=== PATIENT | female | born 1945 | race Caucasian/White ===

== ENCOUNTER 2018-05-17 10:15 | Emergency (ER) | payer MEDICARE, OTHER, SELFPAY ==
[2018-05-17 10:40] VITALS: BP 158/71; PULSE 81; RESP 16; TEMP 36.9; O2SAT 100
--- NOTE | 2018-05-17 11:04 | W.ED.GENAD ---
Discharge Plan Disposition Patient Disposition: HOME Condition: Fair Discharge Details Chief Complaint: GenMedical Clinical Impression: UTI (urinary tract infection) Primary Care Provider: Radha Flannery ED Provider: Belen Murillo Home Meds and New Rx's Prescriptions: New phenazopyridine [Pyridium] 100 mg tablet 100 mg PO TID PRN (Reason: pain) 0 Days Qty: 6 RF: 0 cephalexin [Keflex] 500 mg capsule 500 mg PO BID Qty: 10 RF: 0 Continued atorvastatin 20 mg tablet 20 mg PO DAILY RF: 0 ibuprofen 200 mg tablet 200 mg PO Q6H PRNRF: 0 lisinopril 5 mg tablet 5 mg PO DAILY RF: 0 sennosides 25 mg tablet 25 mg PO ONCE PRNRF: 0 aspirin 81 mg tablet,delayed release (DR/EC) 81 mg PO DAILY RF: 0 donepezil [Aricept] 5 mg tablet 5 mg PO DAILY RF: 0 levothyroxine 75 MCG tablet 75 mcg PO DAILY Qty: 90 RF: 4 Discharge Instructions Instructions: Urinary Tract Infection in Women (ED) Additional Instructions: Encourage hydration. Please take antibiotics as prescribed. Even if symptoms improve, please take the entire course. If you develop flank pain, fever/chills, nausea vomiting, change in bowel habits or other new/worsening symptoms please seek care urgently once again. You have a follow-up appointment to discuss your chronic intermittent blurred vision with Dr. Butterfield on May 31 at 3:45 PM. Please keep this appointment, if you are unable to please call the office Referrals: Radha Flannery MD, [place] [Primary Care Provider] - Discharge Data Discharge Date/Time-TO BE ENTERED AT DEPARTURE: 05/17/18 14:12 Medical Decision Making Patient is a 72 year old female, accompanied by , with c/c of UTI. Reprots that starting this morning she has had dysurea, increased frequency and urgency. Denies flank pain. No fevers/chills. No vaginal discharge. No change in bowel habits. Patient is also endorsing intermittent blurred vision with stress since her cataract surgery one month ago, preformed by Dr. Jiang. Denies symptoms currently. Reports that when she gets this it lasts a few minutes and subsides. Denies CLINE. Denies weakness. contacted Dr. Jiang office, she has complained of blurred vision to them for years per their report. She had surgery this past summer, surgery was not one month ago. Discussed further with the patient. She does report now that there is intermittent blurred vision associated with stress has been going on for the past several years. Is able to make an appointment for follow-up with professor of genetics in 1 week. We discussed new/worsening symptoms when to seek care urgently once again for her blurred vision. As this sounds chronic in nature, has been evaluated by professor of genetics on multiple occasions, I do not feel that emergent evaluation is warranted at this time particularly as the patient is not currently symptomatic and feels that this is unchanged from her baseline Urinalysis consistent with urinary tract infection. Encourage hydration. Patient be treated with antibiotics. We discussed new/worsening symptoms when to seek care urgently once again. Advise follow-up with primary care at the end of the week if this is not completely improved. Patient is also requesting a prescription for Pyridium to help with symptomatic management. All the questions and concerns were addressed and they are in agreement this plan. HPI General Mode of arrival: ambulatory. Date/Time Provider Initiated Documentation: 05/17/18 11:03. Limitations to Documentation: no limitations. Information obtained by: patient and family. History of Present Illness 72 year old F presents to the emergency department with the chief complaint of dysurea, frequency, urgency of urination, described as mild, Quality is described as burning (with urination), Patient reports no radiation. Patient started experiencing this day(s) (1) and it has been constant. No relieving factors improve symptom(s), No exacerbating factors reported . Patient notes denies chest pain, cough, fever/chills, headaches, loss of appetite, nausea/vomiting, rash and shortness of breath. Patient did receive the following treatments prior to arrival, none Related Data Home Medications Medication Instructions Recorded Confirmed levothyroxine 75 mcg PO DAILY #90 tab-cap 09/09/17 aspirin 81 mg tablet,delayed 81 mg PO DAILY 05/12/18 05/12/18 release atorvastatin 20 mg tablet 20 mg PO DAILY 05/12/18 05/12/18 donepezil 5 mg tablet 5 mg PO DAILY 05/12/18 05/12/18 ibuprofen 200 mg tablet 200 mg PO Q6H PRN tab 05/12/18 05/12/18 lisinopril 5 mg tablet 5 mg PO DAILY 05/12/18 05/12/18 sennosides 25 mg tablet 25 mg PO ONCE PRN 05/12/18 05/12/18 cephalexin [Keflex] 500 mg PO BID #10 cap 05/17/18 phenazopyridine [Pyridium] 100 mg PO TID PRN 0 Days #6 tab 05/17/18 Previous Rx's Medication Instructions Recorded cephalexin [Keflex] 500 mg PO BID #10 cap 05/17/18 phenazopyridine [Pyridium] 100 mg PO TID PRN 0 Days #6 tab 05/17/18 Allergies Allergy/AdvReac Type Severity Reaction Status Date / Time No Known Allergies Allergy Unverified 05/17/18 10:46 General Stated Complaint: GenMedical ERICA: 3 Review of Systems Constitutional Reports as per HPI, Denies chills, Denies fever(s) and Denies poor appetite Eyes Reports blurry vision (intermittent with stress, currently asymptomatic. Since surgery.) Cardiovascular Denies chest pain Respiratory Denies cough Gastrointestinal Denies abdominal pain, Denies change in bowel habits, Denies nausea and Denies vomiting Genitourinary Reports as per HPI Musculoskeletal Reports as per HPI and Denies back pain Integumentary/Breasts Reports as per HPI and Denies rash PFSH Medical History Depression Hypertension Hypothyroidism Tobacco use Surgical History Cataract extraction status, left eye (Acute ~01/2018) Cataract extraction status, right eye (Acute ~01/2018) Vaginal hysterectomy Family History Mother Breast cancer Father Emphysema lung Smoker Sister No problems noted. Brother No problems noted. Son No problems noted. Son No problems noted. Daughter No problems noted. Daughter No problems noted. Social History household members: spouse pets and animals: No Smoking/Tobacco Use Status: Current every day alcohol intake: current alcohol intake frequency: a few times a week substance use type: does not use Exam Const General: cooperative, healthy appearing, comfortable, no acute distress, well developed and well groomed Nutritional Appearance: average body habitus and well nourished Orientation: alert and awake Eyes General: appearance normal, both eyes and all related structures Visual Palmer: normal visual palmer by confrontation Alignment and Position: alignment normal Periorbital: periorbital findings normal Eyelids: eyelids normal Conjunctivae: conjunctivae normal Pupils: PERRL EOM: EOM intact bilaterally Resp Effort & Inspection: normal respiratory effort and no respiratory distress Auscultation: clear to auscultation bilaterally, no rales, no rhonchi and no wheezes Cardio Rate: regular rate Rhythm: regular rhythm Heart Sounds: S1 normal and S2 normal GI Inspection: normal to inspection Palpation: soft, no hepatosplenomegaly, not firm, no guarding, not rigid and nontender Back/Spine/Pelvis Back: no CVA tenderness Skin General skin exam: no rashes or lesions noted Trauma: no lacerations or abrasions Neuro General: alert and awake Cognition: normal cognition Speech: speech normal Gait: normal gait Psych Appearance: grossly normal and well kempt Mental Status: mental status grossly normal Speech and Movement: speech and movement normal Course Vital Signs Temperature 36.9 C 05/17/18 10:40 Pulse 81 05/17/18 10:40 Respiratory Rate 16 05/17/18 10:40 Blood Pressure 158/71 H 05/17/18 10:40 Pulse Oximetry 100 05/17/18 10:40 Temperature 36.9 C 05/17/18 10:40 Temperature Source Skin 05/17/18 10:40 Pulse 81 05/17/18 10:40 Respiratory Rate 16 05/17/18 10:40 Respiratory Effort 05/17/18 10:40 Blood Pressure 158/71 H 05/17/18 10:40 Pulse Oximetry 100 05/17/18 10:40 Oxygen Delivery Method Room Air 05/17/18 10:40 Oxygen Flow Rate 0 05/17/18 10:40 Pain Level 0 05/17/18 10:40
[2018-05-17 11:14] LABS: Bilirubin Negative (Negative); Blood Negative (Negative); Clarity Clear; Glucose Negative (Negative); Ketones Negative (Negative); Leukocyte Esterase Trace (Negative); Nitrite Negative (Negative); Specific Gravity 1.015 (1.005-1.025); Urobilinogen 0.2 EU/dL (Up TO 0.2); pH 7.5 (5-8)
--- NOTE | 2018-05-17 11:27 | ED.GENADUL_ITS ---
Discharge Plan Disposition Patient Disposition: HOME Condition: Fair Discharge Details Chief Complaint: GenMedical Clinical Impression: UTI (urinary tract infection) Primary Care Provider: Radha Flannery ED Provider: Belen Murillo Home Meds and New Rx's Prescriptions: New phenazopyridine [Pyridium] 100 mg tablet 100 mg PO TID PRN (Reason: pain) 0 Days Qty: 6 RF: 0 cephalexin [Keflex] 500 mg capsule 500 mg PO BID Qty: 10 RF: 0 Continued atorvastatin 20 mg tablet 20 mg PO DAILY RF: 0 ibuprofen 200 mg tablet 200 mg PO Q6H PRNRF: 0 lisinopril 5 mg tablet 5 mg PO DAILY RF: 0 sennosides 25 mg tablet 25 mg PO ONCE PRNRF: 0 aspirin 81 mg tablet,delayed release (DR/EC) 81 mg PO DAILY RF: 0 donepezil [Aricept] 5 mg tablet 5 mg PO DAILY RF: 0 levothyroxine 75 MCG tablet 75 mcg PO DAILY Qty: 90 RF: 4 Discharge Instructions Instructions: Urinary Tract Infection in Women (ED) Additional Instructions: Encourage hydration. Please take antibiotics as prescribed. Even if symptoms improve, please take the entire course. If you develop flank pain, fever/chills, nausea vomiting, change in bowel habits or other new/worsening symptoms please seek care urgently once again. You have a follow-up appointment to discuss your chronic intermittent blurred vision with Dr. Butterfield on May 31 at 3:45 PM. Please keep this appointment, if you are unable to please call the office Referrals: Radha Flannery MD, [place] [Primary Care Provider] - Discharge Data Discharge Date/Time-TO BE ENTERED AT DEPARTURE: 05/17/18 14:12 Medical Decision Making Patient is a 72 year old female, accompanied by , with c/c of UTI. Reprots that starting this morning she has had dysurea, increased frequency and urgency. Denies flank pain. No fevers/chills. No vaginal discharge. No change in bowel habits. Patient is also endorsing intermittent blurred vision with stress since her cataract surgery one month ago, preformed by Dr. Jiang. Denies symptoms currently. Reports that when she gets this it lasts a few minutes and subsides. Denies CLINE. Denies weakness. contacted Dr. Jiang office, she has complained of blurred vision to them for years per their report. She had surgery this past summer, surgery was not one month ago. Discussed further with the patient. She does report now that there is intermittent blurred vision associated with stress has been going on for the past several years. Is able to make an appointment for follow-up with assurance manager in 1 week. We discussed new/worsening symptoms when to seek care urgently once again for her blurred vision. As this sounds chronic in nature, has been evaluated by assurance manager on multiple occasions, I do not feel that emergent evaluation is warranted at this time particularly as the patient is not currently symptomatic and feels that this is unchanged from her baseline Urinalysis consistent with urinary tract infection. Encourage hydration. Patient be treated with antibiotics. We discussed new/worsening symptoms when to seek care urgently once again. Advise follow-up with primary care at the end of the week if this is not completely improved. Patient is also requesting a prescription for Pyridium to help with symptomatic management. All the questions and concerns were addressed and they are in agreement this plan. HPI General Mode of arrival: ambulatory . Date/Time Provider Initiated Documentation: 05/17/18 11:03 . Limitations to Documentation: no limitations . Information obtained by: patient and family . History of Present Illness 72 year old F presents to the emergency department with the chief complaint of dysurea, frequency, urgency of urination, described as mild, Quality is described as burning (with urination), Patient reports no radiation. Patient started experiencing this day(s) (1) and it has been constant. No relieving factors improve symptom(s), No exacerbating factors reported . Patient notes denies chest pain, cough, fever/chills, headaches, loss of appetite, nausea/vomiting, rash and shortness of breath. Patient did receive the following treatments prior to arrival, none Related Data Home Medications Medication Instructions Recorded Confirmed levothyroxine 75 mcg PO DAILY #90 tab-cap 09/09/17 aspirin 81 mg tablet,delayed 81 mg PO DAILY 05/12/18 05/12/18 release atorvastatin 20 mg tablet 20 mg PO DAILY 05/12/18 05/12/18 donepezil 5 mg tablet 5 mg PO DAILY 05/12/18 05/12/18 ibuprofen 200 mg tablet 200 mg PO Q6H PRN tab 05/12/18 05/12/18 lisinopril 5 mg tablet 5 mg PO DAILY 05/12/18 05/12/18 sennosides 25 mg tablet 25 mg PO ONCE PRN 05/12/18 05/12/18 cephalexin [Keflex] 500 mg PO BID #10 cap 05/17/18 phenazopyridine [Pyridium] 100 mg PO TID PRN 0 Days #6 tab 05/17/18 Previous Rx's Medication Instructions Recorded cephalexin [Keflex] 500 mg PO BID #10 cap 05/17/18 phenazopyridine [Pyridium] 100 mg PO TID PRN 0 Days #6 tab 05/17/18 Allergies Allergy/AdvReac Type Severity Reaction Status Date / Time No Known Allergies Allergy Unverified 05/17/18 10:46 General Stated Complaint: GenMedical ERICA: 3 Review of Systems Constitutional Reports as per HPI, Denies chills, Denies fever(s) and Denies poor appetite Eyes Reports blurry vision (intermittent with stress, currently asymptomatic. Since surgery.) Cardiovascular Denies chest pain Respiratory Denies cough Gastrointestinal Denies abdominal pain, Denies change in bowel habits, Denies nausea and Denies vomiting Genitourinary Reports as per HPI Musculoskeletal Reports as per HPI and Denies back pain Integumentary/Breasts Reports as per HPI and Denies rash PFSH Medical History Depression Hypertension Hypothyroidism Tobacco use Surgical History Cataract extraction status, left eye (Acute ~01/2018) Cataract extraction status, right eye (Acute ~01/2018) Vaginal hysterectomy Family History Mother Breast cancer Father Emphysema lung Smoker Sister No problems noted. Brother No problems noted. Son No problems noted. Son No problems noted. Daughter No problems noted. Daughter No problems noted. Social History household members: spouse pets and animals: No Smoking/Tobacco Use Status: Current every day alcohol intake: current alcohol intake frequency: a few times a week substance use type: does not use Exam Const General: cooperative, healthy appearing, comfortable, no acute distress, well developed and well groomed Nutritional Appearance: average body habitus and well nourished Orientation: alert and awake Eyes General: appearance normal, both eyes and all related structures Visual Palmer: normal visual palmer by confrontation Alignment and Position: alignment normal Periorbital: periorbital findings normal Eyelids: eyelids normal Conjunctivae: conjunctivae normal Pupils: PERRL EOM: EOM intact bilaterally Resp Effort & Inspection: normal respiratory effort and no respiratory distress Auscultation: clear to auscultation bilaterally, no rales, no rhonchi and no wheezes Cardio Rate: regular rate Rhythm: regular rhythm Heart Sounds: S1 normal and S2 normal GI Inspection: normal to inspection Palpation: soft, no hepatosplenomegaly, not firm, no guarding, not rigid and nontender Back/Spine/Pelvis Back: no CVA tenderness Skin General skin exam: no rashes or lesions noted Trauma: no lacerations or abrasions Neuro General: alert and awake Cognition: normal cognition Speech: speech normal Gait: normal gait Psych Appearance: grossly normal and well kempt Mental Status: mental status grossly normal Speech and Movement: speech and movement normal Course Vital Signs Temperature 36.9 C 05/17/18 10:40 Pulse 81 05/17/18 10:40 Respiratory Rate 16 05/17/18 10:40 Blood Pressure 158/71 H 05/17/18 10:40 Pulse Oximetry 100 05/17/18 10:40 Temperature 36.9 C 05/17/18 10:40 Temperature Source Skin 05/17/18 10:40 Pulse 81 05/17/18 10:40 Respiratory Rate 16 05/17/18 10:40 Respiratory Effort 05/17/18 10:40 Blood Pressure 158/71 H 05/17/18 10:40 Pulse Oximetry 100 05/17/18 10:40 Oxygen Delivery Method Room Air 05/17/18 10:40 Oxygen Flow Rate 0 05/17/18 10:40 Pain Level 0 05/17/18 10:40
[2018-05-17 11:30] LABS: Bacteria Many HPF (Negative); Epithelial Cells Few HPF (Negative); RBC Negative (0-2)
[2018-05-17 11:31] LABS: C & S Indicated? Yes; Crystals Negative HPF (Negative); Mucus Negative (Negative)
--- NOTE | 2018-05-17 11:32 | NUR.NOTE ---
20/40 right eye 20/40 left eye 20/40 bilateral eye Nursing Note:
== END 2018-05-17 14:12 | disposition home or self-care (01) ==
PROVIDERS: Emergency Provider Physician Assistant; PCP Family Medicine
DX: N39.0 Urinary tract infection, site not specified (principal); B96.1 Klebsiella pneumoniae [K. pneumoniae] as the cause of diseases classified elsewhere; H53.8 Other visual disturbances; Z87.440 Personal history of urinary (tract) infections
CPT/HCPCS: 36415; 87077; 99283; 81003; 81015; 87086; 87186

== ENCOUNTER 2018-06-02 08:17 | Outpatient (REF) | payer MEDICARE, OTHER, SELFPAY ==
[2018-06-02 09:09] LABS: Bilirubin Negative (Negative); Blood Negative (Negative); Glucose Negative (Negative); Ketones Negative (Negative); Leukocyte Esterase Negative (Negative); Nitrite Negative (Negative); Specific Gravity 1.025 (1.005-1.025); Urobilinogen 0.2 EU/dL (Up TO 0.2)
[2018-06-02 09:10] LABS: Clarity Sl Cloudy
== END 2018-06-02 08:37 ==
LOC: LBN 08:17
PROVIDERS: PCP Family Medicine; Visit Provider Family Medicine
DX: N39.0 Urinary tract infection, site not specified (principal)
CPT/HCPCS: 81003

== ENCOUNTER 2018-06-08 10:38 | Outpatient (CLI) | payer MEDICARE, OTHER, SELFPAY ==
[2018-06-08 11:22] LABS: Mean Corp. HGB Concentration 32.4 g/dL (32.0-36.0); Mean Corpuscular Hemoglobin 32.2 pg (27.0-33.0); Mean Corpuscular Volume 99.2 fL (80-95); Mean Platelet Volume 9.7 fL (8.0-11.0); Platelet Count 266 x1000/uL (130-400); RBC 3.73 m/cumm (4.00-5.20); RBC Distribution Width 13.4 % (11.7-14.6); White Blood Cell Count 5.53 k/cumm (4.4-10.8)
[2018-06-08 11:51] LABS: Hemoglobin A1C 5.8 % (4.5-6.2)
[2018-06-08 12:53] LABS: Iron 106 ug/dL (50-175)
[2018-06-08 13:30] LABS: ALT 22 U/L (12-78); AST 18 U/L (15-37); Albumin 3.4 g/dL (3.4-5.0); Alkaline Phosphatase 104 U/L (46-116); Anion Gap 8.1 mmol/L (3-11); BUN 19 mg/dL (7-18); Bilirubin, Total 0.4 mg/dL (0.2-1.0); CO2 27.9 mmol/L (21.0-32.0); CREATININE 0.85 mg/dL (0.55-1.02); Calcium 9.3 mg/dL (8.5-10.1); Chloride 107 mmol/L (98-107); Cholesterol 173 mg/dL (50-200); Glucose 83 mg/dL (70-100); HDL Cholesterol 68 mg/dL (40-60); LDL CHOLESTEROL 84 mg/dL (<100); Potassium 4.2 mmol/L (3.5-5.1); Sodium 143 mmol/L (136-145); Total Protein 6.7 g/dL (6.4-8.2); Triglyceride 70 mg/dL (30-150); Vitamin B12 1251 pg/mL (193-986)
== END 2018-06-08 10:58 ==
PROVIDERS: PCP Family Medicine; Visit Provider Family Medicine
DX: E11.9 Type 2 diabetes mellitus without complications (principal); E03.9 Hypothyroidism, unspecified; I10 Essential (primary) hypertension; F32.9 Major depressive disorder, single episode, unspecified; G31.9 Degenerative disease of nervous system, unspecified
CPT/HCPCS: 36415; 80053; 80061; 83721; 85027; 82607; 83036; 83540

== ENCOUNTER 2018-06-17 07:00 | Outpatient (CLI) | payer MEDICARE, OTHER, SELFPAY | END 2018-06-17 07:20 | PROVIDERS: PCP Family Medicine; Visit Provider Family Medicine | DX: E03.9 Hypothyroidism, unspecified (principal); R31.29 Other microscopic hematuria | CPT/HCPCS: 36415; 87077; 81003; 84439; 84443; 87086; 87186 ==

== ENCOUNTER 2018-08-15 11:02 | Outpatient (REF) | payer MEDICARE, OTHER, SELFPAY ==
[2018-08-15 12:02] LABS: Bilirubin Negative (Negative); Blood Negative (Negative); Clarity Clear; Glucose Negative (Negative); Ketones Negative (Negative); Leukocyte Esterase Trace (Negative); Nitrite Positive (Negative); Urobilinogen 0.2 EU/dL (Up TO 0.2); pH 6.5 (5-8)
[2018-08-15 12:20] LABS: Epithelial Cells Rare HPF (Negative); RBC 0-2 (0-2)
[2018-08-15 12:21] LABS: Bacteria Many HPF (Negative); C & S Indicated? Yes; Casts Negative LPF (Negative); Crystals Negative HPF (Negative); Mucus Negative (Negative); Other Cells Negative (Negative)
== END 2018-08-15 11:22 ==
LOC: LBN 11:02
PROVIDERS: PCP Family Medicine; Visit Provider Family Medicine
DX: R41.82 Altered mental status, unspecified (principal); R82.998 Other abnormal findings in urine
CPT/HCPCS: 87077; 81003; 81015; 87086; 87186

== ENCOUNTER 2018-08-28 08:50 | Emergency (ER) | payer MEDICARE, OTHER, SELFPAY ==
[2018-08-28] VITALS (11 sets, daily range): BP systolic 157–190; BP diastolic 75–84; PULSE 60–82; RESP 12–23; TEMP 36.5; O2SAT 97–98
--- NOTE | 2018-08-28 09:17 | DI.CT_ITS ---
SYMPTOM/DIAGNOSIS: HIGH BLOOD PRESSURE, DIZZY NONCONTRAST HEAD CT: No priors. The ventricles and sulci are consistent with the patient's age. No acute intracranial infarct, hemorrhage, midline shift or mass effect is identified. The ventricles are intact. The basilar cisterns are patent. The visualized paranasal sinuses are clear. The mastoid air cells appear pneumatized. The calvarium is intact. IMPRESSION: No acute intracranial process.
--- NOTE | 2018-08-28 09:20 | ED.GENADUL_ITS ---
Discharge Plan Disposition Patient Disposition: HOME Condition: Improving Discharge Details Chief Complaint: GenMedical Clinical Impression: Essential hypertension Primary Care Provider: Radha Flannery ED Provider: Kike Montenegro Home Meds and New Rx's Prescriptions: Continued ibuprofen 200 mg tablet 200 mg PO Q6H PRNRF: 0 sennosides 25 mg tablet 25 mg PO ONCE PRNRF: 0 lisinopril 5 mg tablet 5 mg PO DAILY RF: 0 escitalopram oxalate 20 mg tablet 20 mg PO DAILY Qty: 90 RF: 4 levothyroxine 75 MCG tablet 75 mcg PO DAILY Qty: 90 RF: 4 memantine [Namenda] 10 mg tablet 10 mg PO BID Qty: 60 RF: 5 cephalexin 500 mg capsule 500 mg PO TID Qty: 42 RF: 0 Discharge Instructions Instructions: Hypertension (ED) Additional Instructions: Home to rest today. Observe a low-salt diet. We will make an appointment for you to follow-up in clinic on Thursday or Thursday. Please take once daily blood pressures and record them. Return if you develop a headache, vomiting, chest pain, or any other acute concerns. Continue your regular medications and finish the prescription of Keflex. Follow-up with Dr. Melo as planned. Medical Decision Making 73-year-old female presents from home with family with 3 days of note of blood pressure is approximate 180/90 at home with associated feeling of pressure in her head and slight dizziness. No vestibular dysfunction, no falls. Her exam is reassuring. She is hypertensive 190/84, otherwise normal vital signs. Patient had screening EKG, labs, UA, and CT head performed. Repeat BP in the ED: 157/77 & 165/75. Urinalysis without evidence of UTI. CBC and chemistries with troponin are unremarkable as well. CT scan of the head without acute intracranial findings. Discussed my impression that this may be mild hypertensive related symptoms versus anxiety. Given the blood pressure is 150s-160s I do not feel I should initiate increased antihypertensive control at this time, but rather will arrange for an appointment with Dr. Flannery in clinic on Thursday or Thursday. Patient and family will continue to check once daily blood pressures. They will return for any acute concerns Lab Data Lab results reviewed: Yes I reviewed the patient's lab results. Laboratory Results - last 24 hr 08/28/18 08/28/18 08/28/18 09:30 09:30 10:05 WBC 5.60 RBC 3.96 L Hgb 12.5 Hct 38.6 MCV 97.5 H MCH 31.6 MCHC 32.4 RDW 13.5 Plt Count 344 MPV 9.4 Immature Gran % 0.4 Neutrophils % 71.0 Lymphocytes % 18.6 Monocytes % 6.8 Eosinophils % 2.7 Basophils % 0.5 Absolute Neutrophils 3.98 Absolute Lymphocytes 1.04 L Absolute Monocytes 0.38 Absolute Eosinophils 0.15 Absolute Basophils 0.03 Sodium 143 Potassium 3.7 Chloride 106 Carbon Dioxide 26.8 Anion Gap 10.2 BUN 13 Creatinine 0.74 Estimated GFR/1.73 m2 >= 60.00 Glucose 101 H Calcium 9.1 Magnesium 2.2 Total Bilirubin 0.4 AST 14 L ALT 15 Alkaline Phosphatase 103 Troponin I < 0.02 Total Protein 7.1 Albumin 3.4 Urine Color Yellow Urine Clarity Clear Urine pH 7.0 Ur Specific [place] 1.020 Urine Protein Negative Urine Ketones Negative Urine Blood Negative Urine Nitrite Negative Urine Bilirubin Negative Urine Urobilinogen 0.2 Ur Leukocyte Esterase Negative Urine Glucose Negative ECG Data Attestation: I personally reviewed and interpreted this ECG (s) as follows: Interpretation: Normal sinus rhythm with a rate of 68, the QRS is narrow, there are nonspecific ST segment flattening throughout without ST segment L of HPI General Mode of arrival: ambulatory . Date/Time Provider Initiated Documentation: 08/28/18 09:00 . Limitations to Documentation: no limitations . Information obtained by: patient and family . History of Present Illness 73 year old F presents to the emergency department with the chief complaint of Feeling pressure in head and slightly dizzy with elevated blood pressure, described as mild, Quality is described as dull, and is localized to the head. Patient reports no radiation. Patient started experiencing this day(s) and it has been intermittent. No relieving factors improve symptom(s), No exacerbating factors reported . Patient notes no other symptoms.; denies chest pain, nausea/vomiting, syncope and weakness. Patient did receive the following treatments prior to arrival, none and other (On Keflex for recurrent UTI and has been referred to Dr. Melo) Related Data Home Medications Medication Instructions Recorded Confirmed levothyroxine 75 mcg PO DAILY #90 tab-cap 09/09/17 08/28/18 ibuprofen 200 mg tablet 200 mg PO Q6H PRN tab 05/12/18 08/28/18 sennosides 25 mg tablet 25 mg PO ONCE PRN 05/12/18 08/28/18 escitalopram 20 mg tablet 20 mg PO DAILY #90 tab 07/15/18 08/28/18 lisinopril 5 mg tablet 5 mg PO DAILY 07/15/18 08/28/18 memantine 10 mg tablet 10 mg PO BID #60 tab 07/28/18 08/28/18 cephalexin 500 mg capsule 500 mg PO TID #42 cap 08/19/18 08/28/18 Previous Rx's Medication Instructions Recorded escitalopram 20 mg tablet 20 mg PO DAILY #90 tab 07/15/18 memantine 10 mg tablet 10 mg PO BID #60 tab 07/28/18 cephalexin 500 mg capsule 500 mg PO TID #42 cap 08/19/18 Allergies Allergy/AdvReac Type Severity Reaction Status Date / Time bupropion [From Wellbutrin] AdvReac Intermediate Palpitation Verified 08/28/18 08:59 s General Stated Complaint: GenMedical ERICA: 3 Review of Systems Review of Systems No chest pain, fall, focal motor weakness. 8 systems reviewed and otherwise negative. She has referral to urology for recurrent UTIs and currently is on Keflex [facility] Medical History Brain atrophy (Chronic) Migraine (Chronic) Ischemic vascular disease (Chronic) Age-related cataract of both eyes (Resolved) Chronic fatigue (Chronic) Depression (Chronic 08/23/15) Essential hypertension (Chronic) Hypothyroidism (Chronic 08/23/15) Seasonal affective disorder (Chronic) Tobacco use disorder (Chronic 08/23/15) Vitamin D deficiency (Chronic) Depression Hypertension Hypothyroidism Tobacco use Surgical History Cataract extraction status, left eye (Acute ~01/2018) Cataract extraction status, right eye (Acute ~01/2018) Vaginal hysterectomy Family History Mother Breast cancer Father Emphysema lung Smoker Sister No problems noted. Brother No problems noted. Son No problems noted. Son No problems noted. Daughter No problems noted. Daughter No problems noted. Social History (Reviewed 05/17/18 @ 22:16 by SHIVA Carias Smoking/Tobacco Use Status: Current every day Tobacco Type: cigarettes Alcohol Intake: never Drug use: Never Substance use type: does not use Household members: spouse Pets and animals: No Do you feel safe in your relationship?: Yes Exam Narrative Exam Narrative: GEN: awake, alert, oriented 3. Pleasant, well groomed, interactive. HEAD: Normocephalic, atraumatic ENT: Mucous membranes moist, oropharynx unremarkable, External ear exam unremarkable EYES: PERRL, EOMI NECK: Full ROM, no KAIA, no menigismus CHEST/RESP: Nontender, clear to auscultation bilateral, no wheeze/rhonchi/rales CARDIOVASCULAR: RRR, no murmur, rub janna. 2+ Rad pulse bilateral ABDOMEN: Soft, nontender, no mass. +Bowel sounds EXT: Full ROM, no edema, no rash Neuro: Grossly normal neurologic exam, conversant, interactive. Finger to nose intact. Visual webster intact to confrontation. Romberg negative. Gait narrow based with good heel strike Psych: Speech fluent, thoughts congruent, affect normal Course Vital Signs Temperature 36.5 C 08/28/18 08:56 Pulse 82 08/28/18 08:56 Respiratory Rate 16 08/28/18 08:56 Blood Pressure 190/84 H 08/28/18 08:56 Pulse Oximetry 97 08/28/18 08:56 Temperature 36.5 C 08/28/18 08:56 Temperature Source Skin 08/28/18 08:56 Pulse 82 08/28/18 08:56 Respiratory Rate 16 08/28/18 09:05 Respiratory Effort Non-Labored 08/28/18 09:05 Respiratory Depth Normal 08/28/18 09:05 Respiratory Pattern Normal 08/28/18 09:05 Blood Pressure 190/84 H 08/28/18 08:56 Blood Pressure Position Sitting 08/28/18 08:56 Pulse Oximetry 97 08/28/18 08:56 Oxygen Delivery Method Room Air 08/28/18 08:56 Oxygen Flow Rate 0 08/28/18 08:56 Pain Level 0 08/28/18 08:56
[2018-08-28 09:35] LABS: Abs Immature Grans 0.02 k/cumm (0.0-0.09); Absolute Basophil Count 0.03 k/cumm (0.0-0.2); Absolute Eosinophil Count 0.15 k/cumm (0.0-0.7); Absolute Lymphocyte Count 1.04 k/cumm (1.2-3.4); Absolute Monocyte Count 0.38 k/cumm (0.11-0.7); Absolute Neutrophil Count 3.98 k/cumm (1.2-6.7); Basophils % 0.5; Eosinophils % 2.7; HCT 38.6 % (36.0-46.0); HGB 12.5 g/dL (12.0-15.5); Immature Grans % 0.4; Lymphocytes % 18.6; Mean Corp. HGB Concentration 32.4 g/dL (32.0-36.0); Mean Corpuscular Hemoglobin 31.6 pg (27.0-33.0); Mean Corpuscular Volume 97.5 fL (80-95); Mean Platelet Volume 9.4 fL (8.0-11.0); Monocytes % 6.8; Platelet Count 344 x1000/uL (130-400); RBC 3.96 m/cumm (4.00-5.20); RBC Distribution Width 13.5 % (11.7-14.6)
[2018-08-28 09:50] LABS: ALT 15 U/L (12-78); AST 14 U/L (15-37); Albumin 3.4 g/dL (3.4-5.0); Alkaline Phosphatase 103 U/L (46-116); Anion Gap 10.2 mmol/L (3-11); BUN 13 mg/dL (7-18); Bilirubin, Total 0.4 mg/dL (0.2-1.0); CO2 26.8 mmol/L (21.0-32.0); CREATININE 0.74 mg/dL (0.55-1.02); Calcium 9.1 mg/dL (8.5-10.1); Chloride 106 mmol/L (98-107); Glucose 101 mg/dL (70-100); Magnesium 2.2 mg/dL (1.8-2.4); Potassium 3.7 mmol/L (3.5-5.1); Sodium 143 mmol/L (136-145); Total Protein 7.1 g/dL (6.4-8.2)
[2018-08-28 09:55] LABS: Troponin I < 0.02 ng/mL (0.00-0.06)
[2018-08-28 10:10] LABS: Bilirubin Negative (Negative); Blood Negative (Negative); Clarity Clear; Glucose Negative (Negative); Ketones Negative (Negative); Leukocyte Esterase Negative (Negative); Nitrite Negative (Negative); Urobilinogen 0.2 EU/dL (Up TO 0.2)
--- NOTE | 2018-08-28 10:12 | DI.VRAD_ITS ---
EXAM: CT Head Without Contrast EXAM DATE/TIME: 08/28/2018 9:18 AM CLINICAL HISTORY: 73 years old, female; Signs and symptoms; Other: High blood pressure, feeling dizzy TECHNIQUE: Imaging protocol: Axial computed tomography images of the head/brain without contrast. Coronal and sagittal reformatted images were created and reviewed. Radiation optimization: All CT scans at this facility use at least one of these dose optimization techniques: automated exposure control; mA and/or kV adjustment per patient size (includes targeted exams where dose is matched to clinical indication); or iterative reconstruction. COMPARISON: No relevant prior studies available. FINDINGS: Brain: There is no evidence of acute intracranial hemorrhage demonstrated on the examination. No hyperdense foci to suggest intraparenchymal blood. No evidence of acute cerebral ischemia. No mass effect or midline shift. Normal irby-white matter differentiation. The cortical sulci and subarachnoid cisterns are unremarkable. Ventricles: Normal. No ventriculomegaly. Bones/joints: There is no evidence of acute calvarial fracture. Hyperostosis frontalis interna. Sinuses: Visualized sinuses are unremarkable. No acute sinusitis. Mastoid air cells: Visualized mastoid air cells are unremarkable. No mastoid effusion. Orbits: Bilateral intraocular lens implants. Soft tissues: Unremarkable. IMPRESSION: No evidence of acute intracranial hemorrhage. Dictated and Authenticated by: Chadwick Pyle MD. Ordering:EDWAR Stokes MD
--- NOTE | 2018-08-30 09:08 | PDOC.ERCMPRO ---
Care Management Progress Note 08/30-Dr. Montenegro requested assistance with a PCP (Alma Delia) f/u Thursday or Wednesday 08/30-08/31, for high blood pressure. Referral faxed to [facility] this am.
== END 2018-08-28 10:32 | disposition home or self-care (01) ==
LOC: ER 10:39
PROVIDERS: Emergency Provider Emergency Medicine; PCP Family Medicine
DX: I10 Essential (primary) hypertension (principal)
CPT/HCPCS: 36415; 80053; 99285; 70450; 81003; 83735; 84484; 85025

== ENCOUNTER 2018-09-07 15:36 | Outpatient (REF) | payer MEDICARE, OTHER, SELFPAY ==
[2018-09-07 16:07] LABS: Bilirubin Negative (Negative); Blood Negative (Negative); Clarity Clear; Glucose Negative (Negative); Ketones Negative (Negative); Leukocyte Esterase Negative (Negative); Nitrite Negative (Negative); Specific Gravity 1.015 (1.005-1.025); Urobilinogen 0.2 EU/dL (Up TO 0.2)
== END 2018-09-07 15:56 ==
LOC: LBN 15:36
PROVIDERS: PCP Family Medicine; Visit Provider Family Medicine
DX: N39.0 Urinary tract infection, site not specified (principal)
CPT/HCPCS: 81003; 87086

== ENCOUNTER 2018-09-23 13:13 | Outpatient (REF) | payer MEDICARE, OTHER, SELFPAY | END 2018-09-23 13:33 | LOC: LBN 13:13 | PROVIDERS: PCP Family Medicine; Visit Provider Family Medicine | DX: N39.0 Urinary tract infection, site not specified (principal) | CPT/HCPCS: 87077; 87086; 87186 ==

== ENCOUNTER 2018-09-29 16:14 | Emergency (ER) | payer MEDICARE, OTHER, SELFPAY ==
[2018-09-29 16:28] VITALS: BP 157/74; PULSE 86; RESP 20; TEMP 36.7; O2SAT 98
[2018-09-29 16:33] VITALS: RESP 20
--- NOTE | 2018-09-29 16:36 | W.ED.GENAD ---
Discharge Plan Disposition Patient Disposition: HOME Discharge Details Chief Complaint: GenMedical Clinical Impression: Feeling unwell Primary Care Provider: Radha Flannery ED Provider: Belen Murillo Home Meds and New Rx's Prescriptions: Continued lisinopril 20 mg tablet 20 mg PO DAILY Qty: 90 RF: 4 Estring 2 mg (7.5 mcg /24 hour) ring 1 vag ring [id number] Qty: 1 RF: 4 escitalopram oxalate 20 mg tablet 20 mg PO DAILY Qty: 90 RF: 4 levothyroxine 75 MCG tablet 75 mcg PO DAILY Qty: 90 RF: 4 hydrochlorothiazide 25 mg tablet 25 mg PO DAILY Qty: 90 RF: 4 metoprolol succinate 25 mg tablet extended release 24 hr 25 mg PO DAILY Qty: 90 RF: 4 cephalexin 500 mg capsule 500 mg PO TID Qty: 15 RF: 0 Discharge Instructions Additional Instructions: Encourage hydration. Continue with typical medications. Please keep appointment with primary care tomorrow. Your labs are reassuring at this time. If you develop new/worsening symptoms please seek care urgently once again. Referrals: Radha Flannery MD, [place] [Primary Care Provider] - Medical Decision Making Patient is 73-year-old female, brought in by her daughter, with odd sensations for the past several months and generalized fatigue. Patient does have diagnosis of chronic fatigue. She has discussed this with her primary care. I did review the recent primary care note and Dr. Chavarria was concerned the patient may have advancing dementia. The daughter reports that she is aware of the dementia but that the patient is in denial about this diagnosis. Patient is appropriate but does have difficulty with word finding which the daughter reports is typical and unchanged from her baseline. She does not have a good grasp on her symptoms or complaints. They are concerned that her UTI is not completely cleared although her symptoms have subsided. She does have a follow-up appointment tomorrow with her primary care doctor but they feel that blood work needs to be completed today. Unclear as to what diagnosis they are concerned for. Exam is benign. Patient denies any headache, visual change, neck pain, rash, abdominal pain, chest pain, shortness of breath. No change in urinary or bowel habits. Patient does report chronic constipation. Endorses chronic nausea but no vomiting. Obtain CBC, CMP, troponin, TSH. No acute abnormalities were noted on labs. Discussed this with the patient and her daughter. Patient does have history of anxiety and clearly appears anxious at today's visit. She is searching something out to try and wrap all of her symptoms together. Agree with primary thought that this is likely advancing dementia with an anxiety component. I did try to discuss this with the patient and her daughter but patient again is unaware of her diagnosis of dementia. Advised to discuss this further with the primary. They did request an anxiolytic but given the patient's age mental status, I am concerned with prescribing these medications without first consulting with her primary care. I will discuss this further tomorrow at her appointment. We discussed new/worsening symptoms when to seek care urgently once again. All the questions and concerns were addressed and they are in agreement with this plan. HPI General Mode of arrival: ambulatory. Date/Time Provider Initiated Documentation: 09/29/18 16:35. Limitations to Documentation: altered mental status (hx of dementia). Information obtained by: patient, family and RN notes reviewed. HPI Narrative: Patient is 73-year-old female with history of dysuria, dimension, ischemic vascular disease, cataracts, chronic fatigue, depression, hypertension, hypothyroidism and vitamin D deficiency presenting today with chief complaint of fatigue. Her symptoms are very vague. Patient reports feeling unwell. States that this is particularly worse at night. Is waking up having odd sensations of swishing in her head. She denies any audible swishing but states is more of a sensation in her brain. She denies any recent illness. She reports that she has had this fatigue for at least the past 3 months and is progressively been getting worse. Daughter reports that she is also been intermittently complaining of nausea. Patient is currently on Keflex for urinary tract infection. They are questioning if this is unsuccessful at treating her infection and that she may need a new antibiotic. She does report that her dysuria, increased frequency and urgency have completely subsided since being on the antibiotics. Related Data Home Medications Medication Instructions Recorded Confirmed levothyroxine 75 mcg PO DAILY #90 tab-cap 09/09/17 09/29/18 escitalopram 20 mg tablet 20 mg PO DAILY #90 tab 07/15/18 09/29/18 lisinopril 20 mg tablet 20 mg PO DAILY #90 tab 08/30/18 09/29/18 hydrochlorothiazide 25 mg tablet 25 mg PO DAILY #90 tab 09/01/18 09/29/18 metoprolol succinate ER 25 mg 25 mg PO DAILY #90 tab 09/04/18 09/29/18 tablet,extended release 24 hr estradiol 2 mg (7.5 mcg/24 hour) 1 vag ring [id number] #1 each 09/23/18 09/23/18 vaginal ring cephalexin 500 mg capsule 500 mg PO TID #15 cap 09/24/18 09/29/18 Previous Rx's Medication Instructions Recorded escitalopram 20 mg tablet 20 mg PO DAILY #90 tab 07/15/18 lisinopril 20 mg tablet 20 mg PO DAILY #90 tab 08/30/18 hydrochlorothiazide 25 mg tablet 25 mg PO DAILY #90 tab 09/01/18 metoprolol succinate ER 25 mg 25 mg PO DAILY #90 tab 09/04/18 tablet,extended release 24 hr estradiol 2 mg (7.5 mcg/24 hour) 1 vag ring [id number] #1 each 09/23/18 vaginal ring cephalexin 500 mg capsule 500 mg PO TID #15 cap 09/24/18 Allergies Allergy/AdvReac Type Severity Reaction Status Date / Time bupropion [From Wellbutrin] AdvReac Intermediate Palpitation Verified 09/29/18 16:32 s memantine [From Namenda] AdvReac Nausea Verified 09/29/18 16:32 General Stated Complaint: GenMedical ERICA: 3 Review of Systems Constitutional Reports as per HPI, Denies chills, Denies fever(s), Denies headache(s), Denies lethargy and Denies poor appetite Eyes Denies change in vision ENT Denies dizziness and Denies headache(s) Cardiovascular Reports as per HPI, Denies dyspnea and Denies dyspnea on exertion Respiratory Reports as per HPI, Denies chest congestion, Denies cough, Denies pain on inspiration, Denies pain with cough, Denies dyspnea, Denies dyspnea on exertion and Denies wheezing Gastrointestinal Reports as per HPI, Denies abdominal pain, Denies diarrhea, Reports nausea and Denies vomiting Musculoskeletal Reports as per HPI and Denies back pain Integumentary/Breasts Reports as per HPI and Denies rash Neurologic Reports as per HPI, Denies dizziness and Denies headache(s) Psychiatric Reports anxiety Allergic/Immunologic Denies wheezing [facility] Medical History Brain atrophy (Chronic) Migraine (Chronic) Ischemic vascular disease (Chronic) Age-related cataract of both eyes (Resolved) Chronic fatigue (Chronic) Depression (Chronic 08/23/15) Essential hypertension (Chronic) Hypothyroidism (Chronic 08/23/15) Seasonal affective disorder (Chronic) Tobacco use disorder (Chronic 08/23/15) Vitamin D deficiency (Chronic) Depression Hypertension Hypothyroidism Tobacco use Surgical History Cataract extraction status, left eye (Acute ~01/2018) Cataract extraction status, right eye (Acute ~01/2018) Vaginal hysterectomy Social History Smoking/Tobacco Use Status: Current every day Tobacco Type: cigarettes Alcohol Intake: never Drug use: Never Substance use type: does not use Household members: spouse Pets and animals: No Do you feel safe at home: Yes Do you feel safe in your relationship?: Yes Exam Const General: cooperative, healthy appearing, comfortable, no acute distress and well developed Nutritional Appearance: average body habitus and well nourished Orientation: alert, awake and oriented x3 HENMT Head: normal to inspection Ears: hearing grossly normal bilaterally Mouth: moist mucous membranes Chest Chest: normal inspection of the chest, normal palpation of entire chest wall and no crepitus Resp Effort & Inspection: normal respiratory effort, able to speak in complete sentences and no respiratory distress Auscultation: clear to auscultation bilaterally, no rales, no rhonchi and no wheezes Cardio Rate: regular rate Rhythm: regular rhythm Heart Sounds: S1 normal and S2 normal GI Inspection: normal to inspection, no edema and non-distended Palpation: soft, no hepatosplenomegaly, not firm, no guarding, not rigid and nontender Auscultation: normal bowel sounds Back/Spine/Pelvis Back: no CVA tenderness Thoracic/Lumbar Spine: thoracic and lumbar spine normal to inspection Skin General skin exam: no rashes or lesions noted Trauma: no lacerations or abrasions Neuro General: alert, awake and oriented x3 Cognition: normal cognition Speech: speech normal Gait: normal gait Extrem General: normal to inspection, normal capillary refill, no pedal edema, no calf tenderness and normal gait Psych Appearance: grossly normal and well kempt Mental Status: mental status grossly normal Speech and Movement: speech and movement normal Course Vital Signs Temperature 36.7 C 09/29/18 16:28 Pulse 86 09/29/18 16:28 Respiratory Rate 20 09/29/18 16:28 Blood Pressure 157/74 H 09/29/18 16:28 Pulse Oximetry 98 09/29/18 16:28 Temperature 36.7 C 09/29/18 16:28 Temperature Source Temporal Artery Scan 09/29/18 16:28 Pulse 86 09/29/18 16:28 Respiratory Rate 20 09/29/18 16:33 Respiratory Effort Non-Labored 09/29/18 16:33 Respiratory Depth Normal 09/29/18 16:33 Respiratory Pattern Normal 09/29/18 16:33 Blood Pressure 157/74 H 09/29/18 16:28 Blood Pressure Position Sitting 09/29/18 16:28 Pulse Oximetry 98 09/29/18 16:28 Oxygen Delivery Method Room Air 09/29/18 16:28 Oxygen Flow Rate 0 09/29/18 16:28
[2018-09-29 17:30] LABS: Bilirubin Negative (Negative); Blood Negative (Negative); Clarity Clear; Glucose Negative (Negative); Ketones Negative (Negative); Leukocyte Esterase Negative (Negative); Nitrite Negative (Negative); Specific Gravity 1.015 (1.005-1.025); Urobilinogen 0.2 EU/dL (Up TO 0.2); pH 7.5 (5-8)
[2018-09-29 17:40] LABS: Abs Immature Grans 0.01 k/cumm (0.0-0.09); Absolute Basophil Count 0.02 k/cumm (0.0-0.2); Absolute Eosinophil Count 0.12 k/cumm (0.0-0.7); Absolute Lymphocyte Count 1.19 k/cumm (1.2-3.4); Absolute Monocyte Count 0.46 k/cumm (0.11-0.7); Absolute Neutrophil Count 3.85 k/cumm (1.2-6.7); Basophils % 0.4; Eosinophils % 2.1; HCT 39.9 % (36.0-46.0); HGB 13.1 g/dL (12.0-15.5); Immature Grans % 0.2; Lymphocytes % 21.1; Mean Corp. HGB Concentration 32.8 g/dL (32.0-36.0); Mean Corpuscular Volume 97.6 fL (80-95); Mean Platelet Volume 9.8 fL (8.0-11.0); Monocytes % 8.1; Neutrophils % 68.1; Platelet Count 243 x1000/uL (130-400); RBC 4.09 m/cumm (4.00-5.20); RBC Distribution Width 13.6 % (11.7-14.6); White Blood Cell Count 5.65 k/cumm (4.4-10.8)
[2018-09-29 17:57] LABS: ALT 17 U/L (12-78); AST 14 U/L (15-37); Albumin 3.7 g/dL (3.4-5.0); Alkaline Phosphatase 101 U/L (46-116); BUN 19 mg/dL (7-18); Bilirubin, Total 0.3 mg/dL (0.2-1.0); CREATININE 0.86 mg/dL (0.55-1.02); Calcium 9.3 mg/dL (8.5-10.1); Chloride 102 mmol/L (98-107); Glucose 106 mg/dL (70-100); Magnesium 2.3 mg/dL (1.8-2.4); Potassium 3.7 mmol/L (3.5-5.1); Sodium 138 mmol/L (136-145); TSH (W/Ref FT4) 3.61 uIU/mL (0.358-3.74); Total Protein 7.5 g/dL (6.4-8.2)
[2018-09-29 17:58] LABS: Troponin I < 0.02 ng/mL (0.00-0.06)
--- NOTE | 2018-09-29 18:20 | ED.GENADUL_ITS ---
Discharge Plan Disposition Patient Disposition: HOME Discharge Details Chief Complaint: GenMedical Clinical Impression: Feeling unwell Primary Care Provider: Radha Flannery ED Provider: Belen Murillo Home Meds and New Rx's Prescriptions: Continued lisinopril 20 mg tablet 20 mg PO DAILY Qty: 90 RF: 4 Estring 2 mg (7.5 mcg /24 hour) ring 1 vag ring [id number] Qty: 1 RF: 4 escitalopram oxalate 20 mg tablet 20 mg PO DAILY Qty: 90 RF: 4 levothyroxine 75 MCG tablet 75 mcg PO DAILY Qty: 90 RF: 4 hydrochlorothiazide 25 mg tablet 25 mg PO DAILY Qty: 90 RF: 4 metoprolol succinate 25 mg tablet extended release 24 hr 25 mg PO DAILY Qty: 90 RF: 4 cephalexin 500 mg capsule 500 mg PO TID Qty: 15 RF: 0 Discharge Instructions Additional Instructions: Encourage hydration. Continue with typical medications. Please keep appointment with primary care tomorrow. Your labs are reassuring at this time. If you develop new/worsening symptoms please seek care urgently once again. Referrals: Radha Flannery MD, [place] [Primary Care Provider] - Medical Decision Making Patient is 73-year-old female, brought in by her daughter, with odd sensations for the past several months and generalized fatigue. Patient does have diagnosis of chronic fatigue. She has discussed this with her primary care. I did review the recent primary care note and Dr. Chavarria was concerned the patient may have advancing dementia. The daughter reports that she is aware of the dementia but that the patient is in denial about this diagnosis. Patient is appropriate but does have difficulty with word finding which the daughter reports is typical and unchanged from her baseline. She does not have a good grasp on her symptoms or complaints. They are concerned that her UTI is not completely cleared although her symptoms have subsided. She does have a follow- up appointment tomorrow with her primary care doctor but they feel that blood work needs to be completed today. Unclear as to what diagnosis they are concerned for. Exam is benign. Patient denies any headache, visual change, neck pain, rash, abdominal pain, chest pain, shortness of breath. No change in urinary or bowel habits. Patient does report chronic constipation. Endorses chronic nausea but no vomiting. Obtain CBC, CMP, troponin, TSH. No acute abnormalities were noted on labs. Discussed this with the patient and her daughter. Patient does have history of anxiety and clearly appears anxious at today's visit. She is searching something out to try and wrap all of her symptoms together. Agree with primary thought that this is likely advancing dementia with an anxiety component. I did try to discuss this with the patient and her daughter but patient again is unaware of her diagnosis of dementia. Advised to discuss this further with the primary. They did request an anxiolytic but given the patient's age mental status, I am concerned with prescribing these medications without first consulting with her primary care. I will discuss this further tomorrow at her appointment. We discussed new/worsening symptoms when to seek care urgently once again. All the questions and concerns were addressed and they are in agreement with this plan. HPI General Mode of arrival: ambulatory . Date/Time Provider Initiated Documentation: 09/29/18 16:35 . Limitations to Documentation: altered mental status (hx of dementia) . Information obtained by: patient, family and RN notes reviewed . HPI Narrative: Patient is 73-year-old female with history of dysuria, dimension, ischemic vascular disease, cataracts, chronic fatigue, depression, hypertension, hypothyroidism and vitamin D deficiency presenting today with chief complaint of fatigue. Her symptoms are very vague. Patient reports feeling unwell. States that this is particularly worse at night. Is waking up having odd sensations of swishing in her head. She denies any audible swishing but states is more of a sensation in her brain. She denies any recent illness. She reports that she has had this fatigue for at least the past 3 months and is progressively been getting worse. Daughter reports that she is also been intermittently complaining of nausea. Patient is currently on Keflex for urinary tract infection. They are questioning if this is unsuccessful at treating her infection and that she may need a new antibiotic. She does report that her dysuria, increased frequency and urgency have completely subsided since being on the antibiotics. Related Data Home Medications Medication Instructions Recorded Confirmed levothyroxine 75 mcg PO DAILY #90 tab-cap 09/09/17 09/29/18 escitalopram 20 mg tablet 20 mg PO DAILY #90 tab 07/15/18 09/29/18 lisinopril 20 mg tablet 20 mg PO DAILY #90 tab 08/30/18 09/29/18 hydrochlorothiazide 25 mg tablet 25 mg PO DAILY #90 tab 09/01/18 09/29/18 metoprolol succinate ER 25 mg 25 mg PO DAILY #90 tab 09/04/18 09/29/18 tablet,extended release 24 hr estradiol 2 mg (7.5 mcg/24 hour) 1 vag ring [id number] [id number] #1 each 09/23/18 09/23/18 vaginal ring cephalexin 500 mg capsule 500 mg PO TID #15 cap 09/24/18 09/29/18 Previous Rx's Medication Instructions Recorded escitalopram 20 mg tablet 20 mg PO DAILY #90 tab 07/15/18 lisinopril 20 mg tablet 20 mg PO DAILY #90 tab 08/30/18 hydrochlorothiazide 25 mg tablet 25 mg PO DAILY #90 tab 09/01/18 metoprolol succinate ER 25 mg 25 mg PO DAILY #90 tab 09/04/18 tablet,extended release 24 hr estradiol 2 mg (7.5 mcg/24 hour) 1 vag ring VG [id number] #1 each 09/23/18 vaginal ring cephalexin 500 mg capsule 500 mg PO TID #15 cap 09/24/18 Allergies Allergy/AdvReac Type Severity Reaction Status Date / Time bupropion [From Wellbutrin] AdvReac Intermediate Palpitation Verified 09/29/18 16:32 s memantine [From Namenda] AdvReac Nausea Verified 09/29/18 16:32 General Stated Complaint: GenMedical ERICA: 3 Review of Systems Constitutional Reports as per HPI, Denies chills, Denies fever(s), Denies headache(s), Denies lethargy and Denies poor appetite Eyes Denies change in vision ENT Denies dizziness and Denies headache(s) Cardiovascular Reports as per HPI, Denies dyspnea and Denies dyspnea on exertion Respiratory Reports as per HPI, Denies chest congestion, Denies cough, Denies pain on inspiration, Denies pain with cough, Denies dyspnea, Denies dyspnea on exertion and Denies wheezing Gastrointestinal Reports as per HPI, Denies abdominal pain, Denies diarrhea, Reports nausea and Denies vomiting Musculoskeletal Reports as per HPI and Denies back pain Integumentary/Breasts Reports as per HPI and Denies rash Neurologic Reports as per HPI, Denies dizziness and Denies headache(s) Psychiatric Reports anxiety Allergic/Immunologic Denies wheezing [facility] Medical History Brain atrophy (Chronic) Migraine (Chronic) Ischemic vascular disease (Chronic) Age-related cataract of both eyes (Resolved) Chronic fatigue (Chronic) Depression (Chronic 08/23/15) Essential hypertension (Chronic) Hypothyroidism (Chronic 08/23/15) Seasonal affective disorder (Chronic) Tobacco use disorder (Chronic 08/23/15) Vitamin D deficiency (Chronic) Depression Hypertension Hypothyroidism Tobacco use Surgical History Cataract extraction status, left eye (Acute ~01/2018) Cataract extraction status, right eye (Acute ~01/2018) Vaginal hysterectomy Social History Smoking/Tobacco Use Status: Current every day Tobacco Type: cigarettes Alcohol Intake: never Drug use: Never Substance use type: does not use Household members: spouse Pets and animals: No Do you feel safe at home: Yes Do you feel safe in your relationship?: Yes Exam Const General: cooperative, healthy appearing, comfortable, no acute distress and well developed Nutritional Appearance: average body habitus and well nourished Orientation: alert, awake and oriented x3 HENMT Head: normal to inspection Ears: hearing grossly normal bilaterally Mouth: moist mucous membranes Chest Chest: normal inspection of the chest, normal palpation of entire chest wall and no crepitus Resp Effort & Inspection: normal respiratory effort, able to speak in complete sentences and no respiratory distress Auscultation: clear to auscultation bilaterally, no rales, no rhonchi and no wheezes Cardio Rate: regular rate Rhythm: regular rhythm Heart Sounds: S1 normal and S2 normal GI Inspection: normal to inspection, no edema and non-distended Palpation: soft, no hepatosplenomegaly, not firm, no guarding, not rigid and nontender Auscultation: normal bowel sounds Back/Spine/Pelvis Back: no CVA tenderness Thoracic/Lumbar Spine: thoracic and lumbar spine normal to inspection Skin General skin exam: no rashes or lesions noted Trauma: no lacerations or abrasions Neuro General: alert, awake and oriented x3 Cognition: normal cognition Speech: speech normal Gait: normal gait Extrem General: normal to inspection, normal capillary refill, no pedal edema, no calf tenderness and normal gait Psych Appearance: grossly normal and well kempt Mental Status: mental status grossly normal Speech and Movement: speech and movement normal Course Vital Signs Temperature 36.7 C 09/29/18 16:28 Pulse 86 09/29/18 16:28 Respiratory Rate 20 09/29/18 16:28 Blood Pressure 157/74 H 09/29/18 16:28 Pulse Oximetry 98 09/29/18 16:28 Temperature 36.7 C 09/29/18 16:28 Temperature Source Temporal Artery Scan 09/29/18 16:28 Pulse 86 09/29/18 16:28 Respiratory Rate 20 09/29/18 16:33 Respiratory Effort Non-Labored 09/29/18 16:33 Respiratory Depth Normal 09/29/18 16:33 Respiratory Pattern Normal 09/29/18 16:33 Blood Pressure 157/74 H 09/29/18 16:28 Blood Pressure Position Sitting 09/29/18 16:28 Pulse Oximetry 98 09/29/18 16:28 Oxygen Delivery Method Room Air 09/29/18 16:28 Oxygen Flow Rate 0 09/29/18 16:28
[2018-09-29 18:29] VITALS: BP 157/74; PULSE 86; RESP 20; TEMP 36.7; O2SAT 98
== END 2018-09-29 18:16 | disposition home or self-care (01) ==
PROVIDERS: Emergency Provider Physician Assistant; PCP Family Medicine
DX: R53.82 Chronic fatigue, unspecified (principal); F03.90 Unspecified dementia, unspecified severity, without behavioral disturbance, psychotic disturbance, mood disturbance, and anxiety
CPT/HCPCS: 36415; 80053; 99283; 81003; 83735; 84443; 84484; 85025

== ENCOUNTER 2018-10-05 16:59 | Emergency (ER) | payer MEDICARE, OTHER, SELFPAY ==
[2018-10-05 17:05] VITALS: BP 134/56; PULSE 84; RESP 15; TEMP 37.3; O2SAT 99
[2018-10-05 18:56] LABS: Clarity Sl Cloudy
[2018-10-05 18:57] LABS: Specific Gravity 1.017 (1.005-1.025)
[2018-10-05 18:58] LABS: Bacteria Many HPF (Negative); C & S Indicated? Yes; Casts Negative LPF (Negative); Crystals Negative HPF (Negative); Epithelial Cells Negative HPF (Negative); Mucus Negative (Negative); RBC >50 (0-2); WBC >50 HPF (0-5)
--- NOTE | 2018-10-05 19:23 | W.ED.GENAD ---
Discharge Plan Disposition Patient Disposition: HOME Condition: Good Discharge Details Chief Complaint: Urinary Clinical Impression: Acute UTI, Chronic fatigue Primary Care Provider: Radha Flannery ED Provider: Teofilo Osman Home Meds and New Rx's Prescriptions: New cephalexin [Keflex] 500 mg capsule 500 mg PO QID 14 Days Qty: 56 RF: 0 No Action lisinopril 20 mg tablet 20 mg PO DAILY Qty: 90 RF: 4 Estring 2 mg (7.5 mcg /24 hour) ring 1 vag ring [id number] [id number] Qty: 1 RF: 4 escitalopram oxalate 20 mg tablet 20 mg PO DAILY Qty: 90 RF: 4 clonazepam 0.5 mg tablet 0.5 mg PO BID MDD 2 PRN (Reason: anxiety) Qty: 45 RF: 1 levothyroxine 75 MCG tablet 75 mcg PO DAILY Qty: 90 RF: 4 hydrochlorothiazide 25 mg tablet 25 mg PO DAILY Qty: 90 RF: 4 metoprolol succinate 25 mg tablet extended release 24 hr 25 mg PO DAILY Qty: 90 RF: 4 Discharge Instructions Instructions: Urinary Tract Infection in Women (ED), Fatigue (ED) Additional Instructions: Your urinary tract infection has seemed to return. Please follow-up closely with Dr. Flannery. He may require additional follow-up with urology if your symptoms do not improve. Please take the antibiotic as directed. If you notice any worsening of your symptoms, or any new symptoms such as vomiting, diarrhea, fever, chills, shortness of breath, chest pain, numbness, weakness, or fainting , please return immediately to the emergency department for reevaluation. Please follow up with your primary care provider as soon as possible for reassessment and reevaluation. As always, it was a pleasure participating in your medical care today. Referrals: Radha Flannery MD, [place] [Primary Care Provider] - Medical Decision Making This is a pleasant 73-year-old female who presents for evaluation of mild dysuria, she has a history of chronic urinary tract infections and recently stopped her Keflex 3 days ago. Her symptoms gradually returned over the last 3 days. She denies fever, chills abdominal pain nausea vomiting or diarrhea. Vital signs are normal, notably reassuring. No abdominal pain, flank pain or tenderness. No clinical indication for pyelonephritis. Initially with family we discussed laboratory work-up versus just getting urinalysis, and after the urinalysis being positive for UTI family does not want any additional work-up at this time, and would like treatment and subsequent outpatient follow-up with her PCP. We will give the first dose of Keflex here, send the urine for culture, and recommend close outpatient follow-up peer with no clinical signs of pyelonephritis, sepsis, or acute mental status change, and do not feel that any further work-up is necessary at this time. I did discuss the plan with the family, as well as the daughter who is on the phone. I have extensively reviewed the treatment plan and discharge instructions with the patient and their family. I have addressed all patient concerns at this time. The patient and family was made aware of what symptoms to monitor for that would warrant a return to the emergency department. Discussed the plan with the patient and family, they demonstrate verbal understanding and agreement with our assessment and plan at this time. HPI General Date/Time Provider Initiated Documentation: 10/05/18 17:00. HPI Narrative: This is a 73-year-old female with a past medical history of chronic fatigue, early dementia, hypertension, thyroid disease, who presents today with complaint of mild burning with urination. She has a history of chronic urinary tract infections, which she is regularly on antibiotics, Keflex in particular. She is grown positive for Klebsiella, sensitive to cephalosporins. She was recently stopped from her normal antibiotics 3 days ago, and her symptoms gradually returned. Of note she had a very thorough work-up within the past few days for evaluation of her chronic fatigue. Her work-up at that time was relatively benign. She had no significant urinary tract infection and then. Patient has no additional complaints at this time. She is here with her and daughter. She denies any vomiting, diarrhea, choking, cough, fever, chills, chest pain, abdominal pain, shortness of breath, numbness, tingling, or weakness. She denies any recent surgeries or pertinent family history. Related Data Home Medications Medication Instructions Recorded Confirmed levothyroxine 75 mcg PO DAILY #90 tab-cap 09/09/17 10/05/18 escitalopram 20 mg tablet 20 mg PO DAILY #90 tab 07/15/18 10/05/18 lisinopril 20 mg tablet 20 mg PO DAILY #90 tab 08/30/18 10/05/18 hydrochlorothiazide 25 mg tablet 25 mg PO DAILY #90 tab 09/01/18 10/05/18 metoprolol succinate ER 25 mg 25 mg PO DAILY #90 tab 09/04/18 10/05/18 tablet,extended release 24 hr estradiol 2 mg (7.5 mcg/24 hour) 1 vag ring [id number] [id number] #1 each 09/23/18 10/05/18 vaginal ring clonazepam 0.5 mg tablet 0.5 mg PO BID PRN #45 tab MDD 2 09/30/18 10/05/18 cephalexin [Keflex] 500 mg PO QID 14 Days #56 cap 10/05/18 Previous Rx's Medication Instructions Recorded escitalopram 20 mg tablet 20 mg PO DAILY #90 tab 07/15/18 lisinopril 20 mg tablet 20 mg PO DAILY #90 tab 08/30/18 hydrochlorothiazide 25 mg tablet 25 mg PO DAILY #90 tab 09/01/18 metoprolol succinate ER 25 mg 25 mg PO DAILY #90 tab 09/04/18 tablet,extended release 24 hr estradiol 2 mg (7.5 mcg/24 hour) 1 vag ring [id number] [id number] #1 each 09/23/18 vaginal ring clonazepam 0.5 mg tablet 0.5 mg PO BID PRN #45 tab MDD 2 09/30/18 cephalexin [Keflex] 500 mg PO QID 14 Days #56 cap 10/05/18 Allergies Allergy/AdvReac Type Severity Reaction Status Date / Time bupropion [From Wellbutrin] AdvReac Intermediate Palpitation Verified 10/05/18 17:14 s memantine [From Namenda] AdvReac Nausea Verified 10/05/18 17:14 General Stated Complaint: Urinary ERICA: 3 Review of Systems Review of Systems All systems reviewed & are unremarkable except as noted in HPI and below PFSH Social History Smoking/Tobacco Use Status: Current every day Tobacco Type: cigarettes Alcohol Intake: never Drug use: Never Substance use type: does not use Household members: spouse Pets and animals: No Do you feel safe at home: Yes Do you feel safe in your relationship?: Yes Exam Narrative Exam Narrative: 1.Const: Well-nourished, Well-developed, appearing stated age 2.Eyes: PERRL, no conjunctival injection, and symmetrical lids. 3.ENT: Atraumatic external nose and ears. Moist MM. Neck: Symmetric, trachea midline, No thyromegaly. 4.CVS: +S1/S2, No murmurs or gallops. Peripheral pulses 2+ and equal in all extremities. Brisk capillary refill in all extremities. 5.RESP: Unlabored respiratory effort. Clear to auscultation bilaterally. No wheezes rales or rhonchi 6.GI: Soft, Nontender/Nondistended, No hepatosplenomegaly. No guarding or rebound. No flank or CVA tenderness. 7.MSK: Normocephalic/Atraumatic, Extremities w/o deformity or ttp No cyanosis or clubbing, Normal movement of all extremities 8.Skin: Warm, Dry. No rashes or lesions. 9.Neuro: blueprint engineer II-XII grossly intact. Sensation grossly intact, no focal neurologic deficits. 10.Psych: (AAO) x3. Appropriate mood and affect Course Vital Signs Temperature 37.3 C 10/05/18 17:05 Pulse 84 10/05/18 17:05 Respiratory Rate 15 10/05/18 17:05 Blood Pressure 134/56 L 10/05/18 17:05 Pulse Oximetry 99 10/05/18 17:05 Temperature 37.3 C 10/05/18 17:05 Temperature Source Temporal Artery Scan 10/05/18 17:05 Pulse 84 10/05/18 17:05 Respiratory Rate 15 10/05/18 17:05 Respiratory Effort Non-Labored 10/05/18 17:12 Blood Pressure 134/56 L 10/05/18 17:05 Blood Pressure Position Sitting 10/05/18 17:05 Pulse Oximetry 99 10/05/18 17:05 Oxygen Delivery Method Room Air 10/05/18 17:05 Oxygen Flow Rate 0 10/05/18 17:05 Pain Level 0 10/05/18 17:49 Lab/Test Results Lab/Test Results: 10/05/18 18:10 Urine - Reflex from Ua Urine Culture - Pending Laboratory Tests Range/Units 10/05/18 10/05/18 17:29 18:10 Urine Color Cancelled [place] Urine Clarity Cancelled Sl cloudy Urine pH Cancelled Not Applicable Ur Specific [place] Cancelled 1.017 Urine Protein Cancelled Not Applicable Urine Ketones Cancelled Not Applicable Urine Blood Cancelled Not Applicable Urine Nitrite Cancelled Not Applicable Urine Bilirubin Cancelled Not Applicable Urine Urobilinogen Cancelled Not Applicable Ur Leukocyte Esterase Cancelled Not Applicable Urine RBC (0-2) >50 H Urine WBC (0-5) HPF >50 Ur Epithelial Cells (Negative) HPF Negative Urine Crystals (Negative) HPF Negative Urine Bacteria (Negative) HPF Many Urine Casts (Negative) LPF Negative Urine Mucus (Negative) Negative Urine Other (Negative) Many renal Ur Culture Indicated? Yes Urine Glucose Cancelled Not Applicable
[2018-10-05 19:34] VITALS: BP 114/64; PULSE 70; RESP 16; TEMP 36.4; O2SAT 97
[2018-10-05] MEDS: Cephalexin 500 MG CAP PO (19:35)
== END 2018-10-05 19:40 | disposition home or self-care (01) ==
PROVIDERS: Emergency Provider Student in an Organized Health Care Education/Training Program; PCP Family Medicine
DX: N39.0 Urinary tract infection, site not specified (principal); B96.20 Unspecified Escherichia coli [E. coli] as the cause of diseases classified elsewhere; R53.82 Chronic fatigue, unspecified; I10 Essential (primary) hypertension
CPT/HCPCS: 51701; 87077; 99283; 81003; 81015; 87086; 87186

== ENCOUNTER 2018-10-26 16:52 | Outpatient (REF) | payer MEDICARE, OTHER, SELFPAY ==
[2018-10-26 19:31] LABS: Clarity Clear
[2018-10-26 19:47] LABS: Bacteria Many HPF (Negative); C & S Indicated? Yes; Casts Negative LPF (Negative); Crystals Negative HPF (Negative); Epithelial Cells Negative HPF (Negative); Mucus Negative (Negative); Other Cells Few Renal (Negative); RBC >50 (0-2); WBC >50 HPF (0-5)
== END 2018-10-26 17:12 ==
LOC: LBN 16:52
PROVIDERS: PCP Family Medicine; Visit Provider Family Medicine
DX: N39.0 Urinary tract infection, site not specified (principal)
CPT/HCPCS: 87077; 81003; 81015; 87086; 87186

== ENCOUNTER 2019-01-25 15:28 | Outpatient (REF) | payer MEDICARE, OTHER, SELFPAY ==
[2019-01-25 16:16] LABS: Bilirubin Negative (Negative); Blood Trace-intact (Negative); Clarity Cloudy (Clear); Glucose Negative (Negative); Ketones Negative (Negative); Leukocyte Esterase Large (Negative); Nitrite Negative (Negative); Urobilinogen 0.2 EU/dL (Up TO 0.2); pH 5.5 (5-8)
[2019-01-25 18:13] LABS: Epithelial Cells Many HPF (Negative); RBC Negative (0-2)
[2019-01-25 18:17] LABS: Bacteria Moderate HPF (Negative); Other Cells Moderate Yeast (Negative)
[2019-01-25 18:18] LABS: C & S Indicated? No/Sq. Contamination; Casts Negative LPF (Negative); Crystals Few Calcium Oxalate HPF (Negative); Mucus Negative (Negative)
== END 2019-01-25 15:48 ==
LOC: LBN 15:28
PROVIDERS: PCP Family Medicine; Visit Provider Family Medicine
DX: R35.0 Frequency of micturition (principal)
CPT/HCPCS: 81003; 81015

== ENCOUNTER 2019-01-28 18:08 | Outpatient (REF) | payer MEDICARE, OTHER, SELFPAY ==
[2019-01-28 15:54] LABS: Bilirubin Negative (Negative); Blood Negative (Negative); Clarity Clear (Clear); Glucose Negative (Negative); Ketones Negative (Negative); Leukocyte Esterase Small (Negative); Nitrite Negative (Negative); Urobilinogen 0.2 EU/dL (Up TO 0.2)
[2019-01-28 16:07] LABS: Bacteria Few HPF (Negative); C & S Indicated? No; Casts Negative LPF (Negative); Crystals Negative HPF (Negative); Epithelial Cells Few HPF (Negative); Mucus Negative (Negative); Other Cells Negative (Negative); RBC Negative (0-2); WBC 0-2 HPF (0-5)
== END 2019-01-28 18:28 ==
LOC: LBN 18:08
PROVIDERS: PCP Family Medicine; Visit Provider Family Medicine
DX: R35.0 Frequency of micturition (principal)
CPT/HCPCS: 81003; 81015

== ENCOUNTER 2019-03-24 20:19 | Outpatient (REF) | payer MEDICARE, OTHER, MEDICAID, SELFPAY | END 2019-03-24 20:39 | LOC: NCHCN 20:19 | PROVIDERS: PCP Family Medicine; Visit Provider Family Medicine | DX: R30.0 Dysuria (principal) | CPT/HCPCS: 87077; 87086; 87186 ==

== ENCOUNTER 2019-05-04 20:27 | Outpatient (REF) | payer MEDICARE, OTHER, MEDICAID, SELFPAY ==
[2019-05-05 13:16] LABS: TSH (W/Ref FT4) 4.28 uIU/mL (0.36-3.74)
[2019-05-05 13:49] LABS: FREE T4 0.93 ng/dL (0.76-1.46)
== END 2019-05-04 20:47 ==
LOC: LBN 20:27
PROVIDERS: PCP Family Medicine; Visit Provider Internal Medicine
DX: N39.0 Urinary tract infection, site not specified (principal); E03.9 Hypothyroidism, unspecified
CPT/HCPCS: 87077; 87086; 87186

== ENCOUNTER 2019-05-05 11:30 | Outpatient (CLI) | payer MEDICARE, OTHER, MEDICAID, SELFPAY | END 2019-05-05 11:50 | PROVIDERS: PCP Family Medicine; Visit Provider Internal Medicine | DX: E03.9 Hypothyroidism, unspecified (principal) | CPT/HCPCS: 36415; 84439; 84443 ==

== ENCOUNTER 2021-07-22 16:37 | Outpatient (REF) | payer MEDICARE, OTHER, SELFPAY ==
[2021-07-22 19:58] LABS: Bilirubin Negative (Negative); Blood Negative (Negative); Clarity Sl Cloudy (Clear); Glucose Negative (Negative); Ketones Negative (Negative); Leukocyte Esterase Moderate (Negative); Nitrite Positive (Negative); Specific Gravity >= 1.030 (1.005-1.025); Urobilinogen 0.2 EU/dL (Up TO 0.2)
[2021-07-22 20:05] LABS: Bacteria Moderate HPF (Negative); C & S Indicated? C&S Done As Ordered; Casts Negative LPF (Negative); Crystals Mod Calcium Oxalate HPF (Negative); Epithelial Cells Moderate HPF (Negative); Mucus Moderate (Negative)
== END 2021-07-22 16:38 | disposition home or self-care (01) ==
LOC: LBN 16:37
PROVIDERS: PCP Family Medicine; Visit Provider Family Medicine
DX: R30.0 Dysuria (principal)
CPT/HCPCS: 87077; 81003; 81015; 87086; 87186

== ENCOUNTER 2021-08-21 18:31 | Outpatient (REF) | payer MEDICARE, SELFPAY ==
[2021-08-21 19:12] LABS: Bilirubin Negative (Negative); Blood Negative (Negative); Clarity Cloudy (Clear); Glucose Negative (Negative); Ketones Negative (Negative); Leukocyte Esterase Trace (Negative); Nitrite Negative (Negative); Specific Gravity 1.025 (1.005-1.025); Urobilinogen 0.2 EU/dL (Up TO 0.2)
[2021-08-21 19:29] LABS: Bacteria Packed HPF (Negative); C & S Indicated? C&S Done As Ordered; Crystals Few Amorphous HPF (Negative); Epithelial Cells Many HPF (Negative); Mucus Negative (Negative); RBC Negative HPF (0-2)
== END 2021-08-21 18:32 | disposition home or self-care (01) ==
LOC: LBN 18:31
PROVIDERS: PCP Family Medicine; Visit Provider Urology
DX: N39.0 Urinary tract infection, site not specified (principal)
CPT/HCPCS: 87077; 81003; 81015; 87086; 87186

== ENCOUNTER 2022-03-08 23:59 | Inpatient (IN) | payer MEDICARE, OTHER, SELFPAY ==
[2022-03-08 23:52] VITALS: BP 128/105; PULSE 112; RESP 20; TEMP 36.8; O2SAT 98
[2022-03-09] VITALS (50 sets, daily range): BP systolic 76–155; BP diastolic 42–106; PULSE 60–85; RESP 9–22; TEMP 35.7–37; O2SAT 93–100; BMI 23.5
--- NOTE | 2022-03-09 | DI.RAD_ITS ---
Exam(s) XR PELVIS AP XR FEMUR LT XR FEMUR RT EXAM: XR FEMUR RT and XR pelvis AP and XR femur LT CLINICAL HISTORY: fall, left hip pain, r/o fx. TECHNIQUE: 2D digital imaging was performed of the right femur. Nine images were obtained. AP and l ateral views were obtained. COMPARISON: None. FINDINGS: BONES: There is an acute fracture of the left femoral neck with superior displacement of the distal f racture. The left femoral head is seated within the acetabulum. No other fracture or dislocation is seen. No bony destructive lesion is seen. Visualized portion of knee and hip joints are unremarkabl e. SOFT TISSUE: Normal. IMPRESSION: Acute displaced left femoral neck fracture. DATA REPOSITORY: RADIATION DOSE DELIVERED:
--- NOTE | 2022-03-09 | DI.CT_ITS ---
Exam(s) CT HEAD WO EXAM: CT HEAD WO CLINICAL HISTORY: fall, hit head, dementia. TECHNIQUE: Imaging Protocol: Axial computed tomography images with coronal and sagittal reformatted images were created and reviewed COMPARISON: CT CT HEAD WO from 08/28/2018 FINDINGS: Ventricles and Extra axial spaces: Normal in size and morphology for the patient's age. Hemorrhage: None. Cerebral parenchyma: No acute territorial infarct. Midline shift: None. Brainstem/Cerebellum: Normal. Calvarium: Normal. Visualized Paranasal sinuses/Mastoids: Clear. Soft Tissues: Unremarkable. IMPRESSION: No acute intracranial process. RADIATION DOSE DELIVERED: 743.38mGy.cm Total DLP DATA REPOSITORY: All CT scans at this facility are submitted to the National Radiology Data Registry (NRDR) Dose Index Registry (DIR) with the [employer] ([employer]). RADIATION OPTIMIZATION: All CT scans at this facility use at least one of these dose optimization te chniques: automated exposure control; mA and/or kV adjustment per patient size (includes targeted exa ms where dose is matched to clinical indication); or iterative reconstruction.
[2022-03-09 00:27] LABS: Abs Immature Grans 0.08 10^3/uL (0.0-0.06); Absolute Eosinophil Count 0.01 10^3/uL (0.0-0.7); Absolute Monocyte Count 0.86 10^3/uL (0.1-0.8); Basophils % 0.1; Eosinophils % 0.1; HCT 36.4 % (36.0-46.0); HGB 11.9 g/dL (11.2-15.7); Immature Grans % 0.6; Lymphocytes % 5.3; MCH 32.4 pg (27.0-33.0); MCHC 32.7 % (32.0-36.0); MCV 99 fL (80-95); MPV 9.3 fL (8.0-11.0); Monocytes % 6.3; Neutrophils % 87.6; Platelet Count 285 10^3/uL (130-400); RBC 3.67 10^6/uL (3.93-5.22); RDW 12.6 % (11.7-14.6); RDW-SD 46.2 fL
[2022-03-09 00:28] LABS: Absolute Basophil Count 0.01 10^3/uL (0.0-0.2); Absolute Lymphocyte Count 0.73 10^3/uL (1.2-3.4)
[2022-03-09] MEDS: Normal Saline 1,000 ML 1000 ML IV (00:31)
--- NOTE | 2022-03-09 00:44 | ED.GENADUL_ITS ---
Discharge Plan Disposition Patient Disposition: [facility] INPATIENT Condition: Good Discharge Details Clinical Impression: Closed fracture of left hip, Acute UTI Primary Care Provider: Kike Rich ED Provider: Teofilo Osman Home Meds and New Rx's Prescriptions: No Action lisinopril 20 mg tablet 20 mg PO DAILY Qty: 90 4RF Estring 2 mg (7.5 mcg /24 hour) ring 1 vag ring VG [id number] Qty: 1 4RF escitalopram oxalate 20 mg tablet 20 mg PO DAILY Qty: 90 4RF levothyroxine 50 mcg capsule 50 mcg PO DAILY Qty: 90 0RF Rx Instructions: dose decreased from 88 mcg nicotine 14 mg/24 hr patch 24 hour 1 patch transdermal DAILY Qty: 28 2RF magnesium citrate Solution 150 ml PO DAILY Qty: 296 3RF cholecalciferol (vitamin D3) 50 mcg (2,000 unit) capsule 2,000 unit PO DAILY Label Comments: 05/04/19-not taking consistently/pps Medical Decision Making This is a 76-year-old female with a past medical history of dementia, ischemic vascular disease, who is cared for by her daughter, who presents today for evaluation of a fall. Daughter states that she has been acting confused today, drinking less, and been very imbalanced. She had 2 falls today, the first when she gently hit her head on the refrigerator. Check when she fell and hit her left hip. She was not able to get up after that lift assist was called by EMS. Patient is quite confused at baseline, but daughter states that this is worse than normal. No fever. No cough. Patient is unable to offer any other historical components. Patient is not on any blood thinner Exam demonstrates a tender left fevers/hip. Shortened and externally rotated left leg. No other signs of significant trauma. Concern is for hip fracture, but also infection or dehydration causing her confusion and falls. We will get a CT scan of the head to evaluate for bleed, x-ray of the hip, gently rehydrate, monitor closely and reassess Of note the daughter is at bedside who is the patient's medical power of corporate attorney. She states that the patient is full code, and that she would want surgery and would like to pursue surgery if indicated 2:18 AM X-ray results show evidence of a left femoral neck fracture. No other acute process on CT scan of the head or pelvis. I discussed the case with Dr. Nicholson, he accepts admission for the patient, but does request that I discussed the case with orthopedics to determine if they would do surgery on Thursday or wait till Thursday. We will reach out to Dr. Lundberg. Of note we are still waiting on urinalysis results. Patient does have a mild white count of 13, and I have a high suspicion for potential UTI. She remains comfortable in bed and does not appear to be in any acute distress whatsoever at this time. 2:[address] Lundberg is reviewed the case. He states that they will attempt to do the surgery Thursday late morning or early afternoon. He request that the patient be kept n.p.o. and off of any blood thinners for potential surgery this late morning. I will place bridging orders on Dr. La's behalf at his request. I have extensively reviewed the treatment plan and discharge instructions with the patient. I have addressed all patient concerns at this time. The patient was made aware of what symptoms to monitor for that would warrant a return to the emergency department. Discussed the plan with the patient, they demonstrate verbal understanding and agreement with our assessment and plan at this time. The documentation in this chart was dictated using [employer] dictation software. Please excuse any dictation errors. We will start 2 g of ceftriaxone empirically for suspected urinary infection while we wait for urinalysis 3:10 AM Urinalysis is positive for any evidence of urinary tract infection which tracks well with her suspected symptoms. Ceftriaxone has already been ordered. Patient will be admitted to the ICU as [facility] overflow. FINDINGS: Brain: No intracranial hemorrhage or extra-axial fluid collection. No evidence of mass effect or midline shift. Mojica-white matter differentiation is intact. Cerebral ventricles: No ventriculomegaly. Paranasal sinuses: Unremarkable. No fluid levels. Mastoid air cells: Unremarkable. Bones/joints: Hyperostosis of the calvarium. No acute fracture. Soft tissues: Unremarkable. IMPRESSION: No acute intracranial pathology. Thank you for allowing us to participate in the care of your patient. Dictated and Authenticated by: Meng Bueno MD 03/09/2022 1:54 AM Eastern Time ([place] & [place]) FINDINGS: Bones/joints: Acute displaced left femoral neck fracture. Soft tissues: Unremarkable. IMPRESSION: Acute displaced left femoral neck fracture. Thank you for allowing us to participate in the care of your patient. Dictated and Authenticated by: Meng Bueno MD 03/09/2022 1:55 AM Eastern Time ([place] & [place]) FINDINGS: Bones/joints: No acute fracture or dislocation. Joint spaces are unremarkable. Soft tissues: Unremarkable. IMPRESSION: No acute findings. Thank you for allowing us to participate in the care of your patient. Dictated and Authenticated by: Meng Bueno MD 03/09/2022 1:55 AM Eastern Time ([place] & [place]) HPI General Date/Time Provider Initiated Documentation: 03/09/22 00:44 . HPI Narrative: This is a 76-year-old female with a past medical history of dementia, ischemic vascular disease, who is cared for by her daughter, who presents today for evaluation of a fall. Daughter states that she has been acting confused today, drinking less, and been very imbalanced. She had 2 falls today, the first when she gently hit her head on the refrigerator. Check when she fell and hit her left hip. She was not able to get up after that lift assist was called by EMS. Patient is quite confused at baseline, but daughter states that this is worse than normal. No fever. No cough. Patient is unable to offer any other historical components. Patient is not on any blood thinner Related Data Home Medications Medication Instructions Recorded Confirmed escitalopram oxalate 20 mg tablet 20 mg PO DAILY #90 tabs 07/15/18 08/22/21 lisinopril 20 mg tablet 20 mg PO DAILY #90 tabs 08/30/18 08/22/21 estradiol 2 mg (7.5 mcg/24 hour) 1 vag ring vaginal [id number] #1 ea 09/23/18 08/22/21 vaginal ring (Estring) cholecalciferol (vitamin D3) 50 2,000 unit PO DAILY 05/04/19 08/22/21 mcg (2,000 unit) capsule levothyroxine 50 mcg capsule 50 mcg PO DAILY #90 caps 12/20/20 08/22/21 magnesium citrate 150 ml PO DAILY #296 mL 12/20/20 08/22/21 nicotine 14 mg/24 hr daily 1 patch transdermal DAILY #28 ea 12/20/20 08/22/21 transdermal patch Previous Rx's Medication Instructions Recorded escitalopram oxalate 20 mg tablet 20 mg PO DAILY #90 tabs 07/15/18 lisinopril 20 mg tablet 20 mg PO DAILY #90 tabs 08/30/18 estradiol 2 mg (7.5 mcg/24 hour) 1 vag ring vaginal [id number] #1 ea 09/23/18 vaginal ring (Estring) levothyroxine 50 mcg capsule 50 mcg PO DAILY #90 caps 12/20/20 magnesium citrate 150 ml PO DAILY #296 mL 12/20/20 nicotine 14 mg/24 hr daily 1 patch transdermal DAILY #28 ea 12/20/20 transdermal patch Allergies Allergy/AdvReac Type Severity Reaction Status Date / Time bupropion [From Wellbutrin] AdvReac Intermediate Palpitation Verified 05/04/19 13:58 s memantine [From Namenda] AdvReac Nausea Verified 05/04/19 13:58 General Stated Complaint: Trauma ERICA: 3 Review of Systems All systems reviewed & are unremarkable except as noted in HPI and below PFSH All Active Problems (Updated 03/09/22 @ 03:11 by Teofilo Osman DO) Closed fracture of left hip (Acute) Acute UTI (Acute) Closed displaced fracture of left femoral neck (Acute 03/09/22) Caregiver stress (Chronic) daughter Zhanna tearful, exhausted at 08/13 visit 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 History of recurrent UTIs (Chronic) urologist Dr Cotter in [facility] Kyphosis (Chronic) more pronounced since 2020 Health care proxy on file (Acute) Stress due to family tension (Chronic) complicated blended family Goals of care, counseling/discussion (Chronic) 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) Requires continuous supervision for activities of daily living (ADL) (Chronic) needs to have someone with her does better with 15/12 company Urinary and bowel incontinence (Chronic) bowel is rare but urine is daily explained this is normal for dementia and will get worse over time Wandering (Chronic) Palliative care patient (Chronic) Vascular dementia with paranoia (Chronic) paranoia improving 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) Anxiety (Chronic) Constipation by delayed colonic transit (Acute) Fatigue associated with anemia (Acute) Dementia (Chronic) Blurring of visual image (Acute) Vaginal atrophy (Acute) Dysuria (Acute) Dementia (Chronic) Brain atrophy (Chronic) will not have any further brain imaging Migraine (Chronic) Ischemic vascular disease (Chronic) Chronic fatigue (Chronic) Depression (Chronic 08/23/15) Essential hypertension (Chronic) Hypothyroidism (Chronic 08/23/15) Seasonal affective disorder (Chronic) Tobacco use disorder (Chronic 08/23/15) has cut back to about 10 per day Vitamin D deficiency (Chronic) Medical History Cervical cancer Depression Hypertension Hypothyroidism Osteopenia Tobacco use restarted tobacco 2015. Surgical History Cataract extraction status, left eye (~01/2018) [facility] Cataract extraction status, right eye (~01/2018) [facility] Vaginal hysterectomy Family History Mother , age 66 from pneumonia, s/p mastectomy for breast cancer Breast cancer Pneumonia Father , age 62 from emphysema, heavy smoker Emphysema lung Smoker Sister , age 68 from leukemia Leukemia Brother No problems noted. Son No problems noted. Son No problems noted. Daughter Twin Daughter Twin Depression Anxiety [place] [employer] Social History Smoking/Tobacco Use Status: Current every day Tobacco Type: cigarettes Tobacco: How many years used: 60 Quit status: considering quitting Second Hand Exposure: Yes Counseling given: counseling >3 minutes Smoking risk assessment performed?: Yes Alcohol Intake: former Drug use: Never Substance use type: does not use Caregiver/Support person: Yes (moved in with daughter Zhanna November 2020) Household members: children Housing: apartment Number of Children: 4 number of grandchildren: 6 Communication Needs: Hard of Hearing and Corrective Lenses Education Level: high school Do you need help understanding health information?: Always current occupation: retired caregiver for elderly and disabled people Pets and animals: No Do you think of yourself as: straight/heterosexual Current gender identity: female What is your relationship status?: How often do you talk on the phone with friends or family?: never How often do you get together with friends or relatives?: three or more times per week Panel score (0-1 are the most socially isolated patients): 1 What type of physical activity do you participate in: walking and irregular exercise Duration: 30-45 minutes/day Frequency: other Details: paces as part of her dementia, does not go outside, afraid Special neema needs: No Agree to transfusion: No Seatbelt use: always Working smoke detector in home: Yes Fire extinguisher in home: Yes Firearms in home: No Do you feel safe at home: Yes Do you feel safe in your relationship?: Yes Additional Social history: to second , Wily, since 1978. Not living with him since November 2020. Moved in with daughter in November 2020. Her memory has been more rapidly declining since 2019. She is still able to walk. She can speak, but doesn't make sense. Memory is poor. She does have persistent urinary and rare fecal incontinence. She is normal weight. Daughters Sophie and Zhanna very involved in Yovana's care. Historically, Yovana had been very paranoid and suspicious of any medical intervention. She is no longer. More easy-going as of 2020. She seems to know that her memory is worse. Since 2020 visits, she let me discuss her dementia openly without getting upset. Walks most days, with supervision. Still smokes. Family house sold in November 2020; after sale, Yovana was initially in [facility] and then moved in with Zhanna after about one week. Zhanna pursuing medical guardianship; daughter Sophie pursuing financial guardianship. A lot of distrust and stress between daughters and Wily. Unlikely that Yovana will move back in with her in the future. Zhanna very tearful, appears exhausted, will not consider a respite to help her recover, rest. Suggested she seek out counseling for herself. She is very angry and upset with Wily and what she perceives as subpar care that he delivered. Exam Narrative Exam Narrative: 1.Const: Well-nourished, Well-developed, appearing stated age 2.Eyes: PERRL, no conjunctival injection, and symmetrical lids. 3.ENT: Atraumatic external nose and ears. Moist MM. Neck: Symmetric, trachea midline, No thyromegaly. There is no evidence of raccoon eyes, ontiveros sign, CSF rhinorrhea, mastoid tenderness, cranial crepitus, hemotympanum, exophthalmos, or hyphema. Patient demonstrates intact dentition with no signs of tooth avulsion or fracture, no signs of jaw deformity, no evidence of a LeFort's fracture, with an intact palate, nose and orbital region. There is no evidence of a nasal septal hematoma. No proptosis. Jaw closes symmetrically. Airway is clear. 4.CVS: +S1/S2, No murmurs or gallops. Peripheral pulses 2+ and equal in all extremities. Brisk capillary refill in all extremities. 5.RESP: Unlabored respiratory effort. Clear to auscultation bilaterally. No wheezes rales or rhonchi 6.GI: Soft, Nontender/Nondistended, No hepatosplenomegaly. No guarding or rebound. 7.MSK: No evidence of trauma for the upper extremities. Lower extremity demonstrates seeming tenderness proximal to the left knee, and originating from the hip. The leg appears externally rotated and shortened. Unable to assess focal tenderness though secondary to the patient's No midline cervical thoracic or lumbar spine tenderness. 8.Skin: Warm, Dry. No rashes or lesions. 9.Neuro: survey worker II-XII grossly intact. Sensation grossly intact, no focal neurologic deficits. 10.Psych: (AAO) x0. Patient is slightly more confused per daughter Course Vital Signs Vital signs: Vital Signs Temperature 36.8 C 03/08/22 23:52 Pulse 112 H 03/08/22 23:52 Respiratory Rate 20 03/08/22 23:52 Blood Pressure 128/105 H 03/08/22 23:52 Pulse Oximetry 98 03/08/22 23:52 Temperature 36.8 C 03/08/22 23:52 Temperature Source Tympanic 03/08/22 23:52 Pulse 112 H 03/08/22 23:52 Respiratory Rate 20 03/08/22 23:52 Blood Pressure 128/105 H 03/08/22 23:52 Blood Pressure Position Sitting 03/08/22 23:52 Pulse Oximetry 98 03/08/22 23:52 Oxygen Delivery Method Room Air 03/08/22 23:52 Oxygen Flow Rate 0 03/08/22 23:52 Lab/Test Results Lab/Test Results: Laboratory Tests Range/Units 03/09/22 00:20 WBC (4.4-10.8) 10^3/uL 13.70 H RBC (3.93-5.22) 10^6/uL 3.67 L Hgb (11.2-15.7) g/dL 11.9 Hct (36.0-46.0) % 36.4 MCV (80-95) fL 99 H MCH (27.0-33.0) pg 32.4 MCHC (32.0-36.0) % 32.7 RDW (11.7-14.6) % 12.6 Plt Count (130-400) 10^3/uL 285 MPV (8.0-11.0) fL 9.3 Immature Gran % 0.6 Neutrophils % 87.6 Lymphocytes % 5.3 Monocytes % 6.3 Eosinophils % 0.1 Basophils % 0.1 Nucleated RBC % (0.0-0.3) % 0.0 Absolute Neutrophils (1.2-6.7) 10^3/uL 12.00 H Absolute Lymphocytes (1.2-3.4) 10^3/uL 0.73 L Absolute Monocytes (0.1-0.8) 10^3/uL 0.86 H Absolute Eosinophils (0.0-0.7) 10^3/uL 0.01 Absolute Basophils (0.0-0.2) 10^3/uL 0.01
[2022-03-09 00:49] LABS: ALT 27 U/L (14-59); AST 33 U/L (15-37); Albumin 3.6 g/dL (3.4-5.0); Alkaline Phosphatase 98 U/L (46-116); Anion Gap 10.1 mmol/L (3-11); BUN 29 mg/dL (7-18); Bilirubin, Total 0.6 mg/dL (0.2-1.0); CO2 28.9 mmol/L (21.0-32.0); CREATININE 1.3 mg/dL (0.55-1.02); Calcium 9.8 mg/dL (8.5-10.1); Chloride 104 mmol/L (98-107); Estimated GFR 42.88 (mL/min/1.73m2); Glucose 200 mg/dL (74-106); Potassium 4.8 mmol/L (3.5-5.1); Sodium 143 mmol/L (136-145); TSH (W/Ref FT4) 6.02 uIU/mL (0.36-3.74); Total Protein 7.7 g/dL (6.4-8.2)
[2022-03-09 01:12] LABS: FREE T4 0.87 ng/dL (0.76-1.46)
--- NOTE | 2022-03-09 01:54 | DI.VRAD_ITS ---
PROCEDURE INFORMATION: Exam: CT Head Without Contrast Exam date and time: 03/09/2022 12:35 AM Age: 76 years old Clinical indication: Injury or trauma; Abrasion; Scalp; Patient HX: S/P fall hit head, dementia TECHNIQUE: Imaging protocol: Computed tomography of the head without contrast. COMPARISON: CT HEAD WO 08/28/2018 9:28 AM FINDINGS: Brain: No intracranial hemorrhage or extra-axial fluid collection. No evidence of mass effect or midline shift. Mojica-white matter differentiation is intact. Cerebral ventricles: No ventriculomegaly. Paranasal sinuses: Unremarkable. No fluid levels. Mastoid air cells: Unremarkable. Bones/joints: Hyperostosis of the calvarium. No acute fracture. Soft tissues: Unremarkable. IMPRESSION: No acute intracranial pathology. Dictated and Authenticated by: Meng Bueno MD. Ordering:LISSA Red MD
--- NOTE | 2022-03-09 01:55 | DI.VRAD_ITS ---
PROCEDURE INFORMATION: Exam: XR Right Femur Exam date and time: 03/09/2022 1:11 AM Age: 76 years old Clinical indication: Injury or trauma; Sprain or strain; Thigh or upper leg; Right; Patient HX: S/P fall, dementia TECHNIQUE: Imaging protocol: Radiologic exam of the Right femur. Views: 2 views. COMPARISON: No relevant prior studies available. FINDINGS: Bones/joints: No acute fracture or dislocation. Joint spaces are unremarkable. Soft tissues: Unremarkable. IMPRESSION: No acute findings. Dictated and Authenticated by: Meng Bueno MD. Ordering:LISSA Red MD
--- NOTE | 2022-03-09 01:56 | DI.VRAD_ITS ---
PROCEDURE INFORMATION: Exam: XR Pelvis Exam date and time: 03/09/2022 1:14 AM Age: 76 years old Clinical indication: Injury or trauma; Sprain or strain; Does not apply; Pelvic region; Patient HX: S/P fall, dementia TECHNIQUE: Imaging protocol: Radiologic exam of the pelvis. Views: 1 or 2 view. COMPARISON: CR XR FEMUR RT 03/09/2022 1:11 AM FINDINGS: Bones/joints: Acute displaced left femoral neck fracture. Soft tissues: Unremarkable. IMPRESSION: Acute displaced left femoral neck fracture. Dictated and Authenticated by: Meng Bueno MD. Ordering:LISSA Red MD
--- NOTE | 2022-03-09 01:56 | DI.VRAD_ITS ---
PROCEDURE INFORMATION: Exam: XR Left Femur Exam date and time: 03/09/2022 1:16 AM Age: 76 years old Clinical indication: Injury or trauma; Sprain or strain; Thigh or upper leg; Left; Patient HX: S/P fall, dementia TECHNIQUE: Imaging protocol: Radiologic exam of the Left femur. Views: 2 views. COMPARISON: CR XR PELVIS AP 03/09/2022 1:14 AM FINDINGS: Bones/joints: Acute displaced and angulated left femoral neck fracture. Soft tissues: Unremarkable. IMPRESSION: Acute displaced and angulated left femoral neck fracture. Dictated and Authenticated by: Meng Bueno MD. Ordering:LISSA Red MD
[2022-03-09 02:59] LABS: Bilirubin Negative (Negative); Blood Trace-intact (Negative); Clarity Cloudy (Clear); Glucose Negative (Negative); Ketones Negative (Negative); Leukocyte Esterase Large (Negative); Nitrite Negative (Negative); Specific Gravity >= 1.030 (1.005-1.025); Urobilinogen 0.2 EU/dL (Up TO 0.2)
[2022-03-09 03:04] LABS: Bacteria Many HPF (Negative); C & S Indicated? Yes; Casts Negative LPF (Negative); Crystals Negative HPF (Negative); Epithelial Cells Few HPF (Negative); Mucus Negative (Negative); WBC >50 HPF (0-5)
[2022-03-09] MEDS: diazePAM 10 MG/2 ML SYR IVP (03:10)
[2022-03-09] MEDS: diazePAM 10 MG/2 ML SYR 5 MG IVP (03:13)
[2022-03-09] MEDS: cefTRIAXone 2 GM/50 ML BAG IVPB (03:17)
--- NOTE | 2022-03-09 06:16 | HPE_ITS ---
Date of service: 03/09/22 Time of Service: 06:16 Assessment and Plan Assessment and plan (1) Closed displaced fracture of left femoral neck: Start date: 03/08/22 Status: Acute Assessment and plan: This is a 76-year-old lady with advanced dementia who had 2 falls prior to admission with a second fall resulting in left femoral neck fracture which is displaced. Because of the mechanical fall was increasing weakness with probable mild dehydration with decreased intake and UTI. She will be treated for the UTI and gently hydrated with fluids while being n.p.o. pending surgery in the morning. She is a full code. (2) Acute UTI: Start date: 03/08/22 Status: Acute Assessment and plan: Rocephin 2 g IV was given in the ED and will be continued at 1 g IV every 24 hours with follow-up culture and adjustment to oral therapy once pathogen identified with sensitivities. She does have a history of recurrent UTIs. She has mildly dehydrated which may be worsening symptoms and gentle IV hydration will be initiated. (3) Dementia: Status: Chronic Assessment and plan: Advanced with behavioral abnormalities and there is caregiver fatigue. Long- term patient should have CODE STATUS reviewed and possibly increased services at home versus placement. Qualifiers: Dementia behavioral or psychological symptom: with psychotic disturbance Dementia severity: severe Dementia type: vascular dementia Qualified Code(s): F01.C2 - Vascular dementia, severe, with psychotic disturbance (4) Hypertension: Assessment and plan: Slightly exacerbated off medical therapy with patient to have meds reinitiated and pain control may help with elevated blood pressure. She is medically c leared for surgery. (5) Hypothyroidism: Assessment and plan: TSH is elevated but free T4 is normal possibly indicating compliance issues or medication being given inappropriately at times. Continue outpatient medical therapy and PCP can adjust as needed. This problem is most likely not contributing to her acute symptoms or worsening dementia but should be maximized on therapy to the TSH below 2 but above 1. (6) Tobacco use: Assessment and plan: Continue nicotine patch with patient apparently still smoking by review of record but this needs to be confirmed by discussion with daughter when available. History of Present Illness History of Present Illness Chief Complaint: Left hip pain with mechanical fall Narrative: This is a 76-year-old female patient who is cared for by her daughter and has advanced dementia with behavioral abnormalities. There is some caregiver fatigue. The patient fell twice the day of presentation to the ED first hitting her head gently on a refrigerator with a negative CT of the head for acute pr ocesses in the ED. She also fell a second time and was not able to get up with her left leg externally rotated and painful and was found to have a left femoral neck fracture on imaging. The patient at baseline has confusion but was more confused recently with less intake and appears slightly dehydrated and also has a UTI which is acute but has a history of recurrent UTIs. As stated there is caregiver fatigue and patient is a full code though palliative care order has been placed in the past. When I saw the patient she was sedated from benzodiazepine (Valium) for muscle spasm and when moved would have extreme pain with morphine ordered for pain control. She did receive Rocephin 2 g in the ED with a presumed acute UTI and I did initiate fluids for gentle hydration with patient being n.p.o. for surgery. Dr. Lundberg has been consulted and plans surgery this morning. Patient is medically cleared but will need continued IV hydration postoperatively and IV antibiotic therapy for her UTI with urine culture pending. Patient offers no further history. Review of Systems Narrative: 13 point review of systems otherwise unrevealing or unobtainable with patient having dementia. She appears to still smoke cigarettes. The blood pressure is elevated not on her usual meds and having some discomfort but patient has no complaints verbally with sedation and dementia. She had no fever or urinary symptoms prior to admission but did have decreased intake as mentioned. 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) Requires continuous supervision for activities of daily living (ADL) (Chronic) needs to have someone with her does better with 24/7 company Urinary and bowel incontinence (Chronic) bowel is rare but urine is daily explained this is normal for dementia and will get worse over time Wandering (Chronic) Palliative care patient (Chronic) Vascular dementia with paranoia (Chronic) paranoia improving 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) Anxiety (Chronic) Constipation by delayed colonic transit (Acute) Fatigue associated with anemia (Acute) Dementia (Chronic) Blurring of visual image (Acute) Vaginal atrophy (Acute) Dysuria (Acute) Dementia (Chronic) Brain atrophy (Chronic) will not have any further brain imaging Migraine (Chronic) Ischemic vascular disease (Chronic) Chronic fatigue (Chronic) Depression (Chronic 08/23/15) Essential hypertension (Chronic) Hypothyroidism (Chronic 08/23/15) Seasonal affective disorder (Chronic) Tobacco use disorder (Chronic 08/23/15) has cut back to about 10 per day Vitamin D deficiency (Chronic) Medical History Cervical cancer Depression Hypertension Hypothyroidism Osteopenia Tobacco use restarted tobacco 2015. Surgical History Cataract extraction status, left eye (~01/2018) [facility] Cataract extraction status, right eye (~01/2018) [facility] Vaginal hysterectomy Family History Mother , age 66 from pneumonia, s/p mastectomy for breast cancer Breast cancer Pneumonia Father , age 62 from emphysema, heavy smoker Emphysema lung Smoker Sister , age 68 from leukemia Leukemia Brother No problems noted. Son No problems noted. Son No problems noted. Daughter Twin Daughter Twin Depression Anxiety [employer] Social History Smoking/Tobacco Use Status: Former Tobacco Use Tobacco: How many years used: 60 Quit status: considering quitting Second Hand Exposure: Yes Counseling given: counseling >3 minutes Smoking risk assessment performed?: Yes Alcohol Intake: former Drug use: Never Substance use type: does not use Caregiver/Support person: Yes (moved in with daughter Zhanna November 2020) Household members: children Housing: apartment Number of Children: 4 number of grandchildren: 6 Communication Needs: Hard of Hearing and Corrective Lenses Education Level: high school Do you need help understanding health information?: Always current occupation: retired caregiver for elderly and disabled people Pets and animals: No Do you think of yourself as: straight/heterosexual Current gender identity: female What is your relationship status?: How often do you talk on the phone with friends or family?: never How often do you get together with friends or relatives?: three or more times per week Panel score (0-1 are the most socially isolated patients): 1 What type of physical activity do you participate in: walking and irregular exercise Duration: 30-45 minutes/day Frequency: other Details: paces as part of her dementia, does not go outside, afraid Special neema needs: No Agree to transfusion: No Seatbelt use: always Working smoke detector in home: Yes Fire extinguisher in home: Yes Firearms in home: No Do you feel safe at home: Yes Do you feel safe in your relationship?: Yes Additional Social history: to second , Wily, since 1978. Not living with him since November 2020. Moved in with daughter in November 2020. Her memory has been more rapidly declining since 2019. She is still able to walk. She can speak, but doesn't make sense. Memory is poor. She does have persistent urinary and rare fecal incontinence. She is normal weight. Daughters Sophie and Zhanna very involved in Yovana's care. Historically, Yovana had been very paranoid and suspicious of any medical intervention. She is no longer. More easy-going as of 2020. She seems to know that her memory is worse. Since 2020 visits, she let me discuss her dementia openly without getting upset. Walks most days, with supervision. Still smokes. Family house sold in November 2020; after sale, Yovana was initially in community long-term and then moved in with Zhanna after about one week. Zhanna pursuing medical guardianship; daughter Sophie pursuing financial guardianship. A lot of distrust and stress between daughters and Wily. Unlikely that Yovana will move back in with her in the future. Zhanna very tearful, appears exhausted, will not consider a respite to help her r ecover, rest. Suggested she seek out counseling for herself. She is very angry and upset with Wily and what she perceives as subpar care that he delivered. Meds Allergies and Home Medications Allergies Allergy/AdvReac Type Severity Reaction Status Date / Time bupropion [From Wellbutrin] AdvReac Intermediate Palpitation Verified 05/04/19 13:58 s memantine [From Namenda] AdvReac Nausea Verified 05/04/19 13:58 Home Medications Medication Instructions Recorded Confirmed Type escitalopram oxalate 20 mg tablet 20 mg PO DAILY #90 tabs 07/15/18 08/22/21 Rx lisinopril 20 mg tablet 20 mg PO DAILY #90 tabs 08/30/18 08/22/21 Rx estradiol 2 mg (7.5 mcg/24 hour) 1 vag ring vaginal [id number] #1 ea 09/23/18 08/22/21 Rx vaginal ring (Estring) cholecalciferol (vitamin D3) 50 2,000 unit PO DAILY 05/04/19 08/22/21 History mcg (2,000 unit) capsule levothyroxine 50 mcg capsule 50 mcg PO DAILY #90 caps 12/20/20 08/22/21 Rx magnesium citrate 150 ml PO DAILY #296 mL 12/20/20 08/22/21 Rx nicotine 14 mg/24 hr daily 1 patch transdermal DAILY #28 ea 12/20/20 08/22/21 Rx transdermal patch Exam Narrative Exam Narrative: General: Patient appears older than stated age, in bed opening eyes but not responding to verbal stimuli appropriately, in no acute distress when not moved but with movement and extreme pain and grimacing. She is not oriented to person, place or time. HEENT: Normocephalic, eyes with pupils equal and react to light symmetrically, extraocular movement intact and sclera anicteric. Oropharynx with dry mucosa. Neck: Supple without JVD. Lungs: Auscultated anteriorly essentially clear with bronchovesicular breath sounds diffusely and fair aeration. No rales or rhonchi and no expiratory wheeze. Normal expiratory phase. Breast: Exam deferred. Heart: Regular rate and rhythm with systolic murmur left sternal border, no gallop or rubs. Abdomen: Scaphoid and nontender to palpation with no palpable hepatosplenomegaly. Bowel sound decreased but present all quadrants. Genitalia/rectal: Montoya in place, otherwise exam deferred. Extremities: Nonpitting edema lower extremities with arthritic changes of larger joints without swelling. No clubbing or cyanosis. No pitting edema. Left foot turned outward and left leg shortened. Left lower extremity was not moved because of discomfort. Good capillary refill over left lower extremity. Left lower extremity warm. Neuro: Cranial nerves II through XII gross intact, no focalizing motor deficits. No tremor. Skin: Pale, warm and dry. Psych: Flattened affect with mood appearing depressed but patient nonverbal. No abnormal thought processes manifested with history of visual hallucinations. Remote and recent memory not testable with patient nonverbal appears to have fairly advanced dementia. Results Imaging Imaging Studies: Exam: XR Pelvis Exam date and time: 03/09/2022 1:14 AM Age: 76 years old Clinical indication: Injury or trauma; Sprain or strain; Does not apply; Pelvic region; Patient HX: S/P fall, dementia TECHNIQUE: Imaging protocol: Radiologic exam of the pelvis. Views: 1 or 2 view. COMPARISON: CR XR FEMUR RT 03/09/2022 1:11 AM FINDINGS: Bones/joints: Acute displaced left femoral neck fracture. Soft tissues: Unremarkable. IMPRESSION: Acute displaced left femoral neck fracture. Exam: CT Head Without Contrast Exam date and time: 03/09/2022 12:35 AM Age: 76 years old Clinical indication: Injury or trauma; Abrasion; Scalp; Patient HX: S/P fall hit head, dementia TECHNIQUE: Imaging protocol: Computed tomography of the head without contrast. COMPARISON: CT HEAD WO 08/28/2018 9:28 AM FINDINGS: Brain: No intracranial hemorrhage or extra-axial fluid collection. No evidence of mass effect or midline shift. Mojica-white matter differentiation is intact. Cerebral ventricles: No ventriculomegaly. Paranasal sinuses: Unremarkable. No fluid levels. Mastoid air cells: Unremarkable. Bones/joints: Hyperostosis of the calvarium. No acute fracture. Soft tissues: Unremarkable. IMPRESSION: No acute intracranial pathology. Labs Result diagrams: 03/09/22 00:20 03/09/22 00:20 Labs: Laboratory Results - last 24 hr 03/09/22 03/09/22 03/09/22 00:20 00:20 02:14 WBC 13.70 H RBC 3.67 L Hgb 11.9 Hct 36.4 MCV 99 H MCH 32.4 MCHC 32.7 RDW 12.6 Plt Count 285 MPV 9.3 Immature Gran % 0.6 Neutrophils % 87.6 Lymphocytes % 5.3 Monocytes % 6.3 Eosinophils % 0.1 Basophils % 0.1 Nucleated RBC % 0.0 Absolute Neutrophils 12.00 H Absolute Lymphocytes 0.73 L Absolute Monocytes 0.86 H Absolute Eosinophils 0.01 Absolute Basophils 0.01 Sodium 143 Potassium 4.8 Chloride 104 Carbon Dioxide 28.9 Anion Gap 10.1 BUN 29 H Creatinine 1.3 H Est GFR (CKD-EPI 2020) 42.88 Glucose 200 H Calcium 9.8 Total Bilirubin 0.6 AST 33 ALT 27 Alkaline Phosphatase 98 Total Protein 7.7 Albumin 3.6 TSH 6.02 H Free T4 0.87 Urine Color Yellow Urine Clarity Cloudy Urine pH 7.0 Ur Specific Petty >= 1.030 H Urine Protein 30 H Urine Ketones Negative Urine Blood Trace-intact H Urine Nitrite Negative Urine Bilirubin Negative Urine Urobilinogen 0.2 Ur Leukocyte Esterase Large H Urine RBC 5-10 H Urine WBC >50 H Ur Epithelial Cells Few Urine Crystals Negative Urine Bacteria Many Urine Casts Negative Urine Mucus Negative Ur Culture Indicated? Yes Urine Glucose Negative Last Vital Signs Temp 36.5 C 03/09/22 04:00 Pulse 73 03/09/22 05:01 Resp 15 03/09/22 05:01 BP 102/65 03/09/22 05:01 Pulse Ox 98 03/09/22 05:01
[2022-03-09] MEDS: Normal Saline Flush 10 ML SYR IVP ×2 (06:59→23:52)
[2022-03-09] MEDS: MORPHine 2 MG/ML SYR IVP (07:20)
--- NOTE | 2022-03-09 07:52 | W.ANESPRE ---
General Info Date of Service Date Performed: 03/09/22 Height: 5 ft 4 in Weight: 62.1 kg Body Mass Index (BMI): 23.5 Meds Allergies and Home Medications Allergies Allergy/AdvReac Type Severity Reaction Status Date / Time bupropion [From Wellbutrin] AdvReac Intermediate Palpitation Verified 05/04/19 13:58 s memantine [From Namenda] AdvReac Nausea Verified 05/04/19 13:58 Home Medication Medication Instructions Recorded escitalopram oxalate 20 mg tablet 20 mg PO DAILY #90 tabs 07/15/18 lisinopril 20 mg tablet 20 mg PO DAILY #90 tabs 08/30/18 estradiol 2 mg (7.5 mcg/24 hour) 1 vag ring vaginal [id number] #1 ea 09/23/18 vaginal ring (Estring) cholecalciferol (vitamin D3) 50 2,000 unit PO DAILY 05/04/19 mcg (2,000 unit) capsule levothyroxine 50 mcg capsule 50 mcg PO DAILY #90 caps 12/20/20 magnesium citrate 150 ml PO DAILY #296 mL 12/20/20 nicotine 14 mg/24 hr daily 1 patch transdermal DAILY #28 ea 12/20/20 transdermal patch Current Visit Medications: Current Medications Generic Name Dose Route Start Last Admin Trade Name Freq PRN Reason Stop Dose Admin Acetaminophen 0 mg 03/09/22 06:00 Acetaminophen 325 Mg Tab PO Q4H PRN PRN Al Hydrox/Mg Hydrox/Simethicone 30 ml 03/09/22 06:00 Mylanta Suspension 30 Ml Cup PO Q2H PRN PRN Albuterol Sulfate 2.5 mg 03/09/22 06:00 Albuterol 2.5 Mg/3 Ml Inh Soln Vial UPD Q2H PRN PRN Albuterol/Ipratropium 3 ml 03/09/22 06:00 Albuterol/Ipratropium 3 Ml Upd Vial UPD Q6H PRN PRN Dimethicone/Zinc Oxide 0 gm 03/09/22 06:00 Carla Protect Cream 142 Gm Tube TP PRN PRN Docusate Sodium 100 mg 03/09/22 06:00 Docusate Sodium 100 Mg Cap PO TID PRN PRN Escitalopram Oxalate 20 mg 03/09/22 08:30 Escitalopram 20 Mg Tab PO DAILY SILVESTRE Sodium Chloride 500 mls @ 0 mls/hr 03/09/22 02:21 Saline 500ml Bag IV PRN PRN As Directed Sodium Chloride 1,000 mls @ 100 mls/hr 03/09/22 06:00 Saline 1000ml Bag IV INFUSION [facility] Ceftriaxone Sodium/Dextrose 1 gm in 50 mls @ 100 mls/hr 03/10/22 04:00 Rocephin IVPB Q24H [facility] IV Miscellaneous Supplies 1 each 03/09/22 02:30 Iv Access IV DIRECTED [facility] Levothyroxine Sodium 50 mcg 03/10/22 06:00 Levothyroxine 25 Mcg Tab PO 0600 SILVESTRE Lisinopril 20 mg 03/09/22 08:30 Lisinopril 20 Mg Tab PO DAILY SILVESTRE Magnesium Hydroxide 30 ml 03/09/22 06:00 Milk Of Magnesia 30 Ml Cup PO DAILY PRN PRN Morphine Sulfate 2 mg 03/09/22 06:52 03/09/22 07:20 Morphine 2 Mg/Ml Syr IVP 2 mg Q2H PRN PRN Administration Morphine Sulfate 2 mg 03/09/22 06:55 Morphine 2 Mg/Ml Syr IVP Q1H PRN PRN Nicotine 14 mg 03/09/22 08:30 Nicotine 14 Mg/24 Hr Patch TD DAILY SILVESTRE Polyethylene Glycol 17 gm 03/09/22 06:00 Polyethylene Glycol 3350 17 Gm Packet PO DAILY PRN PRN Constipation Sodium Chloride 0 ml 03/09/22 02:21 03/09/22 06:59 Normal Saline Flush 10 Ml Syr IVP 30 ml PRN PRN Administration PFSH Active Problems Active Problems: Problem Status Onset Code Closed fracture of left hip S72.002A Acute UTI N39.0 Closed displaced fracture of left femoral neck 03/09/22 S72.002A Caregiver stress Z63.6 Agoraphobia F40.00 History of recurrent UTIs Z87.440 Kyphosis M40.209 Health care proxy on file Stress due to family tension Z63.8 Goals of care, counseling/discussion Z71.89 Hallucinations due to late onset dementia F03.90, R44.3 Requires continuous supervision for activities of daily living (ADL) Z74.3 Urinary and bowel incontinence R32, R15.9 Wandering R46.89 Palliative care patient Z51.5 Vascular dementia with paranoia F01.50 Mixed Alzheimer's and vascular dementia G30.9, F01.50, F02.80 Denial as mental defense mechanism R45.89 Anxiety F41.9 Constipation by delayed colonic transit K59.01 Fatigue associated with anemia D64.9 Dementia F03.90 Blurring of visual image H53.8 Vaginal atrophy N95.2 Dysuria R30.0 Dementia Brain atrophy G31.9 Migraine G43.909 Ischemic vascular disease I99.8 Age-related cataract of both eyes H25.9 Chronic fatigue R53.82 Depression 08/23/15 F32.9 Essential hypertension I10 Hypothyroidism 08/23/15 E03.9 Seasonal affective disorder Tobacco use disorder 08/23/15 F17.200 Vitamin D deficiency E55.9 Medical History Medical History Cervical cancer Depression Hypertension Hypothyroidism Osteopenia Tobacco use restarted tobacco 2015. Surgical History Surgical History Cataract extraction status, left eye (~01/2018) [facility] Cataract extraction status, right eye (~01/2018) [facility] Vaginal hysterectomy Tobacco Smoking/Tobacco Use Status: Former Tobacco Use Second hand exposure: Yes Counseling given: counseling >3 minutes Alcohol Alcohol Intake: former Substance Use Substance use: Never Substance use type: does not use Vital Signs and Lab Results Vital Signs Most Recent Vital Signs in EMR: Most Recent Vital Signs Temp Pulse Resp BP Pulse Ox 36.5 C 72 13 111/49 L 97 03/09/22 04:00 03/09/22 07:01 03/09/22 07:01 03/09/22 07:01 03/09/22 06:01 Lab Results Result Diagrams: 03/09/22 00:20 03/09/22 00:20 Blood Type / Crossmatch: No Data to Display Complete Blood Count: White Blood Count 13.70 10^3/uL (4.4-10.8) H 03/09/22 00:20 Red Blood Count 3.67 10^6/uL (3.93-5.22) L 03/09/22 00:20 Hemoglobin 11.9 g/dL (11.2-15.7) 03/09/22 00:20 Hematocrit 36.4 % (36.0-46.0) 03/09/22 00:20 Platelet Count 285 10^3/uL (130-400) 03/09/22 00:20 Complete Metabolic Panel: Sodium 143 mmol/L (136-145) 03/09/22 00:20 Potassium 4.8 mmol/L (3.5-5.1) 03/09/22 00:20 Chloride 104 mmol/L (98-107) 03/09/22 00:20 Carbon Dioxide 28.9 mmol/L (21.0-32.0) 03/09/22 00:20 BUN 29 mg/dL (7-18) H 03/09/22 00:20 Creatinine 1.3 mg/dL (0.55-1.02) H 03/09/22 00:20 Est GFR (CKD-EPI 2020) 42.88 (mL/min/1.73m2) 03/09/22 00:20 Calcium 9.8 mg/dL (8.5-10.1) 03/09/22 00:20 Albumin 3.6 g/dL (3.4-5.0) 03/09/22 00:20 Glucose 200 mg/dL (74-106) H 03/09/22 00:20 Liver Function Panel: Alanine Aminotransferase (ALT/SGPT) 27 U/L (14-59) 03/09/22 00:20 Aspartate Amino Transf (AST/SGOT) 33 U/L (15-37) 03/09/22 00:20 Coagulation Panel: No Data to Display Cardiac Panel: No Data to Display Arterial Blood Gas: No Data to Display Venous Blood Gas: No Data to Display Pancreas Panel: No Data to Display Thyroid Panel: Thyroid Stimulating Hormone (TSH) 6.02 uIU/mL (0.36-3.74) H 03/09/22 00:20 Infectious Disease: No Data to Display Blood Cultures: No Data to Display Toxicology Panel: No Data to Display Anesthesia Assessment and Plan Anesthesia History Personal History: No History of Anesthesia Complications Family History: No Family History of Anesthesia Complications Exercise Tolerance Exercise Tolerance: Unknown Cardiac & Pulmonary Exam Cardiac Exam: Normal S1/S2 Heart Sounds Pulmonary Exam: Clear Bilateral Breath Sounds Implantable Cardiac Device Does patient have a Pacemaker or an ICD?: No Airway Exam Known Difficult Airway: No Mallampati Class: Unable to Assess Mouth Opening: Unable to Assess Thyromental Distance: Greater than 3 cm Neck Range of Motion: Unable to Assess Neck Circumference: Normal Teeth Condition: Unable to Assess ASA Classification ASA Score: ASA 3 Emergency Case?: Yes NPO Status NPO Status: Unable to Assess Anesthesia Plan Resuscitation Status: Full Code Anesthesia Technique: General Anesthesia Airway Planned: Endotracheal Tube Monitors Used: Standard Monitors and Arterial Line (+/-) Preoperative Comments:: 76 yo female with hip fracture for anna. currently Inpt. full code ordered, but 08/22/21 palliative note states DNR/DNI. getting morphine/diazepam for pain, and had a dose of cefriazone at ~ 0300. Sig PMHx: agoraphobia, kyphosis, dementia/alzheimers, anxiety,hallucinations, hypothyroid, HTN, former smoker/etoh. On chatting with Gisela she was found to not reply to questions, took some time to look at me, and was unable to follow instructions. Calls place to Zhanna, Clemente, and Sophie, was unable to get in touch will Zhanna, but was able to chat with Clemente and Sophie together, plan was discussed and they agree to proceed as a GA/full code. They are also working on getting ahold of Zhanna.
--- NOTE | 2022-03-09 08:36 | NUR.NOTE ---
Nursing Note: Derrick SYED saw patient and is currently talking to Tomasz Wallace on the Telephone at this time.
--- NOTE | 2022-03-09 09:34 | W.ORTHOCONSU ---
Assessment and Plan Assessment and plan (1) Closed displaced fracture of left femoral neck: Status: Acute Assessment and plan: 76 year old female with displaced Left femoral neck fracture History challenging given significant dementia, unable to obtain answers or really any helpful responses from the patient. Apparent mechanical fall onto left side. Left hip discomfort. History and goals of care obtained from Zhanna Burr, the patient's daughter. Exam significantly limited. No apparent other upper or right lower extremity musculoskeletal injuries. Unable to elicit responses other than pushing away from the patient about the left hip. X-rays show completely displaced left femoral neck fracture. Medical admission and optimization for surgery: Left hip hemiarthroplasty The risks, benefits, and alternatives were thoroughly discussed with the patient's daughter, Zhanna. She was counseled regarding pain management, expected postoperative course, and recovery timeline. All questions were answered. Informed consent was obtained over the phone. She agrees and understands treatment plan. 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 History of recurrent UTIs (Chronic) urologist Dr Cotter in [facility] Kyphosis (Chronic) more pronounced since 2020 Health care proxy on file (Acute) Stress due to family tension (Chronic) complicated blended family Goals of care, counseling/discussion (Chronic) 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) Requires continuous supervision for activities of daily living (ADL) (Chronic) needs to have someone with her does better with 24/7 company Urinary and bowel incontinence (Chronic) bowel is rare but urine is daily explained this is normal for dementia and will get worse over time Wandering (Chronic) Palliative care patient (Chronic) Vascular dementia with paranoia (Chronic) paranoia improving 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) Anxiety (Chronic) Constipation by delayed colonic transit (Acute) Fatigue associated with anemia (Acute) Dementia (Chronic) Blurring of visual image (Acute) Vaginal atrophy (Acute) Dysuria (Acute) Dementia (Chronic) Brain atrophy (Chronic) will not have any further brain imaging Migraine (Chronic) Ischemic vascular disease (Chronic) Chronic fatigue (Chronic) Depression (Chronic 08/23/15) Essential hypertension (Chronic) Hypothyroidism (Chronic 08/23/15) Seasonal affective disorder (Chronic) Tobacco use disorder (Chronic 08/23/15) has cut back to about 10 per day Vitamin D deficiency (Chronic) Medical History Cervical cancer Depression Hypertension Hypothyroidism Osteopenia Tobacco use restarted tobacco 2015. Surgical History Cataract extraction status, left eye (~01/2018) [facility] Cataract extraction status, right eye (~01/2018) [facility] Vaginal hysterectomy Family History Mother , age 66 from pneumonia, s/p mastectomy for breast cancer Breast cancer Pneumonia Father , age 62 from emphysema, heavy smoker Emphysema lung Smoker Sister , age 68 from leukemia Leukemia Brother No problems noted. Son No problems noted. Son No problems noted. Daughter Twin Daughter Twin Depression Anxiety [employer] Social History Smoking/Tobacco Use Status: Former Tobacco Use Tobacco: How many years used: 60 Quit status: considering quitting Second Hand Exposure: Yes Counseling given: counseling >3 minutes Smoking risk assessment performed?: Yes Alcohol Intake: former Drug use: Never Substance use type: does not use Caregiver/Support person: Yes (moved in with daughter Zhanna November 2020) Household members: children Housing: apartment Number of Children: 4 number of grandchildren: 6 Communication Needs: Hard of Hearing and Corrective Lenses Education Level: high school Do you need help understanding health information?: Always current occupation: retired caregiver for elderly and disabled people Pets and animals: No Do you think of yourself as: straight/heterosexual Current gender identity: female What is your relationship status?: How often do you talk on the phone with friends or family?: never How often do you get together with friends or relatives?: three or more times per week Panel score (0-1 are the most socially isolated patients): 1 What type of physical activity do you participate in: walking and irregular exercise Duration: 30-45 minutes/day Frequency: other Details: paces as part of her dementia, does not go outside, afraid Special neema needs: No Agree to transfusion: No Seatbelt use: always Working smoke detector in home: Yes Fire extinguisher in home: Yes Firearms in home: No Do you feel safe at home: Yes Do you feel safe in your relationship?: Yes Additional Social history: to second , Wily, since 1978. Not living with him since November 2020. Moved in with daughter in November 2020. Her memory has been more rapidly declining since 2019. She is still able to walk. She can speak, but doesn't make sense. Memory is poor. She does have persistent urinary and rare fecal incontinence. She is normal weight. Daughters Sophie and Zhanna very involved in Yovana's care. Historically, Yovana had been very paranoid and suspicious of any medical intervention. She is no longer. More easy-going as of 2020. She seems to know that her memory is worse. Since 2020 visits, she let me discuss her dementia openly without getting upset. Walks most days, with supervision. Still smokes. Family house sold in November 2020; after sale, Yovana was initially in community [facility] and then moved in with Zhanna after about one week. Zhanna pursuing medical guardianship; daughter Sophie pursuing financial guardianship. A lot of distrust and stress between daughters and Wily. Unlikely that Yovana will move back in with her in the future. Zhanna very tearful, appears exhausted, will not consider a respite to help her recover, rest. Suggested she seek out counseling for herself. She is very angry and upset with Wily and what she perceives as subpar care that he delivered. Results Last Vital Signs Temp 98.2 F 03/08/22 23:52 Pulse 112 H 03/08/22 23:52 Resp 20 03/08/22 23:52 BP 128/105 H 03/08/22 23:52 Pulse Ox 98 03/08/22 23:52 Labs Result diagrams: 03/09/22 00:20 03/09/22 00:20 Labs: Laboratory Results - last 24 hr 03/09/22 03/09/22 00:20 00:20 WBC 13.70 H RBC 3.67 L Hgb 11.9 Hct 36.4 MCV 99 H MCH 32.4 MCHC 32.7 RDW 12.6 Plt Count 285 MPV 9.3 Immature Gran % 0.6 Neutrophils % 87.6 Lymphocytes % 5.3 Monocytes % 6.3 Eosinophils % 0.1 Basophils % 0.1 Nucleated RBC % 0.0 Absolute Neutrophils 12.00 H Absolute Lymphocytes 0.73 L Absolute Monocytes 0.86 H Absolute Eosinophils 0.01 Absolute Basophils 0.01 Sodium 143 Potassium 4.8 Chloride 104 Carbon Dioxide 28.9 Anion Gap 10.1 BUN 29 H Creatinine 1.3 H Est GFR (CKD-EPI 2020) 42.88 Glucose 200 H Calcium 9.8 Total Bilirubin 0.6 AST 33 ALT 27 Alkaline Phosphatase 98 Total Protein 7.7 Albumin 3.6 TSH 6.02 H Free T4 0.87
--- NOTE | 2022-03-09 09:35 | ROE_ITS ---
Operative Note Operative Note DATE OF PROCEDURE: 03/09/22 PRE-OP DIAGNOSIS: 1. Left displaced femoral neck fracture POST-OP DIAGNOSIS: same PROCEDURE: 1. Left posterior hip hemiarthroplasty SURGEON: Steven Lundberg IMPERSONATOR CHARACTER: Cyn Deng ANESTHESIA TYPE: Local By Surgeon and General LMA/ETT Refer to Anesthesia Record ESTIMATED BLOOD LOSS: 75 COMPLICATIONS: None Patient was transported to: PACU Patient's condition: stable Implants: DePuy Corail press fit femoral stem size 11 standard 135 with 46 mm unipolar head +0 mm length Indications: Please see complete medical record for details. Procedure Description: In the operating room, general anesthesia was induced. The patient was tra nsferred and positioned laterally on the operating room table. All bony prominences were well-padded. Preoperative antibiotics were administered as well as 1 g of TXA. The left hip was prepped and draped in the usual sterile fashion. The correct patient, procedure, and side of the procedure were all verified prior to incision. The posterior lateral approach to left hip was utilized. 30 cc of 0.25% bupivacaine containing epinephrine was infiltrated about the incision. Deeply, care was taken to protect the sciatic nerve. The short external rotators and capsule were reflected off the femoral neck and tagged for retraction and later repair. The femoral neck fracture was cut to an appropriate length and to match the desired implant. The femoral head was removed from the acetabulum and measured on the back table. All bony debris was removed from the wound. The capsule was reflected and the head size checker loader used to confirm appropriate fit and suction seal. The proximal femoral canal was sequentially opened and broached with the appropriate lateralization and anteversion until there was a relatively solid fit. Trial reduction with a standard neck +0 mm length head demonstrated excellent suction seal and stability throughout physiologic range of motion. The calcar reamer was used and then trial implants were removed. The femoral stem was then inserted to the appropriate depth. he last used femoral head was trialed and found to have appropriate stability throughout supra-physiologic range of motion including vulnerable positions. The hip was dislocated and the trial head was removed. The trunnion was dried, and the final femoral head was impacted, reduced into the acetabulum, and confirmed to have excellent stability. The wound was irrigated with Betadine lavage and then normal saline. 1 g of vancomycin powder was distributed mostly deep to the capsule with some superficial to the capsule about the wound. The superior capsule was closed using suture tape. The short external rotators and piriformis were repaired using SutureTape through bone tunnels in the greater trochanter. Distally, the IT band fascia was closed using #1 Vicryl in an interrupted fashion. Proximally, the gluteus cinthia muscle fascia was closed using 0 Vicryl in a running fashion. The superficial wound was irrigated with normal saline. Subcutaneous tissue was closed using 2-0 Monocryl in a buried interrupted fashion. Skin was closed using 3-0 Monocryl in a buried subcuticular buried fashion. Skin was sealed with skin glue. A silver impregnated bandage was applied over the wound. The patient awoke from anesthesia without complication and was transferred to the recovery room in a stable condition.
--- NOTE | 2022-03-09 09:47 | INITIAL_ITS ---
- If Service Date Differs Date of service: 03/09/22 Time of Service: 09:47 Care Management Initial Assess REASON FOR HOSPITALIZATION:: Closed displaced fracture of left femoral neck PAST MEDICAL HISTORY/PAST SURGICAL HISTORY:: All Active Problems (Reviewed 1 @ 07:47 by Nuno La). Closed fracture of left hip (Acute). Acute UTI (Acute). Closed displaced fracture of left femoral neck (Acute 03/09/22). Caregiver stress (Chronic). daughter Zhanna tearful, exhausted at 08/13 visit. 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 History of recurrent UTIs (Chronic). urologist Dr Cotter in [facility]. Kyphosis (Chronic). more pronounced since 2020. Health care proxy on file (Acute). Stress due to family tension (Chronic). complicated blended family. Goals of care, counseling/discussion (Chronic). 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 Requires continuous supervision for activities of daily living (ADL) (Chronic). needs to have someone with her. does better with [email or web address]. Urinary and bowel incontinence (Chronic). bowel is rare but urine is daily. explained this is normal for dementia and will get worse over time. Wandering (Chronic). Palliative care patient (Chronic). Vascular dementia with paranoia (Chronic). paranoia improving. 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 Anxiety (Chronic). Constipation by delayed colonic transit (Acute). Fatigue associated with anemia (Acute). Dementia (Chronic). Blurring of visual image (Acute). Vaginal atrophy (Acute). Dysuria (Acute). Dementia (Chronic). Brain atrophy (Chronic). will not have any further brain imaging. Migraine (Chronic). Ischemic vascular disease (Chronic). Chronic fatigue (Chronic). Depression (Chronic 08/23/15). Essential hypertension (Chronic). Hypothyroidism (Chronic 08/23/15). Seasonal affective disorder (Chronic). Tobacco use disorder (Chronic 08/23/15). has cut back to about 10 per day. Vitamin D deficiency (Chronic). Medical History . Cervical cancer. Depression. Hypertension. Hypothyroidism. Osteopenia. Tobacco use. restarted tobacco 2015. Surgical History . Cataract extraction status, left eye (~01/2018). [facility]. Cataract extraction status, right eye (~01/2018). [facility]. Vaginal hysterectomy PREVIOUS FUNCTIONAL STATUS/SOCIAL/FAMILY SUPPORTS:: Gisela is retired and lives in [facility]. ADVANCE DIRECTIVES:: None on file at [facility]. Has patient been provided with info about the portal/API?: Yes Did the patient sign up for the portal?: Yes (Prior to admission) CODE STATUS:: Full Code INSURANCE COVERAGE / FINANCIAL ISSUES:: . Medicaid of [place]. Medicare CURRENT HOME/COMMUNITY SERVICES/EQUIPMENT:: [facility] (help with paying for caregiver Becky who is there 5 days per week) PRIMARY CARE PHYSICIAN:: Kike Rich PATIENT/FAMILY EDUCATION NEEDS:: Review discharge instructions, limitations, medications and plan to follow up with community providers. Discuss ask me three. TRANSPORTATION:: Via private vehicle with family. PLAN:: Anticipate Gisela will discharge home via private vehicle with family when medically ready. New [facility] services will be ordered, if indicated.
[2022-03-09] MEDS: Lactated Ringers 1,000 ML 30 ML IV (09:49)
[2022-03-09] MEDS: Tranexamic Acid 1,000 MG/10 ML VIAL 1000 MG (10:19)
[2022-03-09] MEDS: Bupivacaine 0.25% Pres-Free W/EPI 30 ML VIAL (10:42)
--- NOTE | 2022-03-09 12:15 | DI.RAD_ITS ---
Exam(s) XR HIP LT COMPLETE AP PELVIS EXAM: XR HIP LT COMPLETE AP PELVIS CLINICAL HISTORY: Postop. TECHNIQUE: 2D digital imaging was performed of the left hip. Two views were obtained. AP pelvis an d lateral left hip views were obtained. COMPARISON: CR,XR XR PELVIS AP from 03/09/2022 FINDINGS: BONES: The patient is now status post left hip replacement. Orthopedic hardware appears in good posi tion. No bony destructive lesion is seen. JOINTS: No dislocation present. SOFT TISSUE: Postsurgical changes are seen in the soft tissues. IMPRESSION: Status post left hip replacement. DATA REPOSITORY: RADIATION DOSE DELIVERED:
--- NOTE | 2022-03-09 13:22 | W.PM.PROGNOT ---
Date of Service Date of service: 03/09/22 Time of Service: 13:00 Assessment and Plan Assessment and plan (1) Closed displaced fracture of left femoral neck: Status: Acute Assessment and plan: 76-year-old female postop day #0 status post Left hip hemiathroplasty Patient resting comfortably in PACU. Unable to obtain much exam at this time. Dressing clean dry intact. Thigh compartments soft. Dorsalis pedis pulse readily palpable. Discussed with patient's daughter, Zhanna. Complete 24 hours postoperative antibiotics Discontinue Montoya catheter per medical team Pain control-Multimodal Physical therapy ordered: Weightbearing as tolerated with assist device. Avoid provocative positions as best possible like deep hip flexion with adduction and internal rotation. May start chemical DVT prophylaxis tomorrow morning assuming hemodynamically stable Continue mechanical DVT prophylaxis with SCDs and/or NAEL hose Discharge when medically appropriate Appreciate medical management Follow-up with Dr. Lundberg outpatient [facility] in 2 to 3 weeks Objective Last Vital Signs Temp 97.7 F 03/09/22 04:00 Pulse 72 03/09/22 08:01 Resp 13 03/09/22 08:01 BP 103/47 L 03/09/22 08:01 Pulse Ox 97 03/09/22 08:01 Laboratory Results - last 24 hr 03/09/22 03/09/22 03/09/22 00:20 00:20 02:14 WBC 13.70 H RBC 3.67 L Hgb 11.9 Hct 36.4 MCV 99 H MCH 32.4 MCHC 32.7 RDW 12.6 Plt Count 285 MPV 9.3 Immature Gran % 0.6 Neutrophils % 87.6 Lymphocytes % 5.3 Monocytes % 6.3 Eosinophils % 0.1 Basophils % 0.1 Nucleated RBC % 0.0 Absolute Neutrophils 12.00 H Absolute Lymphocytes 0.73 L Absolute Monocytes 0.86 H Absolute Eosinophils 0.01 Absolute Basophils 0.01 Sodium 143 Potassium 4.8 Chloride 104 Carbon Dioxide 28.9 Anion Gap 10.1 BUN 29 H Creatinine 1.3 H Est GFR (CKD-EPI 2020) 42.88 Glucose 200 H Calcium 9.8 Total Bilirubin 0.6 AST 33 ALT 27 Alkaline Phosphatase 98 Total Protein 7.7 Albumin 3.6 TSH 6.02 H Free T4 0.87 Urine Color Yellow Urine Clarity Cloudy Urine pH 7.0 Ur Specific [place] >= 1.030 H Urine Protein 30 H Urine Ketones Negative Urine Blood Trace-intact H Urine Nitrite Negative Urine Bilirubin Negative Urine Urobilinogen 0.2 Ur Leukocyte Esterase Large H Urine RBC 5-10 H Urine WBC >50 H Ur Epithelial Cells Few Urine Crystals Negative Urine Bacteria Many Urine Casts Negative Urine Mucus Negative Ur Culture Indicated? Yes Urine Glucose Negative
--- NOTE | 2022-03-09 13:52 | W.ANESPOSTOP ---
Postoperative Evaluation Date, Time and Location Date Performed: 03/09/22 Time Performed: 13:52 Patient Location: Intensive Care Unit Vital Signs Most Recent Imported Vital Signs: Most Recent Vital Signs Temp Pulse Resp BP Pulse Ox 36.6 C 60 12 119/49 L 99 03/09/22 13:30 03/09/22 13:30 03/09/22 13:30 03/09/22 13:30 03/09/22 13:30 Assessment Mental Status: Other (confused at baseline, was minimially interactive this AM, still minimally interactive. ) Airway and Respiratory Function: Patent airway with normal (patient baseline) respiratory exam Cardiovascular Function: Hemodynamically Stable Hydration Status: Adequately Hydrated Nausea & Vomiting: No Nausea or Vomiting Pain: Other Peripheral Nerve Block: Patient did not receive a nerve block
[2022-03-09] MEDS: Normal Saline 1,000 ML 100 ML IV (15:39)
--- NOTE | 2022-03-09 16:09 | PDOC.CMPRO ---
- If Service Date Differs Date of service: 03/09/22 Time of Service: 16:09 Care Management Progress Note Initial Care Management Assessment is not completed by CM today. Gisela went to the OR this morning. She is back in the ICU. Per RN, Linda's daughter's just stepped out for dinner and Gisela has dementia at baseline and is drowsy and unable to communicate. Anticipate, initial assessment will be done tomorrow, 03/10/22.
[2022-03-09] MEDS: ceFAZolin 1 GM/50 ML BAG IVPB (17:20)
[2022-03-09] MEDS: ACETAMINOPHEN 1,000 MG/100 ML BTL 400 MG IVPB (18:06)
[2022-03-10] VITALS (16 sets, daily range): BP systolic 102–137; BP diastolic 43–66; PULSE 58–92; RESP 13–20; TEMP 36.4–37.6; O2SAT 95–98
[2022-03-10] MEDS: ACETAMINOPHEN 1,000 MG/100 ML BTL 400 MG IVPB ×3 (01:42→19:55)
[2022-03-10] MEDS: Normal Saline 1,000 ML 100 ML IV ×3 (01:55→22:13)
[2022-03-10] MEDS: cefTRIAXone 1 GM/50 ML BAG IVPB (03:49)
[2022-03-10] MEDS: Ketorolac 15 MG/ML VIAL IVP ×3 (08:37→22:13)
--- NOTE | 2022-03-10 09:07 | INITIAL_ITS ---
- If Service Date Differs Date of service: 03/10/22 Time of Service: 09:07 Care Management Initial Assess REASON FOR HOSPITALIZATION:: Fracture of left femoral neck PAST MEDICAL HISTORY/PAST SURGICAL HISTORY:: All Active Problems . Closed fracture of left hip (Acute). Acute UTI (Acute). Closed displaced fracture of left femoral neck (Acute 03/09/22). Caregiver stress (Chronic). daughter Zhanna tearful, exhausted at 08/13 visit. 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 History of recurrent UTIs (Chronic). urologist Dr Cotter in [facility]. Kyphosis (Chronic). more pronounced since 2020. Health care proxy on file (Acute). Stress due to family tension (Chronic). complicated blended family. Goals of care, counseling/discussion (Chronic). Hallucinations due to late onset bhavesh ia (Chronic). Requires continuous supervision for activities of daily living (ADL) (Chronic). needs to have someone with her. does better with [employer] Urinary and bowel incontinence (Chronic). bowel is rare but urine is daily. explained this is normal for dementia and will get worse over time. Wandering (Chronic). Palliative care patient (Chronic). Vascular dementia with paranoia (Chronic). paranoia improving. 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 Anxiety (Chronic). Constipation by delayed colonic transit (Acute). Fatigue associated with anemia (Acute). Dementia (Chronic). Blurring of visual image (Acute). Vaginal atrophy (Acute). Dysuria (Acute). Dementia (Chronic). Brain atrophy (Chronic). will not have any further brain imaging. Migraine (Chronic). Ischemic vascular disease (Chronic). Chronic fatigue (Chronic). Depression (Chronic 08/23/15). Essential hypertension (Chronic). Hypothyroidism (Chronic 08/23/15). Seasonal affective disorder (Chronic). Tobacco use disorder (Chronic 08/23/15). has cut back to about 10 per day. Vitamin D deficiency (Chronic). Medical History . Cervical cancer. Depression. Hypertension. Hypothyroidism. Osteopenia. Tobacco use. restarted tobacco 2016. Surgical History . Cataract extraction status, left eye (~01/2018). [facility]. Cataract extraction status, right eye (~01/2018). [facility]. Vaginal hysterectomy PREVIOUS FUNCTIONAL STATUS/SOCIAL/FAMILY SUPPORTS:: Linda lives in an apartment in [facility] with her daughter Zhanna and her grandson. She has another daughter Sophie and 2 sons. Sophie and Zhanna share DPOA responsibilities. Linda has dementia at baseline and Zhanna cares for her. Linda does not currently receive any community services. CURRENT FUNCTIONAL STATUS:: Linda was occupied with nursing staff when CM met with her daughters Zhanna and Sophie. Both daughters have shared DPOA responsibilities and expressed a desire for Linda to transfer to a SNF for short term rehab prior to returning home. They identified 3 facilities that they will consider: [facility] in [place], [place], [facility] in [place] and [place]. Referrals were sent by CM as requested. ADVANCE DIRECTIVES:: none on file Has patient been provided with info about the portal/API?: Yes Did the patient sign up for the portal?: Yes (previously) CODE STATUS:: Full Code INSURANCE COVERAGE / FINANCIAL ISSUES:: Medicare CURRENT HOME/COMMUNITY SERVICES/EQUIPMENT:: none currently PRIMARY CARE PHYSICIAN:: Kike Rich POTENTIAL DISCHARGE NEEDS:: Follow up with PCP and plan of care. May need placement or short term rehab PATIENT/FAMILY EDUCATION NEEDS:: Review of discharge instructions, limitations, activity, follow up plan, Ask Me Three TRANSPORTATION:: to be determined by disposition PLAN:: Linda will likely transfer to a fdc facility for rehab prior to returning to her daughter's home. She will follow up with facility providers and plan of care . Transportation will be determined by disposition. CM will continue to supportLinda and assess for discharge needs.
[2022-03-10] MEDS: MORPHine 2 MG/ML SYR IVP ×3 (10:11→23:07)
[2022-03-10] MEDS: Escitalopram 20 MG TAB PO (12:02)
--- NOTE | 2022-03-10 12:19 | PT.INIE ---
PT Notes Visit Reasons: Left Femur Fracture, UTI Inpatient Physical Therapy Evaluation Date: 03/10/2022 Referring Doctor: Steven Lundberg MD PT Orders: PT CONSULT: Status post femoral neck fracture left hip Precautions: Falls Patient Profile/Admitting Diagnosis: 76-year-old female with dementia who fell and suffered a femoral neck fracture of her left hip and underwent an arthroplasty postop day #1 PMHX: All Active Problems? 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) Requires continuous supervision for activities of daily living (ADL) (Chronic) needs to have someone with her does better with [employer] Urinary and bowel incontinence (Chronic) bowel is rare but urine is daily explained this is normal for dementia and will get worse over timeWandering (Chronic) Palliative care patient (Chronic) Vascular dementia with paranoia (Chronic) paranoia improving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) Anxiety (Chronic) Constipation by delayed colonic transit (Acute) Fatigue associated with anemia (Acute) Dementia (Chronic) Blurring of visual image (Acute) Vaginal atrophy (Acute) Dysuria (Acute) Dementia (Chronic) Brain atrophy (Chronic) will not have any further brain imagingMigraine (Chronic) Ischemic vascular disease (Chronic) Chronic fatigue (Chronic) Depression (Chronic 08/23/15) Essential hypertension (Chronic) Hypothyroidism (Chronic 08/23/15) Seasonal affective disorder (Chronic) Tobacco use disorder (Chronic 08/23/15) has cut back to about 10 per dayVitamin D deficiency (Chronic) Medical History? Cervical cancer Depression Hypertension Hypothyroidism Osteopenia Tobacco use restarted tobacco 2015. Surgical History? Cataract extraction status, left eye (~01/2018) LRHCataract extraction status, right eye (~01/2018) LRHVaginal hysterectomy Social History/Home Situation: Was living in apartment with her daughter. Unable to acquire any further information from the patient due to her dementia Current Functional Limitations: Requires assistance with all bed mobility activities and gait Equipment Owned/DME: Unknown Subjective: Patient is resting comfortably in bed but resistive to any type of movement of her extremities or bed mobility activities. Objective: [] General Observation: Anxious, demented not following simple commands. Somewhat combative when attempting to get the patient out of bed. Mental Status: Disoriented x3 Pain: No complaints of pain, and appears fearful of movement ROM: Shoulders active assistive right upper extremity mobility is good functional range pain on movement when attempting to assess her left upper extremity motion she resists but does use it functionally when mobilizing her. She also resists movement with her lower extremities, but she appears to have functional range of motion when sitting. Her left hip rotation is nonirritable in the sitting position and we avoid movements that flex the hip greater than 90 degrees or cross the midline. Strength: She has full volitional movement throughout and her strength is generally rated -5/5 except of left hip musculature 3/5 Sensation: Reflexes not tested, she appears to have full motor control based on her function Bed Mobility/Transfers: Required assist of 3 people with assuming the supine to sitting positions and 2 people with assuming the sitting to standing position, she stood at bedside with a wheeled walker for approximately 5 minutes in a fairly relaxed manner when she was up. She required moderate assistance of 2 people to assume the sitting from the standing position, and I encouraged her to avoid flexing the hip more than 90 degrees when assuming the sitting position. Gait: She ambulated approximately 3 to 5 feet with contact-guard of 2 people, weightbearing as tolerated with a short shuffling gait. Balance: [] Static Sitting: Stable but required contact guarding due to her dementia Dynamic Sitting: Same as above Static Standing: Stable, with contact-guard of 2 people Dynamic Standing: Contact guarding 2 people 6 to Special Tests: Mobility Limitations Standardized Measure [facility] AM-PAC 6 clicks Basic Mobility Inpatient Short Form: Raw Score: 13 standardized Score: 2.99 CMS Score: 64.91% Informed Consent/Education: Patient instructed in purpose of PT consult and plan of care. Assessment: Patient is a 76year old female referred to physical therapy services with the diagnosis of status post femoral neck fracture of the left hip. Patient presents with clinical signs and symptoms consistent with diagnosis, along with dementia as demonstrated by the following impairment level findings: Assistance with all bed mobility activities and ambulation, although the patient was more comfortable when standing along with sitting in a recliner.. Impairments are contributing to the following functional limitations: AMPAC score. Patient is assessed as a High 56241 complexity based on the following: History: See comorbidities and social history Examination: See above for functional imitations impairments next feels Presentation: Unstable Decision Making: High complexity based on her clinical findings and her functional status Goals: Goals X1 week 1. Supine-Sit minimal to moderate assist 2. Sit-Supine minimal to moderate assist 3. Sit-Stand minimal assist 4. Stand-Sit minimal assist 5. Bed-Chair minimal to moderate assist 6. Chair-Bed min a moderate assist 7. Gait ambulation with wheeled walker contact guarding 1 person for 50 feet Plan of Care/Treatment Plan: 1-2x/day, 7 days/week x 1 week. Plan of care has been reviewed with the FORMSTONE FITTER providing the service under Physical Therapy direction. Initiate Physical Therapy intervention for strengthening, bed mobility, transfers, gait, stairs, balance training, use of assistive device. DISCHARGE RECOMMENDATIONS: [] SNF for continued rehabilitation TREATMENT CODE/TIME: 9716 3/45 minutes
--- NOTE | 2022-03-10 13:04 | W.PM.PROGNOT ---
Date of Service Date of service: 03/10/22 Time of Service: 13:05 Assessment and Plan Assessment and plan (1) Closed displaced fracture of left femoral neck: Start date: 03/08/22 Status: Acute Assessment and plan: This is a 76-year-old lady with advanced dementia who had 2 falls prior to admission with a second fall resulting in left femoral neck fracture which is displaced. Post op Day 1. Possible mechanical fall etiology was weakness from a UTI Monitor pain control adequacy and adjust meds as necessary. (2) Acute UTI: Start date: 03/08/22 Status: Acute Assessment and plan: Rocephin 2 g IV was given in the ED. She does have a history of recurrent UTIs. Previous E.Coli with resistance to Rocephin and quinolones. Change antibiotic coverage to Imipenem. Awaiting cx results. (3) Dementia: Status: Chronic Assessment and plan: Advanced with behavioral abnormalities and there is caregiver fatigue. Long-term patient should have CODE STATUS reviewed and possibly increased services at home versus placement. Qualifiers: Dementia behavioral or psychological symptom: with psychotic disturbance Dementia severity: severe Dementia type: vascular dementia Qualified Code(s): F01.C2 - Vascular dementia, severe, with psychotic disturbance (4) Hypertension: Assessment and plan: Lisinopril 5mg daily. Monitor. (5) Hypothyroidism: Assessment and plan: TSH is elevated but free T4 is normal possibly indicating compliance issues or medication being given inappropriately at times. Continue outpatient medical therapy and PCP can adjust as needed. This problem is most likely not contributing to her acute symptoms or worsening dementia but should be maximized on therapy to the TSH below 2 but above 1. Will need outpt f/u. (6) Tobacco use: Assessment and plan: Continue nicotine patch with patient apparently still smoking by review of record but this needs to be confirmed by discussion with daughter when available. Subjective Subjective Patient reports: afebrile; denies diarrhea or vomiting Interval history since last seen: [facility] and then back to bed. Anxious. Exam Narrative Exam Narrative: General: Lying supine. Has anxious look on face. Doesn't regard me. . Lungs: Auscultated anteriorly essentially clear with fair aeration. No rales or rhonchi and no expiratory wheeze. Normal expiratory phase. Heart: Regular rate and rhythm with systolic murmur left sternal border, no gallop or rubs. Abdomen: Scaphoid and nontender to palpation Genitalia/rectal: Montoya in place, otherwise exam deferred. Extremities: Nonpitting edema lower extremities. No pitting edema.Pain with movement of LLEn Neuro: no focalizing motor deficits. No tremor. Psych: Confused. Appears anxious. Objective Last Vital Signs Temp 37.5 C 03/10/22 08:36 Pulse 92 H 03/10/22 09:20 Resp 15 03/10/22 07:40 BP 137/59 L 03/10/22 07:40 Pulse Ox 96 03/10/22 05:00
--- NOTE | 2022-03-10 13:43 | PT.INTREAT ---
Date of service: 03/10/22 Time of Service: 12:10 PT Notes Visit Reasons: Left Femur Fracture, UTI Inpatient Physical Therapy Treatment Note [facility] Date: 03/10/2022 PRECAUTIONS: Activity as tolerated, Fall, confusion, WBAT L SUBJECTIVE: Gisela is unable to participate in conversation due to confusion. She is able to indicate that she does not want to move, but also that she is tired. OBJECTIVE: PAIN: Patient yelled out with movement of L LE BED MOBILITY/TRANSFERS Sit-supine: Max A x2 with HOB flat Sit-stand: Max A x3 Stand-sit: Max A x3 GAIT: Assistive Device: LEARNING AND DEVELOPMENT ADMINISTRATOR x2 Weight bearing: WBAT L Assistance: Min A x3 Distance: 5 steps to R + 5 steps to L Deviation: Patient requires tactile cueing and assist for movement initiation THEREX: Patient was unable to follow instruction, however, did allow for AAROM into hip/knee flexion x5 and hip abduction x2 TOILETING: Patient was incontinent of stool, and required Max A x3 ASSESSMENT: Patient appears limited due to confusion. She is unable to use FWW support with gait training due to confusion. Patient does tolerate static standing with CGA x3, once she is able to calm down. PLAN: Continue with any mobility training patient can tolerate, which will likely be limited due to confusion. TREATMENT CODE/TIME: 27 minutes; 94824 x2 (12:10)
[2022-03-10] MEDS: Lisinopril 5 MG TAB PO (14:03)
[2022-03-10] MEDS: Levothyroxine 75 MCG TAB PO (14:03)
[2022-03-10] MEDS: IMIPENEM/CILASTATIN 500 MG in Normal Saline 100 ML 200 MG IVPB ×2 (14:09→22:15)
[2022-03-10] MEDS: Normal Saline Flush 10 ML SYR IVP ×2 (14:36→22:14)
--- NOTE | 2022-03-10 14:44 | W.PM.PROGNOT ---
Date of Service Date of service: 03/10/22 Time of Service: 14:51 Assessment and Plan Assessment and plan (1) Closed displaced fracture of left femoral neck: Status: Acute Assessment and plan: 76-year-old female postop day #1 status post Left hip hemiathroplasty Chart reviewed. Apparent significant dementia and cognitive issues challenging usual postop care. Continue multimodal pain control Continue physical therapy as best possible: Weightbearing as tolerated with assist device. Avoid provocative positions like deep hip flexion with adduction and internal rotation. Recommend palliative care involvement to help clarify long-term goals Chemical and mechanical dvt ppx per primary team (usually 30 days total of NAHEED/SQH while in patient and ASA after discharge, but patient is high fall risk) Discharge when medically appropriate Follow-up with Dr. Lundberg outpatient [facility] on 03/26/22 at 11:15 AM Objective Last Vital Signs Temp 97.5 F L 03/10/22 14:23 Pulse 76 03/10/22 14:23 Resp 16 03/10/22 14:23 BP 116/44 L 03/10/22 14:23 Pulse Ox 95 03/10/22 14:23
[2022-03-10 16:55] LABS: Source Nasal/Nares
[2022-03-10 18:34] LABS: COVID-19 PCR Negative (Negative)
[2022-03-10 20:28] LABS: Abs Immature Grans 0.05 10^3/uL (0.0-0.06); Absolute Basophil Count 0.01 10^3/uL (0.0-0.2); Absolute Eosinophil Count 0.02 10^3/uL (0.0-0.7); Absolute Monocyte Count 0.63 10^3/uL (0.1-0.8); Absolute Neutrophil Count 6.74 10^3/uL (1.2-6.7); Basophils % 0.1; Eosinophils % 0.2; HCT 27.2 % (36.0-46.0); HGB 8.8 g/dL (11.2-15.7); Immature Grans % 0.6; Lymphocytes % 9.7; MCH 32.4 pg (27.0-33.0); MCHC 32.4 % (32.0-36.0); MCV 100 fL (80-95); MPV 9.8 fL (8.0-11.0); Monocytes % 7.6; Neutrophils % 81.8; Platelet Count 181 10^3/uL (130-400); RBC 2.72 10^6/uL (3.93-5.22); RDW 12.7 % (11.7-14.6); RDW-SD 46.1 fL; WBC 8.25 10^3/uL (4.4-10.8)
[2022-03-10 20:44] LABS: ALT 29 U/L (14-59); AST 59 U/L (15-37); Albumin 2.3 g/dL (3.4-5.0); Alkaline Phosphatase 80 U/L (46-116); BUN 25 mg/dL (7-18); Bilirubin, Total 0.3 mg/dL (0.2-1.0); CREATININE 0.9 mg/dL (0.55-1.02); Calcium 8.3 mg/dL (8.5-10.1); Chloride 110 mmol/L (98-107); Estimated GFR 66.67 (mL/min/1.73m2); Glucose 131 mg/dL (74-106); Total Protein 5.4 g/dL (6.4-8.2)
[2022-03-10 20:48] LABS: Sodium 141 mmol/L (136-145)
[2022-03-10 20:49] LABS: Potassium 3.6 mmol/L (3.5-5.1)
[2022-03-11] MEDS: MORPHine 2 MG/ML SYR IVP ×2 (01:25→23:59)
[2022-03-11 03:28] VITALS: PULSE 61; RESP 18; TEMP 36.4
[2022-03-11] MEDS: IMIPENEM/CILASTATIN 500 MG in Normal Saline 100 ML 200 MG IVPB (06:56)
[2022-03-11 07:56] VITALS: BP 167/77; PULSE 64; RESP 16; TEMP 37.1; O2SAT 95
[2022-03-11 08:34] VITALS: PULSE 54
[2022-03-11] MEDS: Escitalopram 20 MG TAB PO (08:42)
[2022-03-11] MEDS: Levothyroxine 75 MCG TAB PO (08:42)
[2022-03-11] MEDS: Lactobacillus Acidophilus CAP 1 CAP PO (08:42)
[2022-03-11] MEDS: Nicotine 14 MG/24 HR PATCH TD (08:42)
[2022-03-11] MEDS: Lisinopril 5 MG TAB PO (08:42)
[2022-03-11] MEDS: ACETAMINOPHEN 1,000 MG/100 ML BTL 400 MG IVPB ×2 (08:44→20:33)
--- NOTE | 2022-03-11 09:13 | PDOC.CMPRO ---
- If Service Date Differs Date of service: 03/11/22 Time of Service: 09:13 Care Management Progress Note S/O: Linda was sitting up in a chair visiting with her daughter Sophie when CM met with her. She was smiling but was very confused and unable to engage in meaningful conversation. Linad has been unable to work with PT due to her dementia and inability to follow directions. She has also been limited by pain. Referrals to 3 SNFs were sent yesterday but so far no bed offers have been received. [facility] denied the request and [facility] not responded to date. This afternoon Sophie asked if it was possible to order a hospital bed and discharge Linda back home with Zhanna. The order for a hospital bed was completed by the provider and faxed by CM to [facility] this afternoon. A: Linda is a 76 year old woman admitted on 03/09/22 with a left femur fracture P:Linda will likely benefit from transfer to a intermediate facility for rehab prior to returning to her daughter's home. To date no bed offers have been received and the family is considering taking her home if a hospital bed can be obtained. A semi-electric hospital bed was ordered today but no approval has been received yet. Linda will follow up with community providers and plan of care . Transportation will be determined by disposition. CM will continue to support Linda and assess for discharge needs.
[2022-03-11] MEDS: Ketorolac 15 MG/ML VIAL IVP ×2 (12:59→22:23)
--- NOTE | 2022-03-11 15:16 | PTTR_ITS ---
Date of service: 03/11/22 Time of Service: 09:33 PT Notes Visit Reasons: Left Femur Fracture, UTI Inpatient Physical Therapy Treatment Note [facility] Date: 03/11/2022 PRECAUTIONS: Activity as tolerated, Fall, confusion, WBAT L SUBJECTIVE: Gisela is unable to participate in conversation due to confusion. She is able to indicate that she does not want to move, but also that she is tired. OBJECTIVE: PAIN: Patient yelled out with movement of L LE BED MOBILITY/TRANSFERS Supine-sit: Max A x2 with HOB at 40 degrees Sit-stand: Max A x2 Stand-sit: Max A x2 GAIT: Assistive Device: ELECTRONICS TECHNOLOGY INSTRUCTOR x2 Weight bearing: WBAT L Assistance: Min A x3 Distance: 5 steps to R Deviation: Patient requires tactile cueing and assist for movement initiation THEREX: Patient was unable to follow instruction, however, did allow for AAROM into ankle dorsi/plantar flexion x15, hip/knee flexion x5 and hip abduction x2 ASSESSMENT: Patient appears limited due to confusion. She is unable to use FWW support with gait training due to confusion. Patient does tolerate static standing with CGA x3, once she is able to calm down. PLAN: Continue with any mobility training patient can tolerate, which will likely be limited due to confusion. TREATMENT CODE/TIME: Session 1: 10 minutes; 10608 (09:33) Session 2: 15 minutes; [id number] (12:40)
[2022-03-11 16:06] VITALS: BP 153/85; PULSE 66; RESP 14; TEMP 37.1; O2SAT 99
--- NOTE | 2022-03-11 16:17 | W.PM.PROGNOT ---
Date of Service Date of service: 03/11/22 Time of Service: 16:17 Assessment and Plan Assessment and plan (1) Closed displaced fracture of left femoral neck: Start date: 03/08/22 Status: Acute Assessment and plan: This is a 76-year-old lady with advanced dementia who had 2 falls prior to admission with a second fall resulting in left femoral neck fracture which is displaced. Post op Day 2. Possible mechanical fall etiology was weakness from a UTI Monitor pain control adequacy and adjust meds as necessary. (2) Acute UTI: Start date: 03/08/22 Status: Acute Assessment and plan: Rocephin 2 g IV was given in the ED. She does have a history of recurrent UTIs. Previous E.Coli with resistance to Rocephin and quinolones. Changed antibiotic coverage to Imipenem. Urine cx grew mixed gram + jose de jesus so antibiotic stopped. (3) Dementia: Status: Chronic Assessment and plan: Advanced with behavioral abnormalities. Intermittently obstinate noted but overall improving. Qualifiers: Dementia type: vascular dementia Dementia severity: severe Dementia behavioral or psychological symptom: with psychotic disturbance Qualified Code(s): F01.C2 - Vascular dementia, severe, with psychotic disturbance (4) Hypertension: Assessment and plan: Lisinopril 5mg daily. Monitor. (5) Hypothyroidism: Assessment and plan: TSH is elevated but free T4 is normal possibly indicating compliance issues or medication being given inappropriately at times. Continue outpatient medical therapy and PCP can adjust as needed. This problem is most likely not contributing to her acute symptoms or worsening dementia but should be maximized on therapy to the TSH below 2 but above 1. Will need outpt f/u. (6) Tobacco use: Assessment and plan: Continue nicotine patch with patient apparently still smoking by review of record but this needs to be confirmed by discussion with daughter when available. (7) Discharge planning issues: Status: Acute Assessment and plan: Care managment has sent referrals to SNFs. Other option could be home with daughter that cares for her, but she will need to show significant improvement in mobility. Subjective Subjective Patient reports: afebrile Interval history since last seen: Pt pleasantly confused this afternoon. Ambulated with stand by assist to chair today. Improved oral intake. Exam Narrative Exam Narrative: General: Sitting in recliner. Daughter in room. Pleasant, smiles. Holds my hand. Lungs:Clear. No rales or rhonchi and no expiratory wheeze. Normal expiratory phase. Heart: Regular rate and rhythm . + systolic murmur. Extremities: Nonpitting edema lower extremities. Neuro: no focalizing motor deficits. No tremor. Psych: Pleasantly confused. Objective Last Vital Signs Temp 37.1 C 03/11/22 16:06 Pulse 66 03/11/22 16:06 Resp 14 03/11/22 16:06 BP 153/85 H 03/11/22 16:06 Pulse Ox 99 03/11/22 16:06 Laboratory Results - last 24 hr 03/10/22 03/10/22 03/10/22 16:45 20:04 20:04 WBC 8.25 RBC 2.72 L Hgb 8.8 L D Hct 27.2 L MCV 100 H MCH 32.4 MCHC 32.4 RDW 12.7 Plt Count 181 MPV 9.8 Immature Gran % 0.6 Neutrophils % 81.8 Lymphocytes % 9.7 Monocytes % 7.6 Eosinophils % 0.2 Basophils % 0.1 Nucleated RBC % 0.0 Absolute Neutrophils 6.74 H Absolute Lymphocytes 0.80 L Absolute Monocytes 0.63 Absolute Eosinophils 0.02 Absolute Basophils 0.01 Sodium 141 Potassium 3.6 D Chloride 110 H Carbon Dioxide 25.0 Anion Gap 6.0 BUN 25 H Creatinine 0.9 Est GFR (CKD-EPI 2020) 66.67 Glucose 131 H Calcium 8.3 L Magnesium 2.0 Total Bilirubin 0.3 AST 59 H ALT 29 Alkaline Phosphatase 80 Total Protein 5.4 L Albumin 2.3 L COVID-19 Source Nasal/Nares SARS-CoV-2 (PCR) Negative
[2022-03-11 20:23] VITALS: PULSE 72; RESP 22; TEMP 36.9; O2SAT 92
[2022-03-11] MEDS: Polyethylene Glycol 3350 17 GM PACKET PO (20:30)
[2022-03-11] MEDS: Magnesium Oxide 400 MG TAB PO (20:30)
[2022-03-11] MEDS: Melatonin 3 MG TAB 6 MG PO (20:30)
[2022-03-12] MEDS: Normal Saline 1,000 ML 100 ML IV ×2 (04:23→14:57)
[2022-03-12 05:03] VITALS: PULSE 54; RESP 16; TEMP 36.7; O2SAT 98
[2022-03-12 06:15] VITALS: BP 171/74
--- NOTE | 2022-03-12 06:15 | W.NUTRFU ---
Date of service: 03/12/22 Time of Service: 06:15 Nutrition Note NOTE: Ms. Kohler is being offered easy to eat soft foods. We are providing calorie and protein dense nutrition which will help to boost her nutrient intake and aid in healing of fx. Her BMI is 23.7 kg/m2 which is WNL. Her weight is 62.6 kg and has been stable for the past several years according to weight records. Her PO intake has been variable from fair to good. Will continue to monitor PO intake, weight, tolerance to supplements. Will evaluate nutrition care plan ongoing and adjust as needed. Time Spent in Nutritional Counseling and Treatment: 0
[2022-03-12 07:33] VITALS: PULSE 60; RESP 16; TEMP 36.6; O2SAT 99
--- NOTE | 2022-03-12 09:26 | CMPROGNOTE_ITS ---
- If Service Date Differs Date of service: 03/12/22 Time of Service: 09:26 Care Management Progress Note S/O: Gisela was lying in bed when CM met with her. She is holding her baby doll. Her daughter's Zhanna and Sophie are visiting with her. There is some notable tension between the two. Zhanna and Sophie, have shared guardianship of Gisela, documentation is on record. Dr. Miramontes discussed the following concerns with Gisela's daughter's in regards to her anxiety medications. Case is reviewed with Lizet from Palliative Care, consult to follow. SNF referrals are pending at [facility]. Declined at the [place]. Yesterday, Sophie asked if it was possible to order a hospital bed and discharge Linda back home with Zhanna? The order for a hospital bed was completed by the provider and faxed by CM to [facility] this afternoon. CM will continue to follow. A: Linda is a 76 year old woman admitted on 03/09/22 with a left femur fracture P:Linda will likely benefit from transfer to a [facility] facility for rehab prior to returning to her daughter's home. To date no bed offers have been received and the family is considering taking her home if a hospital bed can be obtained. A semi-electric hospital bed was ordered today but no approval has been received yet. Linda will follow up with community providers and plan of care . Transportation will be determined by disposition. CM will continue to support Linda and assess for discharge needs.
[2022-03-12] MEDS: Levothyroxine 75 MCG TAB PO (09:28)
[2022-03-12] MEDS: Lisinopril 5 MG TAB PO (09:37)
[2022-03-12] MEDS: ACETAMINOPHEN 1,000 MG/100 ML BTL 400 MG IVPB (09:38)
[2022-03-12] MEDS: Lactobacillus Acidophilus CAP 1 CAP PO (09:38)
[2022-03-12] MEDS: Polyethylene Glycol 3350 17 GM PACKET PO ×2 (09:38→19:34)
[2022-03-12] MEDS: Escitalopram 20 MG TAB PO (09:38)
[2022-03-12 10:21] LABS: Abs Immature Grans 0.03 10^3/uL (0.0-0.06); Absolute Basophil Count 0.02 10^3/uL (0.0-0.2); Absolute Lymphocyte Count 0.75 10^3/uL (1.2-3.4); Absolute Monocyte Count 0.39 10^3/uL (0.1-0.8); Absolute Neutrophil Count 3.97 10^3/uL (1.2-6.7); Basophils % 0.4; Eosinophils % 3.7; HCT 26.3 % (36.0-46.0); HGB 8.6 g/dL (11.2-15.7); Immature Grans % 0.6; MCHC 32.7 % (32.0-36.0); MCV 101 fL (80-95); MPV 9.7 fL (8.0-11.0); Monocytes % 7.3; Platelet Count 174 10^3/uL (130-400); RBC 2.61 10^6/uL (3.93-5.22); RDW 12.5 % (11.7-14.6); RDW-SD 46.6 fL; WBC 5.36 10^3/uL (4.4-10.8)
[2022-03-12 10:36] LABS: Anion Gap 6.8 mmol/L (3-11); BUN 22 mg/dL (7-18); CO2 20.2 mmol/L (21.0-32.0); CREATININE 0.5 mg/dL (0.55-1.02); Chloride 111 mmol/L (98-107); Estimated GFR 97.75 (mL/min/1.73m2); Glucose 88 mg/dL (74-106); Potassium 3.8 mmol/L (3.5-5.1); Sodium 138 mmol/L (136-145)
--- NOTE | 2022-03-12 10:56 | NUR.NOTE ---
CAITLYN Arenas and CAITLYN Bermeo went in to do AM care on pt at 1050 am, pts family asked that we wait because she just got repositioned, and that she wanted her to get pain meds and anxiety meds before that is done. Nursing Note:
[2022-03-12] MEDS: Celecoxib 100 MG CAP PO ×2 (13:38→19:33)
[2022-03-12] MEDS: ALPRAZolam 0.25 MG TAB PO ×2 (13:38→19:33)
--- NOTE | 2022-03-12 15:03 | PGE_ITS ---
Date of Service Date of service: 03/12/22 Time of Service: 15:03 Assessment and Plan Assessment and plan (1) Closed displaced fracture of left femoral neck: Start date: 03/08/22 Status: Acute Assessment and plan: This is a 76-year-old lady with advanced dementia who had 2 falls prior to admission with a second fall resulting in left femoral neck fracture which is displaced. Post op Day 3. Stopped morphine. Cont schedule IV tylenol. Add celebrex 100mg BID. Lidoderm patch. alprazolam 0.25mg po BID prn anxiety. (2) Acute UTI: Start date: 03/08/22 Status: Acute Assessment and plan: Rocephin 2 g IV was given in the ED. She does have a history of recurrent UTIs. Previous E.Coli with resistance to Rocephin and quinolones. Changed antibiotic coverage to Imipenem. Urine cx grew mixed gram + jose de jesus so antibiotic stopped. (3) Dementia: Status: Chronic Assessment and plan: Advanced with behavioral abnormalities. Qualifiers: Dementia type: vascular dementia Dementia severity: severe Dementia behavioral or psychological symptom: with psychotic disturbance Qualified Code(s): F01.C2 - Vascular dementia, severe, with psychotic disturbance (4) Hypertension: Assessment and plan: Lisinopril 5mg daily. Monitor. (5) Hypothyroidism: Assessment and plan: TSH is elevated but free T4 is normal possibly indicating compliance issues or medication being given inappropriately at times. Continue outpatient medical therapy and PCP can adjust as needed. This problem is most likely not contributing to her acute symptoms or worsening dementia but should be maximized on therapy to the TSH below 2 but above 1. Will need outpt f/u. (6) Tobacco use: Assessment and plan: Daughter requesting to stop nicotine patch. Will watch to see if any anxiety increases after stopping. (7) Discharge planning issues: Status: Acute Assessment and plan: Care managment has sent referrals to SNFs. Other option could be home with daughter that cares for her, but she will need to show significant improvement in mobility. An order sent for hospital bed. Subjective Subjective Interval history since last seen: Pt doesn't interact in any purposeful way but is awake. Smiles and holds my hand. Minimal oral intake. Daughter concerned about pts apparent anxiety. Exam Narrative Exam Narrative: General: Sitting upright in bed. Daughters in room. Pleasant, smiles. Holds my hand. Lungs:Clear. No rales or rhonchi and no expiratory wheeze. Normal expiratory phase. Heart: Regular rate and rhythm . + systolic murmur. Extremities: Nonpitting edema lower extremities. Neuro: no focalizing motor deficits. No tremor. Psych: Pleasantly confused. Objective Last Vital Signs Temp 36.6 C 03/12/22 07:33 Pulse 60 03/12/22 07:33 Resp 16 03/12/22 07:33 BP 171/74 H 03/12/22 06:15 Pulse Ox 99 03/12/22 07:33 Laboratory Results - last 24 hr 03/11/22 03/11/22 03/11/22 05:35 05:35 05:35 WBC Cancelled RBC Cancelled Hgb Cancelled Hct Cancelled MCV Cancelled MCH Cancelled MCHC Cancelled RDW Cancelled Plt Count Cancelled MPV Cancelled Immature Gran % Cancelled Neutrophils % Cancelled Band Neutrophils % Cancelled Lymphocytes % Cancelled Atypical Lymphs % Cancelled Monocytes % Cancelled Eosinophils % Cancelled Basophils % Cancelled Metamyelocytes % Cancelled Myelocytes % Cancelled Promyelocytes % Cancelled Other Cells % Cancelled Nucleated RBC % Cancelled Absolute Neutrophils Cancelled Absolute Lymphocytes Cancelled Absolute Monocytes Cancelled Absolute Eosinophils Cancelled Absolute Basophils Cancelled RBC Morphology Cancelled Polychromasia Cancelled Hypochromasia Cancelled Poikilocytosis Cancelled Basophilic Stippling Cancelled Anisocytosis Cancelled Microcytosis Cancelled Macrocytosis Cancelled Spherocytes Cancelled Tear Drop Cells Cancelled Ovalocytes Cancelled Stomatocytes Cancelled [place] Bodies Cancelled [place] Cells/Echinocytes Cancelled Acanthocytes (Spur) Cancelled Schistocytes Cancelled Sodium Cancelled Potassium Cancelled Chloride Cancelled Carbon Dioxide Cancelled Anion Gap Cancelled BUN Cancelled Creatinine Cancelled Est GFR (CKD-EPI 2020) Cancelled Glucose Cancelled Calcium Cancelled Magnesium Cancelled Total Bilirubin Cancelled AST Cancelled ALT Cancelled Alkaline Phosphatase Cancelled Total Protein Cancelled Albumin Cancelled 03/12/22 03/12/22 10:15 10:15 WBC 5.36 RBC 2.61 L Hgb 8.6 L Hct 26.3 L MCV 101 H MCH 33.0 MCHC 32.7 RDW 12.5 Plt Count 174 MPV 9.7 Immature Gran % 0.6 Neutrophils % 74.0 Band Neutrophils % Lymphocytes % 14.0 Atypical Lymphs % Monocytes % 7.3 Eosinophils % 3.7 Basophils % 0.4 Metamyelocytes % Myelocytes % Promyelocytes % Other Cells % Nucleated RBC % 0.0 Absolute Neutrophils 3.97 Absolute Lymphocytes 0.75 L Absolute Monocytes 0.39 Absolute Eosinophils 0.20 Absolute Basophils 0.02 RBC Morphology Polychromasia Hypochromasia Poikilocytosis Basophilic Stippling Anisocytosis Microcytosis Macrocytosis Spherocytes Tear Drop Cells Ovalocytes Stomatocytes [place] Bodies Daniel Cells/Echinocytes Acanthocytes (Spur) Schistocytes Sodium 138 Potassium 3.8 Chloride 111 H Carbon Dioxide 20.2 L Anion Gap 6.8 BUN 22 H Creatinine 0.5 L Est GFR (CKD-EPI 2020) 97.75 Glucose 88 Calcium 8.0 L Magnesium Total Bilirubin AST ALT Alkaline Phosphatase Total Protein Albumin
--- NOTE | 2022-03-12 15:22 | PTTR_ITS ---
Date of service: 03/12/22 Time of Service: 14:02 PT Notes Visit Reasons: Left Femur Fracture, UTI Inpatient Physical Therapy Treatment Note [facility] Date: 03/12/2022 PRECAUTIONS: Activity as tolerated, Fall, confusion, WBAT L SUBJECTIVE: Gisela attempts to participate in conversation, however she speaks in a nonsensical manner. OBJECTIVE: PAIN: Patient yells out with movement, however it is difficult to determine if it is due to anxiety or pain BED MOBILITY/TRANSFERS Supine-sit: Max A x2 with HOB at 20 degrees Sit-stand: Max A x2 Stand-sit: Min A x2 GAIT: Assistive Device: FWW HOME HEALTH CARE PROVIDER x2 Weight bearing: WBAT L Assistance: Min A x3 - CGA x3 Distance: ~40' Deviation: Patient requires tactile and verbal cueing and assist for movement initiation due to confusion THEREX: Patient was able to perform seated LAQ, however, she requires verbal and tactile cueing for exercise initiation and completion. ASSESSMENT: Patient appears limited due to confusion. She is unable to use FWW support appropriately and safely at this time due to confusion. Patient was able to tolerate a progression in gait distance with HOME HEALTH CARE PROVIDER x2 and CGA x3 - Min A x3. PLAN: Continue with any mobility training patient can tolerate, which will likely be limited due to confusion. TREATMENT CODE/TIME: Session 1: Hold per patient's family Session 2: 30 minutes; 81652 x2 (14:02)
[2022-03-12 15:50] VITALS: BP 131/65; PULSE 57; RESP 16; TEMP 37.3; O2SAT 96
--- NOTE | 2022-03-12 16:40 | PT.INTREAT ---
Date of service: 03/11/22 Time of Service: 16:10 PT Notes Visit Reasons: Left Femur Fracture, UTI Inpatient Physical Therapy Treatment Note [facility] Date: 03/11/2022 PRECAUTIONS: WBAT on L with assistance. Behavioral changes due to pre-existing dementia. SUBJECTIVE: Highly anxious about moving. Fearful of falling. OBJECTIVE:? PAIN: Impaired behavioral responses during movement and weight bearing ? BED MOBILITY/TRANSFERS? Supine-sit: Moderate A x2 with HOB at 40 degrees Sit-stand: Moderate assist of 2 and contact guard assist of trinity Barrios? Stand-sit: Moderate assist of 2 and contact guard assist of trinity Barrios? GAIT: Weight bearing: WBAT L Assistance: Minimal assist of 2 and contact guard assist of trinity Barrios Distance: 5 small steps 3 sidesteps 2 step backs Deviation: Patient requires maximal verbal, visual and tactile cueing for movement initiation and continued engagement? THEREX: Deferred ASSESSMENT: Highly anxious about moving with unfamiliar people in an unfamiliar environment. Hypervigilant. Impaired reaction to pain due to pre-existing confusion, highly anticipates pain. Will benefit pre-medication for pain prior to PT session. Maximal cueing needed for technique and overall safety. Asked Nurse Barger regarding management for agitation and anxiety PLAN: Coordinate pain medication intake with nursing staff. Ensure that a familiar face is present to allow patient to calm down. Encourage consistent caregivers as much as possible. Progress mobility as tolerated. Will consult with MD regarding anxiety and agitation management. TREATMENT CODE/TIME: 62568 x 30 minutes beginning at 16:40 PM.
--- NOTE | 2022-03-12 17:20 | PCNE_ITS ---
Date of service: 03/12/22 Time of Service: 14:00 History of Present Illness Narrative: Ms. Higgins is an est PC pt currently inpatient at [facility] 2/2 L hip fracture w/hemiathroplasty on 03/09; PMHx sig for mixed type dementia vascular/AD; present at visit daughter Sophie; pt has co-guardianship w/two daughters Sophie and Zhanna Hospital course: presented to [facility] ED on 03/09/22 w/CC s/p fall w/L hip fracture; underwent L hip hemiathroplasty on 03/09; difficulty working w/PT 2/2 dementia; staff note daughter's Sophie and Zhanna do not agree on care plan, sophie more agreeable to comfort measures, focusing on pain and anxiety management, where Zhanna more naturopathic, wish to not have patient overly medicated. There appears to be tension with the care plan and decision making. staff report patient does grimace and groan in pain, worse with hygiene care. Patient appears scared and anxious, worse with hygiene care or when folks are close to her. Patient has been noncompliant with physical therapy, not excepting blood draws. 2 max person assist Patient resting comfortably in recliner at time of visit, smiles and reaches intermittently, nonsensical speech, limited to 3 or less words. Sophie reports plan to have patient discharged to senior living facility only, does not want long-term plans for group home. Would be agreeable to going home on hospice. only caregiver available is Zhanna at this time, aware that would need extra caregiver assistance, however this is up in air due to financial assistance. Application for long-term Medicaid pending. Sophie feels that focus should be on comfort, treating anxiety with appropriate medicines, and staying ahead of the pain versus having to treat back pain. Does endorse the patient does seem to have pain, worse with transitions from bed to recliner or repositioning. Sophie reports preference for DNR?I status, focusing more on comfort, no FT/IVF; feels like Zhanna is coming around, however would benefit from having discussion with provider as well. Sophie to return home to [place] on Thursday, where Zhanna would be primary caregiver at that time. Preference for hospice consult with Sophie and Zhanna present, best time will be morning Assessment and Plan Assessment and plan (1) Closed displaced fracture of left femoral neck: Status: Acute Assessment and plan: Post op Day 3. Stopped morphine. Cont schedule IV tylenol. Add celebrex 100mg BID. Lidoderm patch. (2) Acute UTI: Status: Acute Assessment and plan: Rocephin 2 g IV was given in the ED.? She does have a history of recurrent UTIs. Previous E.Coli with resistance to Rocephin and quinolones. Changed antibiotic coverage to Imipenem. Urine cx grew mixed gram + jose de jesus so antibiotic stopped. (3) History of recurrent UTIs: Status: Chronic (4) Goals of care, counseling/discussion: Status: Chronic Assessment and plan: Sophie tia Zhanna has co-guardianship of pt; they do not agree to care plan, Zhanna not present today, unable to update code status or review GOC w/o both guardians present plan to continue to review GOC, dementia progression, outcomes and plan of care (5) Stress due to family tension: Status: Chronic Assessment and plan: CM report Navya did have tension today, were asked t to avoid these conflicts in front of patient continue to savings counselor (6) Requires continuous supervision for activities of daily living (ADL): Status: Chronic Assessment and plan: pt requires 2 max person assist, unable to be home w/1 caregiver, will need 24/7 care at this time w/multiple caregivers available previously living in home w/Zhanna providing clinical research physician caregiving (7) Palliative care patient: Status: Chronic Assessment and plan: previously f/b Dr. 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 Assessment and plan: FAST scale 7 (9) Encounter for hospice care discussion: Status: Acute Assessment and plan: reviewed eligible for hospice, will need additional caretiver support outside of scope which hospice may provide, requested Hospice consult in hospital tomorrow morning as able w/hospice staff Mixed type dementia, vascular/AD, total care assistance, recurrent UTIs, falls, weight loss (10) Full code status: Status: Acute Assessment and plan: Sophie preference for DNR/I, BUSINESS AFFAIRS MANAGER need to confirm and review COLST w/Zhanna prior to completion of COLST form 2/2 co-guardianship Review of Systems Narrative: as per HPI PFSH All Active Problems (Updated 03/12/22 @ 17:36 by Lizet Gonzalez NP) Full code status (Acute) Encounter for hospice care discussion (Acute) Discharge planning issues (Acute) Closed fracture of left hip (Acute) Acute UTI (Acute) Closed displaced fracture of left femoral neck (Acute 03/09/22) Caregiver stress (Chronic) daughter Zhanna teareva, exhausted at 08/13 visit 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 History of recurrent UTIs (Chronic) urologist Dr Cotter in [facility] Kyphosis (Chronic) more pronounced since 2020 Health care proxy on file (Acute) Stress due to family tension (Chronic) complicated blended family Goals of care, counseling/discussion (Chronic) 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) Requires continuous supervision for activities of daily living (ADL) (Chronic) needs to have someone with her does better with 24 company Urinary and bowel incontinence (Chronic) bowel is rare but urine is daily explained this is normal for dementia and will get worse over time Wandering (Chronic) Palliative care patient (Chronic) Vascular dementia with paranoia (Chronic) paranoia improving 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) Anxiety (Chronic) Constipation by delayed colonic transit (Acute) Fatigue associated with anemia (Acute) Dementia (Chronic) Blurring of visual image (Acute) Vaginal atrophy (Acute) Dysuria (Acute) Dementia (Chronic) Brain atrophy (Chronic) will not have any further brain imaging Migraine (Chronic) Ischemic vascular disease (Chronic) Chronic fatigue (Chronic) Depression (Chronic 08/23/15) Essential hypertension (Chronic) Hypothyroidism (Chronic 08/23/15) Seasonal affective disorder (Chronic) Tobacco use disorder (Chronic 08/23/15) has cut back to about 10 per day Vitamin D deficiency (Chronic) Medical History Cervical cancer Depression Hypertension Hypothyroidism Osteopenia Tobacco use restarted tobacco 2015. Surgical History Cataract extraction status, left eye (~01/2018) [facility] Cataract extraction status, right eye (~01/2018) LR Vaginal hysterectomy Family History Mother , age 66 from pneumonia, s/p mastectomy for breast cancer Breast cancer Pneumonia Father , age 62 from emphysema, heavy smoker Emphysema lung Smoker Sister , age 68 from leukemia Leukemia Brother No problems noted. Son No problems noted. Son No problems noted. Daughter Twin Daughter Twin Depression Anxiety of armed forces Social History Smoking/Tobacco Use Status: Former Tobacco Use Tobacco: How many years used: 60 Quit status: considering quitting Second Hand Exposure: Yes Counseling given: counseling >3 minutes Smoking risk assessment performed?: Yes Alcohol Intake: former Drug use: Never Substance use type: does not use Caregiver/Support person: Yes (moved in with daughter Zhanna November 2020) Household members: children Housing: apartment Number of Children: 4 number of grandchildren: 6 Communication Needs: Hard of Hearing and Corrective Lenses Education Level: high school Do you need help understanding health information?: Always current occupation: retired caregiver for elderly and disabled people Pets and animals: No Do you think of yourself as: straight/heterosexual Current gender identity: female What is your relationship status?: How often do you talk on the phone with friends or family?: never How often do you get together with friends or relatives?: three or more times per week Panel score (0-1 are the most socially isolated patients): 1 What type of physical activity do you participate in: walking and irregular exercise Duration: 30-45 minutes/day Frequency: other Details: paces as part of her dementia, does not go outside, afraid Special neema needs: No Agree to transfusion: No Seatbelt use: always Working smoke detector in home: Yes Fire extinguisher in home: Yes Firearms in home: No Do you feel safe at home: Yes Do you feel safe in your relationship?: Yes Additional Social history: to second , Wily, since 1978. Not living with him since November 2020. Moved in with daughter in November 2020. Her memory has been more rapidly declining since 2019. She is still able to walk. S he can speak, but doesn't make sense. Memory is poor. She does have persistent urinary and rare fecal incontinence. She is normal weight. Daughters Sophie and Zhanna very involved in Yovana's care. Historically, Yovana had been very paranoid and suspicious of any medical intervention. She is no longer. More easy-going as of 2020. She seems to know that her memory is worse. Since 2020 visits, she let me discuss her dementia openly without getting upset. Walks most days, with supervision. Still smokes. Family house sold in November 2020; after sale, Yovana was initially in community half-way and then moved in with Zhanna after about one week. Zhanna pursuing medical guardianship; daughter Sophie pursuing financial guardianship. A lot of distrust and stress between daughters and Wily. Unlikely that Yovana will move back in with her in the future. Zhanna very tearful, appears exhausted, will not consider a respite to help her recover, rest. Suggested she seek out counseling for herself. She is very angry and upset with Wily and what she perceives as subpar care that he delivered. Exam Narrative Exam Narrative: pt sitting in recliner, comfortable, NAD; eyes closed, intermittently opens w/ no eye contact or searching; intermittent reaching, comforted w/daughter's hand; garbled/non-sensicle speech, limited to 3 or less words Const General: comfortable and no acute distress HENMT Head: normocephalic and atraumatic Resp Effort & Inspection: normal respiratory effort, no audible wheezes and no cough Psych Insight: poor Judgment: poor Other: comfortable, smiles intermittent no groaning or grimacing Results Last Vital Signs Temp 99.2 F 03/12/22 15:50 Pulse 57 L 03/12/22 15:50 Resp 16 03/12/22 15:50 BP 131/65 03/12/22 15:50 Pulse Ox 96 03/12/22 15:50 Labs Result diagrams: 03/12/22 10:15 03/12/22 10:15 Labs: Laboratory Results - last 24 hr 03/11/22 03/11/22 03/11/22 05:35 05:35 05:35 WBC Cancelled RBC Cancelled Hgb Cancelled Hct Cancelled MCV Cancelled MCH Cancelled MCHC Cancelled RDW Cancelled Plt Count Cancelled MPV Cancelled Immature Gran % Cancelled Neutrophils % Cancelled Band Neutrophils % Cancelled Lymphocytes % Cancelled Atypical Lymphs % Cancelled Monocytes % Cancelled Eosinophils % Cancelled Basophils % Cancelled Metamyelocytes % Cancelled Myelocytes % Cancelled Promyelocytes % Cancelled Other Cells % Cancelled Nucleated RBC % Cancelled Absolute Neutrophils Cancelled Absolute Lymphocytes Cancelled Absolute Monocytes Cancelled Absolute Eosinophils Cancelled Absolute Basophils Cancelled RBC Morphology Cancelled Polychromasia Cancelled Hypochromasia Cancelled Poikilocytosis Cancelled Basophilic Stippling Cancelled Anisocytosis Cancelled Microcytosis Cancelled Macrocytosis Cancelled Spherocytes Cancelled Tear Drop Cells Cancelled Ovalocytes Cancelled Stomatocytes Cancelled [place] Bodies Cancelled [place] Cells/Echinocytes Cancelled Acanthocytes (Spur) Cancelled Schistocytes Cancelled Sodium Cancelled Potassium Cancelled Chloride Cancelled Carbon Dioxide Cancelled Anion Gap Cancelled BUN Cancelled Creatinine Cancelled Est GFR (CKD-EPI 2020) Cancelled Glucose Cancelled Calcium Cancelled Magnesium Cancelled Total Bilirubin Cancelled AST Cancelled ALT Cancelled Alkaline Phosphatase Cancelled Total Protein Cancelled Albumin Cancelled 03/12/22 03/12/22 10:15 10:15 WBC 5.36 RBC 2.61 L Hgb 8.6 L Hct 26.3 L MCV 101 H MCH 33.0 MCHC 32.7 RDW 12.5 Plt Count 174 MPV 9.7 Immature Gran % 0.6 Neutrophils % 74.0 Band Neutrophils % Lymphocytes % 14.0 Atypical Lymphs % Monocytes % 7.3 Eosinophils % 3.7 Basophils % 0.4 Metamyelocytes % Myelocytes % Promyelocytes % Other Cells % Nucleated RBC % 0.0 Absolute Neutrophils 3.97 Absolute Lymphocytes 0.75 L Absolute Monocytes 0.39 Absolute Eosinophils 0.20 Absolute Basophils 0.02 RBC Morphology Polychromasia Hypochromasia Poikilocytosis Basophilic Stippling Anisocytosis Microcytosis Macrocytosis Spherocytes Tear Drop Cells Ovalocytes Stomatocytes [place] Bodies [place] Cells/Echinocytes Acanthocytes (Spur) Schistocytes Sodium 138 Potassium 3.8 Chloride 111 H Carbon Dioxide 20.2 L Anion Gap 6.8 BUN 22 H Creatinine 0.5 L Est GFR (CKD-EPI 2020) 97.75 Glucose 88 Calcium 8.0 L Magnesium Total Bilirubin AST ALT Alkaline Phosphatase Total Protein Albumin
[2022-03-12] MEDS: Acetaminophen 325 MG TAB PO (19:33)
[2022-03-12] MEDS: QUEtiapine 25 MG TAB PO (19:33)
[2022-03-12] MEDS: Docusate Sodium 100 MG CAP PO (19:33)
[2022-03-12] MEDS: Lidocaine 5% Patch 1 PATCH TP (19:34)
[2022-03-13 08:05] VITALS: BP 176/76; PULSE 69; RESP 16; TEMP 36.5; O2SAT 98
[2022-03-13 08:10] VITALS: BP 190/90
--- NOTE | 2022-03-13 09:04 | NUR.NOTE ---
Nursing Note: At approximately 0845 on 03/13/22, this RN received a call from Zhanna Burr (on HIPAA), pt.'s daughter and co-guardian of the pt. Pt.'s daughter requesting to be updated regarding pt.'s BP and how it is being managed. Pt. also has multiple questions regarding pt.'s medications, including BP medications, pain medications, etc. Pt.'s daughter updated regarding the fact that the pt. no longer has IV access and which medications the pt. received yesterday/last evening, including the dose of quetiapine (Seroquel). Per pt.'s daughter, pt. has an adverse reaction to quetiapine (Seroquel), and is requesting that that medication be removed at this time. Pt.'s daughter also updated regarding the new order for clonidine (Catapres) to help control pt.'s BP. Pt.'s daughter requesting that she be updated with every single medication change, every single time (unclear if she wants an update from the RN or the provider). Pt.'s daughter states, I know my mom's medical record by heart. I'm more aware of what medications she's been taking than my sister is. RN informed the pt.'s daughter that they would pass along this message to the charge nurse to be passed along to the provider. Pt.'s daughter then thanked the RN. RN then informed the pt.'s daughter that they could call with any other concerns or questions. Phone call then ended.
[2022-03-13 09:16] VITALS: BP 180/100
--- NOTE | 2022-03-13 09:22 | CMPROGNOTE_ITS ---
- If Service Date Differs Date of service: 03/13/22 Time of Service: 09:22 Care Management Progress Note S/O: Linda was lying in bed when CM met with her. She was given Seroquel last evening and has been somnolent all day. She has been unable to eat or work with PT. She has no venous access but an IV will be restarted to initiate fluids. Brooke from hospice met with her daughters Sophie and Zhanna today. Unfortunately they have differing opinions on most aspects of Linda's care, including pain management. As Linda still requires assist of 2 to get out of bed and ambulate even short distances, she would not be able to discharge home at this point. Zhanna, with whom she lives, does not have additional resources to help with her care. Sophie reportedly called the [facility] and asked them to reconsider accepting Linda. They contacted and requested additional information but do not have a bed this week. They may possibly have an opening next week. [facility] also called and asked for additional clinical information which was faxed by CM. CM inquired if the sisters had had an opportunity to review the list of SNFs in [place] provided by on Thursday. They responded that they did but are unwilling to consider any facility other than the [facility] or [facility] at this time. CM did inform them that [facility] is reviewing as well and they indicated that they may consider that facility if a bed offer is made. A: Linda is a 76 year old woman admitted on 03/09/22 with a left femur fracture P:Linda will likely benefit from transfer to a nursing home facility for rehab prior to returning to her daughter's home. Referrals have been sent but no bed offers have been received. CM will continue to support Linda and assess for discharge needs.
--- NOTE | 2022-03-13 10:06 | NUR.NOTE ---
Nursing Note: At approximately 0955 on 03/13/22, this RN and the MD entered the pt.'s room to speak with the pt.'s two daughters (Zhanna and Sophie). MD updated pt.'s daughters and reviewed pt.'s plan of care with pt.'s daughters. Per MD, tramadol (Ultram) to be discontinued. Lisa (sp?), [facility] arrived shortly after RN and MD entered pt.'s room to have a family meeting with the pt. and the pt.'s daughters. Plan of care to be reassessed following this meeting. Charge nurse notified.
--- NOTE | 2022-03-13 11:14 | NUR.NOTE ---
Nursing Note: Respositioned pT, mentioned about washing her, daughter said no to washing. Daughter said that she washed her mothers face and hands already. This COMMUNICATIONS ASSISTANT notified RN.
[2022-03-13 12:20] VITALS: BP 170/84; PULSE 65; RESP 18; TEMP 36.2; O2SAT 94
--- NOTE | 2022-03-13 12:21 | NUR.NOTE ---
Nursing Note: pT is not fully awake at this time, daughter is trying to feed pT ice cream.
--- NOTE | 2022-03-13 12:41 | NUR.NOTE ---
Nursing Note: At approximately 1226 on 03/13/22, this RN entered the pt.'s room to check on the pt. and noted that the pt.'s daughter, Sophie, was attempting to feed the pt. mashed potatoes while pt. was in a semi-reclined position. RN has had multiple conversations with both of the pt.'s daughter's regarding the need for the pt. to be more awake and alert and to be sitting up in bed prior to taking anything orally. As RN approached the pt.'s bedside, RN observed the pt.'s daughter, Sophie, attempting to offer the pt. a bite of mashed potatoes. Pt. stated, No more please, and then pursed her lips. Pt.'s daughter, Sophie, then stated, Mom, are you sure? Why don't you try a bite? before proceeding to push the spoon in to the pt.'s mouth. Pt. opened her mouth and was able to swallow the mashed potatoes. RN reinforced teaching regarding proper positioning of the pt. when offering anything orally to help prevent against aspiration with both of the pt.'s daughters and called for assistance with repositioning the pt. PANTOGRAPH MACHINE OPERATOR entered the pt.'s room and assisted the RN with boosting the pt. up in bed and turning and repositioning the pt. in bed. RN then sat the head of the pt.'s bed up. Pt.'s daughter states she will continue to offer the pt. fluids and food. RN then left the room.
[2022-03-13 15:18] VITALS: PULSE 64; RESP 16; TEMP 36.5; O2SAT 93
--- NOTE | 2022-03-13 15:36 | W.PM.PROGNOT ---
Date of Service Date of service: 03/13/22 Time of Service: 15:46 Assessment and Plan Assessment and plan (1) Closed displaced fracture of left femoral neck: Start date: 03/08/22 Status: Acute Assessment and plan: This is a 76-year-old lady with advanced dementia who had 2 falls prior to admission with a second fall resulting in left femoral neck fracture which is displaced. Post op Day 4 Stopped morphine. Cont schedule IV tylenol. Cont. celebrex 100mg BID. Lidoderm patch. alprazolam 0.25mg po BID prn anxiety. Stop Seroquel. (2) Acute UTI: Start date: 03/08/22 Status: Acute Assessment and plan: Rocephin 2 g IV was given in the ED. She does have a history of recurrent UTIs. Previous E.Coli with resistance to Rocephin and quinolones. Changed antibiotic coverage to Imipenem. Urine cx grew mixed gram + jose de jesus so antibiotic stopped. (3) Dementia: Status: Chronic Assessment and plan: Advanced with behavioral abnormalities. Qualifiers: Dementia type: vascular dementia Dementia severity: severe Dementia behavioral or psychological symptom: with psychotic disturbance Qualified Code(s): F01.C2 - Vascular dementia, severe, with psychotic disturbance (4) Hypertension: Assessment and plan: Lisinopril 5mg daily. Monitor. (5) Hypothyroidism: Assessment and plan: TSH is elevated but free T4 is normal possibly indicating compliance issues or medication being given inappropriately at times. Continue outpatient medical therapy and PCP can adjust as needed. This problem is most likely not contributing to her acute symptoms or worsening dementia but should be maximized on therapy to the TSH below 2 but above 1. Will need outpt f/u. (6) Tobacco use: Assessment and plan: Daughter requesting to stop nicotine patch. Will watch to see if any anxiety increases after stopping. (7) Discharge planning issues: Status: Acute Assessment and plan: Care managment has sent referrals to SNFs. Has had several declines but is still being considered. Pt hasn't participated well with PT. Does not follow commands well. Doesn't understand directions to stand, walk, etc. Other option could be home with daughter that cares for her, but she will need to show significant improvement in mobility. Hospice did evaluate but daughters don't agree on whether to proceed to hospice care. An order sent for hospital bed. Subjective Subjective Patient reports: afebrile Interval history since last seen: Seroquel administered last PM. Has been lethargic all morning. Oral intake has generally been poor. Exam Narrative Exam Narrative: General:Asleep in bed. Doesn't arouse to verbal stimuli. Lungs:Clear. No rales or rhonchi and no expiratory wheeze. Normal expiratory phase. Heart: Regular rate and rhythm . + systolic murmur. Extremities: Nonpitting edema lower extremities. Objective Last Vital Signs Temp 36.5 C 03/13/22 15:18 Pulse 64 03/13/22 15:18 Resp 16 03/13/22 15:18 BP 170/84 H 03/13/22 12:20 Pulse Ox 93 03/13/22 15:18
--- NOTE | 2022-03-13 15:51 | CHAPLAIN ---
Linda was sleeping when I visited his afternoon. Her daughter, I don't know if it was Sophie or Zhanna, said she was sleeping most of the day and Linda would enjoy a reporting consultant's visit and prayer. She explained that 10 a.m. is usually a good time for a conversation with Linda, so I will try to see her then, tomorrow. According to Care Management notes, Sophie and Zhanna aren't agreeing on the general direction of Linda's care.
--- NOTE | 2022-03-13 16:11 | W.PM.PROGNOT ---
Date of Service Date of service: 03/13/22 Time of Service: 16:14 Assessment and Plan Assessment and plan (1) Closed displaced fracture of left femoral neck: Status: Acute Assessment and plan: 76-year-old female postop day #4 status post Left hip hemiathroplasty Chart reviewed and patient seen with daughter Zhanna present. Apparent significant dementia and cognitive issues continues to make usual postoperative care more challenging. Dressing clean dry intact. Mild ecchymosis. Tolerates gentle hip passive range of motion without discomfort. Unable to participate actively in any exam. Continue multimodal pain control Continue physical therapy as best possible: Weightbearing as tolerated with assist device. Avoid provocative positions like deep hip flexion with adduction and internal rotation. Recommend continued palliative care involvement Chemical and mechanical dvt ppx per primary team (usually 30 days total of NAHEED/SQH while in patient and ASA after discharge, but need to consider goals of care and high fall risk) Discharge when medically appropriate Follow-up with Dr. Lundberg outpatient [facility] on 03/26/22 at 11:15 AM Objective Last Vital Signs Temp 97.7 F 03/13/22 15:18 Pulse 64 03/13/22 15:18 Resp 16 03/13/22 15:18 BP 170/84 H 03/13/22 12:20 Pulse Ox 93 03/13/22 15:18
--- NOTE | 2022-03-13 16:38 | NUR.NOTE ---
Nursing Note: Daughter Zhanna, reports very concerned about pt hydration status. Pt pulled out IV IV last night. Per previous nurse, Lexie, IV placement was attempted for fluid bolus, but pt very clearly stated no. Pt has been very sedated and sleepy today. Daughter reports ED had to medicate with valium to get the IV in, explained to daughter that due to mental status today. Also reminded patient unless she is able to sitting up and alert we are not going to force anything in her mouth. Daughter states she understands and is willing to revisit this topic tomorrow.
[2022-03-13] MEDS: Magnesium Oxide 400 MG TAB PO (20:56)
[2022-03-13] MEDS: Docusate Sodium 100 MG CAP PO (20:56)
[2022-03-13] MEDS: Celecoxib 100 MG CAP PO (20:56)
[2022-03-13] MEDS: Lidocaine 5% Patch 1 PATCH TP (20:57)
[2022-03-13] MEDS: Aspirin E.C. 81 MG TABEC PO (20:57)
[2022-03-13] MEDS: Polyethylene Glycol 3350 17 GM PACKET PO (20:57)
[2022-03-13] MEDS: Melatonin 3 MG TAB 6 MG PO (23:49)
--- NOTE | 2022-03-14 02:44 | NUR.NOTE ---
Nursing Note: AT APPROX 8:30 PM answer light from family member to reposition PT They had the blue telephone cord draped over the bed and the bed locks were off.
--- NOTE | 2022-03-14 08:12 | CMPROGNOTE_ITS ---
- If Service Date Differs Date of service: 03/14/22 Time of Service: 08:12 Care Management Progress Note S/O: Linda was sitting up in a chair visiting with her daughters when CM visited. She was smiling and was trying to eat some lunch. Linda did much better with PT today and was able to ambulate with the assist of 2 people vs 3. She remains confused and does have some challenges with following directions, but defivitely showed improvement. CM received a call from the [facility] today and they have extended a bed offer for Thursday. The family happily accepted the offer. A: Linda is a 76 year old woman admitted on 03/09/22 with a left femur fracture P:Linda will likely benefit from transfer to a care home facility for rehab prior to returning to her daughter's home. A referral had been sent to [facility] earlier in the week and today a bed offer was received and accepted for Thursday03/17/22. Linda will transport either by van or EMS, depending on how she does this weekend. CM will continue to support Linda and assess for discharge needs.
[2022-03-14 08:15] VITALS: BP 177/82; PULSE 69; RESP 18; TEMP 36.6; O2SAT 99
[2022-03-14] MEDS: Lisinopril 5 MG TAB PO (09:07)
[2022-03-14] MEDS: Lactobacillus Acidophilus CAP 1 CAP PO (09:08)
[2022-03-14] MEDS: Aspirin E.C. 81 MG TABEC PO ×2 (09:08→19:51)
[2022-03-14] MEDS: Levothyroxine 75 MCG TAB PO (09:08)
[2022-03-14] MEDS: Escitalopram 20 MG TAB PO (09:08)
[2022-03-14] MEDS: Celecoxib 100 MG CAP PO ×2 (09:08→19:51)
[2022-03-14] MEDS: cloNIDine 0.1 MG TAB PO (09:08)
[2022-03-14] MEDS: Polyethylene Glycol 3350 17 GM PACKET PO ×2 (09:09→19:48)
--- NOTE | 2022-03-14 11:24 | PTTR_ITS ---
Date of service: 03/14/22 Time of Service: 10:04 PT Notes Visit Reasons: Left Femur Fracture, UTI Inpatient Physical Therapy Treatment Note [facility] Date: 03/14/2022 PRECAUTIONS: Activity as tolerated, Fall, confusion, WBAT L SUBJECTIVE: Gisela is able to communicate more clearly today, however she still occasionally speaks in a nonsensical manner. She is able to verbalize I'm scared when asked to change positions. OBJECTIVE: PAIN: No c/o pain BED MOBILITY/TRANSFERS Supine-sit: Max A x2 with HOB at 20 degrees Sit-stand: Mod A x2 Stand-sit: Min A x2 GAIT: Assistive Device: MANAGER OF CORPORATE x2 Weight bearing: WBAT L Assistance: CGA x2 Distance: 60' + 5 steps Deviation: Patient requires tactile and verbal cueing for movement initiation due to confusion ASSESSMENT: Patient appears limited due to confusion, however, is able to ambulate with MANAGER OF CORPORATE x2/CGA x2, although requiring cueing for movement initiation. She is unable to use FWW support appropriately and safely at this time due to confusion. Patient was able to tolerate a progression in gait distance with MANAGER OF CORPORATE x2/CGA x2 and appears more verbally appropriate today. PLAN: Continue with transfer training as well as gait training, as tolerated, which will likely be limited due to confusion. TREATMENT CODE/TIME: Session 1: 24 minutes; 47325 x2 (10:04) Session 2: Hold per patient's family request, patient resting and comfortable sitting up in recliner chair
--- NOTE | 2022-03-14 14:18 | CHAPLAIN ---
Gisela was sleeping when I visited yesterday and I spoke with her daughter Sophie. Sophie suggested I returned today around 10 a.m. as that is when her mom is more alert, and Sophie suggested that her mom would appreciate a net web application developer visit and prayer. Today, around 10 a.m., Gisela was working with PT so I visited later. Her daughter Zhanna was with her. Gisela had just been washed up. She looked comfortable and relaxed. Zhanna did not seem interested in having a net web application developer visit for Gisela and said she was just getting ready to make her mom comfortable so she could sleep, so I didn't stay.
[2022-03-14 16:11] VITALS: BP 115/61; PULSE 75; RESP 12; TEMP 36; O2SAT 98
--- NOTE | 2022-03-14 18:32 | PGE_ITS ---
Date of Service Date of service: 03/14/22 Time of Service: 18:32 Assessment and Plan Assessment and plan (1) Closed displaced fracture of left femoral neck: Start date: 03/08/22 Status: Acute Assessment and plan: This is a 76-year-old lady with advanced dementia who had 2 falls prior to admission with a second fall resulting in left femoral neck fracture which is displaced. Post op Day 5; left posterior hip hemiarthroplasty Stopped morphine. Oral Tylenol 650mg TID Cont. celebrex 100mg BID. Lidoderm patch. alprazolam 0.25mg po BID prn anxiety. Stop Seroquel. (2) Acute UTI: Start date: 03/08/22 Status: Acute Assessment and plan: Rocephin 2 g IV was given in the ED. She does have a history of recurrent UTIs. Previous E.Coli with resistance to Rocephin and quinolones. Changed antibiotic coverage to Imipenem. Urine cx grew mixed gram + jose de jesus so antibiotic stopped. (3) Dementia: Status: Chronic Assessment and plan: Advanced with behavioral abnormalities. Qualifiers: Dementia type: vascular dementia Dementia severity: severe Dementia behavioral or psychological symptom: with psychotic disturbance Qualified Code(s): F01.C2 - Vascular dementia, severe, with psychotic disturbance (4) Hypertension: Assessment and plan: Lisinopril 5mg daily. BP has been variablly high and low. PRN clonidine for SBP <185. Monitor. (5) Hypothyroidism: Assessment and plan: TSH is elevated but free T4 is normal possibly indicating compliance issues or medication being given inappropriately at times. Continue outpatient medical therapy and PCP can adjust as needed. This problem is most likely not contributing to her acute symptoms or worsening dementia but should be maximized on therapy to the TSH below 2 but above 1. Will need outpt f/u. (6) Tobacco use: Assessment and plan: Daughter requesting to stop nicotine patch. Will watch to see if any anxiety increases after stopping. (7) Discharge planning issues: Status: Acute Assessment and plan: Full Code She has been accepted to the [facility]; transfer this coming Thursday. Working better with PT. Some improvement in following directions. Subjective Subjective Patient reports: bowel movement and afebrile; denies vomiting or shortness of breath Interval history since last seen: She has not been as lethargic today. Worked with PT. Exam Narrative Exam Narrative: General:Asleep in bed. Arouses to verbal stimuli. Lungs:Clear. No rales or rhonchi and no expiratory wheeze. Normal expiratory phase. Heart: Regular rate and rhythm . + systolic murmur. Extremities: Nonpitting edema lower extremities. Objective Last Vital Signs Temp 36 C L 03/14/22 16:11 Pulse 75 03/14/22 16:11 Resp 12 03/14/22 16:11 BP 115/61 03/14/22 16:11 Pulse Ox 98 03/14/22 16:11
[2022-03-14] MEDS: ALPRAZolam 0.25 MG TAB PO (19:47)
[2022-03-14] MEDS: Acetaminophen 325 MG TAB 650 MG PO (19:48)
[2022-03-14 23:28] VITALS: BP 137/69; PULSE 64; RESP 16; TEMP 37.1; O2SAT 97
[2022-03-15] MEDS: Levothyroxine 75 MCG TAB PO (06:04)
[2022-03-15] MEDS: Aspirin E.C. 81 MG TABEC PO ×2 (08:09→20:03)
[2022-03-15] MEDS: Acetaminophen 325 MG TAB 650 MG PO (08:09)
[2022-03-15] MEDS: Escitalopram 20 MG TAB PO (08:09)
[2022-03-15] MEDS: Polyethylene Glycol 3350 17 GM PACKET PO ×2 (08:09→19:51)
[2022-03-15] MEDS: Lisinopril 5 MG TAB PO (08:09)
[2022-03-15] MEDS: cloNIDine 0.1 MG TAB PO (08:10)
[2022-03-15] MEDS: Celecoxib 100 MG CAP PO ×2 (08:11→20:03)
[2022-03-15] MEDS: Lactobacillus Acidophilus CAP 1 CAP PO (08:11)
[2022-03-15 08:25] VITALS: BP 173/92; PULSE 67; RESP 18; TEMP 36.9; O2SAT 97
--- NOTE | 2022-03-15 10:34 | W.PM.PROGNOT ---
Date of Service Date of service: 03/15/22 Time of Service: 10:34 Assessment and Plan Assessment and plan (1) Closed displaced fracture of left femoral neck: Start date: 03/08/22 Status: Acute Assessment and plan: This is a 76-year-old lady with advanced dementia who had 2 falls prior to admission with a second fall resulting in left femoral neck fracture which is displaced. Post op Day 6, left posterior hip hemiarthroplasty Oral Tylenol 650mg TID > to 1000 mg TID Cont. celebrex 100mg BID. Lidoderm patch. alprazolam 0.25mg po BID prn anxiety. Seroquel has been dc'ed Professional time spent interviewing and examining patient, discussion of goals of care with hospital team (care management, nursing and consulting professionals) was 30 minutes. (2) Dementia: Status: Chronic Assessment and plan: Advanced with behavioral abnormalities. Qualifiers: Dementia type: vascular dementia Dementia severity: severe Dementia behavioral or psychological symptom: with psychotic disturbance Qualified Code(s): F01.C2 - Vascular dementia, severe, with psychotic disturbance (3) Hypertension: Assessment and plan: Lisinopril 5mg daily. BP has been variablly high and low. PRN clonidine for SBP <185. Monitor. (4) Hypothyroidism: Assessment and plan: Elevated TSH 6.0 but normal FT4, possible compliance issue; will increase slightly to 88 mcg daily; recheck her TSH in 6 to 8 weeks (5) Tobacco use: Assessment and plan: Daughter requesting to stop nicotine patch. Will watch to see if any anxiety increases after stopping. (6) Discharge planning issues: Status: Acute Assessment and plan: Full Code She has been accepted to the [facility]; transfer this coming Thursday. Working better with PT. Some improvement in following directions. Subjective Subjective Interval history since last seen: Patient's dementia has interfered w/ patient performance. Her hip pain seems to be controlled w/ Celebrex, Tylenol and lidoderm patch. Patient did not sleep well last night according to her daughter. Patient was given alprazolam last night but has had none today. She is very tired today and did not arouse for her ortho exam this morning. Her daughter was concerned over her mother's BP which is high this morning and upon review of her other BP readings seems to be high first thing in the morning, running 170 to 180 systolic but then declining later in the day to 115 to 130's after her lisinopril. Exam Narrative Exam Narrative: Elderly white female who is very somnolent Lungs: clear Heart: RRR Abdomen: soft, nontender, non-distended Left Hip: small bruise but no edema; no pain w/ internal/external rotation; no leg edema and normal pedal pulses Objective Last Vital Signs Temp 36.9 C 03/15/22 08:25 Pulse 67 03/15/22 08:25 Resp 18 03/15/22 08:25 BP 173/92 H 03/15/22 08:25 Pulse Ox 97 03/15/22 08:25
[2022-03-15 12:14] LABS: Abs Immature Grans 0.09 10^3/uL (0.0-0.06); Absolute Basophil Count 0.02 10^3/uL (0.0-0.2); Absolute Eosinophil Count 0.17 10^3/uL (0.0-0.7); Absolute Lymphocyte Count 0.76 10^3/uL (1.2-3.4); Absolute Monocyte Count 0.55 10^3/uL (0.1-0.8); Absolute Neutrophil Count 4.39 10^3/uL (1.2-6.7); Basophils % 0.3; Eosinophils % 2.8; HCT 29.1 % (36.0-46.0); HGB 9.9 g/dL (11.2-15.7); Immature Grans % 1.5; Lab Add On Test DONE; Lymphocytes % 12.7; MCH 32.4 pg (27.0-33.0); MCV 95 fL (80-95); MPV 9.2 fL (8.0-11.0); Monocytes % 9.2; Neutrophils % 73.5; Platelet Count 250 10^3/uL (130-400); RBC 3.06 10^6/uL (3.93-5.22); RDW 12.2 % (11.7-14.6); RDW-SD 42.3 fL; WBC 5.98 10^3/uL (4.4-10.8)
[2022-03-15 12:17] LABS: Reticulocyte 1.9 % (0.5-2.4)
[2022-03-15 12:24] LABS: Anion Gap 5.8 mmol/L (3-11); BUN 13 mg/dL (7-18); CO2 27.2 mmol/L (21.0-32.0); CREATININE 0.7 mg/dL (0.55-1.02); Calcium 8.4 mg/dL (8.5-10.1); Chloride 108 mmol/L (98-107); Estimated GFR 90.14 (mL/min/1.73m2); Glucose 115 mg/dL (74-106); Potassium 3.6 mmol/L (3.5-5.1); Sodium 141 mmol/L (136-145)
--- NOTE | 2022-03-15 12:26 | PT.INNT ---
PT Notes Visit Reasons: Left Femur Fracture, UTI 03/15/2022 Attempted to see patient 3 times this am for skilled PT services. First attempt I was asked by patient's daughter to return around 11:00, due to patient just being medicated and finally resting peacefully. Attempted again after 11:00 and patient was still sleeping. Third attempt was made just before lunch and patient's daughter again indicated that she would like to allow her mom to continue resting, indicated she had not slept well last night. Nurse Sanjeev, myself and supervising PT Jeanne discussed matter and it was agreed that nursing would get patient up as soon as she awakens. I discussed getting patient up for breakfast tomorrow and daughter, nursing staff and supervising PT are in agreement with this plan.
[2022-03-15 12:39] LABS: Iron 33 ug/dL (50-170); Total Iron Binding Capacity 195 ug/dL (250-450); Transferrin Sat 17 % (15-50)
[2022-03-15 12:42] VITALS: BP 127/76; PULSE 65; RESP 16; TEMP 36.5; O2SAT 98
[2022-03-15 12:55] LABS: Ferritin 136 ng/mL (8-252); Folate 18.1 ng/mL (8.6-20.0); Vitamin B12 244 pg/mL (193-986)
[2022-03-15 13:16] LABS: LDH 218 U/L (81-234)
[2022-03-15] MEDS: Acetaminophen 500 MG TAB 1000 MG PO ×2 (13:35→20:03)
[2022-03-15 15:39] VITALS: BP 108/68; PULSE 54; RESP 16; TEMP 36.7; O2SAT 98
[2022-03-15] MEDS: Lidocaine 5% Patch 1 PATCH TP (20:29)
[2022-03-15] MEDS: Melatonin 3 MG TAB 9 MG PO (22:12)
[2022-03-15 22:58] VITALS: BP 123/58; PULSE 47; RESP 13; TEMP 36.2; O2SAT 96
[2022-03-16 07:44] VITALS: BP 161/92; PULSE 66; RESP 16; TEMP 36.5; O2SAT 98
[2022-03-16] MEDS: Polyethylene Glycol 3350 17 GM PACKET PO (08:14)
--- NOTE | 2022-03-16 08:26 | PTTR_ITS ---
Date of service: 03/16/22 Time of Service: 07:45 PT Notes Visit Reasons: Left Femur Fracture, UTI Inpatient Physical Therapy Treatment Note [facility] Date: 03/16/2022 PRECAUTIONS: Activity as tolerated, Fall, confusion, WBAT L SUBJECTIVE: Unable to understand any verbal communication with patient today, but she seemed very motivated by getting back to her doll while walking. OBJECTIVE:? PAIN: No c/o pain, moving left hip very easily both with transfers and ambulation. ? BED MOBILITY/TRANSFERS? Supine-sit: Max A x2 with HOB at 20 degrees Sit-stand: Mod A x3 ? Stand-sit: Min A x2 GAIT: Assistive Device: BULB PACKER x2, with another person guiding patient from front of body occasionally Weight bearing: WBAT L Assistance: CGA x2-3 Distance: 80ft Deviation: Patient requires tactile and verbal cueing for movement initiation, due to confusion.? ASSESSMENT: Patient appears limited due to confusion, however, is able to ambulate with BULB PACKER x2/CGA x2, although requiring cueing for movement initiation.? PLAN: Continue with transfer training as well as gait training, as tolerated, which will likely be limited due to confusion. TREATMENT CODE/TIME: [id number], (20') 7:45 to 8:05 am
[2022-03-16] MEDS: Celecoxib 100 MG CAP PO ×2 (09:18→21:35)
[2022-03-16] MEDS: Lactobacillus Acidophilus CAP 1 CAP PO (09:18)
[2022-03-16] MEDS: Lisinopril 5 MG TAB PO (09:18)
[2022-03-16] MEDS: Levothyroxine 88 MCG TAB PO (09:18)
[2022-03-16] MEDS: Aspirin E.C. 81 MG TABEC PO (09:18)
[2022-03-16] MEDS: Escitalopram 20 MG TAB PO (09:18)
[2022-03-16] MEDS: Acetaminophen 500 MG TAB 1000 MG PO ×3 (09:18→21:35)
--- NOTE | 2022-03-16 13:01 | PGE_ITS ---
Date of Service Date of service: 03/16/22 Time of Service: 13:01 Assessment and Plan Assessment and plan (1) Closed displaced fracture of left femoral neck: Start date: 03/08/22 Status: Acute Assessment and plan: This is a 76-year-old lady with advanced dementia who had 2 falls prior to admission with a second fall resulting in left femoral neck fracture which is displaced. Post op Day 7 left posterior hip hemiarthroplasty Oral Tylenol 650mg TID > to 1000 mg TID Cont. celebrex 100mg BID. Lidoderm patch. Will dc her conde catheter and give her a voiding trial prior to her dc to SNF tomorrow. Professional time spent interviewing and examining patient, discussion of goals of care with hospital team (care management, nursing and consulting professionals) was 15 minutes. (2) Dementia: Status: Chronic Assessment and plan: Advanced with behavioral abnormalities. Seroquel was dc'ed d/t excess sedation; using alprazolam prn; continue escitalopram Qualifiers: Dementia type: vascular dementia Dementia severity: severe Dementia behavioral or psychological symptom: with psychotic disturbance Qualified Code(s): F01.C2 - Vascular dementia, severe, with psychotic disturbance (3) Hypertension: Assessment and plan: Lisinopril 5mg daily, will change to HS schedule as her BP seem to be higher first thing in the morning BP has been variablly high and low. PRN clonidine for SBP <185. Monitor. (4) Hypothyroidism: Assessment and plan: Elevated TSH 6.0 but normal FT4, possible compliance issue; will increase slightly to 88 mcg daily; recheck her TSH in 6 to 8 weeks (5) Tobacco use: Assessment and plan: Daughter requesting to stop nicotine patch. Will watch to see if any anxiety increases after stopping. No change since taken off nicotine replacement (6) Discharge planning issues: Status: Acute Assessment and plan: Full Code She has been accepted to the [facility]; transfer this coming Thursday. Working better with PT. Some improvement in following directions. Subjective Subjective Interval history since last seen: Patient having a better day today. She has been up out of bed ambulating w/ assistance of nursing and P.T. Exam Narrative Exam Narrative: Patient is at her baseline level of dementia; she is alert and oriented only to her name LUngs: clear Heart: RRR Abdomen: soft, nontender; per nursing she has been moving her bowels well Conde draining clear yellow urine Extremities: no edema Neuro/cognitive: she is cooperative, calm; following commands Objective Last Vital Signs Temp 36.5 C 03/16/22 07:44 Pulse 66 03/16/22 07:44 Resp 16 03/16/22 07:44 BP 161/92 H 03/16/22 07:44 Pulse Ox 98 03/16/22 07:44 Laboratory Results - last 24 hr 03/15/22 12:00 Ferritin 136 Lactate Dehydrogenase 218 Vitamin B12 244 Folate 18.1
[2022-03-16 13:32] VITALS: BP 110/63; PULSE 56; RESP 12; O2SAT 99
[2022-03-16 14:50] VITALS: BP 112/73; PULSE 64; RESP 17; TEMP 37; O2SAT 100
[2022-03-16] MEDS: Melatonin 3 MG TAB 9 MG PO (21:35)
[2022-03-16] MEDS: Lidocaine 5% Patch 1 PATCH TP (21:35)
[2022-03-16 23:45] VITALS: BP 137/88; PULSE 60; RESP 18; TEMP 36.4; O2SAT 97
[2022-03-17] MEDS: Levothyroxine 88 MCG TAB PO (06:36)
[2022-03-17 08:30] VITALS: BP 176/71; PULSE 71; RESP 16; TEMP 36.5; O2SAT 98
[2022-03-17] MEDS: Polyethylene Glycol 3350 17 GM PACKET PO (09:02)
--- NOTE | 2022-03-17 09:35 | W.NUTRFU ---
Date of service: 03/17/22 Time of Service: 09:35 Nutrition Note NOTE: Gisela has had poor PO intake for last 4 days (refusal to 25%). Not meeting macronutrient needs despite being offered supplements. Awaiting updated weight. At high nutritional risk and at risk for skin breakdown. Estimated Needs: [id number] kcal, 62-74 g protein, 1860 ml fluid. Needs to complete > 75% of meals to meet needs. Consider appetite stimulant such as remeron. Will continue to offer soft finger foods and encourage supplements at meals. Request updated weight. Time Spent in Nutritional Counseling and Treatment: 10
--- NOTE | 2022-03-17 09:49 | W.PM.DS.N ---
Date of service: 03/17/22 Time of Service: 09:49 DS: Diagnosis Discharge Diagnosis (1) Closed displaced fracture of left femoral neck: Status: Acute (2) Dementia: Status: Chronic (3) Hypertension: (4) Hypothyroidism: (5) Tobacco use: Discharge Plan Disposition Patient Disposition: SKILLED NSG. FAC.(LEVEL 1) Condition: Good Discharge Details Reason For Visit: Left Femur Fracture, UTI Admit Date/Time: 03/09/22 02:21 Admit Provider: Nuno La Attending Provider: Nuno La Primary Care Provider: Kike Rich Hospital Course Hospital Course: This is a 76-year-old lady with advanced dementia who had 2 falls prior to admission with a second fall resulting in left femoral neck fracture which was displaced. She underwent a left posterior hip hemiarthroplasty on Mar 09 here at [facility]. she had difficulties working with PT postoperatively d/t her dementia, acute delirium postoperatively and since daughters wouldn't agree with medication management delay in stabilization of her symptoms was prolonged. ultimately seroquel was discontinued due to excess sedation; she has been receiving alprazolam prn and escitalopram daily with good effect. anticipate exacerbation of her symptoms again when she changes environment. Her postoperative pain has been managed with oral Tylenol 1000 mg three times daily with celebrex 100mg BID and lidoderm patch. Blood pressure managed with lisinopril 5mg daily, which was changed to HS schedule as her BP seem to be higher first thing in the morning. BP has been variably high and low. PRN clonidine for SBP > 185 if needed or further adjustments to outpatient team. aslo noted elevated TSH 6.0 but normal FT4, possible compliance issue; will increase slightly to 88 mcg daily; recheck her TSH in 6 to 8 weeks. thought to have a urinary tract infection on admission, was treated with ceftriaxone then switched to imipenem. Her cultures finalized with insignificant mixed growth so antibiotics completed. She apparently has history of frequent UTI's. Palliative care was consulted and should continue to follow up outpatient, question of eligibility for hospice. should consider outpatient consultation. Patient has co-guardianship between both daughters. She is medically stable and plan is to discharge to the [facility] for further rehabilitation. discharge discussed with Dr Werner. Home Meds and New Rx's Prescriptions: New clonidine HCl 0.1 mg Tablet 0.1 mg PO DAILY PRN PRN (Reason: sustained hypertension) Qty: 0 0RF polyethylene glycol 3350 17 gram Powder In Packet 17 g PO BID Qty: 0 0RF aspirin 81 mg Tablet,Delayed Release (Dr/Ec) 81 mg PO BID Qty: 0 0RF acetaminophen 500 mg Tablet 1,000 mg PO TID Qty: 0 0RF levothyroxine 88 mcg Tablet 88 mcg PO DAILY@0700 Qty: 0 0RF lidocaine 5 % Adhesive Patch,Medicated 1 patch topical Q24H Qty: 0 0RF docusate sodium [Colace] 100 mg Capsule 100 mg PO BID Qty: 0 0RF celecoxib 100 mg Capsule 100 mg PO BID Qty: 0 0RF Continued escitalopram oxalate 20 mg tablet 20 mg PO DAILY Qty: 90 4RF Lactobacillus acidophilus Capsule 1,000 mmu cells PO DAILY Changed lisinopril 5 mg tablet 5 mg PO HS Qty: 0 0RF Label Comments: TAKE ONE TABLET BY MOUTH EVERY DAY Discontinued levothyroxine 75 mcg tablet 75 mcg PO DAILY Label Comments: TAKE ONE TABLET BY MOUTH EVERY MORNING BEFORE BREAKFAST No Action cranberry extract 200 mg Capsule 200 mg PO DAILY Rx Instructions: administer with a meal d-mannose 500 mg Capsule 500 mg PO DAILY Discharge Instructions Instructions: Leg Fracture (DC), Urinary Tract Infection in Women (DC), Hip Fracture (GEN) Stand Alone Forms: Nursing Discharge Form Referrals: Steven Lundberg MD [ [facility] STAFF PHYSICIAN] - 03/26/22 11:15 am Activity:: Activity as Tolerated Equipment/Supplies:: No Equipment Needed Diet:: As Tolerated Discharge Orders Discharge Orders: Discharge Order (Routine); Ordered 03/17/22 Ordered By: Melissa Davis DS: Summary Time Spent with Patient providing and/or coordinating discharge services: Greater than 30 minutes Status at Discharge Functional status at discharge: uses cane/walker Overall status at discharge: patient is progressing back to baseline Mental Status: other (demented at baseline) Speech and Movement: speech and movement normal Mood: other (demented at baseline) Affect: normal affect Exam Const General: no acute distress and frail appearing Nutritional Appearance: average body habitus Orientation: alert, awake and confused (at baseline, no behavioral issues) HENMT Head: normal to inspection Resp Effort & Inspection: normal respiratory effort (even and unlabored) Cardio Rate: regular rate Skin Lesions: other (surgical dressing C/D/I) Rashes: no rashes Neuro General: patient alert, patient awake and no focal motor deficits Psych Mental Status: other (demented at baseline) Speech and Movement: speech and movement normal Mood: other (demented at baseline) Affect: normal affect DS: Data Vitals/I&O Vitals and I&O: Vital Signs Temperature 36.5 C 03/17/22 08:30 Temperature Source Tympanic 03/17/22 08:30 Pulse 71 03/17/22 08:30 Pulse Rhythm Regular 03/17/22 09:09 Pulse 81 03/10/22 07:40 Respiratory Rate 16 03/17/22 08:30 Respiratory Effort Non-Labored 03/17/22 09:09 Respiratory Depth Normal 03/17/22 09:09 Respiratory Pattern Normal 03/17/22 09:09 Blood Pressure 176/71 H 03/17/22 08:30 Blood Pressure Mean 78 03/10/22 07:40 Blood Pressure Position Supine 03/09/22 04:00 Pulse Oximetry 98 03/17/22 08:30 Respiratory End-tidal CO2 28 03/09/22 13:30 Oxygen Delivery Method Room Air 03/17/22 08:30 Oxygen Flow Rate 0 03/17/22 08:30 Pain Level 0 03/16/22 23:45 Comment 03/16/22 13:32 Intake & Output 03/16/22 03/16/22 03/17/22 11:59 23:59 11:59 Intake Total 20 / 260 240 / 260 120 / 120 Output Total 375 / 375 Balance -355 / -115 240 / -115 120 / 120 Intake: Oral 20 / 260 240 / 260 120 / 120 Output: Urine 375 / 375 Other: Urine Color Yellow Yellow Yellow Urine Appearance Clear Clear Clear Comment emptied at this time pt was a little bit incontinent at this time grossily incontinent Stool Size Large Small Stool Characteristics Soft Soft Formed Brown Brown Voiding Methods Diaper Diaper Incontinent Incontinent PFSH All Active Problems (Updated 03/12/22 @ 17:36 by Lizet Gonzalez NP) Full code status (Acute) Encounter for hospice care discussion (Acute) Discharge planning issues (Acute) Closed fracture of left hip (Acute) Acute UTI (Acute) Closed displaced fracture of left femoral neck (Acute 03/09/22) Caregiver stress (Chronic) daughter Zhanna tearful, exhausted at 08/13 visit 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 History of recurrent UTIs (Chronic) urologist Dr Cotter in [facility] Kyphosis (Chronic) more pronounced since 2020 Health care proxy on file (Acute) Stress due to family tension (Chronic) complicated blended family Goals of care, counseling/discussion (Chronic) 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) Requires continuous supervision for activities of daily living (ADL) (Chronic) needs to have someone with her does better with 24/7 company Urinary and bowel incontinence (Chronic) bowel is rare but urine is daily explained this is normal for dementia and will get worse over time Wandering (Chronic) Palliative care patient (Chronic) Vascular dementia with paranoia (Chronic) paranoia improving 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) Anxiety (Chronic) Constipation by delayed colonic transit (Acute) Fatigue associated with anemia (Acute) Dementia (Chronic) Blurring of visual image (Acute) Vaginal atrophy (Acute) Dysuria (Acute) Dementia (Chronic) Brain atrophy (Chronic) will not have any further brain imaging Migraine (Chronic) Ischemic vascular disease (Chronic) Chronic fatigue (Chronic) Depression (Chronic 08/23/15) Essential hypertension (Chronic) Hypothyroidism (Chronic 08/23/15) Seasonal affective disorder (Chronic) Tobacco use disorder (Chronic 08/23/15) has cut back to about 10 per day Vitamin D deficiency (Chronic) Medical History Cervical cancer Depression Hypertension Hypothyroidism Osteopenia Tobacco use restarted tobacco 2015. Surgical History Cataract extraction status, left eye (~01/2018) [facility] Cataract extraction status, right eye (~01/2018) [facility] Vaginal hysterectomy Family History Mother , age 66 from pneumonia, s/p mastectomy for breast cancer Breast cancer Pneumonia Father , age 62 from emphysema, heavy smoker Emphysema lung Smoker Sister , age 68 from leukemia Leukemia Brother No problems noted. Son No problems noted. Son No problems noted. Daughter Twin Daughter Twin Depression Anxiety of armed [employer] Social History (Reviewed 03/12/22 @ 17:31 by DIANNE Barros Smoking/Tobacco Use Status: Former Tobacco Use Tobacco: How many years used: 60 Quit status: considering quitting Second Hand Exposure: Yes Counseling given: counseling >3 minutes Smoking risk assessment performed?: Yes Alcohol Intake: former Drug use: Never Substance use type: does not use Caregiver/Support person: Yes (moved in with daughter Zhanna November 2020) Household members: children Housing: apartment Number of Children: 4 number of grandchildren: 6 Communication Needs: Hard of Hearing and Corrective Lenses Education Level: high school Do you need help understanding health information?: Always current occupation: retired caregiver for elderly and disabled people Pets and animals: No Do you think of yourself as: straight/heterosexual Current gender identity: female What is your relationship status?: How often do you talk on the phone with friends or family?: never How often do you get together with friends or relatives?: three or more times per week Panel score (0-1 are the most socially isolated patients): 1 What type of physical activity do you participate in: walking and irregular exercise Duration: 30-45 minutes/day Frequency: other Details: paces as part of her dementia, does not go outside, afraid Special neema needs: No Agree to transfusion: No Seatbelt use: always Working smoke detector in home: Yes Fire extinguisher in home: Yes Firearms in home: No Do you feel safe at home: Yes Do you feel safe in your relationship?: Yes Additional Social history: to second , Wily, since 1978. Not living with him since November 2020. Moved in with daughter in November 2020. Her memory has been more rapidly declining since 2019. She is still able to walk. She can speak, but doesn't make sense. Memory is poor. She does have persistent urinary and rare fecal incontinence. She is normal weight. Daughters Sophie and Zhanna very involved in Yovana's care. Historically, Yovana had been very paranoid and suspicious of any medical intervention. She is no longer. More easy-going as of 2020. She seems to know that her memory is worse. Since 2020 visits, she let me discuss her dementia openly without getting upset. Walks most days, with supervision. Still smokes. Family house sold in November 2020; after sale, Yovana was initially in [facility] and then moved in with Zhanna after about one week. Zhanna pursuing medical guardianship; daughter Sophie pursuing financial guardianship. A lot of distrust and stress between daughters and Wily. Unlikely that Yovana will move back in with her in the future. Zhanna very tearful, appears exhausted, will not consider a respite to help her recover, rest. Suggested she seek out counseling for herself. She is very angry and upset with Wily and what she perceives as subpar care that he delivered.
[2022-03-17] MEDS: Lactobacillus Acidophilus CAP 1 CAP PO (09:59)
[2022-03-17] MEDS: Acetaminophen 500 MG TAB 1000 MG PO (09:59)
[2022-03-17] MEDS: Celecoxib 100 MG CAP PO (09:59)
[2022-03-17] MEDS: ALPRAZolam 0.25 MG TAB PO (09:59)
[2022-03-17] MEDS: Aspirin E.C. 81 MG TABEC PO (09:59)
[2022-03-17] MEDS: Escitalopram 20 MG TAB PO (09:59)
--- NOTE | 2022-03-17 10:11 | PDOC.CMDIS ---
- If Service Date Differs Date of service: 03/17/22 Time of Service: 10:12 LACE Index Scoring Tool - Questions: Length of Stay (in days): 7 - 13 Acuity (Admit via E.D.?): Yes Comorbidities: Any Tumor, Dementia E.D. Visits: 1 - Answers: Total Score: 14 Risk of Readmission: High Risk Care Management Discharge Reason for Hospitalization: Fracture of left femoral neck Discharge Plan: Linda will transfer to [facility] in [place], [place] for short term rehab prior to returning home with her daughter Zhanna. She will follow up with the facility provider and plan of care and transport vis [facility] w/[facility]. Patient/Family Education Needs: Review of discharge instructions, limitations, activity, follow up plan, Ask Me Three Services Needed at Discharge: Assisted Facility
--- NOTE | 2022-03-17 11:02 | NUR.NOTE ---
Nursing Note: Report given to LEISA Wilder at the [facility].All questions answered. Patient to leave by RCT at 1130 today.
== END 2022-03-17 11:27 | disposition skilled nursing facility (03) | DRG 522 ==
LOC: ER 03-09 02:29 → ICU 03-09 03:24 → MS 03-10 07:42
PROVIDERS: Family Medicine; Internal Medicine; Student in an Organized Health Care Education/Training Program; Admitting Provider Family Medicine; Emergency Provider Student in an Organized Health Care Education/Training Program; PCP Family Medicine; Visit Provider Family Medicine
PROC: 0SRS0JA Replacement of Left Hip Joint, Femoral Surface with Synthetic Substitute, Uncemented, Open Approach (ICD-10-PCS; CPT 27125; principal; 2022-03-09 08:00)
DX: S72.002A Fracture of unspecified part of neck of left femur, initial encounter for closed fracture (principal); N39.0 Urinary tract infection, site not specified; R44.3 Hallucinations, unspecified; F01.518 Vascular dementia, unspecified severity, with other behavioral disturbance; F02.818 Dementia in other diseases classified elsewhere, unspecified severity, with other behavioral disturbance; W19.XXXA Unspecified fall, initial encounter; I10 Essential (primary) hypertension; F17.210 Nicotine dependence, cigarettes, uncomplicated; E03.9 Hypothyroidism, unspecified; Z87.440 Personal history of urinary (tract) infections; F40.00 Agoraphobia, unspecified; M40.209 Unspecified kyphosis, site unspecified; G30.9 Alzheimer's disease, unspecified; Z91.83 Wandering in diseases classified elsewhere; R32 Unspecified urinary incontinence; R15.9 Full incontinence of feces; F41.9 Anxiety disorder, unspecified; D64.9 Anemia, unspecified; K59.01 Slow transit constipation; G43.909 Migraine, unspecified, not intractable, without status migrainosus; F32.A Depression, unspecified; E55.9 Vitamin D deficiency, unspecified; Z66 Do not resuscitate
CPT/HCPCS: 27236; 36415; 51702; 73552; 80048; 80053; 87635; 96365; 96375; 97110; 97163; 97530; 99223; 99285; 70450; 72170; 73502; 81003; 81015; 82607; 82728; 82746; 83540; 83550; 83615; 83735; 84439; 84443; 85025; 85045; 87086; 99231; 99232; 99239; J0131; J0690; J0696; J0743; J1100; J1885; J2270; J2405; J2704; J3360; J3490

== ENCOUNTER 2022-04-04 15:35 | Outpatient (REF) | payer MEDICARE, OTHER, SELFPAY ==
--- OUTSIDE RECORDS SUMMARY | 2022-04-04 15:38 | XMS_ITS ---
:1945 Author Organization [facility] Address [address], [place] [id number] Care Team Providers Name Role Phone Kike Rich Unavailable Unavailable PROBLEMS Type Condition ICD9-CM PPA80-UJ Onset Condition SNOMED Cod e Code Code Dates Status Problem Vitamin D E55.9 Active 93318917 deficiency Problem Age-related H25.9 Active 59357767 cataract of both eyes, unspecified age-related cataract type Problem Essential I10 Active 02602980 hypertension Problem Inattention R41.840 Active 53846498 Problem Seasonal affective F33.9 Active 2 34455623 disorder Problem Chronic fatigue R53.82 Active 5270 2003 Problem Attention and R41.840 Active concentration deficit Problem Vascular dementia F01.51 Active 10 383845 with behavior disturbance Problem Recurrent UTI N39.0 Active 953939 001 Problem Altered mental R41.82 Active status, unspecified altered mental status type Problem Cigarette nicotine F17.219 Active 4 28310289 dependence with nicotine-induced disorder Problem Dementia without F03.90 Active 524 59517 behavioral disturbance, unspecified dementia type Problem Constipation, K59.00 Active 781953 08 unspecified constipation type Problem Other M15.8 Active 199219168 osteoarthritis involving multiple joints Problem Slow transit K59.01 Active 2280961 7 constipation Problem Menopausal and N95.1 Active 91133 3006 female climacteric states Problem Postmenopausal N95.2 Active 91689 000 atrophic vaginitis Problem Other specified E03.8 Active 4093 0008 hypothyroidism Problem Dysuria R30.0 Active 14297427 Problem 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 2366 35685 bladder) Problem Dementia with F03.91 Active 281194 5435522 behavioral disturbance, unspecified dementia type Problem Altered mental R41.82 Active 17982 4004 status, unspecified Problem Hypothyroidism E03.9 Active 81739 008 Problem Moderate E44.0 Active 81923693 protein-calorie malnutrition Problem 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 Active 26 0980757 cervical spine, unspecified spinal osteoarthritis complication status Problem Anxious mood F41.9 Active 7120180 03 Problem Epigastric pain R10.13 Active 7992 2009 Problem Dementia in other F02.81 Active 15 55368914539 diseases classified elsewhere with behavioral disturbance Problem Alzheimer's G30.9 Active 23933696 disease, unspecified ALLERGIES Substance Reaction Event Type Date Status Macrobid hives Drug Allergy Jan, Active BuPROPion HCl palpatations Drug Allergy Jan, Active Memantine HCl nausea Drug Allergy Jan, Active ENCOUNTERS Encounter Location Date Diagnosis [facility] [address] Jan, [place], [place] [id number] [facility] [address] [place] [address] Jan, Rec urrent UTI N39.0 ; [place], [place] Dementia in o ther 108174325 diseases classif ied elsewhere with b ehavioral disturbance F02. 81 and Hypothyroidism E 03.9 [facility] [address] [place] [address] Jan, [place], [place] [id number] [facility] [address] [place] [address] 14 Jan, 2022 Alt ered mental status, [place], [place] unspecified R 41.82 ; [id number] Recurrent UTI N3 9.0 and Dysuria R30.0 [facility] [address] [place] [address] Dec, Road [address] [place] [id number] [facility] [address] [place] [address] Dec, Road [address] [id number] [facility] [address] [place] [address] Dec, Hyp othyroidism E03.9 [place], [place] [id number] [facility] [address] [place] [address] Dec, Road [address] [id number] [facility] [address] [place] [address] Dec, [place], [place] [id number] [facility] [address] [place] [address] Nov, [address] [id number] [facility] [address] [place] [address] Nov, [place], [place] [id number] [facility] [address] [place] [address] September, [address] [id number] [facility] [address] [facility] September, [place] [id number] [facility] [address] [facility] Aug, [address] [id number] [facility] [address] [facility] Aug, [address] [id number] [facility] [address] [place] [address] Aug, Oth er specified [place] hypothyroidis m E03.8 ; [id number] Dementia in othe r diseases classif ied elsewhere with b ehavioral disturbance F02. 81 ; Anemia due to ot her cause, not class ified D64.89 and Frequ ent UTI N39.0 [facility] [address] Aug, [place], [place] [id number] [facility] [address] [place] [address] Aug, [place], [place] [id number] [facility] [address] [place] [address] Jul, Recurren t UTI N39.[address] [id number] [facility] [address] [place] [address] Jul, [place], [place] [id number] [facility] [address] [place] [address] Jul, [place] [id number] [facility] [address] [place] [address] Jul, [place] [id number] [facility] [address] [place] [address] Jul, [place], [place] [id number] [facility] [address] [place] [address] Jul, [place] [id number] [facility] [address] [place] [address] Jul, [place], [place] [id number] [facility] [address] [place] [address] Jun, Dys uria R30.0 [place], [place] [id number] [facility] [address] [facility] Jun, Road [address] [id number] [facility] [address] [facility] Jun, [facility] [address] [place], [place] [id number] [facility] [address] [place] [address] Jun, Road [place], [place] [id number] [facility] [address] [place] [address] Jun, [address] [id number] [facility] [address] [place] [address] 15 Jun, 2021 Frequent UTI N39.0 and [facility] [address] Alzheimer's dise banner, [place], [place] unspecified G30. 9 [id number] [facility] [address] [place] [address] Jun, Encounte r for screening Road [place], [place] laboratory te sting for [id number] COVID-19 virus Z 20.822 [facility] [address] [place] [address] Jun, Frequent UTI N39.0 ; [facility] 16 Urinary frequenc y R35.0 ; [place] Alzheimer's dise ase, [id number] unspecified G30. 9 and Dementia in othe r diseases classif ied elsewhere with b ehavioral disturbance F02. 81 [facility] [address] 04 Jun, [address] Acu te cystitis without Road [place] hematuria N30 .00 [id number] [facility] [address] [place] [address] Jun, Dem entia with behavioral Road [place], [place] disturbance, unspecified [id number] dementia type F0 3.91 and Acute cystitis w ith hematuria N30.01 [facility] [address] Jun, Acq uired hypothyroidism Road [place] E03.9 ; Recur rent UTI [id number] N39.0 and Vascul ar dementia with be havior disturbance F01. 51 [facility] [address] Jun, [place], [place] [id number] [facility] [address] [place] [address] Jun, [address] [id number] [facility] [address] [place] [address] May, Hi story of chronic Road [address] urinary tract in fection [place], [place] Z87.440 [id number] [facility] [address] [place] [address] May, [place], [place] [id number] [facility] [address] [place] [address] May, [address], [place] [id number] [facility] [address] [facility] May, [place], [place] [id number] [facility] [address] [facility] May, Road [facility] 31 [place], [place] [id number] [facility] [address] [facility] May, [place], [place] [id number] [facility] [address] [facility] 18 May, 2021 [place], [place] [id number] [facility] [address] [facility] May, [place] [id number] [facility] [address] [facility] 14 May, 2021 [place], [place] [id number] [facility] [address] [facility] May, Dysuria R30.[address] [place] symptoms R39. 9 [id number] [facility] [address] [facility] 05 May, 2021 [place], [place] [id number] [facility] [address] [facility] May, [place] [id number] [facility] [address] [facility] May, [address] [id number] [facility] [address] [facility] Apr, [place], [place] [id number] [facility] [address] [facility] Apr, [place], [place] [id number] [facility] [address] [facility] Apr, Chronic const ipation Road [address] K59.09 and Bloat ing R14.0 [place], [place] [id number] [facility] [address] [facility] 15 Apr, 2021 [place], [place] [id number] [facility] [address] [facility] Apr, [place], [place] [id number] [facility] [address] [facility] Apr, [place], [place] [id number] [facility] [address] [facility] Apr, [place], [place] [id number] [facility] [address] [facility] Apr, [address] [id number] [facility] [address] [facility] Apr, [place], [place] [id number] [facility] [address] [facility] Mar, [address] [id number] [facility] [address] [place] [address] Mar, Epi gastric pain R10.13 [place], [place] [id number] [facility] [address] Mar, Enc ounter for [place] immunization Z23 [id number] [facility] [address] Mar, [place], [place] [id number] [facility] [address] 15 Mar, 2021 Oth er specified [place] hypothyroidis m E03.[id number] Mar, Hi story of chronic Road [address] urinary tract in fection [place] Z87.440 [id number] [facility] [address] [place] [address] Feb, Recurren t UTI N39.0 ; [facility] 16 Nocturia R35.1 a nd Other [place] constipation K59 .09 [id number] [facility] [address] [place] [address] Feb, [address] [id number] [facility] [address] Feb, [place], [place] [id number] [facility] [address] Jan, Acq uired hypothyroidism [place] E03.9 [id number] [facility] [address] Jan, Ess ential hypertension [place], [place] I10 ; Acquire d 084771070 hypothyroidism E 03.9 and Slow transit con stipation K59.01 [facility] [address] [place] [address] Jan, Frequent UTI N39.0 [facility] [address] [place] [address] [id number] [facility] [address] Jan, [place], [place] [id number] [facility] [address] Dec, [place] [id number] [address] Dec, Healthcare Occupational [address] [place], [place] [facility] [id number] [facility] [address] [place] [address] Dec, Urinary frequency R35.0 [place] [id number] [address] Dec, Po stmenopausal atrophic Road [address] vaginitis N95.2 [place], [place] [id number] [facility] [address] [facility] Nov, [place], [place] [id number] [facility] [address] [facility] Nov, Anx ious mood F41.9 [place], [place] [id number] [facility] [address] [facility] Nov, [place], [place] [id number] [facility] [address] Nov, [place], [place] [id number] [facility] [address] [facility] Nov, Dysuria R30.0 ; Vascular Road [place], [place] dementia with behavior 324993531 disturbance F01. 51 and Altered behavior R46.[address] Nov, Road [address] [id number] [address] Nov, An xious mood F41.[id number] [address] Nov, Road [id number] [address] Nov, [place] [id number] [address] Oct, Ess ential hypertension [place] I10 and Acqui red 505647296 hypothyroidism E 03.9 [facility] [address] [facility] Oct, [place], [place] [id number] [facility] [address] Oct, [place] [id number] [address] Oct, Ac quired hypothyroidism [place] [address] E03.9 [place], [place] [id number] [address] Oct, [place], [place] [id number] [facility] [address] Oct, Tick bit e of abdominal Road [place] wall S30.861A [id number] [facility] [address] [facility] September, [place], [place] [id number] [facility] [address] [place] [address] September, [place] [id number] [facility] [address] [place] [address] September, Dyspnea on exertion Road [place] R06.00 [id number] [facility] [address] [facility] September, Dysuria R30.0 [place], [place] [id number] [facility] [address] [facility] September, [place], [place] [id number] [facility] [address] [facility] September, [place], [place] [id number] [facility] [address] [facility] September, [place] [id number] [facility] [address] [place] [address] September, OAB (ove ractive bladder) [facility] 16 N32.81 [place], [place] [id number] [facility] [address] [place] [address] September, [place], [place] [id number] [facility] [address] [facility] September, Vascular dementia with Road [place] behavior dist urbance [id number] F01.51 [facility] [address] [place] [address] September, [place], [place] [id number] [facility] [address] [place] [address] September, Dys uria R30.0 [place], [place] [id number] [facility] [address] [place] [address] September, Dys uria R30.0 [place], [place] [id number] [facility] [address] [place] [address] Aug, [facility] [address] [place], [place] [id number] [facility] [address] [place] [address] Aug, History of chronic [facility] 16 urinary tract in [place], [place] Z87.440 ; Freque nt UTI [id number] N39.0 and Kalyan ia without behavior al disturbance, uns pecified dementia type F0 3.90 [facility] [address] [place] [address] 15 Aug, 2020 [facility] 16 [place], [place] [id number] [address] 13 Aug, [address] urinary tract in [place] Z87.440 and Urin tony [id number] frequency R35.0 [facility] [address] [place] [address] 08 Aug, 2020 [place], [place] [id number] [facility] [address] [place] [address] Aug, [place] [id number] [address] Aug, Road [address] [place] [id number] [facility] [address] [place] [address] Aug, [place], [place] [id number] [facility] [address] [place] [address] Aug, Chest pa in, unspecified [place] type R07.9 an d Left lower 159769137 quadrant abdomin al pain R10.32 [facility] [address] 30 Jul, 2020 [place], [place] [id number] [facility] [address] Jul, Dys uria R30.0 [place], [place] [id number] [facility] [address] Jul, Inc reased urinary [place], [place] frequency R35 .0 [id number] [facility] [address] 24 Jul, 2020 Con fusion R41.0 [place], [place] [id number] [facility] [address] 11 Jul, 2020 [place], [place] [id number] [facility] [address] 10 Jul, 2020 [place], [place] [id number] [facility] [address] [place] [address] 09 Jul, 2020 Cough R0 5 and Viral upper [place] respiratory t ract 210550737 infection J06.[address] Jun, [place], [place] [id number] [facility] [address] Jun, [place], [place] [id number] [facility] [address] Jun, [place], [place] [id number] [facility] [address] May, [place], [place] [id number] [facility] [address] [place] [address] May, Vas cular dementia with [place] behavior dist urbance 462481052 F01.51 ; Physica l deconditioning R 53.81 and Vitamin D defici ency E55.[address] May, Pr uritus of skin L29.[address] [place] [id number] May, Po stmenopausal atrophic [address] vaginitis N95.2 ; History [place] of chronic urina ry tract 041067180 infection Z87.44 0 and Frequency of uri nation R35.0 [facility] [address] [place] [address] Apr, [place], [place] [id number] [facility] [address] [place] [address] Apr, [place], [place] [id number] [facility] [address] [place] [address] Apr, [place] [id number] [address] Apr, Po stmenopausal atrophic Road [facility] 31 vaginitis N95.2 [place], [place] [id number] [facility] [address] [place] [address] Apr, [place] [id number] [address] Apr, Healthcare Occupational [address] [place], [place] [facility] [id number] [facility] [address] Apr, [place], [place] [id number] [facility] [address] [place] [address] Apr, Ess ential hypertension Road [place], [place] I10 ; Acquire d 873151186 hypothyroidism E 03.9 and Frequency of uri nation R35.[address] Apr, Nick quent UTI N39.0 [place], [place] [id number] [facility] [address] Mar, Dysuria R30.[address] [place] vaginitis N76 .0 [id number] [facility] [address] Mar, [place] [id number] [address] Mar, Road [address] [id number] [address] Mar, Road [address] [id number] [facility] [address] [place] [address] Mar, Yeast va ginitis B37.3 [place], [place] [id number] [facility] [address] [place] [address] Jan, [place], [place] [id number] [facility] [address] [place] [address] Jan, History of chronic [facility] 16 urinary tract in fection [place], [place] Z87.440 ; Freque nt UTI 070875854 N39.0 and Kalyan ia without behavior al disturbance, uns pecified dementia type F0 3.90 [facility] [address] [place] [address] 14 Jan, 2020 [place], [place] [id number] [facility] [address] [place] [address] Jan, Normal p hysical exam [place] Z00.00 [id number] [facility] [address] [place] [address] 12 Jan, 2020 Dys uria R30.0 [place] [id number] [facility] [address] [place] [address] Jan, [place], [place] [id number] [facility] [address] [facility] Jan, [address] [place], [place] [id number] [facility] [address] [place] [address] Dec, Dys uria R30.0 ; Frequent [place] UTI N39.0 and History of 605640412 chronic urinary tract infection Z87.44 0 [facility] [address] [place] [address] Dec, Dys uria R30.0 [place], [place] [id number] [facility] [address] [place] [address] Dec, [place], [place] [id number] [facility] [address] [place] [address] Dec, [place], [place] [id number] [facility] [address] Dec, [place], [place] [id number] [facility] [address] [place] [address] Dec, Dys uria R30.0 [place], [place] [id number] [facility] [address] [place] [address] Dec, [place], [place] [id number] [facility] [address] [place] [address] Dec, Vas cular dementia with [place] behavior dist urbance [id number] F01.51 [facility] [address] [place] [address] Dec, Acq uired hypothyroidism [place] E03.9 [id number] [facility] [address] [place] [address] Dec, [place], [place] [id number] [facility] [address] [place] [address] Dec, Ess ential hypertension [place], [place] I10 ; Other s pecified [id number] hypothyroidism E 03.8 and Vascular dementi a with behavior disturb ance F01.51 [facility] [address] [place] [address] Dec, [place], [place] [id number] [facility] [address] [facility] Dec, [place], [place] [id number] [facility] [address] [facility] Nov, History of chronic [address] urinary tract in [facility] Z87.440 and Freq uent UTI [id number] N39.0 [facility] [address] [facility] Nov, [place], [place] [id number] [facility] [address] [facility] Oct, Hi story of chronic Road [address] urinary tract in [place], [place] Z87.440 [id number] [facility] [address] [facility] Oct, Frequent UTI N39.[address] [id number] [address] Oct, Road [address] [id number] [address] Oct, Hi story of chronic Road [address] urinary tract in [place], [place] Z87.440 [id number] [facility] [address] [place] [address] September, [address] [id number] [facility] [address] [place] [address] September, Frequent UTI N39.[address] [id number] [facility] [address] [place] [address] September, Cav us deformity of right [place], [place] foot Q66.71 [id number] [facility] [address] [place] [address] Aug, [place], [place] [id number] [facility] [address] [place] [address] Aug, [place], [place] [id number] [facility] [address] [place] [address] Aug, [place], [place] [id number] [facility] [address] [place] [address] Aug, Acu te cystitis with [place] hematuria N30 .01 [id number] [facility] [address] [place] [address] Aug, UTI symptoms R39.9 [place], [place] [id number] [facility] [address] [place] [address] 30 Jul, 2019 [place], [place] [id number] [facility] [address] [place] [address] 27 Jul, 2019 [place] [id number] [address] Jul, Rec urrent UTI N39.0 [place] [id number] [address] Jul, [place] [id number] [address] Jun, [place] [id number] [address] Jun, Br east cancer screening Road [place] [address] by mammogram Z12 .31 ; [place] Family history o f [id number] malignant neopla sm of breast Z80.3 ; M enopausal and female clima cteric states N95.1 and Postmenopausal a trophic vaginitis N95.[address] Jun, [address] [id number] Jun, Vag inal itching N89.8 [place], [place] [id number] [address] Jun, Vag inal itching N89.8 [place], [place] [id number] [address] May, [place] [id number] [address] May, Uri nary frequency R35.0 [place] and Vaginal i tching N89.[id number] May, [place] [id number] [address] May, Acq uired hypothyroidism [place] E03.9 ; Vitam in D 040287331 deficiency E55.9 ; Essential hypert ension I10 and Seasonal affective disord er F33.[address] May, [place] [id number] [address] Apr, [place] [id number] [address] Apr, [place], [place] [id number] [facility] [address] [place] [address] Jan, [address] [id number] [address] Dec, Recurrent U TI N39.0 [place], [place] [id number] [facility] [address] [place] [address] Nov, [address] [place], [place] [id number] [facility] [address] [place] [address] Nov, Frequent UTI N39.[address] [place] [address] [id number] [facility] [address] [place] [address] Oct, Frequent UTI N39.[address] [place] [address] [id number] [facility] [address] [place] [address] September, [address] [place] [id number] September, [place], [place] [id number] [address] May, Road [place] [id number] [address] Mar, [place] [id number] [address] Mar, Rec urrent UTI N39.0 ; Road [place], [place] Anemia, unspe cified type [id number] D64.9 ; Acquired hypothyroidism E 03.9 and Other osteoarthr itis involving multip le joints M15.8 [facility] [address], Road [address] [place] [address] [id number] [facility] [address], Road [address] [place] [address] [id number] [facility] [address] Mar, De mentia without Road [address] behavioral distu rbance, [place], [place] unspecified luis a ntia type [id number] F03.90 [facility] [address], [address] [place], [place] [id number] [facility] [address], [address] [place], [place] [id number] [facility] [address] [place] [address] Feb, Slow transit constipation Road [address] K59.01 and Scree n for [place] colon cancer Z12 .11 [id number] [facility] [address] Feb, Road [address] [place], [place] [id number] [address] Jan, Road [place], [place] [id number] [address] Jan, Road [place] [id number] [facility] [address] [place] [address] Jan, [facility] [address] [place] [address] [id number] [facility] [address] Jan, De mentia without Road [address] behavioral distu rbance, [place], [place] unspecified luis a ntia type [id number] F03.[address] Jan, Acq uired hypothyroidism [place], [place] E03.9 ; Essen tial [id number] hypertension I10 and Preop examinatio n Z01.818 [facility] [address], [address] [place] [id number] [address] Jan, [place] [id number] [facility] [address] [place] [address] Dec, [address] [id number] [facility] [address] [place] [address] Dec, Recurren t UTI N39.0 ; [place] [address] Constipation, un specified [place] constipation typ e K59.00 [id number] and Incomplete b ladder emptying R33.[address] Dec, [place], [place] [id number] [address] Dec, [place] [id number] [address] Dec, [place] [id number] [address] Nov, Camelia n in right hip M25.551 [place] ; Pain in lef t hip [id number] M25.552 ; Lumbar spine pain M54.5 ; Acu te cystitis with he maturia N30.01 and Chron ic constipation K59 .[address] Nov, Acq uired hypothyroidism [place], [place] E03.[id number] Oct, Ost eoarthritis of [place] cervical spin e, [id number] unspecified spin al osteoarthritis complication sta tus M47.812 and Oste openia, unspecified loca tion M85.80 [facility] [address], [address] [place], [place] [id number] [address] Oct, [place] [id number] [address] Oct, Ost eopenia of spine [place], [place] M85.88 ; Alte red mental [id number] status, unspecif ied altered mental s tatus type R41.82 ; Ci garette nicotine depende nce with nicotine-induced disorder F17.219 ; Acquir ed hypothyroidism E 03.9 ; Vitamin D defici ency E55.9 ; Essentia l hypertension I10 and Osteoarthritis o f cervical spine, unspecified spin al osteoarthritis complication sta tus M47.[address] Oct, [place], [place] [id number] [address] September, [place] [id number] [address] September, Alt ered mental status, [place], [place] unspecified R 41.82 and [id number] Unspecified symp toms and signs involving cognitive functions and aw areness R41.[address] September, Ost eoarthritis of spine [place], [place] with radiculo bailey, [id number] unspecified spin al region M47.20 ; Osteope abhishek of lumbar spine M85 .88 and Moderate protein -calorie malnutrition E44 .[address] September, [place] [id number] [address] Jul, [place] [id number] [address] Jul, [place], [place] [id number] [address] Jul, [place] [id number] [address] Jul, Teri rtness of breath [place], [place] R06.02 ; Jewelry Maker lamont fatigue [id number] R53.82 ; Attenti on and concentration de ficit R41.840 and Inat tention R41.[address] Jul, [place], [place] [id number] [address] Jun, [place] [id number] [address] Jun, [place] [id number] [address] Jun, Tob acco use Z72.0 and [place] Seasonal affe ctive [id number] disorder F33.[address] Jun, [place], [place] [id number] [address] May, [place] [id number] [address] May, [place] [id number] [address] May, Age -related cataract of [place], [place] both eyes, un specified [id number] age-related tiffanie ract type H25.[address] May, Acq uired hypothyroidism [place], [place] E03.9 ; Vitam in D [id number] deficiency E55.9 and Essential hypert ension I10 [address] May, [place] [id number] [address] May, [place], [place] [id number] [address] Apr, [place], [place] [id number] [address] Mar, [place] [id number] [address] Mar, Acq uired hypothyroidism [place], [place] E03.[id number] 16 Mar, 2017 [place], [place] [id number] [address] 15 Mar, 2017 [place] [id number] [address] 14 Mar, 2017 [place] [id number] [address] Mar, [place] [id number] [address] Mar, Acq uired hypothyroidism [place] E03.9 ; Anemi a, [id number] unspecified type D64.9 ; Vitamin D defici ency E55.9 and Other problems related to lifes tyle Z72.89 [facility] [address] [facility] Mar, [place], [place] [id number] [facility] [address] Feb, [place], [place] [id number] IMMUNIZATIONS Vaccine Route Administration Date Status COVID-19 (Moderna BOOSTER) IM Intramuscular May 22, 2021 Admi nistered mRNA,LNP-S,PF 50 mcg/0.25mL dose Flu HIGH Dose IM Intramuscular Apr 16, 2021 Administered COVID-19 (Moderna) mRNA,LNP-S,PF Unknown August 20, 2020 Administered 100 mcg/0.5mL dose COVID-19 (Moderna) mRNA,LNP-S,PF Unknown July 23, 2020 Administered 100 mcg/0.5mL dose Flu HIGH Dose Unknown Feb 16, 2020 Administered Pneumovax [id number] Unknown December 16, 2018 Administe red DARRYL - Flu VACC 6 MONTHS > Unknown Mar 24, 2019 Admini stered SOCIAL HISTORY Qualifiers Date Current Smoker REASON FOR REFERRAL FUNCTIONAL STATUS PLAN OF CARE Activity Details Follow Up 3 Months Reason: Future Test TSH [id number] Future Test CBC, WITH AUTO DIFF 57714100 Future Test TSH [id number] Future Test IRON [id number] Future Test HELICOBACTER PYLORI AG STOOL ([id number]) [id number] Future Test BASIC METABOLIC PROFILE 1 0929 Future Test TSH [id number] Future Test CULTURE URINE 86238654 Future Test URINALYSIS DIP w/REFLEX MICR O [id number] Future Test Urine Multistix (DIP) 021842 25 Future Test CULTURE URINE 75758654 Future Test BASIC METABOLIC PROFILE 2020 1209 Future Test TSH [id number] Future Test URINALYSIS DIP w/REFLEX MICR O 55884511 Future Test TSH [id number] Future Test COMPREHENSIVE METABOLIC PROF ILE 60272581 Future Test MG MAMMOGRAPHY BILATERAL SCR EENING 37399417 Future Test BASIC METABOLIC PROFILE 2018 1112 Future Test CBC, WITH AUTO DIFF [id number] Future Test TSH [id number] Future Test IRON [id number] Future Test FERRITIN 57629825 Future Test VITAMIN B12 & FOLATE 0804304 2 Future Test CULTURE URINE 15673231 Future Test BD BONE DENSITY, DEXA SCAN 2 1228301 Future Test XR LUMBAR SPINE 2 OR 3 VIEW 98432883 Future Test XR DORSAL SPINE 46888982 Future Test CBC, WITH AUTO DIFF 79592932 Future Test LIPID PROFILE 28629328 Future Test COMPREHENSIVE METABOLIC PROF ILE 42643006 Future Test IRON [id number] Future Test FERRITIN 02515182 Future Test VITAMIN B12 & FOLATE 20170325 3 Future Test VITAMIN D - 25(OH) 20170406 Future Test HEPATITIS C ANTIBODY SCREENI NG 11425679 Pending Test CULTURE URINE Pending Test URINALYSIS DIP w/REFLEX MICR O Future/Pending Procedure COLONOSCOPY AND BIOPSY 030 VITAL SIGNS Height 62 in 2022-02-11 Height 62 in 2021-09-09 Height 62 in 2021-07-09 Height 62 in 2021-06-28 Height 62 in 2021-06-28 Height 62 in 2021-06-27 Height 62 in 2021-06-21 Height 62 in 2021-06-06 Height 62 in 2021-05-22 Height 62 in 2021-04-16 Height 62 in 2021-03-28 Height 62 in 2021-03-22 Height 62 in 2021-02-20 Height 62 in 2020-12-24 Height 62 in 2020-12-20 Height 62 in 2020-12-12 Height 62 in 2020-12-10 Height 62 in 2020-11-21 Height 62 in 2020-10-31 Height 62 in 2020-10-10 Height 62 in 2020-09-12 Height 62 in 2020-09-04 Height 62 in 2020-08-24 Height 62 in 2020-08-16 Height 62 in 2020-07-31 Height 62 in 2020-06-13 Height 62 in 2020-06-05 Height 62 in 2020-05-31 Height 62 in 2020-04-09 Height 62 in 2020-03-26 Height 62 in 2020-02-07 Height 62 in 2020-02-04 Height 62 in 2020-01-20 Height 62 in 2020-01-09 Height 62 in 2019-12-20 Height 62 in 2019-11-18 Height 62 in 2019-10-28 Height 62 in 2019-10-21 Height 62 in 2019-10-05 Height 62 in 2019-07-07 Height 62 in 2019-06-24 Height 62 in 2019-06-09 Height 62 in 2018-12-01 Height 62 in 2018-11-10 Height 62 in 2018-04-05 Height 62 in 2018-03-23 Height 62 in 2018-01-28 Height 62 in 2018-01-13 Height 62 in 2017-12-22 Height 62 in 2017-11-20 Height 62 in 2017-10-26 Height 62 in 2017-10-06 Height 62 in 2017-07-27 Height 62 in 2017-07-17 Height 62 in 2017-06-19 Height 62 in 2017-04-06 Weight 147.6 lbs 2021-06-28 Weight 150 lbs 2021-05-22 Weight 147 lbs 2021-03-28 Weight 147 lbs 2021-03-22 Weight 147.6 lbs 2021-02-20 Weight 152.4 lbs 2020-12-24 Weight 152 lbs 2020-12-10 Weight 157 lbs 2020-10-31 Weight 157 lbs 2020-10-10 Weight 157.5 lbs 2020-09-12 Weight 157.0 lbs 2020-09-04 Weight 157.4 lbs 2020-08-16 Weight 157.4 lbs 2020-06-13 Weight 154.4 lbs 2020-06-05 Weight 154.6 lbs 2020-05-31 Weight 150 lbs 2020-03-26 Weight 148 lbs 2020-02-04 Weight 148 lbs 2020-01-20 Weight 146.3 lbs 2020-01-09 Weight 148.8 lbs 2019-12-20 Weight 152 lb 0 oz lbs 2019-11-18 Weight 155 lbs 2019-10-28 Weight 155.6 lbs 2019-10-21 Weight 155 lb 8 oz lbs 2019-10-05 Weight 149.2 lbs 2019-07-07 Weight 150 lb 2 oz lbs 2019-06-24 Weight 154.4 lbs 2019-06-09 Weight 133 lbs 2018-12-01 Weight 133 lbs 2018-11-10 Weight 136 lb 6 oz lbs 2018-03-23 Weight 134 lb 4 oz lbs 2018-01-28 Weight 135.8lb lbs 2018-01-13 Weight 138.0 lbs 2017-12-22 Weight 136.0 lbs 2017-11-20 Weight 141.0 lbs 2017-10-26 Weight 142.0 lbs 2017-10-06 Weight 136.6 lbs 2017-07-27 Weight 137.4 lbs 2017-07-17 Weight 134 lbs 2017-06-19 Weight 148 lbs 2017-04-06 Temperature 97.1 degrees Fahrenheit 2021-06-28 Temperature 98.1 degrees Fahrenheit 2021-06-06 Temperature 97.8 degrees Fahrenheit 2021-05-22 Temperature Temporal:96.9 degrees Fahrenheit 2021-03 Temperature 96.0 degrees Fahrenheit 2021-03-22 Temperature 97.0 degrees Fahrenheit 2021-02-20 Temperature 98.3 degrees Fahrenheit 2020-12-12 Temperature 96.9 degrees Fahrenheit 2020-11-21 Temperature 99.0 degrees Fahrenheit 2020-10-31 Temperature 98.8 degrees Fahrenheit 2020-10-10 Temperature 96.6 degrees Fahrenheit 2020-09-12 Temperature 100. degrees Fahrenheit 2020-08-24 Temperature 96.9 degrees Fahrenheit 2020-08-16 Temperature 97.4 degrees Fahrenheit 2020-07-31 Temperature 97.4 degrees Fahrenheit 2020-06-13 Temperature 97.6 degrees Fahrenheit 2020-04-09 Temperature 98.4 degrees Fahrenheit 2020-03-26 Temperature 98.2 degrees Fahrenheit 2020-02-07 Temperature 97.9 degrees Fahrenheit 2020-02-04 Temperature 99.7 degrees Fahrenheit 2019-12-20 Temperature 99.3 degrees Fahrenheit 2019-10-21 Temperature Temporal:99.6 degrees Fahrenheit 2018-11 Temperature 99.4 degrees Fahrenheit 2018-11-10 Temperature Temporal:100.5 degrees Fahrenheit 2017-05 Temperature Temporal:98.1 degrees Fahrenheit 2018-02 Temperature 99.7 temporal degrees Fahrenheit 2017-12 Heart Rate 67 /min 2021-06-28 Heart Rate 74 /min 2021-06-06 Heart Rate 86 /min 2021-05-22 Heart Rate 73 /min 2021-02-20 Heart Rate 83 /min 2020-12-12 Heart Rate 89 /min 2020-11-21 Heart Rate 88 /min 2020-10-31 Heart Rate 77 /min 2020-10-10 Heart Rate 92 /min 2020-09-12 Heart Rate 92 /min 2020-08-24 Heart Rate 65 /min 2020-08-16 Heart Rate 78 /min 2020-07-31 Heart Rate 70 /min 2020-06-13 Heart Rate 74 /min 2020-04-09 Heart Rate 68 /min 2020-03-26 Heart Rate 78 /min 2020-02-07 Heart Rate 76 /min 2020-02-04 Heart Rate 78 /min 2020-01-20 Heart Rate 72 /min 2020-01-09 Heart Rate 85 /min 2019-12-20 Heart Rate 86 /min 2019-10-21 Heart Rate 75 /min 2019-10-05 Heart Rate 73 /min 2019-06-24 Heart Rate 80 /min 2019-06-09 Heart Rate 79 /min 2018-12-01 Heart Rate 79 /min 2018-11-10 Heart Rate 84 /min 2018-04-05 Heart Rate 75 /min 2018-03-23 Heart Rate 83 /min 2018-01-28 Heart Rate 80 /min 2018-01-13 Heart Rate 82 /min 2017-12-22 Heart Rate 61 /min 2017-11-20 Heart Rate 78 /min 2017-10-26 Heart Rate 58 /min 2017-10-06 Heart Rate 66 /min 2017-07-27 Heart Rate 86 /min 2017-07-17 Heart Rate 84 /min 2017-04-06 Oximetry 98 2021-06-28 Oximetry 99 2021-06-06 Oximetry 94 2021-05-22 Oximetry 96 2021-02-20 Oximetry 100 2020-12-12 Oximetry 99 2020-11-21 Oximetry 97 2020-09-12 Oximetry 97 2020-08-24 Oximetry 95 2020-08-16 Oximetry 99 2020-07-31 Oximetry 96 2020-06-13 Oximetry 99 2020-04-09 Oximetry 99 2020-03-26 Oximetry 98 2020-02-07 Oximetry 100 2020-02-04 Oximetry 97 2020-01-20 Oximetry 98 2020-01-09 Oximetry 98 2019-12-20 Oximetry 97 2019-10-21 Oximetry 99 2019-10-05 Oximetry 98 2019-06-24 Oximetry 97 2019-06-09 Oximetry 98 2018-12-01 Oximetry 97 2018-11-10 Oximetry 98 2018-04-05 Oximetry 99 2018-03-23 Oximetry 99 2018-01-28 Oximetry 100 2018-01-13 Oximetry 91 2017-12-22 Oximetry 98 2017-11-20 Oximetry 98 2017-10-26 Oximetry 99 2017-10-06 Oximetry 99 2017-07-27 Oximetry 96 2017-07-17 Respiratory Rate 14 /min 2021-06-06 Respiratory Rate 16 /min 2020-08-24 Respiratory Rate 14 /min 2020-07-31 Respiratory Rate 14 /min 2020-04-09 Respiratory Rate 20 /min 2020-02-04 BMI 26.99 kg/m2 2021-06-28 BMI 27.43 kg/m2 2021-05-22 BMI 26.88 kg/m2 2021-03-28 BMI 26.88 kg/m2 2021-03-22 BMI 26.99 kg/m2 2021-02-20 BMI 27.87 kg/m2 2020-12-24 BMI 27.80 kg/m2 2020-12-10 BMI 28.71 kg/m2 2020-10-31 BMI 28.71 kg/m2 2020-10-10 BMI 28.80 kg/m2 2020-09-12 BMI 28.71 kg/m2 2020-09-04 BMI 28.79 kg/m2 2020-08-16 BMI 28.79 kg/m2 2020-06-13 BMI 28.24 kg/m2 2020-06-05 BMI 28.27 kg/m2 2020-05-31 BMI 27.43 kg/m2 2020-03-26 BMI 27.07 kg/m2 2020-02-04 BMI 27.07 kg/m2 2020-01-20 BMI 26.76 kg/m2 2020-01-09 BMI 27.21 kg/m2 2019-12-20 BMI 27.80 kg/m2 2019-11-18 BMI 28.35 kg/m2 2019-10-28 BMI 28.46 kg/m2 2019-10-21 BMI 28.44 kg/m2 2019-10-05 BMI 27.29 kg/m2 2019-07-07 BMI 27.46 kg/m2 2019-06-24 BMI 28.24 kg/m2 2019-06-09 BMI 24.32 kg/m2 2018-12-01 BMI 24.32 kg/m2 2018-11-10 BMI 24.94 kg/m2 2018-03-23 BMI 24.55 kg/m2 2018-01-28 BMI 24.84 kg/m2 2018-01-13 BMI 25.24 kg/m2 2017-12-22 BMI 24.87 kg/m2 2017-11-20 BMI 25.79 kg/m2 2017-10-26 BMI 25.97 kg/m2 2017-10-06 BMI 24.98 kg/m2 2017-07-27 BMI 25.13 kg/m2 2017-07-17 BMI 24.51 kg/m2 2017-06-19 BMI 27.07 kg/m2 2017-04-06 Blood pressure systolic 110 mm Hg 2021-06-28 Blood pressure diastolic 80 mm Hg 2021-06-28 MEDICATIONS Medication Instructions Dosage Frequency Start End Duration Statu s Date Date Vitamin D3 1000 Orally Once a 2 capsules 24h 90 days Active UNIT day Lisinopril 5 MG Orally Once a TAKE 1 24h 90 days Ac tive day TABLET BY MOUTH EVERY DAY Probiotic Active Escitalopram Orally Once a 1 tablet 24h 90 days Acti ve Oxalate 10 MG day Omeprazole 10 MG Orally Once a 1 capsule 24h Apr, day( s) Active day 30 minutes 2020 before eveing meal Magnesium Active Estring 2 MG Vaginal every as directed 90 days A ctive three months Melatonin 3 MG Orally Once a 1 tablet at 24h 30 day( s) Active day bedtime as needed Levothyroxine Orally Once a 1 tablet in 24h 90 days Active Sodium 75 MCG day the morning on an empty stomach PROCEDURES Procedure Date Ordered Result Body Site DARRYL - URINALYSIS NONAUTO W/O SCOPE Jun 06, 2021 BLADDER SCAN Jan 13, 2018 URINALYSIS NONAUTO W/O SCOPE Feb 07, 2020 URINALYSIS NONAUTO W/O SCOPE December 20, 2019 URINALYSIS AUTOMATED W Jun 24, 2019 COVID-19 (SARS-CoV-2) vaccine, 100 mcg or 50 mcg dose May 22 21 IH URINALYSIS NONAUTO W/O SCOPE September 04, 2020 DARRYL - URINALYSIS NONAUTO W/O SCOPE Apr 09, 2020 DARRYL -PHONE E/M PHYS/QHP 5-10 MIN Jun 29, 2021 BLADDER SCAN October 21, 2019 URINALYSIS NONAUTO W/O SCOPE Mar 22, 2021 DARRYL - X-RAY EXAM CHEST 2 VIEWS July 31, 2020 URINALYSIS NONAUTO W/O SCOPE November 10, 2018 HOME VISIT NEW PATIENT September 27, 2020 URINALYSIS NONAUTO W/O SCOPE December 01, 2018 [facility] URINALYSIS NONAUTO W/O SCOPE May 31, 2020 DARRYL - URINALYSIS NONAUTO W/O SCOPE October 10, 2020 URINALYSIS AUTOMATED W Apr 05, 2018 URINALYSIS AUTOMATED W August 18, 2019 URINALYSIS NONAUTO W/O SCOPE Jun 28, 2021 FLU VACC HIGH DOSE 65 YR >PRSV FREE Apr 16, 2021 URINALYSIS AUTOMATED W Jan 13, 2018 RESULTS Name Result Date Reference Range URINALYSIS COMPLETE 2022-02-07 COLOR YELLOW YELLOW CLARITY TURBID CLEAR SPECIFIC GRAVITY 1.015 1.000-1.030 pH 6.5 5.0-8.0 PROTEIN NEGATIVE NEGATIVE GLUCOSE NEGATIVE NEGATIVE KETONES NEGATIVE NEGATIVE UROBILINOGEN 0.2 0.2 E.U./DL BILIRUBIN NEGATIVE NEGATIVE BLOOD NEGATIVE NEGATIVE LEUKOCYTES MODERATE NEGATIVE NITRITES NEGATIVE NEGATIVE RBCs 0-3 0-3 SQ EPITHELIAL CELLS 0-3 0-3 CLUE CELLS NONE SEEN RTE CELLS 0-3 TRANSITIONAL EPIs 0-3 BACTERIA 2+ NONE SEEN CRYSTALS NONE SEEN HYALINE CASTS NONE SEEN GRANULAR CASTS NONE SEEN RBC CASTS NONE SEEN WBC CASTS NONE SEEN WAXY CASTS NONE SEEN CELLULAR CASTS NONE SEEN YEAST NONE SEEN TRICHOMONADS NONE SEEN SPERMATOZOA SEEN NONE SEEN URINE CULTURE YES NO CULTURE URINE 2022-02-07 URINALYSIS COMPLETE 2022-01-04 COLOR YELLOW YELLOW CLARITY CLOUDY CLEAR SPECIFIC GRAVITY 1.020 1.000-1.030 pH 7.5 5.0-8.0 PROTEIN 30 NEGATIVE GLUCOSE NEGATIVE NEGATIVE KETONES NEGATIVE NEGATIVE UROBILINOGEN 0.2 0.2 E.U./DL BILIRUBIN NEGATIVE NEGATIVE BLOOD TRACE-LYSED NEGATIVE LEUKOCYTES LARGE NEGATIVE NITRITES NEGATIVE NEGATIVE RBCs 0-3 0-3 SQ EPITHELIAL CELLS 4-6 0-3 CLUE CELLS NONE SEEN RTE CELLS 0-3 TRANSITIONAL EPIs 0-3 BACTERIA 4+ NONE SEEN CRYSTALS NONE SEEN HYALINE CASTS NONE SEEN GRANULAR CASTS NONE SEEN RBC CASTS NONE SEEN WBC CASTS NONE SEEN WAXY CASTS NONE SEEN CELLULAR CASTS NONE SEEN YEAST NONE SEEN TRICHOMONADS NONE SEEN SPERMATOZOA SEEN NONE SEEN URINE CULTURE YES NO CULTURE URINE 2022-01-04 CULTURE URINE 2021-08-21 X URINALYSIS DIP w/REFLEX MICRO 2021-08-21 CLARITY COLOR NITRITES REDUCING SUBSTANCES SPECIFIC GRAVITY UROBILINOGEN BILIRUBIN BLOOD GLUCOSE KETONES pH PROTEIN LEUKOCYTES COVID 19 (POS) SOFIA2 SARS Ag Flu A Flu B SARS NEG URINALYSIS COMPLETE 2021-06-28 COLOR Yellow YELLOW CLARITY Cloudy CLEAR SPECIFIC GRAVITY 1.020 1.000-1.030 pH 7.0 5.0-8.0 PROTEIN Negative NEGATIVE GLUCOSE Negative NEGATIVE KETONES Negative NEGATIVE UROBILINOGEN 0.2 E.U./dL 0.2 E.U./DL BILIRUBIN Negative NEGATIVE BLOOD Trace-intact NEGATIVE LEUKOCYTES Large NEGATIVE NITRITES Negative NEGATIVE RBCs 4-6 0-3 SQ EPITHELIAL CELLS 4-6 0-3 CLUE CELLS 0-3 NONE SEEN RTE CELLS 0-3 TRANSITIONAL EPIs 0-3 BACTERIA 3+ NONE SEEN CRYSTALS MODERATE NONE SEEN HYALINE CASTS NONE SEEN GRANULAR CASTS NONE SEEN RBC CASTS NONE SEEN WBC CASTS NONE SEEN WAXY CASTS NONE SEEN CELLULAR CASTS NONE SEEN YEAST NONE SEEN TRICHOMONADS NONE SEEN SPERMATOZOA SEEN NONE SEEN URINE CULTURE NO NO CULTURE URINE 2021-06-28 UA Multistix (URO) 2021-06-28 Color Yellow Clarity Cloudy Bilirubin neg Ketones neg Specific Mccoy 1.025 Blood trace Glucose neg ph 7.0 Protein neg Leukocytes large Nitrates pos Uro 0.2 Leukocytes URINALYSIS COMPLETE 2021-06-16 COLOR Yellow YELLOW CLARITY Slightly Cloudy CLEAR SPECIFIC GRAVITY 1.020 1.000-1.030 pH 5.5 5.0-8.0 PROTEIN Negative NEGATIVE GLUCOSE Negative NEGATIVE KETONES Negative NEGATIVE UROBILINOGEN 0.2 E.U./dL 0.2 E.U./DL BILIRUBIN Negative NEGATIVE BLOOD Trace-intact NEGATIVE LEUKOCYTES Moderate NEGATIVE NITRITES Positive NEGATIVE RBCs 4-6 0-3 SQ EPITHELIAL CELLS 4-6 0-3 CLUE CELLS NONE SEEN RTE CELLS 0-3 TRANSITIONAL EPIs 0-3 BACTERIA 3+ NONE SEEN CRYSTALS NONE SEEN HYALINE CASTS NONE SEEN GRANULAR CASTS NONE SEEN RBC CASTS NONE SEEN WBC CASTS NONE SEEN WAXY CASTS NONE SEEN CELLULAR CASTS NONE SEEN YEAST NONE SEEN TRICHOMONADS NONE SEEN SPERMATOZOA SEEN NONE SEEN URINE CULTURE YES NO CULTURE URINE 2021-06-16 CULTURE URINE 2021-06-06 D[facility]YL URINALYSIS DIP CLARITY CLEAR COLOR YELLOW NITRITES NEGATVIE REDUCING SUBSTANCES SPECIFIC GRAVITY 1.015 UROBILINOGEN NEGATIVE BILIRUBIN NEGATIVE BLOOD NEGATIVE GLUCOSE NEGATIVE KETONES NEGATIVE pH 5 PROTEIN NEGATIVE LEUKOCYTES NEGATIVE HELICOBACTER PYLORI AG STOOL 2021-04-29 ([id number]) H. pylori Stool Ag, EIA Negative Negative URINALYSIS COMPLETE 2021-04-06 COLOR Yellow YELLOW CLARITY Slightly Cloudy CLEAR SPECIFIC GRAVITY 1.020 1.000-1.030 pH 6.0 5.0-8.0 PROTEIN Negative NEGATIVE GLUCOSE Negative NEGATIVE KETONES Negative NEGATIVE UROBILINOGEN 0.2 E.U./dL 0.2 E.U./DL BILIRUBIN Negative NEGATIVE BLOOD Negative NEGATIVE LEUKOCYTES Small NEGATIVE NITRITES Negative NEGATIVE RBCs 0-3 SQ EPITHELIAL CELLS 4-6 0-3 CLUE CELLS NONE SEEN RTE CELLS 0-3 TRANSITIONAL EPIs 0-3 BACTERIA RARE NONE SEEN CRYSTALS NONE SEEN HYALINE CASTS NONE SEEN GRANULAR CASTS NONE SEEN RBC CASTS NONE SEEN WBC CASTS NONE SEEN WAXY CASTS NONE SEEN CELLULAR CASTS NONE SEEN YEAST NONE SEEN TRICHOMONADS NONE SEEN SPERMATOZOA SEEN NONE SEEN URINE CULTURE YES NO CULTURE URINE 2021-04-06 UA Multistix (URO) Color yellow Clarity clear Bilirubin neg Ketones neg Specific Mccoy >=1.030 Blood trace-intact Glucose neg ph 5.5 Protein neg Leukocytes moderate Nitrates neg Uro 0.2 Leukocytes BASIC METABOLIC PROFILE 2021-02-20 SODIUM 136 134-143 POTASSIUM 4.4 3.5-5.1 CHLORIDE 103 98-111 CO2 23 22-32 CALCIUM 9.1 8.9-10.3 BUN 17 8-26 CREATININE 0.89 0.44-1.00 EGFR >60 EGFR CMT Multiply calculated EGFR by 1.025 for Afro-americans. A/GAP 10.0 3.0-12.0 OSMOLARITY 272 275-295 B/CR 19.1 8.0-20.0 TSH 2021-02-20 TSH 31.87 0.45-5.33 URINALYSIS COMPLETE 2021-02-04 COLOR Yellow YELLOW CLARITY Clear CLEAR SPECIFIC GRAVITY 1.015 1.000-1.030 pH 6.0 5.0-8.0 PROTEIN Negative NEGATIVE GLUCOSE Negative NEGATIVE KETONES Negative NEGATIVE UROBILINOGEN 0.2 E.U./dL 0.2 E.U./DL BILIRUBIN Negative NEGATIVE BLOOD Negative NEGATIVE LEUKOCYTES Trace NEGATIVE NITRITES Negative NEGATIVE RBCs 0-3 0-3 SQ EPITHELIAL CELLS 6-10 0-3 CLUE CELLS NONE SEEN RTE CELLS 0-3 TRANSITIONAL EPIs 0-3 BACTERIA 2+ NONE SEEN CRYSTALS NONE SEEN HYALINE CASTS 0-3 NONE SEEN GRANULAR CASTS NONE SEEN RBC CASTS NONE SEEN WBC CASTS NONE SEEN WAXY CASTS NONE SEEN CELLULAR CASTS NONE SEEN YEAST NONE SEEN TRICHOMONADS NONE SEEN SPERMATOZOA SEEN NONE SEEN URINE CULTURE NO NO CULTURE URINE 2020-12-26 URINALYSIS COMPLETE 2020-12-14 COLOR Yellow YELLOW CLARITY Clear CLEAR SPECIFIC GRAVITY 1.010 1.000-1.030 pH 6.0 5.0-8.0 PROTEIN Negative NEGATIVE GLUCOSE Negative NEGATIVE KETONES Negative NEGATIVE UROBILINOGEN 0.2 E.U./dL 0.2 E.U./DL BILIRUBIN Negative NEGATIVE BLOOD Trace-intact NEGATIVE LEUKOCYTES Trace NEGATIVE NITRITES Negative NEGATIVE RBCs 0-3 0-3 SQ EPITHELIAL CELLS 4-6 0-3 CLUE CELLS NONE SEEN RTE CELLS 0-3 TRANSITIONAL EPIs 0-3 BACTERIA RARE NONE SEEN CRYSTALS NONE SEEN HYALINE CASTS NONE SEEN GRANULAR CASTS NONE SEEN RBC CASTS NONE SEEN WBC CASTS NONE SEEN WAXY CASTS NONE SEEN CELLULAR CASTS NONE SEEN YEAST NONE SEEN TRICHOMONADS NONE SEEN SPERMATOZOA SEEN NONE SEEN URINE CULTURE NO NO CULTURE URINE 2020-12-12 BASIC METABOLIC PROFILE 2020-11-13 SODIUM 139 134-143 POTASSIUM 4.2 3.5-5.1 CHLORIDE 109 98-111 CO2 19 22-32 CALCIUM 9.2 8.9-10.3 BUN 38 8-26 CREATININE 2.17 0.44-1.00 EGFR 24 EGFR CMT Multiply calculated EGFR by 1.025 for Afro-americans. A/GAP 11.0 3.0-12.0 OSMOLARITY 287 275-295 B/CR 17.5 8.0-20.0 UREA NITROGEN, URINE RANDOM 2020-11-13 UREA, URINE RANDOM 524 UR HEAD REFERENCE RANGE HAS NOT BEEN ESTABLISHED FOR RANDOM URINE CHEMISTRY ANALYTE. MAGNESIUM 2020-11-13 MAGNESIUM 2.3 1.8-2.5 ABNORMAL TSH/FT4 2020-11-13 TSH 0.14 0.45-5.33 T4F 1.14 0.61-1.12 CBC, WITH AUTO DIFF 2020-11-12 WBC 7.2 4.8-10.8 RBC 3.27 4.20-5.40 HGB 10.8 12.0-16.0 HCT 33.3 37.0-47.0 MCV 101.8 81.0-99.0 MCH 33.0 27.0-31.0 MCHC 32.4 32.0-37.0 RDW-CV 12.6 11.5-14.5 PLT 286 130-400 MPV 9.3 7.4-10.4 NE% 67.7 42.2-75.2 LY% 18.9 20.5-51.1 MO% 9.2 1.7-9.3 EO% 3.2 0.9-2.9 BA% 0.6 0.0-0.8 NE# 4.8 1.4-6.5 LY# 1.4 1.2-3.4 MO# 0.7 0.1-0.6 EO# 0.2 0.0-0.2 BA# 0.0 0.0-0.2 SMEAR COMMENT SEE COMMENTS SEE COMMENTS T3 UPTAKE ([id number]) 2020-11-12 T3 Uptake 26 24-39 URINALYSIS COMPLETE 2020-11-12 COLOR Yellow YELLOW CLARITY Cloudy CLEAR SPECIFIC GRAVITY 1.025 1.000-1.030 pH 5.0 5.0-8.0 PROTEIN Trace NEGATIVE GLUCOSE Negative NEGATIVE KETONES 15 mg/dL NEGATIVE UROBILINOGEN 1.0 E.U./dL 0.2 E.U./DL BILIRUBIN Small NEGATIVE BLOOD Negative NEGATIVE LEUKOCYTES Moderate NEGATIVE NITRITES Negative NEGATIVE RBCs 4-6 0-3 SQ EPITHELIAL CELLS 10-25 0-3 CLUE CELLS NONE SEEN RTE CELLS 0-3 TRANSITIONAL EPIs 0-3 BACTERIA RARE NONE SEEN CRYSTALS NONE SEEN HYALINE CASTS NONE SEEN GRANULAR CASTS NONE SEEN RBC CASTS NONE SEEN WBC CASTS NONE SEEN WAXY CASTS NONE SEEN CELLULAR CASTS NONE SEEN YEAST NONE SEEN TRICHOMONADS NONE SEEN SPERMATOZOA SEEN NONE SEEN URINE CULTURE YES NO VITAMIN B12 & FOLATE 2020-11-12 VIT B12 571 180-914 FOLATE 14.6 >=6.0 COMPREHENSIVE METABOLIC 2020-11-12 PROFILE SODIUM 136 134-143 POTASSIUM 3.9 3.5-5.1 CHLORIDE 101 98-111 CO2 22 22-32 CALCIUM 9.8 8.9-10.3 BUN 42 8-26 CREATININE 3.13 0.44-1.00 TOTAL BILIRUBIN 0.6 0.3-1.2 TOTAL PROTEIN 7.5 6.5-8.1 ALBUMIN 4.3 3.5-5.0 ALKALINE PHOS 61 32-92 AST 19 15-41 ALT 12 14-54 A/GAP 13.0 3.0-12.0 B/CR 13.4 8.0-20.0 OSMOLARITY 284 275-295 GLOBULIN 3.2 2.3-3.5 A/G 1.3 1.0-2.5 CULTURE URINE 2020-11-12 T3, FREE 2020-11-12 T3F 2.56 2.50-3.90 T3 TOTAL 2020-11-12 T3 0.78 0.87-1.78 CREATININE, URINE - RANDOM 2020-11-12 CREATININE, URINE R 283.2 UR HEAD REFERENCE RANGE HAS NOT BEEN ESTABLISHED FOR RANDOM URINE CHEMISTRY ANALYTE. URINE SODIUM RANDOM 2020-11-12 SODIUM_URINE 48 UR HEAD REFERENCE RANGE HAS NOT BEEN ESTABLISHED FOR RANDOM URINE CHEMISTRY ANALYTE. ABNORMAL TSH/FT4 2020-11-12 TSH 0.15 0.45-5.33 T4F 1.17 0.61-1.12 XR CHEST 2 VIEW 2020-11-12 CT HEAD WO CONTRAST 2020-10-14 CBC, WITH MANUAL DIFF 2020-10-12 WBC 9.9 4.8-10.8 RBC 3.28 4.20-5.40 HGB 10.8 12.0-16.0 HCT 33.2 37.0-47.0 MCV 101.2 81.0-99.0 MCH 32.9 27.0-31.0 MCHC 32.5 32.0-37.0 RDW-CV 12.3 11.5-14.5 PLT 273 130-400 MPV 9.7 7.4-10.4 MANUAL DIFF MANUAL DIFFERENTIAL SEGS 88 42-75 BANDS 0-6 LYMPHS 7 20-51 BOOKER. LYMPHS <=1 MONOS 1 2-9 EOS 4 0-3 BASO 0-1 METAS MYELOS NRBC PLT ESTIMATE ADEQUATE ADEQUATE RBC MORPH ABNORMAL NORMAL ANISO POIK MICRO MACRO 1+ HYPO POLYCHROM CT ABD/PELVIS WO CONTRAST 2020-10-12 PT/APTT PANEL 2020-10-12 PROTIME 10.2 9.1-10.6 INR 1.0 0.9-1.1 INR_TEXT THERAPEUTIC INR RANGES FOR WARFARIN Uncomplicated venous thromboembolic disease 2 - 3 Lupus Anticoagulant and recurrent thrombosis 3 - 3.5 Mechanical prosthetic valve APTT 22.7 21.3-28.4 URINALYSIS COMPLETE 2020-10-12 COLOR Yellow YELLOW CLARITY Cloudy CLEAR SPECIFIC GRAVITY 1.020 1.000-1.030 pH 5.0 5.0-8.0 PROTEIN Negative NEGATIVE GLUCOSE Negative NEGATIVE KETONES 15 mg/dL NEGATIVE UROBILINOGEN 0.2 E.U./dL 0.2 E.U./DL BILIRUBIN Negative NEGATIVE BLOOD Trace-intact NEGATIVE LEUKOCYTES Large NEGATIVE NITRITES Negative NEGATIVE RBCs 4-6 0-3 SQ EPITHELIAL CELLS 10-25 0-3 CLUE CELLS NONE SEEN RTE CELLS 0-3 TRANSITIONAL EPIs 0-3 BACTERIA 3+ NONE SEEN CRYSTALS NONE SEEN HYALINE CASTS NONE SEEN GRANULAR CASTS NONE SEEN RBC CASTS NONE SEEN WBC CASTS NONE SEEN WAXY CASTS NONE SEEN CELLULAR CASTS NONE SEEN YEAST NONE SEEN TRICHOMONADS NONE SEEN SPERMATOZOA SEEN NONE SEEN URINE CULTURE YES NO COMPREHENSIVE METABOLIC 2020-10-12 PROFILE SODIUM 139 134-143 POTASSIUM 3.7 3.5-5.1 CHLORIDE 108 98-111 CO2 20 22-32 CALCIUM 8.2 8.9-10.3 BUN 33 8-26 CREATININE 1.68 0.44-1.00 TOTAL BILIRUBIN 0.6 0.3-1.2 TOTAL PROTEIN 6.9 6.5-8.1 ALBUMIN 4.0 3.5-5.0 ALKALINE PHOS 60 32-92 AST 15 15-41 ALT 11 14-54 A/GAP 11.0 3.0-12.0 B/CR 19.6 8.0-20.0 OSMOLARITY 285 275-295 GLOBULIN 2.9 2.3-3.5 A/G 1.4 1.0-2.5 CULTURE BLOOD 2020-10-12 CULTURE URINE 2020-10-12 MAGNESIUM 2020-10-12 MAGNESIUM 1.8 1.8-2.5 LACTIC ACID, REFLEX TO 3HR 2020-10-12 LACTIC ACID 1.3 0.5-2.2 CULTURE URINE 2020-10-10 DARRYL URINALYSIS DIP 2020-10-10 CLARITY cloudy COLOR yellow NITRITES neg REDUCING SUBSTANCES SPECIFIC GRAVITY 1.015 UROBILINOGEN neg BILIRUBIN neg BLOOD pos GLUCOSE neg KETONES pos pH 5 PROTEIN pos LEUKOCYTES 2 pos URINALYSIS COMPLETE 2020-09-25 COLOR Yellow YELLOW CLARITY Slightly Cloudy CLEAR SPECIFIC GRAVITY 1.025 1.000-1.030 pH 5.5 5.0-8.0 PROTEIN Negative NEGATIVE GLUCOSE Negative NEGATIVE KETONES Negative NEGATIVE UROBILINOGEN 0.2 E.U./dL 0.2 E.U./DL BILIRUBIN Negative NEGATIVE BLOOD Trace-intact NEGATIVE LEUKOCYTES Large NEGATIVE NITRITES Positive NEGATIVE RBCs 0-3 0-3 SQ EPITHELIAL CELLS 10-25 0-3 CLUE CELLS 0-3 NONE SEEN RTE CELLS 0-3 TRANSITIONAL EPIs 0-3 BACTERIA 2+ NONE SEEN CRYSTALS NONE SEEN HYALINE CASTS NONE SEEN GRANULAR CASTS NONE SEEN RBC CASTS NONE SEEN WBC CASTS NONE SEEN WAXY CASTS NONE SEEN CELLULAR CASTS NONE SEEN YEAST NONE SEEN TRICHOMONADS NONE SEEN SPERMATOZOA SEEN NONE SEEN URINE CULTURE YES NO CULTURE URINE 2020-09-25 CULTURE URINE 2020-09-12 URINE DIP ([facility]) 2020-09-04 Color yellow Clarity clear Glucose neg Bilirubin neg Ketones neg Specific Mccoy 1.020 Blood neg PH 5 Protein trace Uro normal Nitrates neg Leukocytes ++ URINALYSIS COMPLETE 2020-08-24 COLOR Yellow YELLOW CLARITY Cloudy CLEAR SPECIFIC GRAVITY 1.025 1.000-1.030 pH 5.0 5.0-8.0 PROTEIN Trace NEGATIVE GLUCOSE Negative NEGATIVE KETONES Negative NEGATIVE UROBILINOGEN 0.2 E.U./dL 0.2 E.U./DL BILIRUBIN Negative NEGATIVE BLOOD Trace-intact NEGATIVE LEUKOCYTES Large NEGATIVE NITRITES Negative NEGATIVE RBCs 0-3 0-3 SQ EPITHELIAL CELLS 6-10 0-3 CLUE CELLS NONE SEEN RTE CELLS 0-3 TRANSITIONAL EPIs 0-3 BACTERIA 3+ NONE SEEN CRYSTALS NONE SEEN HYALINE CASTS NONE SEEN GRANULAR CASTS NONE SEEN RBC CASTS NONE SEEN WBC CASTS NONE SEEN WAXY CASTS NONE SEEN CELLULAR CASTS NONE SEEN YEAST NONE SEEN TRICHOMONADS NONE SEEN SPERMATOZOA SEEN NONE SEEN URINE CULTURE YES NO CULTURE URINE 2020-08-24 Urine Multistix (DIP) Color Yellow Clarity Cloudy Glucose NEG Bilirubin NEG Ketones NEG Specific Mccoy 1.025 Blood TRACE ph 5.5 Protein NEG Uro 0.2 Nitrates NEG Leukocytes LARGE CULTURE URINE 2020-08-16 DARRYL XR CHEST 2 VIEW 2020-07-31 URINE DIP ([facility]) 2020-05-31 Color yellow Clarity clear Glucose neg Bilirubin neg Ketones neg Specific Mccoy 1.015 Blood neg PH 5 Protein neg Uro normal Nitrates neg Leukocytes neg BASIC METABOLIC PROFILE 2020-05-02 SODIUM 134 136-145 POTASSIUM 4.5 3.5-5.1 CHLORIDE 99 98-111 CO2 22 22-32 CALCIUM 9.5 8.9-10.3 BUN 25 8-26 CREATININE 0.94 0.44-1.00 EGFR >60 EGFR CMT Multiply calculated EGFR by 1.025 for Afro-americans. A/GAP 13.0 3.0-12.0 OSMOLARITY 272 275-295 B/CR 26.6 8.0-20.0 TSH 2020-05-02 TSH 5.30 0.45-5.33 URINALYSIS COMPLETE 2020-05-02 COLOR Yellow YELLOW CLARITY Slightly Cloudy CLEAR SPECIFIC GRAVITY 1.015 1.000-1.030 pH 5.5 5.0-8.0 PROTEIN Negative NEGATIVE GLUCOSE Negative NEGATIVE KETONES Negative NEGATIVE UROBILINOGEN 0.2 E.U./dL 0.2 E.U./DL BILIRUBIN Negative NEGATIVE BLOOD Trace-intact NEGATIVE LEUKOCYTES Moderate NEGATIVE NITRITES Negative NEGATIVE RBCs 0-3 0-3 SQ EPITHELIAL CELLS 4-6 0-3 CLUE CELLS 0-3 NONE SEEN RTE CELLS 0-3 TRANSITIONAL EPIs 0-3 BACTERIA 2+ NONE SEEN CRYSTALS NONE SEEN HYALINE CASTS NONE SEEN GRANULAR CASTS NONE SEEN RBC CASTS NONE SEEN WBC CASTS NONE SEEN WAXY CASTS NONE SEEN CELLULAR CASTS NONE SEEN YEAST NONE SEEN TRICHOMONADS NONE SEEN SPERMATOZOA SEEN NONE SEEN URINE CULTURE YES NO CULTURE URINE 2020-05-02 CULTURE URINE 2020-04-09 DARRYL URINALYSIS DIP 2020-04-09 CLARITY cloudy COLOR yelllow NITRITES neg REDUCING SUBSTANCES SPECIFIC GRAVITY 1.010 UROBILINOGEN neg BILIRUBIN neg BLOOD neg GLUCOSE neg KETONES neg pH 5 PROTEIN neg LEUKOCYTES trace UA Multistix (URO) 2020-02-07 Color Yellow Clarity Cloudy Bilirubin neg Ketones neg Specific Mccoy 1.025 Blood neg Glucose neg ph 5.5 Protein neg Leukocytes neg Nitrates neg Uro 0.2 Leukocytes URINALYSIS COMPLETE 2020-01-30 COLOR Yellow YELLOW CLARITY Cloudy CLEAR SPECIFIC GRAVITY 1.020 1.000-1.030 pH 7.0 5.0-8.0 PROTEIN Negative NEGATIVE GLUCOSE Negative NEGATIVE KETONES Negative NEGATIVE UROBILINOGEN 1.0 E.U./dL 0.2 E.U./DL BILIRUBIN Negative NEGATIVE BLOOD Negative NEGATIVE LEUKOCYTES Moderate NEGATIVE NITRITES Positive NEGATIVE RBCs 0-3 0-3 SQ EPITHELIAL CELLS 25-50 0-3 CLUE CELLS NONE SEEN RTE CELLS 0-3 TRANSITIONAL EPIs 0-3 BACTERIA 4+ NONE SEEN CRYSTALS NONE SEEN HYALINE CASTS NONE SEEN GRANULAR CASTS NONE SEEN RBC CASTS NONE SEEN WBC CASTS NONE SEEN WAXY CASTS NONE SEEN CELLULAR CASTS NONE SEEN YEAST NONE SEEN TRICHOMONADS NONE SEEN SPERMATOZOA SEEN NONE SEEN URINE CULTURE YES NO CULTURE URINE 2020-01-30 URINALYSIS COMPLETE 2020-01-21 COLOR Yellow YELLOW CLARITY Slightly Cloudy CLEAR SPECIFIC GRAVITY 1.020 1.000-1.030 pH 7.0 5.0-8.0 PROTEIN Negative NEGATIVE GLUCOSE Negative NEGATIVE KETONES Negative NEGATIVE UROBILINOGEN 0.2 E.U./dL 0.2 E.U./DL BILIRUBIN Negative NEGATIVE BLOOD Trace-intact NEGATIVE LEUKOCYTES Small NEGATIVE NITRITES Negative NEGATIVE RBCs 0-3 0-3 SQ EPITHELIAL CELLS 10-25 0-3 CLUE CELLS NONE SEEN RTE CELLS 0-3 TRANSITIONAL EPIs 0-3 BACTERIA 1+ NONE SEEN CRYSTALS NONE SEEN HYALINE CASTS NONE SEEN GRANULAR CASTS NONE SEEN RBC CASTS NONE SEEN WBC CASTS NONE SEEN WAXY CASTS NONE SEEN CELLULAR CASTS NONE SEEN YEAST NONE SEEN TRICHOMONADS NONE SEEN SPERMATOZOA SEEN NONE SEEN URINE CULTURE YES NO CULTURE URINE 2020-01-21 CULTURE URINE 2020-01-17 URINALYSIS COMPLETE 2020-01-17 COLOR [place] YELLOW CLARITY Slightly Cloudy CLEAR SPECIFIC GRAVITY 1.010 1.000-1.030 pH 5.0-8.0 PROTEIN Unreadable NEGATIVE GLUCOSE Unreadable NEGATIVE KETONES Unreadable NEGATIVE UROBILINOGEN Unreadable 0.2 E.U./DL BILIRUBIN Unreadable NEGATIVE BLOOD Unreadable NEGATIVE LEUKOCYTES Unreadable NEGATIVE NITRITES Unreadable NEGATIVE RBCs 0-3 0-3 SQ EPITHELIAL CELLS 6-10 0-3 CLUE CELLS NONE SEEN RTE CELLS 0-3 TRANSITIONAL EPIs 0-3 BACTERIA 1+ NONE SEEN CRYSTALS NONE SEEN HYALINE CASTS NONE SEEN GRANULAR CASTS NONE SEEN RBC CASTS NONE SEEN WBC CASTS NONE SEEN WAXY CASTS NONE SEEN CELLULAR CASTS NONE SEEN YEAST NONE SEEN TRICHOMONADS NONE SEEN SPERMATOZOA SEEN NONE SEEN URINE CULTURE YES NO TSH 2020-01-09 TSH 0.12 0.45-5.33 COMPREHENSIVE METABOLIC 2020-01-09 PROFILE SODIUM 140 136-145 POTASSIUM 3.3 3.5-5.1 CHLORIDE 106 98-111 CO2 24 22-32 CALCIUM 9.3 8.9-10.3 BUN 21 8-26 CREATININE 0.98 0.44-1.00 TOTAL BILIRUBIN 0.5 0.3-1.2 TOTAL PROTEIN 6.4 6.5-8.1 ALBUMIN 3.4 3.5-5.0 ALKALINE PHOS 63 32-92 AST 15 15-41 ALT 9 14-54 A/GAP 10.0 3.0-12.0 B/CR 21.4 8.0-20.0 OSMOLARITY 282 275-295 GLOBULIN 3.0 2.3-3.5 A/G 1.1 1.0-2.5 UA Multistix (URO) Color yellow Clarity cloudy Bilirubin neg Ketones neg Specific Mccoy 1.015 Blood trace-intact Glucose neg ph 5.5 Protein neg Leukocytes neg Nitrates neg Uro 0.2 Leukocytes CULTURE URINE 2019-11-09 Bladder Scan 2019-10-21 MG MAMMOGRAPHY BILATERAL 2019-10-06 SCREENING URINALYSIS DIP w/REFLEX MICRO 2019-09-21 COLOR Yellow YELLOW CLARITY Clear CLEAR SPECIFIC GRAVITY 1.020 1.000-1.030 pH 5.5 5.0-8.0 PROTEIN Negative NEGATIVE GLUCOSE Negative NEGATIVE KETONES Negative NEGATIVE UROBILINOGEN 0.2 E.U./dL 0.2 E.U./DL BILIRUBIN Negative NEGATIVE BLOOD Negative NEGATIVE LEUKOCYTES Negative NEGATIVE NITRITES Negative NEGATIVE URINALYSIS COMPLETE 2019-09-02 COLOR [place] YELLOW CLARITY Slightly Cloudy CLEAR SPECIFIC GRAVITY 1.010 1.000-1.030 pH 5.5 5.0-8.0 PROTEIN Negative NEGATIVE GLUCOSE Negative NEGATIVE KETONES Negative NEGATIVE UROBILINOGEN 0.2 E.U./dL 0.2 E.U./DL BILIRUBIN Negative NEGATIVE BLOOD Trace-lysed NEGATIVE LEUKOCYTES Large NEGATIVE NITRITES Positive NEGATIVE RBCs 4-6 0-3 SQ EPITHELIAL CELLS 10-25 0-3 CLUE CELLS 4-6 NONE SEEN RTE CELLS 0-3 TRANSITIONAL EPIs 0-3 BACTERIA 3+ NONE SEEN CRYSTALS NONE SEEN HYALINE CASTS NONE SEEN GRANULAR CASTS NONE SEEN RBC CASTS NONE SEEN WBC CASTS NONE SEEN WAXY CASTS NONE SEEN CELLULAR CASTS NONE SEEN YEAST NONE SEEN TRICHOMONADS NONE SEEN SPERMATOZOA SEEN NONE SEEN URINE CULTURE YES NO CULTURE URINE 2019-09-02 URINALYSIS DIP w/REFLEX MICRO 2019-08-19 COLOR Yellow YELLOW CLARITY Clear CLEAR SPECIFIC GRAVITY 1.015 1.000-1.030 pH 5.0 5.0-8.0 PROTEIN Negative NEGATIVE GLUCOSE Negative NEGATIVE KETONES Negative NEGATIVE UROBILINOGEN 0.2 E.U./dL 0.2 E.U./DL BILIRUBIN Negative NEGATIVE BLOOD Negative NEGATIVE LEUKOCYTES Negative NEGATIVE NITRITES Negative NEGATIVE Urine Multistix (DIP) Color yellow Clarity clear Glucose negative Bilirubin negative Ketones negative Specific Mccoy 1.010 Blood negative ph 5.0 Protein negative Uro 0.2 Nitrates negative Leukocytes trace CULTURE URINE 2019-06-24 URINALYSIS DIP w/REFLEX MICRO 2019-06-06 COLOR Yellow YELLOW CLARITY Clear CLEAR SPECIFIC GRAVITY 1.015 1.000-1.030 pH 7.0 5.0-8.0 PROTEIN Negative NEGATIVE GLUCOSE Negative NEGATIVE KETONES Negative NEGATIVE UROBILINOGEN 0.2 E.U./dL 0.2 E.U./DL BILIRUBIN Negative NEGATIVE BLOOD Negative NEGATIVE LEUKOCYTES Negative NEGATIVE NITRITES Negative NEGATIVE BASIC METABOLIC PROFILE 2018-12-01 SODIUM 142 136-145 POTASSIUM 4.3 3.5-5.1 CHLORIDE 105 98-111 CO2 18 22-32 CALCIUM 10.1 8.9-10.3 BUN 18 8-26 CREATININE 0.69 0.44-1.00 EGFR 89 EGFR CMT Multiply calculated EGFR by 1.025 for Afro-americans. A/GAP 19.0 3.0-12.0 OSMOLARITY 284 275-295 B/CR 26.1 8.0-20.0 CBC, WITH MANUAL DIFF 2018-12-01 WBC 6.9 4.8-10.8 RBC 3.76 4.20-5.40 HGB 12.1 12.0-16.0 HCT 36.2 37.0-47.0 MCV 96.3 81.0-99.0 MCH 32.2 27.0-31.0 MCHC 33.4 32.0-37.0 RDW-CV 13.4 11.5-14.5 PLT 276 130-400 MPV 9.7 7.4-10.4 MANUAL DIFF MANUAL DIFFERENTIAL SEGS 62 42-75 BANDS 0-6 LYMPHS 26 20-51 BOOKER. LYMPHS 5 <=1 MONOS 6 2-9 EOS 1 0-3 BASO 0-1 METAS MYELOS NRBC PLT ESTIMATE ADEQUATE ADEQUATE RBC MORPH NORMAL NORMAL ANISO POIK MICRO MACRO HYPO POLYCHROM URINALYSIS DIP w/REFLEX MICRO 2018-11-10 COLOR Yellow YELLOW CLARITY Clear CLEAR SPECIFIC GRAVITY 1.020 1.000-1.030 pH 6.0 5.0-8.0 PROTEIN Negative NEGATIVE GLUCOSE Negative NEGATIVE KETONES Negative NEGATIVE UROBILINOGEN 0.2 E.U./dL 0.2 E.U./DL BILIRUBIN Negative NEGATIVE BLOOD Negative NEGATIVE LEUKOCYTES Negative NEGATIVE NITRITES Negative NEGATIVE UA Multistix (URO) 2018-11-10 Color Yellow Clarity Clear Bilirubin neg Ketones neg Specific Mccoy 1.020 Blood trace-intact Glucose neg ph 6.0 Protein neg Leukocytes neg Nitrates neg Uro 0.2 Leukocytes US RENAL/BLADDER 2018-12-07 BASIC METABOLIC PROFILE 2018-04-05 SODIUM 137 136-145 POTASSIUM 4.3 3.5-5.1 CHLORIDE 103 98-111 CO2 26 22-32 CALCIUM 9.6 8.9-10.3 BUN 16 8-26 CREATININE 0.95 0.44-1.00 EGFR >60 EGFR CMT Multiply calculated EGFR by 1.025 for Afro-americans. A/GAP 8.0 3.0-12.0 OSMOLARITY 274 275-295 B/CR 16.8 8.0-20.0 CBC, WITH AUTO DIFF 2018-04-05 WBC 6.1 4.8-10.8 RBC 3.87 4.20-5.40 HGB 12.5 12.0-16.0 HCT 37.7 37.0-47.0 MCV 97.4 81.0-99.0 MCH 32.3 27.0-31.0 MCHC 33.2 32.0-37.0 RDW-CV 13.2 11.5-14.5 PLT 279 130-400 MPV 9.7 7.4-10.4 NE% 63.1 42.2-75.2 LY% 25.9 20.5-51.1 MO% 7.7 1.7-9.3 EO% 2.3 0.9-2.9 BA% 0.7 0.0-0.8 NE# 3.8 1.4-6.5 LY# 1.6 1.2-3.4 MO# 0.5 0.1-0.6 EO# 0.1 0.0-0.2 BA# 0.0 0.0-0.2 TSH 2018-04-05 TSH 3.88 0.45-5.33 IRON 2018-04-05 IRON 80 28-170 FERRITIN 2018-04-05 FERRITIN 19.1 11.0-307.0 VITAMIN B12 & FOLATE 2018-04-05 VIT B12 >1500 180-914 FOLATE 13.8 >=6.0 Urine Multistix (DIP) Color yellow Clarity cloudy Glucose neg Bilirubin neg Ketones neg Specific Mccoy 1.030 Blood neg ph 5.5 Protein neg Uro 0.2 Nitrates neg Leukocytes neg URINALYSIS COMPLETE 2018-04-01 COLOR Yellow YELLOW CLARITY Clear CLEAR SPECIFIC GRAVITY 1.015 1.000-1.030 pH 7.5 5.0-8.0 PROTEIN Negative NEGATIVE GLUCOSE Negative NEGATIVE KETONES Negative NEGATIVE UROBILINOGEN 0.2 E.U./dL 0.2 E.U./DL BILIRUBIN Negative NEGATIVE BLOOD Trace-intact NEGATIVE LEUKOCYTES Negative NEGATIVE NITRITES Positive NEGATIVE RBCs 0-3 0-3 SQ EPITHELIAL CELLS 50-99 0-3 CLUE CELLS NONE SEEN RTE CELLS 0-3 0-3 TRANSITIONAL EPIs 0-3 BACTERIA 1+ NONE SEEN CRYSTALS NONE SEEN HYALINE CASTS NONE SEEN GRANULAR CASTS NONE SEEN RBC CASTS NONE SEEN WBC CASTS NONE SEEN WAXY CASTS NONE SEEN CELLULAR CASTS NONE SEEN YEAST NONE SEEN TRICHOMONADS NONE SEEN URINE CULTURE YES NO CULTURE URINE 2018-04-01 XR CHEST 2 VIEW 2018-02-17 MR BRAIN WO CONTRAST 2018-03-30 Urine Multistix (DIP) 2018-01-13 Color yellow Clarity cloudy Glucose neg Bilirubin neg Ketones neg Specific Mccoy 1.025 Blood neg ph 7.5 Protein trace Uro 0.2 Nitrates pos Leukocytes moderate CULTURE URINE 2018-01-13 URINALYSIS COMPLETE 2017-12-22 COLOR Yellow YELLOW CLARITY Cloudy CLEAR SPECIFIC GRAVITY 1.015 1.000-1.030 pH 7.5 5.0-8.0 PROTEIN Negative NEGATIVE GLUCOSE Negative NEGATIVE KETONES Negative NEGATIVE UROBILINOGEN 0.2 E.U./dL 0.2 E.U./DL BILIRUBIN Negative NEGATIVE BLOOD Negative NEGATIVE LEUKOCYTES Negative NEGATIVE NITRITES Positive NEGATIVE RBCs 0-3 0-3 SQ EPITHELIAL CELLS 6-10 0-3 CLUE CELLS NONE SEEN RTE CELLS 0-3 TRANSITIONAL EPIs 0-3 BACTERIA 4+ NONE SEEN CRYSTALS NONE SEEN HYALINE CASTS NONE SEEN GRANULAR CASTS NONE SEEN RBC CASTS NONE SEEN WBC CASTS NONE SEEN WAXY CASTS NONE SEEN CELLULAR CASTS NONE SEEN YEAST NONE SEEN TRICHOMONADS NONE SEEN URINE CULTURE YES NO CULTURE URINE 2017-12-22 US PELVIC ULTRASOUND 2017-12-22 BD BONE DENSITY, DEXA SCAN 2017-10-13 XR LUMBAR SPINE 2 OR 3 VIEW 2017-10-13 XR DORSAL SPINE 2017-10-13 XR HIP SINGLE W PELVIS 2017-09-04 CBC, WITH AUTO DIFF 2017-08-03 WBC 6.0 4.8-10.8 RBC 3.79 4.20-5.40 HGB 11.9 12.0-16.0 HCT 37.5 37.0-47.0 MCV 98.9 81.0-99.0 MCH 31.4 27.0-31.0 MCHC 31.7 32.0-37.0 RDW-CV 14.0 11.5-14.5 PLT 343 130-400 MPV 9.7 7.4-10.4 NE% 73.4 42.2-75.2 LY% 15.7 20.5-51.1 MO% 8.5 1.7-9.3 EO% 2.0 0.9-2.9 BA% 0.2 0.0-0.8 NE# 4.4 1.4-6.5 LY# 0.9 1.2-3.4 MO# 0.5 0.1-0.6 EO# 0.1 0.0-0.2 BA# 0.0 0.0-0.2 LIPID PROFILE 2017-08-03 CHOLESTEROL 241 129-209 TRIGLYCERIDES 47 10-150 HDL 63 40-80 LDL (CALCULATED) 169 RISK RATIO 3.8 RISK INTERP RISK MALE FEMALE 1/2 average 3.4 3.3 Average 5.0 4.4 2x Average 9.6 COMPREHENSIVE METABOLIC 2017-08-03 PROFILE SODIUM 141 136-145 POTASSIUM 4.1 3.5-5.1 CHLORIDE 108 98-111 CO2 24 22-32 CALCIUM 9.5 8.9-10.3 BUN 16 8-26 CREATININE 0.70 0.44-1.00 TOTAL BILIRUBIN 0.8 0.3-1.2 TOTAL PROTEIN 6.7 6.5-8.1 ALBUMIN 3.8 3.5-5.0 ALKALINE PHOS 77 38-130 AST 24 15-41 ALT 21 14-54 A/GAP 9.0 3.0-12.0 B/CR 22.9 8.0-20.0 OSMOLARITY 282 275-295 GLOBULIN 2.9 2.3-3.5 A/G 1.3 1.0-2.5 XR CHEST 2 VIEW 2017-07-27 TSH 2017-05-27 TSH 2.51 0.45-5.33 IRON 2017-04-06 IRON 93 28-170 FERRITIN 2017-04-06 FERRITIN 13.5 11.0-307.0 VITAMIN B12 & FOLATE 2017-04-06 VIT B12 >1500 180-914 FOLATE 17.5 >=6.0 VITAMIN D - 25(OH) 2017-04-06 VIT D 35.3 30.0-100.0 HEPATITIS C ANTIBODY 2017-04-06 SCREENING REASON FOR VISIT PC follow up, Mask , PC Multiple concerns [phone], telephone visit 26 minutes , UTI sx, Possible UTI? , needs E string , pt resistant,dementia , Gas Issues/VM Full 01/20, Frequent UTI's-other concerns (Called 01/16) , Medication refill , UTI, Urology Discharge letter FYLauryn, RF-lisinopril, levothyroxine, escitalopram, Family meeting [place] Calling office , Escitalopram - RF, Call with appt date/time for family meeting (letter sent with appt date/time), PC - discuss overall health #[phone], 14 minute telephone visit, referral, Update UTI, JUNIOR BUYER estring placement, Patient coming in for UA 08/20-DAUGHTER CALLED 08/21- , Automobile Damage Appraiser procedure, multi - RF, Re TSH Lab , labs 08/09/21, Pharmacy closed/: Multi drug resistant UTI, UTI , UTI?, Question about appointment- //ZHANNA CALLED BACK 07/19, Requesting to speak with Dr. Cotter , home health, Home Health , URO- Recurrent UTI follow up, PC - f/u, covid like symptoms, please call, Point of Service COVID 19 Screening, URO- Discuss Recurrent UTI, urine-U nable to 07/01///ZHANNA CALLED BACK 07/01, Ongoing UTI, Was treated for a yeast infection 3 days ago, still burning and itching, BP has been 120/68 110/50, 100/50, appetite is down, PC - On-Going UTI? [phone], 20 minute telephone visit, appt today, Discussed with pt at PCP visit, JUNIOR BUYER estring placement, Mailbox full OM 8:35a 06/20/21, JUNIOR BUYER estring placement, On going UTI issue-Unable to LM 06/17, 06/18, On-Going UTI's, JUNIOR BUYER 2 1/2 month follow up, Rx request, Escitalopram - RF, Family meeting , Concerned for sepsis , uti follow up, PC - f/u, Pls call, antibiotics, levothyroxine refill, Vomiting/Diarrhea - 3callback, #3 MODERNA, GI-slow transit constipation, epigastric pain, UTI, Questions, HELICO[employer]ER results- Negative, Missed Appointment FYI only, Pls call, URO 1 MO F/U, pt update- tried to lmom 04/25, PC - flu shot, PC- Flu Shot. See te, Flu, Levothyroxine Sodium 75 MCG Tablet- tried to call 04/08, JUNIOR BUYER 3 month follow up Estring, JUNIOR BUYER 3 month follow up Estring, ?UTI/Bladder Spasms, ? UTI/bladder spa sms, Escitalopram - rf, TSH high, PC - F/U BP & Thyroid, refill trimethoprim- Unable to LM 02/18, Levothyroxine RF , DARRYL ?uti? call Zhanna as name, JUNIOR BUYER issues with estring, PC - Meet w/Children re Guardianship [phone], I called the number above. Voice mail for Linda answered. Left message advising to call back and let us know better time to get together., 9 minute telphone visit., call back, not eating/drinking (called back), DARRYL- uti , Elevated blood pressure, JUNIOR BUYER 3 month follow up estring, ? Prior Auth for Estring, Probiotic/ Miralax, TSH and Anxiety Discussion, Pt had taken Miralax beforevisit, had a sm bm. Pt reports that its hurt for her when she has a BM. Hind area is sore, Pts daughter Zhanna had brought in BP readings and her med list, constipation/abd pain, Klonopin, Low BP w/ lightheadedness and dizziness/ full body itchy , Please call , Urine Culture , DARRYL tick bite, Not eating, DARRYL gi issues, difficulty breathing, DARRYL possible uti, questioning UTI, concerns, Levothyroxine RF, Medication, Urine culture, [facility] capacity assessment, Urinalysis *LM 10/01, UA, UTI? Breast/Stomach Pain, next week visit, URO- Urinary frequency , has to go every 15 min to the bathroom, nocturia 0-1,drinks 32 oz per day, a lot of cranberry juice, not complaining about burning, see latest t/e, Urinary frequency/FYI///2ND CALL, URO- 6 month f/u, continued UTI''s , JUNIOR BUYER 3 month estring check, Speak re: , Yeast Infection, UTI concerns, JUNIOR BUYER 3 month estring check, Abd Pain, diarrhea, incontinence ,DARRYL L sided abdominal pain, UTI?, UA results, PC - UTI?, UTI?, URO 6MO F/U, trying to quit smoking ,Order for Nurse Visit, DARRYL ?bronchitis?, referral documentation: OT/PT HOME HEALTH, referral request, Ref to Podiatry / Weeks, referral form , Ref for in-home OT and [facility], JUNIOR BUYER vaginal soreness, JUNIOR BUYER EST ESTRING CHANGE, APS, DPOA, lab results, *Rx Estring, Requesting lab for urine, Concerns, Levothyroxine, MED/MULTIPLE ISSUES, See palliative notes to review in pt docs, DPOAH and dementia discussion, Needs G- String Changed, 3 m f/u visit dimentia, DARRYL possible uti, [facility] ER ROR DUPLICATE, Make an appt for Gisela for Estring f/up, DARRYL uti???, PC psy consult, Lorazepam Question, [facility] 01/19, UTI?, DARRYL uti symptoms , Med Question, requesting appt, UA results, PC - UTI, See TE notes. Had urine done the other day. It came back negative. See results. , Test results, not hospice eligible , Test results (CB*)-FY, Urine Sample Order, hospice request, Seroquel and recommendations, Test results, Seroquel, PC - dementia, Do not mention pt is here for dementia, she will get angry, Step daughter Marcia has a lot of concerns and states that it is getting a lot worse, assistance, dementia, URO- UTI, UTI, JUNIOR BUYER estring insertion-picked up estring and is here for insertion-HW, possible UTI , FYI-*appointment, JUNIOR BUYER S-Trace ring replace-would like to discuss the benefits of having estring-HW, S Trace Ring Appointment Scheduled 10/28/19, URO UTI'S, JUNIOR BUYER 3 month follow up, PC PODIATRY REF/Already has an appointment scheduled at podiatry office on [facility] Would like a referral to p odiatrist for corn on bottom of right foot., Test results- lmom 09/20, Escitalopram RF, Levaquin RF, UA/Culture done, ?UTI, Test results- lmom 08/21, FYI, uti?, RX REQUEST, Home Health Referral, JUNIOR BUYER Consult ongoing symptoms, ? E- string REF from [facility] Lauren, update chart, Nystatin Clarification, Urine results - CB, PC - possible yeast infection, sore on labia, Possible Medication Issue - CB, PC NON ACOUSTIC OPERATOR,Seen in ED 06/06 for dysuria, daughter Zhanna (on hippa form), chart preload, NON ACOUSTIC OPERATOR APPT, Answering service message, URO-Follow up UTI ER , Please advise/ out of antibiotics/2ND CALL, URO Cystoscopy, LMOM 12/07, URO- cysto, URO- F/U RECURRENT UTI, URO-F/U, URO- F/U, Reclast/Prolia, Lisinopril/Levothyroxine R F, lab results, PC UTI, lethargic, colo, call to f/u with pt about colo, MARK fu MRI brain, dementia,MRI BRAIN W/O, MRI and appt, MARK f/u, GI- Constipation, MRI, MARK r/s to earlier, ? on meds-LM, cough/? recommendation, GI - constipation, URO Cystoscopy Renal US at 2:00 pm today, Cancel Cysto and US, MARK dementia eval prior to cataract surgery, URO Cystoscopy, PC-Pre Op Clearance for cataract surgery02/05 w/Dr Jiang, appt, Neuro Referral, Prescription, URO Please eval for UTI's w/ increased antibiotic resistance, ongoing UTI, GI chronic constipation, UTI/New Antibiotic, ED F/U UTI, PC-LUMBAR/HIP PAIN, High Blood Pressure , pc 6 mo f/u, PC - , Neuro referral, Reclast, PC - ( daughter requests for dr. ambriz to discuss cognitive changes, pt doesn't know that this appointment is for that reason) ,request call to discuss congnitive status, Results, PC - leg pain, ? sciatica, Hand Symptoms, PC - leg pain, ? sciatica, PC-Leg pain - r/s wants to see Dr Ambriz, leg pain, PC - leg pain, ? sciatica, NS CALL #1, lab results, pc med f/u, CXR results/other conerns, PC- f/u medication, PC- f/u medication, Daughter presents with patient for this appointment, she's thinking that her mom may need a different medication to help her focus, she states she becomes overwhelmed and takes too much in at once. The wellbutrin is helping with the depression/anxiety but not with the focusing. , PC-med discussion, 07/24, 07/24 Med Check appt, Buproprion , Rx not sent, PC-Discuss antidepressant medication, D epression Meds, different anxiety medication, Hydrochlorithiazide, cataracts , PC - lab/med f/u, More Levothyoxin, PC - lab/med f/u, Rx Request, Refill Levothyroxin, PC Lab F/U discussion on phone w/SOPHIE, pc med f/u - cxld will call back to r/s, PC COGNITIVE DIS. (Sophie on phone), lab results, call her about labs and meds, Lab Results/Discuss Plan of Care, Needs Ins. Information updated in acct., Poor iron stores. Needs diet, Immunizations Records, PC - NON ACOUSTIC OPERATOR, pre-load, Needs NON ACOUSTIC OPERATOR appointment Insurance Providers [facility] Health Member Patient Patient Patient Patient Patient Subscriber Subscriber Subscriber Group Insurance Plan Plan Plan Plan ID Relationship Address Phone Name Date of ID Name Date of No Type Insurance Insurance Insurance Coverage to Subscriber Address Phone Name Dates MEDICARE [address] MEDICARE self [place] [id number] MEDICARE self [place] [id number] MEDICARE self [place] [id number] [place] [place] [address] NGS self [place] [id number] MEDICARE [id number] [place] [address] MEDICARE [phone] MEDICARE self [place]is[place] [id number] PART A [id number] [place] [phone] [address] self Gisela [id number] [facility] [id number] [phone] [facility] Office of Community Care ATTN [facility] Claims [facility] [id number] RHC [place] [phone] [place] [id number] [place] [address] [place] [id number] MEDICARE [phone] MEDICARE self [place] [id number] [id number] [address] [place] [phone] [place] [phone] [place] self [place] [id number] MEDICAID [place] [address] [place] [id number] NGS [phone] NGS self [place] [id number] MEDICARE [id number] 41 [place] [phone]
--- OUTSIDE RECORDS SUMMARY | 2022-04-04 15:38 | XMS_ITS ---
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 59712768 6 acquired Problem Tobacco use Z72.0 Active 80636521 0 Problem Blurred vision H53.8 Active 07842 6008 Problem Vitamin D E55.9 Active 93031349 deficiency, unspecified Problem Cervical cancer C53.9 Active 3633 40085 Problem Hypothyroidism E03.9 Active 63032 008 ALLERGIES Substance Reaction Event Type Date Status Memantine HCl stomach upset Drug Allergy Oct, Active BuPROPion HCl palpations Drug Allergy Oct, Active ENCOUNTERS Encounter Location Date Diagnosis [facility] Oct, [place] [address] [facility] September, [place] [address] [facility] September, Metatarsalgia , left foot [address] [place], [place] M77.42 ; [place] etatarsalgia, [address] right foot M77.4 1 ; Other hammer toe(s) (a cquired), left foot M20.42 ; Other hammer toe(s) (a cquired), right foot M20.4 1 ; Cavus deformity of lef t foot Q66.72 and Cavus deformity of right foot Q6 6.71 [facility] May, Cavus foot, acqu ired Q66.7 [place] [address] ; Hyperkera tosis L85.9 and Metatarsalgia of both feet M77.[address] [facility] [address] [facility] May, [place] [address] [facility] [address] [facility] [address] Apr, [place] [address] [facility] [address] [facility] Apr, Cavus foot, acqu ired Q66.7 [place] [address] ; Hyperkera tosis L85.9 and Metatarsalgia of both feet M77.[address] [address] [facility] Mar, [place] [address] IMMUNIZATIONS No Known Immunizations SOCIAL HISTORY Qualifiers Date Current Smoker 06/19/2017 REASON FOR REFERRAL FUNCTIONAL STATUS PLAN OF CARE Activity Details Follow Up 3 Months Reason: VITAL SIGNS Height 62 in 2019-10-12 Height 62 in 2017-06-19 Height 62 in 2017-04-24 Height 62 in 2017-04-22 Weight 153 lbs 2019-10-12 Weight 136.4 lbs 2017-06-19 BMI 27.98 kg/m2 2019-10-12 BMI 24.95 kg/m2 2017-06-19 Temperature 99.0 degrees Fahrenheit 2019-10-12 Temperature 97.9 degrees Fahrenheit 2017-06-19 Temperature 97.4 degrees Fahrenheit 2017-04-24 Heart Rate 70 /min 2019-10-12 Heart Rate 70 /min 2017-06-19 Heart Rate 85 /min 2017-04-24 Respiratory Rate 18 /min 2019-10-12 Respiratory Rate 16 /min 2017-06-19 Respiratory Rate 16 /min 2017-04-24 Oximetry 98 % 2019-10-12 Oximetry 98 % 2017-06-19 Oximetry 99 % 2017-04-24 Blood pressure systolic 125 mm Hg 2019-10-12 Blood pressure diastolic 74 mm Hg 2019-10-12 MEDICATIONS Medication Instructions Dosage Frequency Start End Duration Statu s Date Date hydroCHLOROthiazide Orally Once a 1 tablet 24h 30 da y(s) Active 25 MG day in the morning Vitamin D3 25 MCG Orally Once a 1 capsule 24h 30 day (s) Active (1000 UT) day Estring 2 MG as Active directed Estradiol Acetate as Active 0.05 MG/24HR directed Escitalopram Oxalate Orally Once a 1 tablet 24h 30 d ay(s) Active 20 MG day Levothyroxine Sodium Orally once a 1 tab(s) 24h Active 88 MCG day Lisinopril 20 MG Orally once a 1 tab(s) 24h Active day Levaquin 500 MG Orally Once a 1 tablet 24h 10 day(s) Active day Ibuprofen 200 mg orally every 6 1 tab(s) Active hours prn PROCEDURES Procedure Date Ordered Result Body Site CASTING/STRAPPING PROCEDURE Apr 24, 2017 ORTHOTIC,EA., FORMED TO FOOT Apr 24, 2017 RESULTS No Results REASON FOR VISIT 3 month f/u metatarsalgia hammertoes, referral done, Chart Update , record request , [place] on Right foot and one on Left, last seen by TAS on 06/19/17 for Orthotic dispense and corn care-KG, pt states that she is here for corn care. She believes there is a corns on both feet , orthotic dispense, Referral Done, pt is here for an orthotic dispense and a callus, orthotic dispense, Referral Done, appt scheduled in wrong office jenn , orthotic dispense, Orthotics are in, Orthotics Payment , foot pain referral done, Pt states has corns on both feet and states it is painful to walk, states would like orthotics , States has high arches , Updating Info Insurance Providers [facility] Health Member Patient Patient Patient Patient Patient Subscriber Subscriber Subscriber Group Insurance Plan Plan Plan Plan ID Relationship Address Phone Name Date of ID Name Date of No Type Insurance Insurance Insurance Coverage to Subscriber Address Phone Name Dates MEDICARE [address] MEDICARE self [place] [id number] [facility] [id number] SELF [address] SELF PAY self [place] [id number] [place] [id number] SELF PAY self [place] [id number] [place] [address] S[address] SELF PAY self [place] [id number] [place] [address] SELF PAY self [place] [id number] [place] [id number] MEDICARE MEDICARE [address] MEDICARE self [place] [id number] [facility] [id number] SEL[address] SELF PAY self [place] [id number] [place] [id number] [phone] self [place] [id number] [place] [id number] 0^MAIN [facility] [id number] SELF [address] SELF PAY self [place] [id number] [place] [id number] MED[phone] self [place] [id number] CENTER [id number] 0^MAIN [facility] [id number] [phone] self [place] [id number] [place] [id number] 0^MAIN [facility] [id number] SELF [address] SELF PAY self [place] [id number] [place] [address] INSURANCE S-MEDICAID EDS [id number] S-MEDICAID self [place] [id number] [facility] [id number] MEDICARE 3000 [address] MEDICARE self [place] [id number] [facility] [id number] SELF [address] SELF PAY self [place] [id number] GENERAL LOWE [facility] [id number] SELF PAY self [place] [id number] OTHER LOWE [facility] [id number]
[2022-04-04 18:31] LABS: Bilirubin Negative (Negative); Blood Trace-intact (Negative); Clarity Cloudy (Clear); Glucose Negative (Negative); Ketones Trace mg/dL (Negative); Leukocyte Esterase Large (Negative); Nitrite Positive (Negative); Specific Gravity >= 1.030 (1.005-1.025); Urobilinogen 0.2 EU/dL (Up TO 0.2); pH 6.5 (5-8)
[2022-04-04 18:38] LABS: Bacteria Many HPF (Negative); C & S Indicated? Yes; Crystals Few Calcium Oxalate HPF (Negative); Epithelial Cells Rare HPF (Negative); Mucus Negative (Negative); Other Cells Rare Renal (Negative); RBC 0-2 HPF (0-2); WBC >50 HPF (0-5)
== END 2022-04-04 15:36 | disposition home or self-care (01) ==
LOC: LBN 15:35
PROVIDERS: PCP Family Medicine; Visit Provider Student in an Organized Health Care Education/Training Program
DX: N39.0 Urinary tract infection, site not specified (principal)
CPT/HCPCS: 87077; 81003; 81015; 87086; 87186

== ENCOUNTER 2022-05-06 13:06 | Outpatient (REF) | payer MEDICARE, OTHER, SELFPAY ==
[2022-05-06 13:50] LABS: Bilirubin Negative (Negative); Blood Negative (Negative); Clarity Cloudy (Clear); Glucose Negative (Negative); Ketones Negative (Negative); Leukocyte Esterase Moderate (Negative); Nitrite Negative (Negative); Urobilinogen 0.2 EU/dL (Up TO 0.2)
[2022-05-06 14:08] LABS: Bacteria Many HPF (Negative); C & S Indicated? Yes; Casts Negative LPF (Negative); Crystals Negative HPF (Negative); Epithelial Cells Few HPF (Negative); Mucus Negative (Negative); RBC 0-2 HPF (0-2); WBC 20-50 HPF (0-5)
== END 2022-05-06 13:07 | disposition home or self-care (01) ==
LOC: LBN 13:06
PROVIDERS: PCP Family Medicine; Visit Provider Nurse Practitioner Family
DX: M54.9 Dorsalgia, unspecified (principal)
CPT/HCPCS: 81003; 81015; 87086

== ENCOUNTER 2022-05-29 00:10 | Outpatient (REF) | payer MEDICARE, OTHER, SELFPAY ==
[2022-05-29 01:39] LABS: Bilirubin Small (Negative); Blood Large (Negative); Clarity Cloudy (Clear); Glucose Negative (Negative); Ketones Trace mg/dL (Negative); Leukocyte Esterase Trace (Negative); Nitrite Negative (Negative); Specific Gravity >= 1.030 (1.005-1.025); Urobilinogen 0.2 EU/dL (Up TO 0.2); pH 6.5 (5-8)
[2022-05-29 01:44] LABS: Bacteria Many HPF (Negative); C & S Indicated? C&S Done As Ordered
[2022-05-29 01:45] LABS: WBC >50 HPF (0-5)
== END 2022-05-29 00:11 | disposition home or self-care (01) ==
LOC: LBN 00:10
PROVIDERS: PCP Family Medicine; Visit Provider Nurse Practitioner
DX: N39.0 Urinary tract infection, site not specified (principal)
CPT/HCPCS: 81003; 81015; 87086

== ENCOUNTER 2022-07-17 13:13 | Outpatient (REF) | payer MEDICARE, OTHER, SELFPAY ==
[2022-07-17 13:54] LABS: Bilirubin Negative (Negative); Blood Small (Negative); Clarity Cloudy (Clear); Glucose Negative (Negative); Ketones Negative (Negative); Leukocyte Esterase Large (Negative); Nitrite Negative (Negative); Specific Gravity 1.025 (1.005-1.025); Urobilinogen 0.2 mg/dL (Up to 0.2)
[2022-07-17 14:00] LABS: C & S Indicated? C&S Done As Ordered; WBC >50 HPF (0-5)
== END 2022-07-17 13:14 | disposition home or self-care (01) ==
LOC: LBN 13:13
PROVIDERS: PCP Family Medicine; Visit Provider Family Medicine
DX: R35.0 Frequency of micturition (principal)
CPT/HCPCS: 81003; 81015; 87086

== ENCOUNTER 2022-08-14 13:22 | Outpatient (REF) | payer MEDICARE, OTHER, SELFPAY ==
[2022-08-14 15:50] LABS: TSH 15.72 uIU/mL (0.36-3.74)
== END 2022-08-14 13:23 | disposition home or self-care (01) ==
LOC: LBN 13:22
PROVIDERS: PCP Family Medicine; Visit Provider Family Medicine
DX: E03.9 Hypothyroidism, unspecified (principal); R63.4 Abnormal weight loss
CPT/HCPCS: 84443

== ENCOUNTER 2022-10-23 14:07 | Outpatient (REF) | payer MEDICARE, OTHER, SELFPAY ==
[2022-10-23 14:41] LABS: TSH (W/Ref FT4) 3.18 uIU/mL (0.36-3.74)
== END 2022-10-23 14:08 | disposition home or self-care (01) ==
LOC: LBN 14:07
PROVIDERS: PCP Family Medicine; Visit Provider Family Medicine
DX: E03.9 Hypothyroidism, unspecified (principal)
CPT/HCPCS: 84443

== ENCOUNTER 2023-03-29 10:03 | Inpatient (IN) | payer OTHER, SELFPAY ==
[2023-03-29 10:37] VITALS: BP 122/72; PULSE 74; RESP 18; TEMP 36.4; O2SAT 99
[2023-03-29 11:01] VITALS: BP 122/71; PULSE 75; RESP 18; TEMP 36.4; O2SAT 99
[2023-03-29 12:27] LABS: Influenza A PCR Negative (Negative); Influenza B PCR Negative (Negative); RSV PCR Negative (Negative)
[2023-03-29 12:35] LABS: COVID-19 PCR Positive (Negative); Source Nasopharynx
--- NOTE | 2023-03-29 14:22 | CMPROGNOTE_ITS ---
Date of service: 03/29/23 Time of Service: 14:22 Care Management Progress Note Progress Note Text Progress Note Text: Per Dr. Cardoso, Gisela is admitted to [facility] under Hospice benefit for respite care, while her daughter is away, daughter not agreeable to alternate setting for respite. Anticipate Gisela will return home with resumption of supports when respite stay is complete.
--- NOTE | 2023-03-29 17:52 | W.PM.HP.N ---
Date of service: 03/29/23 Time of Service: 11:00 Assessment and Plan Assessment and plan (1) COVID: Status: Acute Assessment and plan: [place] finding, given negative tests done at home, per daughter's report. Room was moved to negative pressure. Breathing wnl at this time. Explained to daughter that Linda may decompensate. If she does, will change her status to symptom management. FOR NOW, she is being admitted as a HOSPICE RESPITE patient with an expected discharge of Tuesday 04/03. (2) Unintentional weight loss: Status: Acute Assessment and plan: Part of her dementia. Progressive despite daughter feeding her and giving supplements regularly. (3) Unsteady gait: Status: Acute Assessment and plan: Cannot use walker any more. Doesn't understand how to use it. Can walk a few step, mostly just stand/pivot with 1-2 person assist. For now, would avoid any amublation given her illness. (4) Dysphagia: Status: Acute Assessment and plan: On specialized diet. Limit any supplements/OTC pills due to risk of choking. (5) Hospice care patient: Status: Acute Assessment and plan: On respite for now. Provider will come in to evaluate if med surg nurses concerned. Otherwise, next visit will be on day of discharge. Plan is to discharge back to her daughter's home where she lives. Zhanna did not express any desire for change in living situation for her mother. 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 Zhanna thought she had the flu. She said that she had tested her mother for COVID at home but she was negative. Linda had recently had a course of amoxicillin for a presumed dental infection. She is on hospice for mixed vascular and Alzheimer's dementia. She cannot walk on her own. She speaks, but usually in a word salad. She is only oriented to herself. She needs help with all ADLs. She's incontinent of urine and usually stool. She cannot walk without assistance. She has a small pressure ulcer on her buttock. She fell about 18 months ago and broke her hip. She was never able to recover to baseline. A few months after her fracture, she came on hospice. She has been losing weight steadily. She eats a softened diet. She needs hand feeding. Linda did not seem acutely ill when she came in to the hospital. We screened her routinely for flu/rsv/covid, and were surprised to learn she had COVID. She was not coughing. She was not febrile. She did not have a runny nose. She was not acutely ill. She did have notable injection of her left eye only. Review of Systems Unobtainable due to mental condition (cannot give a history due to dementia. 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 History of recurrent UTIs (Chronic) urologist Dr Cotter in [facility] Kyphosis (Chronic) more pronounced since 2020 Health care proxy on file (Acute) Stress due to family tension (Chronic) complicated blended family Goals of care, counseling/discussion (Chronic) 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) Requires continuous supervision for activities of daily living (ADL) (Chronic) needs to have someone with her does better with 24/7 company Urinary and bowel incontinence (Chronic) bowel is rare but urine is daily explained this is normal for dementia and will get worse over time Wandering (Chronic) Vascular dementia with paranoia (Chronic) paranoia improving 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) Anxiety (Chronic) Constipation by delayed colonic transit (Acute) Fatigue associated with anemia (Acute) Dementia (Chronic) Blurring of visual image (Acute) Vaginal atrophy (Acute) Dysuria (Acute) Dementia (Chronic) Brain atrophy (Chronic) will not have any further brain imaging Migraine (Chronic) Ischemic vascular disease (Chronic) Chronic fatigue (Chronic) Depression (Chronic 08/23/15) Essential hypertension (Chronic) Hypothyroidism (Chronic 08/23/15) Seasonal affective disorder (Chronic) Tobacco use disorder (Chronic 08/23/15) has cut back to about 10 per day Vitamin D deficiency (Chronic) Medical History (Updated 03/29/23 @ 17:59 by Pauline Cardoso MD) Palliative care patient Osteopenia Cervical cancer Hypertension Tobacco use restarted tobacco 2015. Hypothyroidism Surgical History Closed displaced fracture of left femoral neck (03/09/22) S/P hemiarthroplasty: 03/09/2022 Cataract extraction status, right eye (~01/2018) [facility] Cataract extraction status, left eye (~01/2018) [facility] Vaginal hysterectomy Family History Mother , age 66 from pneumonia, s/p mastectomy for breast cancer Breast cancer Pneumonia Father , age 62 from emphysema, heavy smoker Emphysema lung Smoker Sister , age 68 from leukemia Leukemia Brother No problems noted. Son No problems noted. Son No problems noted. Daughter Twin Daughter Twin Depression Anxiety [place] [employer] Social History (Updated 03/29/23 @ 18:07 by Pauline Cardoso MD) Smoking/Tobacco Use Status: Former Tobacco Use Tobacco: How many years used: 60 Second Hand Exposure: Yes Smoking risk assessment performed?: Yes Alcohol Intake: former Drug use: Never Substance use type: does not use Caregiver/Support person: Yes (moved in with daughter Zhanna November 2020) Household members: children Housing: apartment Number of Children: 4 number of grandchildren: 6 Communication Needs: Hard of Hearing and Corrective Lenses Education Level: high school Do you need help understanding health information?: Always current occupation: retired caregiver for elderly and disabled people Pets and animals: No Do you think of yourself as: straight/heterosexual Current gender identity: female What is your relationship status?: How often do you talk on the phone with friends or family?: never How often do you get together with friends or relatives?: once per week Panel score (0-1 are the most socially isolated patients): 0 What type of physical activity do you participate in: sedentary lifestyle Duration: < 15 minutes/day Special neema needs: No Agree to transfusion: No Seatbelt use: always Working smoke detector in home: Yes Fire extinguisher in home: Yes Firearms in home: No Do you feel safe at home: Yes Do you feel safe in your relationship?: Yes Additional Social history: to second , Wily, since 1978. Not living with him since November 2020. Moved in with daughter in November 2020. Came on hospice end of 2021. She does have persistent urinary and frequent fecal incontinence. She is losing weight. Daughters Sophie and Zhanna involved in Yovana's care. Historically, Yovana had been very paranoid and suspicious of any medical intervention. Family house sold in November 2020; after sale, Yovana was initially in community [facility] and then moved in with Zhanna after about one week. Zhanna and Sophie share medical guardianship; daughter Sophie has financial guardianship. A lot of distrust and stress in family. No contact with spouse. Zhanna sick in March 2023; this is Linda's first respite stay. Meds Allergies and Home Medications Allergies Allergy/AdvReac Type Severity Reaction Status Date / Time quetiapine Allergy Unknown Other (See Unverified 03/13/22 10:21 Comment) bupropion [From Wellbutrin] AdvReac Intermediate Palpitation Verified 05/04/19 13:58 s memantine [From Namenda] AdvReac Nausea Verified 05/04/19 13:58 Home Medications Medication Instructions Recorded Confirmed Type Lactobacillus acidophilus 1,000 mmu cells PO DAILY 03/10/22 03/10/22 History cranberry extract 200 mg capsule 200 mg PO DAILY 03/10/22 03/10/22 History d-mannose 500 mg capsule 500 mg PO DAILY 03/10/22 03/10/22 History acetaminophen 500 mg tablet 1,000 mg (2 x 500 mg) PO TID #0 03/17/22 03/26/22 Rx tabs clonidine HCl 0.1 mg tablet 0.1 mg PO DAILY PRN PRN sustained 03/17/22 Rx hypertension #0 tabs docusate sodium 100 mg capsule 100 mg PO BID #0 caps 03/17/22 Rx (Colace) levothyroxine 88 mcg tablet 88 mcg PO DAILY@0700 #0 tabs 03/17/22 Rx lidocaine 5 % topical patch 1 patch topical Q24H #0 ea 03/17/22 Rx lisinopril 5 mg tablet 5 mg PO HS #0 tabs 03/17/22 03/10/22 Rx polyethylene glycol 3350 17 gram 17 g PO BID #0 ea 03/17/22 Rx oral powder packet morphine concentrate 100 mg/5 mL See Rx Instructions PO Q1H PRN #30 03/27/22 Rx (20 mg/mL) oral solution mL citalopram 10 mg/5 mL oral solution 10 mg (5 mL) PO DAILY #240 mL 11/21/22 Rx alprazolam 0.25 mg tablet (Xanax) 0.25 mg PO DAILY #3 tabs 02/05/23 Rx ipratropium 0.5 mg-albuterol 3 mg 3 ml inhalation Q6H PRN wheezing 03/05/23 Rx (2.5 mg base)/3 mL nebulization #90 mL soln amoxicillin 500 mg tablet 500 mg PO QID #28 tabs 03/19/23 Rx Exam Narrative Exam Narrative: Elderly slender woman, looks as if she has lost more weight since my last visit with her, NAD. vs rr 18 99% on RA normal BP and pulse, reviewed Eyes Left eye injected, red, some discharge, not obviously purulent but just cleaned up prior to my exam heent lips chapped, has dental implants, no sign of dental infection neck no lad or jvd lungs distant but ctab, no increased wob heart regular, no murmur noted abd slender, soft, no masses +bs wnl ext some clubbing of fingernails, no cyanosis or edema skin no obvious rashes, one small stage 1 ulcer on buttock psych gets agitated with personal care, swabbing of her nares, if left alone, calm, no agitation, accepted hand feeding from me neuro oriented to name only, most of what she says makes no sense, out of context, word salad, sometimes uses thank you, etc correctly gu no conde in place, likely to pull it out, only insert if necessary Results Labs Labs: Laboratory Results - last 24 hr 03/29/23 11:30 COVID-19 Source Nasopharynx SARS-CoV-2 (PCR) Positive A Influenza Type A (PCR) Negative Influenza Type B (PCR) Negative RSV (PCR) Negative Last Vital Signs Temp 97.5 F L 03/29/23 11:01 Pulse 75 03/29/23 11:01 Resp 18 03/29/23 11:01 BP 122/71 03/29/23 11:01 Pulse Ox 99 03/29/23 11:01 Time Spent Time spent with Patient: 40-54 minutes Time was spent: preparing to see the patient(eg.review tests), ordering medications,tests, procedures, referring, communicating with other health career development director, indepentently interpreting results, counseling the patient (patient's daughter ) and care coordination
[2023-03-29] MEDS: MORPHine Oral Concentrate 20 MG/ML PO (21:08)
[2023-03-29] MEDS: Erythromycin Ophth Oint 3.5 GM TUBE OS (21:10)
[2023-03-30] VITALS: BP 114/58; PULSE 74; RESP 24; TEMP 37.2; O2SAT 97
[2023-03-30] MEDS: MORPHine Oral Concentrate 20 MG/ML PO ×2 (00:10→20:35)
[2023-03-30] MEDS: Erythromycin Ophth Oint 3.5 GM TUBE OS ×2 (07:05→20:34)
[2023-03-30 08:55] VITALS: PULSE 110; RESP 16; TEMP 37.6; O2SAT 93
--- NOTE | 2023-03-30 10:11 | PDOC.CMPRO ---
Date of service: 03/30/23 Time of Service: 10:12 Care Management Progress Note Progress Note Text Progress Note Text: S/O: Linda is on covid restrictions, therefore CM did not meet with her in person. Per report, covid was an incidental finding, and she is not symptomatic at this time. If she becomes symptomatic, she may transition to hospice symptom management, but at this time she is admitted for hospice respite, with an anticipated discharge of 04/03/23. Linda requires total care, as she is bed bound, incontinent, and needs support to eat. CM will continue to follow. A: Gisela is a 77 year old female admitted to [facility] on 03/29/23 for hospice respite. P: Per Dr. Cardoso, Gisela is admitted to [facility] under Hospice benefit for respite care, while her daughter is sick, daughter not agreeable to alternate setting for respite. Anticipate Gisela will return home with resumption of supports when respite stay is complete.
[2023-03-30 12:27] VITALS: TEMP 37.7
[2023-03-30] MEDS: Normal Saline 500 ML 15 ML IV (14:35)
[2023-03-30] MEDS: Normal Saline Flush 10 ML SYR IVP (14:36)
[2023-03-30 15:51] VITALS: TEMP 37.4
[2023-03-30] MEDS: Senna TAB PO (20:34)
[2023-03-30] MEDS: Polyethylene Glycol 3350 17 GM PACKET PO (20:35)
[2023-03-31] VITALS (8 sets, daily range): BP systolic 113; BP diastolic 75; PULSE 71–77; RESP 10; TEMP 36.5; O2SAT 66–94
[2023-03-31] MEDS: Acetaminophen Solution 650 MG/20.3 ML CUP PO (00:05)
[2023-03-31] MEDS: Normal Saline Flush 10 ML SYR IVP (01:24)
[2023-03-31] MEDS: MORPHine Oral Concentrate 20 MG/ML PO ×2 (01:26→03:30)
[2023-03-31] MEDS: LORazepam 2 MG/ML VIAL 1 MG IVP (06:47)
[2023-03-31] MEDS: Scopolamine 1 MG/3 DAYS PATCH TD (06:48)
[2023-03-31] MEDS: Erythromycin Ophth Oint 3.5 GM TUBE OS ×2 (06:49→14:29)
[2023-03-31] MEDS: Glycopyrrolate 0.2 MG/1 ML VIAL 0.1 MG IVP ×2 (07:12→12:17)
[2023-03-31] MEDS: REMDESIVIR 200 MG in Normal Saline 250 ML 250 MG IVPB (08:33)
[2023-03-31] MEDS: MORPHine 2 MG/ML SYR 0.5 MG IVP ×4 (09:21→14:24)
--- NOTE | 2023-03-31 09:49 | PDOC.CMPRO ---
Date of service: 03/31/23 Time of Service: 09:49 Care Management Progress Note Progress Note Text Progress Note Text: S/O: Linda is on covid precautions, therefore CM did not meet with her in person today. Per report, Linda took a turn for the worse overnight, and became severely symptomatic. Her children are not in agreement with her plan of care; per report, today they all agreed that she should be DNR/DNI, but they are not agreeing on the treatment for their mother's symptoms of covid. Linda has been transitioned to hospice symptom management; has requested support from the hospitalist service. CM will continue to follow. A: Gisela is a 77 year old female admitted to [facility] on 03/29/23 for hospice respite. P: Per Dr. Cardoso, Gisela is admitted to [facility] under Hospice benefit for respite care, while her daughter is sick, daughter not agreeable to alternate setting for respite. Anticipate Gisela will return home with resumption of supports when respite stay is complete.
--- NOTE | 2023-03-31 13:37 | PGE_ITS ---
Date of Service Date of service: 03/31/23 Time of Service: 13:38 Subjective Subjective Interval history since last seen: I was asked by the patient's family and Dr Cardoso to help with clarifying her code status. This was before her 2020 COLST form was located. The patient's guardians want her to be DNR/DNI as the patient had previously herself verbalized when she was able to make the decision herself. The patient now has end-stage dementia and is on hospice respite care here at [facility]. She has symptomatic COVID-19. She is not able to verbalize her wishes. I feel comfortable signing a COLST form as a 2nd provider stating that CPR/intubation would be futile in this patient. The patient's original COLST form from 2020 has now been located confirming that she wanted to be DNR/DNI. Objective Last Vital Signs Temp 36.5 C 03/31/23 06:58 Pulse 71 03/31/23 06:58 Resp 10 L 03/31/23 09:17 BP 113/75 03/31/23 06:58 Pulse Ox 94 03/31/23 09:17 Time Spent with Patient Time Spent with Patient: <25 minutes Time was spent: referring, communicating with other health career resource specialist and care coordination
--- NOTE | 2023-03-31 14:13 | W.PM.PROGNOT ---
Date of Service Date of service: 03/31/23 Time of Service: 06:30 Assessment and Plan Assessment and plan (1) COVID: Status: Acute Assessment and plan: Became severely symptomatic early am of 03/31. Change to symptom management/GIP level of care as of 5 am 03/31/23. COVID IV antiviral, Remdesivir, cannot be given at home. Linda unable to take anything in by mouth, so she doesn't qualify for paxlovid. One daughter, Zhanna Burr, wants to treat Linda's COVID aggressively. Other daughter, Sophie Serrano, was out of town, not part of initial care decision. She did arrive later and advised that she would not have used anti-virals. Note that COVID is not part of her hospice diagnosis; this medication is not covered by hospice. (2) Dysphagia: Status: Acute Assessment and plan: Worsening before this admission. Takes liquid versions of med whenever possible. Not eating or drinking at this time due to severity of her viral illness. (3) Hospice care patient: Status: Acute Assessment and plan: Changed from respite to symptom management as of today. Given that COVID is not part of her hospice diagnosis, we may need to transfer her to hospitalist service. Awaiting review by hospice business quality assurance analyst. Until we hear from her, hospice will see daily and put in orders. (4) DNR (do not resuscitate): Status: Acute Assessment and plan: New COLST was done using futility clause. However, Advance Directives signed by Linda on 09/02/2017 were found in [facility] records and they clearly stated her desire to be DNR/DNI. (5) Stress due to family tension: Status: Chronic Assessment and plan: Sophie and Zhanna, Linda's two daughters, are co-DPOAs and co-guardians. They often do not agree on the path of care. Linda lives locally with Zhanna, however, and is always on scene to direct the direction of care. They did compromise enough to have their mother be DNR/DNI. Continue family support as needed. Two sons were also present today, and supported decision for DNR/DNI as well. 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 I spoke at length to Mariama, her night nurse, who said that she seemed stable at the beginning of her shift. She did medicate her with low dose morphine prior to moving/repositioning her as she was moaning and grimacing. Then, about 5 am, Linda appeared ashen. Her lips looked purple. She had hypoxia down to the 70s. The nurse put oxygen by nasal cannula on and called Lizet Gonzalez NP who was covering. Lizet called me about 6 am to let me know of Linda's change in status. I called Med-Surg to let them know I was coming in [facility]. Linda had a scopolamine patch in place. I gave a verbal order for her to have IV glycopyrollate. She was sounding quite wet. She had a low temp, down to 36/36.5 over 2 readings. Her oxygen sat on 2L was 85%. Her lips were no longer dusky but she was breathing unusually, blowing aid out between loose lips. I could hear oral secretions in her upper airway. I called Zhanna to give her an update on her mother. She asked that I start anti-virals for her mother. This is the second time Linda has had COVID; her first bout was very mild, nearly asymptomatic. Zhanna had expected this same course this time. However, Zhanna herself has been very sick with this strain. She was able to make it in today to sit with her mother but she said she could not have made it the day before. I was with the patient, her family, or staff caring for her from 6:30 until 8:30 and then again from 10:00 until 2 pm, for a total of 6 hrs of care, not including documentation time. Of note, we did have to fill out a new COLST form using futility, as we could not immediately find Linda's advance directives. Fortunately, the central office repairer supervisor was able to track them down from [facility]. They were signed clearly by Linda herself on September 02, 2017. They indicated her desire to be DNR/DNI. Exam Narrative Exam Narrative: Elderly slender woman, sitting upright in bed, minimally responsive, eyes open but glazed, unfocused vs rr 16 O2 sat ranged from low of 74% on RA to high of 95% on 10 L, most readings from 80-86%, on 5L Eyes Left eye injected, red, some discharge heent lips chapped, mucous membranes dry but not parched neck no lad or jvd lungs + rhonchi, + crackles, decreased air movement in all lung webster, increased WOB with use of intercostals heart hard to hear over lung sounds, seemed regular, no murmur noted abd slender, soft, no masses ext some clubbing of fingernails, no cyanosis or edema skin no obvious rashes, one small stage 1 ulcer on buttock psych gets agitated with personal care, swabbing of her nares, if left alone, calm, no agitation, accepted hand feeding from me neuro oriented to name only, most of what she says makes no sense, out of context, word salad, sometimes uses thank you, etc correctly gu no conde in place, likely to pull it out, only insert if necessary neuro minimally responsive, seems aware of family's presence psych not evidence of anxiety skin no new rashes Objective Last Vital Signs Temp 97.7 F 03/31/23 06:58 Pulse 71 03/31/23 06:58 Resp 10 L 03/31/23 09:17 BP 113/75 03/31/23 06:58 Pulse Ox 94 03/31/23 09:17 Time Spent with Patient Time Spent with Patient: >50 minutes Time was spent: preparing to see the patient(eg.review tests), obtaining and/or reviewing separately otained hiistory, ordering medications,tests, procedures, referring, communicating with other health career center advisor, indepentently interpreting results, counseling the patient (family) and care coordination
--- NOTE | 2023-03-31 16:32 | DSE_ITS ---
Date of service: 03/31/23 Time of Service: 16:30 DS: Diagnosis Discharge Diagnosis (1) COVID: Status: Acute Asessment and Plan: family opted for anti-virals spoke to hospitalist Dr Mayo, who will add dexamethasone on low dose morphine IV for respiratory distress (2) Dysphagia: Status: Acute Asessment and Plan: cannot take pills by mouth, even when well needs all liquid meds (3) Hospice care patient: Status: Acute Asessment and Plan: When/if she gets better, will be discharged back home on hospice. Her hospice admission is for advanced dementia; if she is in the hospital for symptom management, it must be for symptoms connected to her hospice diagnosis. Advised by hospice quality review that we must transfer her to hospitalist service. (4) DNR (do not resuscitate): Status: Acute Asessment and Plan: has new COLST as of 03/31/23, cosigned by me and Dr Mayo for futility, and also has advance directives from 09/02/17 stating her desire for dnr/dni (5) Stress due to family tension: Status: Chronic Asessment and Plan: Family does best with guided conversations. (6) Goals of care, counseling/discussion: Status: Chronic Asessment and Plan: Spent multiple hours with family and [facility] staff working out plans of care for Linda. See my note from earlier today. 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 Asessment and Plan: this is her primary hospice diagnosis will continue to follow her for this as needed while she is hospitalized and when she goes home Discharge Plan Disposition Patient Disposition: Admit to [facility] Condition: Poor Discharge Details Reason For Visit: COVID.Symptomatic Admit Date/Time: 03/29/23 10:03 Admit Provider: Pauline Cardoso Attending Provider: Pauline Cardoso Primary Care Provider: Kike Rich Home Meds and New Rx's Prescriptions: New glycopyrrolate 0.2 mg/mL Solution 0.1 mg IVP Q4H PRN PRNQty: 50 0RF Rx Instructions: for inpatient ongoing use lorazepam 2 mg/mL Solution 1 mg IVP Q2H PRN PRNQty: 25 0RF Mouth Kote Aerosol,Lavelle 2 spray mucous membrane Q2H PRN PRN (Reason: Dryness) Qty: 1 0RF Rx Instructions: for inpatient care acetaminophen 650 mg/20.3 mL Solution 650 mg PO Q6H PRN PRNQty: 1015 0RF Rx Instructions: for ongoing inpatient (DME) Iv Access See Rx Instructions .ROUTE .MEDSUPPLY Qty: 1 1RF Rx Instructions: for ongoing care sodium chloride 0.9 % (flush) [BD PosiFlush Normal Saline 0.9] Syringe 10 ml IVP PRN PRNQty: 300 0RF polyethylene glycol 3350 17 gram Powder In Packet 17 g PO DAILY PRN PRN (Reason: Constipation) Qty: 14 0RF scopolamine base 1 mg over 3 days Patch 3 Day 1 mg transdermal Q72H Qty: 4 0RF Continued citalopram 10 mg/5 mL solution 10 mg PO DAILY Qty: 240 3RF Rx Instructions: 10 ml daily HOSPICE ipratropium-albuterol 0.5 mg-3 mg(2.5 mg base)/3 mL solution for nebulization 3 ml inhalation Q6H PRN (Reason: wheezing) Qty: 90 0RF Rx Instructions: hospice levothyroxine 88 mcg Tablet 88 mcg PO DAILY@0700 Qty: 0 0RF Discontinued morphine concentrate 100 mg/5 mL (20 mg/mL) solution See Rx Instructions PO Q1H PRN MDD 240 mg Qty: 30 0RF Rx Instructions: 0.25-1.0 ml orally every 1 hour, as needed; hospice alprazolam [Xanax] 0.25 mg tablet 0.25 mg PO DAILY Qty: 3 0RF Rx Instructions: take 1-2 half an hour before blood draw not hospice related amoxicillin 500 mg tablet 500 mg PO QID Qty: 28 0RF Lactobacillus acidophilus Capsule 1,000 mmu cells PO DAILY cranberry extract 200 mg Capsule 200 mg PO DAILY Rx Instructions: administer with a meal d-mannose 500 mg Capsule 500 mg PO DAILY clonidine HCl 0.1 mg Tablet 0.1 mg PO DAILY PRN PRN (Reason: sustained hypertension) Qty: 0 0RF polyethylene glycol 3350 17 gram Powder In Packet 17 g PO BID Qty: 0 0RF acetaminophen 500 mg Tablet 1,000 mg PO TID Qty: 0 0RF lidocaine 5 % Adhesive Patch,Medicated 1 patch topical Q24H Qty: 0 0RF docusate sodium [Colace] 100 mg Capsule 100 mg PO BID Qty: 0 0RF lisinopril 5 mg tablet 5 mg PO HS Qty: 0 0RF Patient Comments: TAKE ONE TABLET BY MOUTH EVERY DAY Discharge Instructions Activity:: Activity as Tolerated Equipment/Supplies:: No Equipment Needed Diet:: As Tolerated Discharge Orders Discharge Orders: Discharge Order (Routine); Ordered 03/31/23 Ordered By: Pauline Singh Ready Discharge Data Discharge Comment: being transferred from hospice to hospitalist serv DS: Summary Time Spent with Patient providing and/or coordinating discharge services: Greater than 30 minutes Status at Discharge Functional status at discharge: bed bound Overall status at discharge: patient is not back to baseline Mental Status: other Speech and Movement: mute and other Mood: other Affect: blunted Exam Narrative Exam Narrative: Elderly slender woman, sitting upright in bed, minimally responsive, eyes open but glazed, unfocused vs rr 16 O2 sat ranged from low of 74% on RA to high of 95% on 10 L, most readings from 80-86%, on 5L Eyes Left eye injected, red, some discharge heent lips chapped, mucous membranes dry but not parched neck no lad or jvd lungs + rhonchi, + crackles, decreased air movement in all lung webster, increased WOB with use of intercostals heart hard to hear over lung sounds, seemed regular, no murmur noted abd slender, soft, no masses ext some clubbing of fingernails, no cyanosis or edema skin no obvious rashes, one small stage 1 ulcer on buttock psych gets agitated with personal care, swabbing of her nares, if left alone, ca lm, no agitation, accepted hand feeding from me neuro oriented to name only, most of what she says makes no sense, out of context, word salad, sometimes uses thank you, etc correctly gu no conde in place, likely to pull it out, only insert if necessary neuro minimally responsive, seems aware of family's presence psych not evidence of anxiety skin no new rashes Psych Mental Status: other Speech and Movement: mute and other Mood: other Affect: blunted DS: Data Vitals/I&O Vitals and I&O: Vital Signs Temperature 97.7 F 03/31/23 06:58 Temperature Source Tympanic 03/31/23 06:58 Pulse 71 03/31/23 06:58 Pulse Rhythm Regular 03/31/23 15:25 Respiratory Rate 10 L 03/31/23 09:17 Respiratory Effort Normal, Non-Labored 03/31/23 15:25 Respiratory Depth Normal 03/31/23 15:25 Respiratory Pattern Normal 03/31/23 15:25 Blood Pressure 113/75 03/31/23 06:58 Pulse Oximetry 94 03/31/23 16:10 Oxygen Delivery Method OxyMask 03/31/23 16:10 Oxygen Flow Rate 4 03/31/23 16:10 Pain Level 4 03/31/23 15:25 Comment changed to face mask due to mouth breathing 03/31/23 07:15 Intake & Output 03/30/23 03/31/23 03/31/23 23:59 11:59 23:59 Intake Total 245 / 295 250 / 260 Balance 245 / 295 250 / 260 Intake: IV 5 / 5 250 / 260 Oral 240 / 290 Other: Urine Color Dark Dyan Urine Odor Strong Comment moderate amount of urine incontinent in brief Voiding Methods Diaper Incontinent PFSH All Active Problems COVID (Acute) Unintentional weight loss (Acute) Unsteady gait (Acute) Dysphagia (Acute) Depression (Chronic) Hospice care patient (Acute) Hx: UTI (urinary tract infection) (Acute) Abdominal pain (Acute) DNR (do not resuscitate) (Acute) POLST (Physician Orders for Life-Sustaining Treatment) (Acute) Encounter for hospice care discussion (Acute) Closed fracture of left hip (Acute) Acute UTI (Acute) Caregiver stress (Chronic) daughter Zhanna tearful, exhausted at 08/13 visit 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 History of recurrent UTIs (Chronic) urologist Dr Cotter in [facility] Kyphosis (Chronic) more pronounced since 2020 Health care proxy on file (Acute) Stress due to family tension (Chronic) Goals of care, counseling/discussion (Chronic) 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) Requires continuous supervision for activities of daily living (ADL) (Chronic) needs to have someone with her does better with 24/7 company Urinary and bowel incontinence (Chronic) bowel is rare but urine is daily explained this is normal for dementia and will get worse over time Wandering (Chronic) Vascular dementia with paranoia (Chronic) paranoia improving 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) Anxiety (Chronic) Constipation by delayed colonic transit (Acute) Fatigue associated with anemia (Acute) Dementia (Chronic) Blurring of visual image (Acute) Vaginal atrophy (Acute) Dysuria (Acute) Dementia (Chronic) Brain atrophy (Chronic) will not have any further brain imaging Migraine (Chronic) Ischemic vascular disease (Chronic) Chronic fatigue (Chronic) Depression (Chronic 08/23/15) Essential hypertension (Chronic) Hypothyroidism (Chronic 08/23/15) Seasonal affective disorder (Chronic) Vitamin D deficiency (Chronic) Medical History Tobacco use disorder (08/23/15) has cut back to about 10 per day Palliative care patient Osteopenia Cervical cancer Hypertension Tobacco use restarted tobacco 2015. Hypothyroidism Surgical History Closed displaced fracture of left femoral neck (03/09/22) S/P hemiarthroplasty: 03/09/2022 Cataract extraction status, right eye (~01/2018) [facility] Cataract extraction status, left eye (~01/2018) [facility] Vaginal hysterectomy Family History Mother , age 66 from pneumonia, s/p mastectomy for breast cancer Breast cancer Pneumonia Father , age 62 from emphysema, heavy smoker Emphysema lung Smoker Sister , age 68 from leukemia Leukemia Brother No problems noted. Son No problems noted. Son No problems noted. Daughter Twin Daughter Twin Depression Anxiety of armed forces Social History Smoking/Tobacco Use Status: Former Tobacco Use Tobacco: How many years used: 60 Second Hand Exposure: Yes Smoking risk assessment performed?: Yes Alcohol Intake: former Drug use: Never Substance use type: does not use Caregiver/Support person: Yes (moved in with daughter Zhanna November 2020) Household members: children Housing: apartment Number of Children: 4 number of grandchildren: 6 Communication Needs: Hard of Hearing and Corrective Lenses Education Level: high school Do you need help understanding health information?: Always current occupation: retired caregiver for elderly and disabled people Pets and animals: No Do you think of yourself as: straight/heterosexual Current gender identity: female What is your relationship status?: How often do you talk on the phone with friends or family?: never How often do you get together with friends or relatives?: once per week Panel score (0-1 are the most socially isolated patients): 0 What type of physical activity do you participate in: sedentary lifestyle Duration: < 15 minutes/day Special neema needs: No Agree to transfusion: No Seatbelt use: always Working smoke detector in home: Yes Fire extinguisher in home: Yes Firearms in home: No Do you feel safe at home: Yes Do you feel safe in your relationship?: Yes Additional Social history: to second , Wily, since 1978. Not living with him since November 2020. Moved in with daughter in November 2020. Came on hospice end of 2021. She does have persistent urinary and frequent fecal incontinence. She is losing weight. Daughters Sophie and Zhanna involved in Yovana's care. Historically, Yovana had been very paranoid and suspicious of any medical intervention. Family house sold in November 2020; after sale, Yovana was initially in community intermediate and then moved in with Zhanna after about one week. Zhanna and Sophie share medical guardianship; daughter Sophie has financial guardianship. A lot of distrust and stress in family. No contact with spouse. Zhanna sick in March 2023; this is Linda's first respite stay. Time Spent with Patient Time Spent with Patient: >85 minutes Time was spent: preparing to see the patient(eg.review tests), obtaining and/or reviewing separately otained hiistory, ordering medications,tests, procedures, referring, communicating with other health hospice care sales consultant, counseling the patient and care coordination
== END 2023-03-31 17:20 | disposition short-term general hospital (02) | DRG 178 ==
PROVIDERS: Admitting Provider Family Medicine; PCP Family Medicine; Visit Provider Family Medicine
DX: U07.1 COVID-19 (principal); F01.C2 Vascular dementia, severe, with psychotic disturbance; F02.C2 Dementia in other diseases classified elsewhere, severe, with psychotic disturbance; R63.4 Abnormal weight loss; R26.81 Unsteadiness on feet; R13.10 Dysphagia, unspecified; Z51.5 Encounter for palliative care; Z87.440 Personal history of urinary (tract) infections; R15.9 Full incontinence of feces; R32 Unspecified urinary incontinence; Z63.8 Other specified problems related to primary support group; Z66 Do not resuscitate; G30.1 Alzheimer's disease with late onset; F32.A Depression, unspecified; F40.00 Agoraphobia, unspecified; M40.209 Unspecified kyphosis, site unspecified; Z91.83 Wandering in diseases classified elsewhere; G31.9 Degenerative disease of nervous system, unspecified; E55.9 Vitamin D deficiency, unspecified; E03.9 Hypothyroidism, unspecified; I10 Essential (primary) hypertension; R53.82 Chronic fatigue, unspecified; F41.9 Anxiety disorder, unspecified; K59.01 Slow transit constipation; G43.909 Migraine, unspecified, not intractable, without status migrainosus; Z75.5 Holiday relief care
CPT/HCPCS: 00123; 87637; G0378; J0248; J2060; J2270

== ENCOUNTER 2023-03-31 17:06 | Inpatient (IN) | payer MEDICARE, OTHER, MEDICAID, SELFPAY ==
--- NOTE | 2023-03-31 17:09 | HPE_ITS ---
Date of service: 03/31/23 Time of Service: 17:09 Assessment and Plan Assessment and plan (1) COVID: Status: Acute Assessment and plan: Became severely symptomatic early am of 03/31. Change to symptom management/[facility] level of care as of 5 am 03/31/23. Family wishes for COVID treatment IV antiviral, Remdesivir, COVID is not part of her hospice diagnosis; this medication is not covered by hospice so she will be discharge from hospice and admitted to hospitalist services. She is unable to take anything in by mouth, so she doesn't qualify for paxlovid. (2) Dysphagia: Status: Acute Assessment and plan: Worsening before this admission. Takes liquid versions of med whenever possible. Not eating or drinking at this time due to severity of her viral illness. (3) Hospice care patient: Status: Acute Assessment and plan: Changed from respite to symptom management as of today. Given that COVID is not part of her hospice diagnosis, she is being discharged to hospitalist service. (4) DNR (do not resuscitate): Status: Acute Assessment and plan: New COLST was done using futility clause. However, Advance Directives signed by Linda on 09/02/2017 were found in [facility] records and they clearly stated her desire to be DNR/DNI. 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 discussed with Dr Mayo History of Present Illness History of Present Illness Chief Complaint: hypoxia, resp distress Narrative: This is a 77-year-old female patient on hospice services with a history of severe advanced dementia who was admitted to the hospital originally under respite care. She does have a family member positive for COVID and did develop respiratory symptoms testing positive today for COVID. Family would like her treated with remdesivir so she will be admitted to the hospitalist services under acute care status for this treatment. She will remain DNR/DNI and under comfort measures as previously placed by hospice. 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 Kyphosis (Chronic) more pronounced since 2020 Health care proxy on file (Acute) Stress due to family tension (Chronic) Goals of care, counseling/discussion (Chronic) 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) Requires continuous supervision for activities of daily living (ADL) (Chronic) needs to have someone with her does better with 24/ company Urinary and bowel incontinence (Chronic) bowel is rare but urine is daily explained this is normal for dementia and will get worse over time Wandering (Chronic) Vascular dementia with paranoia (Chronic) paranoia improving 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) Anxiety (Chronic) Constipation by delayed colonic transit (Acute) Fatigue associated with anemia (Acute) Dementia (Chronic) Blurring of visual image (Acute) Vaginal atrophy (Acute) Dysuria (Acute) Dementia (Chronic) Brain atrophy (Chronic) will not have any further brain imaging Migraine (Chronic) Ischemic vascular disease (Chronic) Chronic fatigue (Chronic) Depression (Chronic 08/23/15) Essential hypertension (Chronic) Hypothyroidism (Chronic 08/23/15) Seasonal affective disorder (Chronic) Vitamin D deficiency (Chronic) Medical History Tobacco use disorder (08/23/15) has cut back to about 10 per day Palliative care patient Osteopenia Cervical cancer Hypertension Tobacco use restarted tobacco 2015. Hypothyroidism Surgical History Closed displaced fracture of left femoral neck (03/09/22) S/P hemiarthroplasty: 03/09/2022 Cataract extraction status, right eye (~01/2018) [facility] Cataract extraction status, left eye (~01/2018) [facility] Vaginal hysterectomy Family History Mother , age 66 from pneumonia, s/p mastectomy for breast cancer Breast cancer Pneumonia Father , age 62 from emphysema, heavy smoker Emphysema lung Smoker Sister , age 68 from leukemia Leukemia Brother No problems noted. Son No problems noted. Son No problems noted. Daughter Twin Daughter Twin Depression Anxiety of armed forces Social History Smoking/Tobacco Use Status: Former Tobacco Use Tobacco: How many years used: 60 Second Hand Exposure: Yes Smoking risk assessment performed?: Yes Alcohol Intake: former Drug use: Never Substance use type: does not use Caregiver/Support person: Yes (moved in with daughter Zhanna November 2020) Household members: children Housing: apartment Number of Children: 4 number of grandchildren: 6 Communication Needs: Hard of Hearing and Corrective Lenses Education Level: high school Do you need help understanding health information?: Always current occupation: retired caregiver for elderly and disabled people Pets and animals: No Do you think of yourself as: straight/heterosexual Current gender identity: female What is your relationship status?: How often do you talk on the phone with friends or family?: never How often do you get together with friends or relatives?: once per week Panel score (0-1 are the most socially isolated patients): 0 What type of physical activity do you participate in: sedentary lifestyle Duration: < 15 minutes/day Special neema needs: No Agree to transfusion: No Seatbelt use: always Working smoke detector in home: Yes Fire extinguisher in home: Yes Firearms in home: No Do you feel safe at home: Yes Do you feel safe in your relationship?: Yes Additional Social history: to second , Wily, since 1978. Not living with him since November 2020. Moved in with daughter in November 2020. Came on hospice end of 2021. She does have persistent urinary and frequent fecal incontinence. She is losing weight. Daughters Sophie and Zhanna involved in Yovana's care. Historically, Yovana had been very paranoid and suspicious of any medical intervention. Family house sold in November 2020; after sale, Yovana was initially in community half-way and then moved in with Zhanna after about one week. Zhanna and Sophie share medical guardianship; daughter Sophie has financial guardianship. A lot of distrust and stress in family. No contact with spouse. Zhanna sick in March 2023; this is Linda's first respite stay. Meds Allergies and Home Medications Allergies Allergy/AdvReac Type Severity Reaction Status Date / Time quetiapine Allergy Unknown Other (See Unverified 03/13/22 10:21 Comment) bupropion [From Wellbutrin] AdvReac Intermediate Palpitation Verified 05/04/19 13:58 s memantine [From Namenda] AdvReac Nausea Verified 05/04/19 13:58 Home Medications Medication Instructions Recorded Confirmed Type levothyroxine 88 mcg tablet 88 mcg PO DAILY@0700 #0 tabs 03/17/22 Rx citalopram 10 mg/5 mL oral solution 10 mg (5 mL) PO DAILY #240 mL 11/21/22 Rx ipratropium 0.5 mg-albuterol 3 mg 3 ml inhalation Q6H PRN wheezing 03/05/23 Rx (2.5 mg base)/3 mL nebulization #90 mL soln IV Access #1 ea 03/31/23 Rx acetaminophen 650 mg/20.3 mL oral 650 mg (20.3 mL) PO Q6H PRN PRN 03/31/23 Rx solution #1,015 mL artificial saliva (yerba brigida and 2 spray mucous membrane Q2H PRN 03/31/23 Rx lytes) spray (Mouth [place]) PRN Dryness #1 ea glycopyrrolate 0.2 mg/mL injection 0.1 mg (0.5 mL) IVP Q4H PRN PRN 03/31/23 Rx solution #50 mL lorazepam 2 mg/mL injection 1 mg (0.5 mL) IVP Q2H PRN PRN #25 03/31/23 Rx solution mL polyethylene glycol 3350 17 gram 17 g PO DAILY PRN PRN Constipation 03/31/23 Rx oral powder packet #14 ea scopolamine base 1 mg over 3 days 1 mg transdermal Q72H #4 ea 03/31/23 Rx transdermal patch sodium chloride 0.9 % (flush) (BD 10 ml IVP PRN PRN #300 mL 03/31/23 Rx PosiFlush Normal Saline 0.9 % injection syringe) Exam Narrative Exam Narrative: patient lying on bed with simple mask on face in no acute distress. her eyes are closed. respiration even and unlabored. Const General: comfortable and no acute distress Nutritional Appearance: average body habitus HENMT Head: normal to inspection and atraumatic Resp Effort & Inspection: normal respiratory effort (even and unlabored. ) Time Spent Time spent with Patient: 40-54 minutes Time was spent: preparing to see the patient(eg.review tests), ordering medications,tests, procedures and referring, communicating with other health health care aide
[2023-03-31 19:20] VITALS: PULSE 66; RESP 12; TEMP 38.8; O2SAT 93
[2023-03-31 21:05] VITALS: TEMP 38.5
[2023-03-31] MEDS: Acetaminophen 650 MG SUPP PR (21:05)
[2023-03-31 22:05] VITALS: TEMP 38.3
[2023-03-31] MEDS: LORazepam 2 MG/ML VIAL 1 MG IVP (22:30)
[2023-03-31] MEDS: Glycopyrrolate 0.2 MG/1 ML VIAL 0.1 MG IVP (23:55)
[2023-04-01] VITALS (7 sets, daily range): PULSE 63–89; RESP 10–18; TEMP 36.8–38; O2SAT 92–93
[2023-04-01] MEDS: LORazepam 2 MG/ML VIAL 1 MG IVP ×2 (01:11→17:28)
--- NOTE | 2023-04-01 08:00 | NUR.NOTE ---
Daughter Sophie is refusing to let this nurse reposition, give meds to, assess pt this morning. Pt looks comfortable at this time, w/Morphine infusing at 3ml/hr. This nurse is asking Reyna browne to come and speak with daughter, Sophie, as she is tearful each time this nurse comes into the room. Charge nurse aware of refusal to treat.
--- NOTE | 2023-04-01 09:58 | INITIAL_ITS ---
Date of service: 04/01/23 Time of Service: 09:58 Care Management Initial Assmt Initial Assessment REASON FOR HOSPITALIZATION:: Covid PREVIOUS FUNCTIONAL STATUS/SOCIAL/FAMILY SUPPORTS:: Linda lives in [facility] with her daughter, Zhanna. She has another daughter, Sophie, and two sons. Zhanna and Sophie are co-guardians for their mother. Linda has advanced dementia, and has been on hospice for this diagnosis for about a year. She was at [facility] for hospice respite, then was transitioned to symptom management, then she changed to the hospitalist service, as the family is wanting treatment for covid. CURRENT FUNCTIONAL STATUS:: Linda is on covid precautions, therefore CM will not see her in person today. She is being treated for covid with remdesivir, although per report, she is not eating or drinking at this time. Her two d aughters are disagreeing about the remdesivir; today Sophie declined the treatment. Zhanna arrived later in the afternoon, and expressed understanding about her mother not receiving the treatment, as her mother does not appear to be improving. She will remain on comfort measures, with comfort focused care. She is a DNR/DNI; a new COLST was completed yesterday on the basis of medical non- benefit (futility), signed by two MDs. Once she is medically cleared, she will return home and resume hospice services vs remain at [facility] for end of life care. If she remains at [facility], she will transition to hospice symptom management. CM will continue to follow. ADVANCE DIRECTIVES:: COLST on file; completed yesterday on basis of medical non- benefit (futility), signed by two MDs. Has patient been provided with info about the portal/API?: Yes Did the patient sign up for the portal?: Yes CODE STATUS:: DNR/DNI INSURANCE COVERAGE / FINANCIAL ISSUES:: [employer] CURRENT HOME/COMMUNITY SERVICES/EQUIPMENT:: Linda was on hospice at home; requires full care due to advanced dementia. PRIMARY CARE PHYSICIAN:: Kike Rich POTENTIAL DISCHARGE NEEDS:: Coordinated return home with a resumption of hospice services; transportation. PATIENT/FAMILY EDUCATION NEEDS:: Review discharge instructions and limitations, discussion of self care needs including ask me three. ANTICIPATED BARRIERS TO DISCHARGE:: Family not agreeing with each other regarding plan for their mother. TRANSPORTATION:: Via [facility], coordinated by CM. PLAN:: Anticipate Linda will return home with a resumption of hospice support once medically cleared. She lives with her daughter, Zhanna, who is her primary caregiver. She will transport via [facility], coordinated by CM. If Linda continues to decline, she may remain at [facility] for end of life care. She will be followed by palliative/hospice, while in the hospital and when she returns to the community. CM will continue to follow. 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 History of recurrent UTIs (Chronic) urologist Dr Cotter in [facility] Kyphosis (Chronic) more pronounced since 2020 Health care proxy on file (Acute) Stress due to family tension (Chronic) Goals of care, counseling/discussion (Chronic) 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) Requires continuous supervision for activities of daily living (ADL) (Chronic) needs to have someone with her does better with 24/7 company Urinary and bowel incontinence (Chronic) bowel is rare but urine is daily explained this is normal for dementia and will get worse over time Wandering (Chronic) Vascular dementia with paranoia (Chronic) paranoia improving 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) Anxiety (Chronic) Constipation by delayed colonic transit (Acute) Fatigue associated with anemia (Acute) Dementia (Chronic) Blurring of visual image (Acute) Vaginal atrophy (Acute) Dysuria (Acute) Dementia (Chronic) Brain atrophy (Chronic) will not have any further brain imaging Migraine (Chronic) Ischemic vascular disease (Chronic) Chronic fatigue (Chronic) Depression (Chronic 08/23/15) Essential hypertension (Chronic) Hypothyroidism (Chronic 08/23/15) Seasonal affective disorder (Chronic) Vitamin D deficiency (Chronic) Medical History Tobacco use disorder (08/23/15) has cut back to about 10 per day Palliative care patient Osteopenia Cervical cancer Hypertension Tobacco use restarted tobacco 2015. Hypothyroidism Surgical History Closed displaced fracture of left femoral neck (03/09/22) S/P hemiarthroplasty: 03/09/2022 Cataract extraction status, right eye (~01/2018) [facility] Cataract extraction status, left eye (~01/2018) [facility] Vaginal hysterectomy Family History Mother , age 66 from pneumonia, s/p mastectomy for breast cancer Breast cancer Pneumonia Father , age 62 from emphysema, heavy smoker Emphysema lung Smoker Sister , age 68 from leukemia Leukemia Brother No problems noted. Son No problems noted. Son No problems noted. Daughter Twin Daughter Twin Depression Anxiety [employer] Social History Smoking/Tobacco Use Status: Former Tobacco Use Tobacco: How many years used: 60 Second Hand Exposure: Yes Smoking risk assessment performed?: Yes Alcohol Intake: former Drug use: Never Substance use type: does not use Caregiver/Support person: Yes (moved in with trinity Chao November 2020) Household members: children Housing: apartment Number of Children: 4 number of grandchildren: 6 Communication Needs: Hard of Hearing and Corrective Lenses Education Level: high school Do you need help understanding health information?: Always current occupation: retired caregiver for elderly and disabled people Pets and animals: No Do you think of yourself as: straight/heterosexual Current gender identity: female What is your relationship status?: How often do you talk on the phone with friends or family?: never How often do you get together with friends or relatives?: once per week Panel score (0-1 are the most socially isolated patients): 0 What type of physical activity do you participate in: sedentary lifestyle Duration: < 15 minutes/day Special neema needs: No Agree to transfusion: No Seatbelt use: always Working smoke detector in home: Yes Fire extinguisher in home: Yes Firearms in home: No Do you feel safe at home: Yes Do you feel safe in your relationship?: Yes Additional Social history: to second , Wily, since 1978. Not living with him since November 2020. Moved in with daughter in November 2020. Came on hospice end of 2021. She does have persistent urinary and frequent fecal incontinence. She is losing weight. Daughters Sophie and Zhanna involved in Yovana's care. Historically, Yovana had been very paranoid and suspicious of any medical intervention. Family house sold in November 2020; after sale, Yovana was initially [facility] home and then moved in with Zhanna after about one week. Zhanna and Sophie share medical guardianship; daughter Sophie has financial guardianship. A lot of distrust and stress in family. No contact with spouse. Zhanna sick in March 2023; this is Linda's first respite stay.
--- NOTE | 2023-04-01 12:27 | NUR.NOTE ---
Spoke w/Sophie (DPOA) and she stated that she did not want her mom to have an indwelling catheter or prescribed Remdesivir bc my mom is going to [place] soon. , charge nurse, Rosmery Newell from care management all made aware.
--- NOTE | 2023-04-01 14:19 | PHA.REVIEW2 ---
Pharmacy Admission Review Admission Clinical Review Admission Pharmacy Review: (Updated 04/01/23 @ 00:05 by ISAIAS BURTON) COVID (Acute) Dysphagia (Acute) Hospice care patient (Acute) DNR (do not resuscitate) (Acute) quetiapine Allergy (Unknown, Unverified 03/13/22 10:21) Other (See Comment) bupropion [From Wellbutrin] Adverse Reaction (Intermediate, Verified 05/04/19 13:58) Palpitations memantine [From Namenda] Adverse Reaction (Verified 05/04/19 13:58) Nausea Resuscitation Status DNR/DNI Comments Comments/Follow Ups: Patient in for hospice respite for advanced dimentia, discovered to be Covid positive, started Remdesivir loading dose 03/31/23, Morphine IV infusion started low dose for shortness of breath, respiratory disress, increased up to 3mg/hr currently over the course of 24 hours. Has dysphagia, so all meds liquid. Respite status changed to acute care for management of Covid treatment. Family undecided about further treatment of Covid, Remdesivir day#2 order is on hold/pending status at this time. Bag #2 of Morphine 1mg/ml; 100ml will be made for overnight coverage Pharmacy Admission Review Comments Comments/Follow Ups: Patient in for hospice respite for advanced dimentia, discovered to be Covid positive, started Remdesivir loading dose 03/31/23, Morphine IV infusion started low dose for shortness of breath, respiratory disress, increased up to 3mg/hr currently over the course of 24 hours. Has dysphagia, so all meds liquid. Respite status changed to acute care for management of Covid treatment. Family undecided about further treatment of Covid, Remdesivir day#2 order is on hold/pending status at this time. Bag #2 of Morphine 1mg/ml; 100ml will be made for overnight coverage
--- NOTE | 2023-04-01 15:24 | CHAPLAIN ---
I was asked by nursing staff to meet with Gisela's daughter Sophie. (Gisela has COVID so I have not visited in her room.) Sophie was tearful when we met. She said her mom is a saint who took care of special needs people, and she is very patient and kind. Sophie was realistic about her mom's , and explained that today is Gisela's dad's birthday and so would be a special day to Gisela. Sophie said she believes that Gisela is seeing God and her family members, and she's ready to go. Sophie said they would like to take her home. Sophie's twin sister, Zhanna, has been caring for Gisela for the past four years. Gisela is a hospice patient and was admitted her on a five-day hospice respite because Zhanna was sick and not well enough to care for Gisela. I was told that Zhanna was also COVID positive, but allowed to visit. Zhanna is telling staff now that she is not COVID positive or symptomatic and and wants to visit her mom. She was asked to leave and not return last night after being threatening to staff. Gisela is on comfort measures, but was changed from a hospice patient to a med/surg patient because family members requested that she be treated for hospice. Today I was told that family members refused the medication. Sophie asked the I contact Paul Dunlap for her and I did that. He reached out to Sophie.
--- NOTE | 2023-04-01 19:35 | PGE_ITS ---
Date of Service Date of service: 04/01/23 Time of Service: 19:35 Assessment and Plan Assessment and plan (1) COVID: Status: Acute Assessment and plan: Became severely symptomatic early am of 03/31. Change to symptom management/[facility] level of care as of 5 am 03/31/23. COVID is not part of her hospice diagnosis so remdesivir is not covered by hospice so she was discharged from hospice and admitted to hospitalist services. Now one guardian in disagreement with COVID treatment with IV antiviral, Remdesivir, and todays dose has not been given at request of this guardians, the other guardian is aware it is not being given. there is an ethics committee pending for tomorrow regarding whether to continue treatment or not with remdesivir. She is unable to take anything in by mouth, so she doesn't qualify for paxlovid. (2) Dysphagia: Status: Acute Assessment and plan: Worsening before this admission. Takes liquid versions of med whenever possible. Not eating or drinking at this time due to severity of her viral illness. (3) Hospice care patient: Status: Acute Assessment and plan: Changed from respite to symptom management as of today. Given that COVID is not part of her hospice diagnosis, she is being discharged to hospitalist service. (4) DNR (do not resuscitate): Status: Acute Assessment and plan: New COLST was done using futility clause. However, Advance Directives signed by Linda on 09/02/[address] [facility] r[facility] and they clearly stated her desire to be DNR/DNI. 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 discussed with Dr Werner Subjective Subjective Patient reports: no new complaints Interval history since last seen: patient appears to resting quietly, no prn medication required. no respiratory distress. not taking po Exam Const General: comfortable and no acute distress Nutritional Appearance: average body habitus HENMT Head: normal to inspection and atraumatic Resp Effort & Inspection: normal respiratory effort (even and unlabored. ) Objective Last Vital Signs Temp 36.8 C 04/01/23 19:16 Pulse 63 04/01/23 15:00 Resp 10 L 04/01/23 15:00 Pulse Ox 93 04/01/23 15:00 Time Spent with Patient Time Spent with Patient: <25 minutes Time was spent: referring, communicating with other health director day care center
[2023-04-02 09:49] VITALS: PULSE 65; TEMP 38; O2SAT 85
--- NOTE | 2023-04-02 10:17 | W.PM.DS.N ---
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 The patient remained remain DNR/DNI and under comfort measures as previously placed by hospice. The family has been refusing the treatment with Remdesevir and no doses were given. The patient will be discharge to hospice/ respite under Dr. Pauline Eddy?s care. Home Meds and New Rx's Prescriptions: Continued citalopram 10 mg/5 mL solution 10 mg PO DAILY Qty: 240 3RF Hold Instructions: npo Rx Instructions: 10 ml daily HOSPICE ipratropium-albuterol 0.5 mg-3 mg(2.5 mg base)/3 mL solution for nebulization 3 ml inhalation Q6H PRN (Reason: wheezing) Qty: 90 0RF Rx Instructions: hospice glycopyrrolate 0.2 mg/mL Solution 0.1 mg IVP Q4H PRN PRNQty: 50 0RF Rx Instructions: for inpatient ongoing use lorazepam 2 mg/mL Solution 1 mg IVP Q2H PRN PRNQty: 25 0RF Mouth Kote Aerosol,[place] 2 spray mucous membrane Q2H PRN PRN (Reason: Dryness) Qty: 1 0RF Rx Instructions: for inpatient care acetaminophen 650 mg/20.3 mL Solution 650 mg PO Q6H PRN PRNQty: 1015 0RF Hold Instructions: npo Rx Instructions: for ongoing inpatient (DME) Iv Access See Rx Instructions .ROUTE .MEDSUPPLY Qty: 1 1RF Rx Instructions: for ongoing care sodium chloride 0.9 % (flush) [BD PosiFlush Normal Saline 0.9] Syringe 10 ml IVP PRN PRNQty: 300 0RF polyethylene glycol 3350 17 gram Powder In Packet 17 g PO DAILY PRN PRN (Reason: Constipation) Qty: 14 0RF Hold Instructions: npo scopolamine base 1 mg over 3 days Patch 3 Day 1 mg transdermal Q72H Qty: 4 0RF levothyroxine 88 mcg Tablet 88 mcg PO DAILY@0700 Qty: 0 0RF Hold Instructions: npo Discharge Instructions Activity:: Activity as Tolerated Equipment/Supplies:: No Equipment Needed Diet:: As Tolerated Discharge Orders Discharge Orders: Discharge Order (Routine); Ordered 04/02/23 Ordered By: Katina Armenta Discharge Data Discharge Date/Time-TO BE ENTERED AT DEPARTURE: 04/02/23 13:42 DS: Summary Time Spent with Patient providing and/or coordinating discharge services: Greater than 30 minutes Status at Discharge Functional status at discharge: bed bound Overall status at discharge: patient is not back to baseline Mental Status: other Speech and Movement: other (not speaking) Mood: other Affect: other (patient is not verbal) Exam Narrative Exam Narrative: Constitutional The patient is lying in bed comfortable, not reponsive to voice or light touch, family at bedside The patient is well groomed without acute distress and is thin. HENMT: Head is atraumatic, normocephalic. Facial structures with normal appearance eyes closed. Eyes: Well aligned Neck: Normal ROM, no meningeal signs Neuro: No neurological focal deficit Chest:Chest is symmetrical and normal appearance Resp: Shallow respiratory pattern, unlabored breathing, clear- diminished lung bilaterally Cardio: regular rhythm, S1, S2, bilateral radial and dorsalis pedis pulses are positive, palpable GI: Abdomen is not distended, soft : no bladder distension Back/spine/Pelvis: normal alignment Integumentary: No skin lesions or rash Extremities: no cyanosis Psych: RASS 0,no pain as per family Psych Mental Status: other Speech and Movement: other (not speaking) Mood: other Affect: other (patient is not verbal) DS: Data Vitals/I&O Vitals and I&O: Vital Signs Temperature 38 C H 04/02/23 09:49 Temperature Source Tympanic 04/01/23 12:26 Pulse 65 04/02/23 09:49 Respiratory Rate 10 L 04/01/23 22:41 Pulse Oximetry 85 L 04/02/23 09:49 Oxygen Delivery Method Nasal Cannula 04/01/23 22:41 Oxygen Flow Rate 1 04/01/23 22:41 Intake & Output 04/01/23 04/01/23 04/02/23 11:59 23:59 11:59 Intake Total 21.95 / 21.95 61.9 / 61.9 Balance 21.95 / 21.95 61.9 / 61.9 Intake: IV 21.95 / 21.95 61.9 / 61.9 Other: Urine Color Straw Urine Appearance Clear Urine Odor None Comment pt incontinent of bowel/bladder. small amt of urine in brief. gudelia care performed. 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 History of recurrent UTIs (Chronic) urologist Dr Cotter in [facility] Kyphosis (Chronic) more pronounced since 2020 Health care proxy on file (Acute) Stress due to family tension (Chronic) Goals of care, counseling/discussion (Chronic) 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) Requires continuous supervision for activities of daily living (ADL) (Chronic) needs to have someone with her does better with 7 company Urinary and bowel incontinence (Chronic) bowel is rare but urine is daily explained this is normal for dementia and will get worse over time Wandering (Chronic) Vascular dementia with paranoia (Chronic) paranoia improving 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) Anxiety (Chronic) Constipation by delayed colonic transit (Acute) Fatigue associated with anemia (Acute) Dementia (Chronic) Blurring of visual image (Acute) Vaginal atrophy (Acute) Dysuria (Acute) Dementia (Chronic) Brain atrophy (Chronic) will not have any further brain imaging Migraine (Chronic) Ischemic vascular disease (Chronic) Chronic fatigue (Chronic) Depression (Chronic 08/23/15) Essential hypertension (Chronic) Hypothyroidism (Chronic 08/23/15) Seasonal affective disorder (Chronic) Vitamin D deficiency (Chronic) Medical History Tobacco use disorder (08/23/15) has cut back to about 10 per day Palliative care patient Osteopenia Cervical cancer Hypertension Tobacco use restarted tobacco 2015. Hypothyroidism Surgical History Closed displaced fracture of left femoral neck (03/09/22) S/P hemiarthroplasty: 03/09/2022 Cataract extraction status, right eye (~01/2018) [facility] Cataract extraction status, left eye (~01/2018) [facility] Vaginal hysterectomy Family History Mother , age 66 from pneumonia, s/p mastectomy for breast cancer Breast cancer Pneumonia Father , age 62 from emphysema, heavy smoker Emphysema lung Smoker Sister , age 68 from leukemia Leukemia Brother No problems noted. Son No problems noted. Son No problems noted. Daughter Twin Daughter Twin Depression Anxiety of armed forces Social History Smoking/Tobacco Use Status: Former Tobacco Use Tobacco: How many years used: 60 Second Hand Exposure: Yes Smoking risk assessment performed?: Yes Alcohol Intake: former Drug use: Never Substance use type: does not use Caregiver/Support person: Yes (moved in with daughter Zhanna November 2020) Household members: children Housing: apartment Number of Children: 4 number of grandchildren: 6 Communication Needs: Hard of Hearing and Corrective Lenses Education Level: high school Do you need help understanding health information?: Always current occupation: retired caregiver for elderly and disabled people Pets and animals: No Do you think of yourself as: straight/heterosexual Current gender identity: female What is your relationship status?: How often do you talk on the phone with friends or family?: never How often do you get together with friends or relatives?: once per week Panel score (0-1 are the most socially isolated patients): 0 What type of physical activity do you participate in: sedentary lifestyle Duration: < 15 minutes/day Special neema needs: No Agree to transfusion: No Seatbelt use: always Working smoke detector in home: Yes Fire extinguisher in home: Yes Firearms in home: No Do you feel safe at home: Yes Do you feel safe in your relationship?: Yes Additional Social history: to second , Wily, since 1978. Not living with him since November 2020. Moved in with daughter in November 2020. Came on hospice end of 2021. She does have persistent urinary and frequent fecal incontinence. She is losing weight. Daughters Sophie and Zhanna involved in Yovana's care. Historically, Yovana had been very paranoid and suspicious of any medical intervention. Family house sold in November 2020; after sale, [facility] and then moved in with Zhanna after about one week. Zhanna and Sophie share medical guardianship; daughter Sophie has financial guardianship. A lot of distrust and stress in family. No contact with spouse. Zhanna sick in March 2023; this is Linda's first respite stay. Time Spent with Patient Time Spent with Patient: 45-69 minutes Time was spent: preparing to see the patient(eg.review tests), ordering medications,tests, procedures, indepentently interpreting results, counseling the patient and care coordination
--- NOTE | 2023-04-02 11:53 | HPE_ITS ---
Date of service: 04/02/23 Time of Service: 11:53 Assessment and Plan Assessment and plan (1) COVID: Status: Acute Assessment and plan: Linda received only one dose of remsidevir. Family opted not to continue treatment. She is having episodes of apnea. Her oxygen sat is mid 80s on 2L. I suspect that she will sometime later today from COVID. (2) Hospice care patient: Status: Acute Assessment and plan: As she is not needing active managmeent of any symptoms, she doesn't qualify for a symptom management admission. She is her on hospice. Today counts as day #1 of this new admission. She can stay for 5 nights under this benefit. I expect she will before then. Hospice is available by phone 15/12. Phone number listed on her room's white board. Though not required, I will see her again tomorrow due to intensity of family needs. 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 Will be a contributing factor to her cause of . History of Present Illness History of Present Illness Chief Complaint: covid +, advanced mixed dementia, HOSPICE RESPITE Narrative: Linda was admitted to [facility] on hospice respite status on Thursday 03/29. Her daughter/caregiver, Zhanna Burr, asked for respite as she was too sick to care for her mother, Linda. She had a routine swab for covid/flu/rsv on admission. She was COVID + which was unexpected. Se did not look ill on admission She was afebrile, normal oxygenation and rr. She didn't require any change in treatment or new medications until the am of Saturday 03/31. About 5 am, She had become symptomatic with an ashen complexion and oxygen sats on RA into the mid-70s. Oxygen was started. I came in to see the patient at 06:30. Family at that time opted to have her treated with anti- virals. Throughout the morning, We worked on verifying her CODE status and goals of care. We found Advance Directives from 09/02/2017 signed by Linda herself that indicated her desire to be dnr/dni. Given the family's and my concern that she would receive CPR/Defibrillation, I filled out a new COLST form based on futility that was co-signed by Dr Mayo. For the record, we still have her 03/2022 COLST form that is acceptable given the pre-existing AD. At the end of the day on 03/31, hospice software quality engineer let me know that I could not continue caring for Linda for hospice symptom managment as JUANA was not part of her hospice diagnosis. She was transferred to hospitalist service. On Sunday 04/01, the family changed their mind and refused further anti-viral medication. She did not require medications to keep her comfortable. She did not have excess secretions, as she had had on 03/31. Her oxygen sats were in the low 90s on 2 L, down from 5 L. Today, 04/02, I was asked to see her again and transfer her back to hospice respite status. I saw her this am and she looked to be actively dying. She is having periods of apnea lasting 15-20 seconds or longer. Her oxygen sat is down to 83% on 2L. Her 4 children and one daughter in law are around her bed. They asked for the control area operator to come in and she did. Review of Systems Unobtainable due to mental status (minimally responsive, non verbal, eyes closed) PFSH All Active Problems COVID (Acute) Unintentional weight loss (Acute) Unsteady gait (Acute) Dysphagia (Acute) Depression (Chronic) Hospice care patient (Acute) Hx: UTI (urinary tract infection) (Acute) Abdominal pain (Acute) DNR (do not resuscitate) (Acute) POLST (Physician Orders for Life-Sustaining Treatment) (Acute) Encounter for hospice care discussion (Acute) Closed fracture of left hip (Acute) Acute UTI (Acute) Caregiver stress (Chronic) daughter Zhanna tearful, exhausted at 08/13 visit 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 History of recurrent UTIs (Chronic) urologist Dr Cotter in [facility] Kyphosis (Chronic) more pronounced since 2020 Health care proxy on file (Acute) Stress due to family tension (Chronic) Goals of care, counseling/discussion (Chronic) 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) Requires continuous supervision for activities of daily living (ADL) (Chronic) needs to have someone with her does better with 24/[employer] company Urinary and bowel incontinence (Chronic) bowel is rare but urine is daily explained this is normal for dementia and will get worse over time Wandering (Chronic) Vascular dementia with paranoia (Chronic) paranoia improving 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) Anxiety (Chronic) Constipation by delayed colonic transit (Acute) Fatigue associated with anemia (Acute) Dementia (Chronic) Blurring of visual image (Acute) Vaginal atrophy (Acute) Dysuria (Acute) Dementia (Chronic) Brain atrophy (Chronic) will not have any further brain imaging Migraine (Chronic) Ischemic vascular disease (Chronic) Chronic fatigue (Chronic) Depression (Chronic 08/23/15) Essential hypertension (Chronic) Hypothyroidism (Chronic 08/23/15) Seasonal affective disorder (Chronic) Vitamin D deficiency (Chronic) Medical History Tobacco use disorder (08/23/15) has cut back to about 10 per day Palliative care patient Osteopenia Cervical cancer Hypertension Tobacco use restarted tobacco 2015. Hypothyroidism Surgical History Closed displaced fracture of left femoral neck (03/09/22) S/P hemiarthroplasty: 03/09/2022 Cataract extraction status, right eye (~01/2018) [facility] Cataract extraction status, left eye (~01/2018) [facility] Vaginal hysterectomy Family History Mother , age 66 from pneumonia, s/p mastectomy for breast cancer Breast cancer Pneumonia Father , age 62 from emphysema, heavy smoker Emphysema lung Smoker Sister , age 68 from leukemia Leukemia Brother No problems noted. Son No problems noted. Son No problems noted. Daughter Twin Daughter Twin Depression Anxiety [place] [employer] Social History Smoking/Tobacco Use Status: Former Tobacco Use Tobacco: How many years used: 60 Second Hand Exposure: Yes Smoking risk assessment performed?: Yes Alcohol Intake: former Drug use: Never Substance use type: does not use Caregiver/Support person: Yes (moved in with daughter Zhanna November 2020) Household members: children Housing: apartment Number of Children: 4 number of grandchildren: 6 Communication Needs: Hard of Hearing and Corrective Lenses Education Level: high school Do you need help understanding health information?: Always current occupation: retired caregiver for elderly and disabled people Pets and animals: No Do you think of yourself as: straight/heterosexual Current gender identity: female What is your relationship status?: How often do you talk on the phone with friends or family?: never How often do you get together with friends or relatives?: once per week Panel score (0-1 are the most socially isolated patients): 0 What type of physical activity do you participate in: sedentary lifestyle Duration: < 15 minutes/day Special neema needs: No Agree to transfusion: No Seatbelt use: always Working smoke detector in home: Yes Fire extinguisher in home: Yes Firearms in home: No Do you feel safe at home: Yes Do you feel safe in your relationship?: Yes Additional Social history: to second , Wily, since 1978. Not living with him since November 2020. Moved in with daughter in November 2020. Came on hospice end of 2021. She does have persistent urinary and frequent fecal incontinence. She is losing weight. Daughters Sophie and Zhanna involved in Yovana's care. Historically, Yovana had been very paranoid and suspicious of any medical intervention. Family house sold in November 2020; after sale, [facility] and then moved in with Zhanna after about one week. Zhanna and Sophie share medical guardianship; daughter Sophie has financial guardianship. A lot of distrust and stress in family. No contact with spouse. Zhanna sick in March 2023; this is Linda's first respite stay. Meds Allergies and Home Medications Allergies Allergy/AdvReac Type Severity Reaction Status Date / Time quetiapine Allergy Unknown Other (See Unverified 03/13/22 10:21 Comment) bupropion [From Wellbutrin] AdvReac Intermediate Palpitation Verified 05/04/19 13:58 s memantine [From Namenda] AdvReac Nausea Verified 05/04/19 13:58 Home Medications Medication Instructions Recorded Confirmed Type levothyroxine 88 mcg tablet 88 mcg PO DAILY@0700 #0 tabs 03/17/22 04/01/23 Rx citalopram 10 mg/5 mL oral solution 10 mg (5 mL) PO DAILY #240 mL 11/21/22 04/01/23 Rx ipratropium 0.5 mg-albuterol 3 mg 3 ml inhalation Q6H PRN wheezing 03/05/23 04/01/23 Rx (2.5 mg base)/3 mL nebulization #90 mL soln IV Access #1 ea 03/31/23 04/01/23 Rx acetaminophen 650 mg/20.3 mL oral 650 mg (20.3 mL) PO Q6H PRN PRN 03/31/23 04/01/23 Rx solution #1,015 mL artificial saliva (yerba brigida and 2 spray mucous membrane Q2H PRN 03/31/23 04/01/23 Rx lytes) spray (Mouth Kote [place]) PRN Dryness #1 ea glycopyrrolate 0.2 mg/mL injection 0.1 mg (0.5 mL) IVP Q4H PRN PRN 03/31/23 04/01/23 Rx solution #50 mL lorazepam 2 mg/mL injection 1 mg (0.5 mL) IVP Q2H PRN PRN #25 03/31/23 04/01/23 Rx solution mL polyethylene glycol 3350 17 gram 17 g PO DAILY PRN PRN Constipation 03/31/23 04/01/23 Rx oral powder packet #14 ea scopolamine base 1 mg over 3 days 1 mg transdermal Q72H #4 ea 03/31/23 04/01/23 Rx transdermal patch sodium chloride 0.9 % (flush) (BD 10 ml IVP PRN PRN #300 mL 03/31/23 04/01/23 Rx PosiFlush Normal Saline 0.9 % injection syringe) Exam Narrative Exam Narrative: Elderly slender woman, minimally responsive, eyes closed vs rr 10 O2 sat 80-85%, on 2L Eyes closed, no discharge heent mmm neck no lad or jvd lungs decreased air movement in all lung webster heart regular, no murmur noted abd slender, soft, no masses ext no cyanosis or edema skin no obvious rashes, one small stage 1 ulcer on buttock psych minimally responsive neuro minimally responsive gu no conde in place, making very little urine Psych Mental Status: other Speech and Movement: mute and other Mood: other Affect: blunted Results Last Vital Signs Temp 100.4 F H 04/02/23 09:49 Pulse 65 04/02/23 09:49 Resp 10 L 04/01/23 22:41 Pulse Ox 85 L 04/02/23 09:49 Time Spent Time spent with Patient: 55-74 minutes Time was spent: preparing to see the patient(eg.review tests), obtaining and/or reviewing separately otained hiistory, ordering medications,tests, procedures, referring, communicating with other health home health aide caregiver, indepentently interpreting results, counseling the patient (family) and care coordination
== END 2023-04-02 13:42 | disposition short-term general hospital (02) | DRG 178 ==
PROVIDERS: Admitting Provider Internal Medicine; PCP Family Medicine; Visit Provider Internal Medicine
DX: U07.1 COVID-19 (principal); F01.C2 Vascular dementia, severe, with psychotic disturbance; F02.C2 Dementia in other diseases classified elsewhere, severe, with psychotic disturbance; F33.9 Major depressive disorder, recurrent, unspecified; R13.10 Dysphagia, unspecified; Z66 Do not resuscitate; G30.9 Alzheimer's disease, unspecified; R63.4 Abnormal weight loss; F40.00 Agoraphobia, unspecified; M40.209 Unspecified kyphosis, site unspecified; R32 Unspecified urinary incontinence; R15.9 Full incontinence of feces; Z91.83 Wandering in diseases classified elsewhere; K59.01 Slow transit constipation; F41.9 Anxiety disorder, unspecified; G43.909 Migraine, unspecified, not intractable, without status migrainosus; I10 Essential (primary) hypertension; E03.9 Hypothyroidism, unspecified; E55.9 Vitamin D deficiency, unspecified; Z87.891 Personal history of nicotine dependence
CPT/HCPCS: 00123; 99223; 99232; 99239; J2060; J2270

== ENCOUNTER 2023-04-02 13:48 | Inpatient (IN) | payer OTHER, SELFPAY ==
[2023-04-02 14:12] VITALS: TEMP 37.2
[2023-04-02] MEDS: LORazepam 2 MG/ML VIAL IV/SC ×2 (14:24→21:05)
--- NOTE | 2023-04-02 15:53 | CHAPLAIN ---
Linda is a hospice patient who was here for respite care, on comfort measures, then tested positive for COVID. Her twin daughters are her legal guardians. One daughter requested that Linda be treated for COVID so her care was transferred to the hospitalist's service as Linda couldn't remain on hospice and receive treatment for COVID, as that was not her hospice diagnosis, Dr. Pauline Cardoso, hospice director medical safety explained. Family members debated about treating Linda for COVID and eventually decided not to, and to return to comfort measures. So Linda is now back on hospice. Her four children were with her today when I went in to offer a prayer with Linda and her kids. The children are all very supportive and telling Linda how much she is loved, and how she will be reunited with family members after she dies. Linda had several seconds between breaths while we were praying with her. Family members continue to be by the bedside, following protocols for gowning. I do not usually go into rooms with COVID positive patients, but did today as it was a request of all of Linda's children. Plans had been in place for Linda to return home, but it appears now that she will stay here for end of life care.
--- NOTE | 2023-04-02 17:49 | CMPROGNOTE_ITS ---
Date of service: 04/02/23 Time of Service: 17:49 Care Management Progress Note Progress Note Text Progress Note Text: S/O: Linda transitioned back to hospice service today, and is currently on hospice respite. Per report, she is actively dying and will remain at [facility] for end of life care. Her family has been visiting consistently, and following guidelines for covid precautions. CM will continue to follow. A: Linda is a 77 year old female admitted to [facility] on 03/31/23, transitioned to hospice respite on 04/02/23. P: Linda is at [facility] for hospice respite, and will likely remain at [facility] for end of life care. Her family has been visiting, following covid precautions as directed. CM will continue to support Linda and her family during this difficult time.
[2023-04-03 00:14] VITALS: TEMP 37.2
[2023-04-03] MEDS: Scopolamine 1 MG/3 DAYS PATCH TD (07:42)
--- NOTE | 2023-04-03 09:51 | W.PM.PROGNOT ---
Date of Service Date of service: 04/03/23 Time of Service: 09:51 Objective Last Vital Signs Temp 37.2 C 04/03/23 00:14
--- NOTE | 2023-04-03 12:06 | NUR.NOTE ---
Pt nurse came to me and said the family was requesting pt medication be given to them. After calling the pharmacy, it was determined that several OTC medications were being held there. Those medications were brought to us and returned to the family. Two prescription medications, celexa and synthroid were being held in the medication cart on the floor. Per the smokehouse worker, Ronel Stahl and risk managment, Zachariah Sepulveda-the family has the right to receive pt medications, even when the patient isn't discharging from the hosptial r/t Hospice/comfort status. This nurse let the patient's nurse know and ALL medications were returned to the family.
--- NOTE | 2023-04-03 14:05 | PGE_ITS ---
Date of Service Date of service: 04/03/23 Time of Service: 11:00 Assessment and Plan Assessment and plan (1) COVID: Status: Acute Assessment and plan: This will be the cause of Linda's when she dies, which is expected to be in the next few hours to days. I doubt that she will live through the weekend, but will see. (2) Hospice care patient: Status: Acute Assessment and plan: On respite care. Does NOT NEED TO BE SEEN daily over the weekend. Dr Garcia is covering and will come in IF NEEDED. Otherwise, will be seen by hospice staff next Thursday, 04/07, if she lives that long. (3) DNR (do not resuscitate): Status: Acute Assessment and plan: Has both COLST and AD. (4) Stress due to family tension: Status: Chronic Assessment and plan: Caregiver daughter Zhanna Burr has long history of chronic mental illness, per family report. She is struggling very much with her mother's dying. Other family members trying to help her come to terms with their mother's loss. Mother herself, Linda the patient, looks comfortable during my visits. Reminded family that his is the most important thing to remember. 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 Long standing. Has required someone else to care for her 15/12 for 3 + years now. , from whom she is , wasn't able/didn't want to provide this care. Zhanna took over caregiver role. (6) Brain atrophy: Status: Chronic Assessment and plan: Long standing. Part of her dementia diagnosis. Subjective Subjective Patient reports: no bowel movement, shortness of breath and fever; denies tolerating a regular diet Interval history since last seen: Linda looked comfortable during my visit. Her PPS is 10%. She is actively dying. Her 4 children and one daughter in law are around her bedside. One daughter is struggling with her mother's particularly. She has episodes when she has great conflict with the [facility] staff and demands that her mother be actively treated for her COVID infection. Linda did receive one dose of antivirals, and then the family changed their mind and went back on respite level hospice care. She is on RESPITE CARE as her caregivers are too sick to care for her at home. One daughter had neck surgery less than a week ago and is not allowed to lift or do hands-on care; the other daughter still has residual covid and is coughing and sob chronically. The two sons are not comfortable as hands-on caregivers. Exam Narrative Exam Narrative: Elderly slender woman, minimally responsive, eyes open and glazed, with ptosis vs rr 10 O2 sat 85%-90, on 2L Eyes no discharge heent mmm neck no lad or jvd lungs decreased air movement in all lung webster heart regular, no murmur noted, heart sounds very quiet abd slender, soft, no masses ext no cyanosis or edema but hands and feet are cool now, new skin no obvious rashes, one small stage 1 ulcer on buttock psych minimally responsive neuro minimally responsive gu no conde in place, making very little urine Psych Mental Status: other Speech and Movement: mute and other Mood: other Affect: blunted Objective Last Vital Signs Temp 99.0 F 04/03/23 00:14 Time Spent with Patient Time Spent with Patient: >50 minutes Time was spent: preparing to see the patient(eg.review tests), obtaining and/or reviewing separately otained hiistory, referring, communicating with other health hospice care transitions coordinator, counseling the patient (family) and care coordination
--- NOTE | 2023-04-03 16:56 | PDOC.CMPRO ---
Date of service: 04/03/23 Time of Service: 16:56 Care Management Progress Note Progress Note Text Progress Note Text: S/O: Linda remains on comfort measures, at [facility] for end of life care. Per report, her daughter, Zhanna, was wavering about the plan today, but after discussing the situation with Dr. Cardoso, she understands that her mother appears to be actively dying, therefore it will not benefit her to change the plan at this time. The family are supporting each other, and have been visiting consistently. CM will continue to follow. A: Linda is a 77 year old female admitted to [facility] on 03/31/23, transitioned to hospice respite on 04/02/23. P: Linda is at [facility] for hospice respite, and will likely remain at [facility] for end of life care. Her family has been visiting, following covid precautions as directed. CM will continue to support Linda and her family during this difficult time.
[2023-04-04] MEDS: LORazepam 2 MG/ML VIAL IV/SC ×3 (13:32→20:39)
[2023-04-04] MEDS: Normal Saline Flush 10 ML SYR IVP (20:40)
[2023-04-05 07:40] VITALS: PULSE 85; RESP 16
--- NOTE | 2023-04-05 08:58 | NUR.NOTE ---
Nursing Note: At approximately 0840 on 04/05/23, this RN was in the pt.'s room performing mouth care and skin care on the pt. and while standing at the pt.'s bedside performing this care, the pt.'s daughter stated, I'm not sure if I made the right decision. I'm just not sure. But I guess I didn't really get to make the decision. They made it for me. I really think that she could have gone home. Pt.'s daughter noted to be tearful and holding the pt.'s hand while making these statements. RN informed the pt.'s daughter that it can be difficult to accept decisions regarding end of life care and to accept that this part of a person's journey is happening. RN informed the pt.'s daughter that this RN would do the best that they could to keep the pt. comfortable while on shift today. Pt.'s daughter verbalized understanding and thanked this RN for the care they were providing. Pt.'s daughter then stated again, I just really think she could have gone home. But then again, I have to remember that she didn't have a good quality of life at home. This is the best place for her right now. RN validated the pt.'s daughter's feelings of anxiety, grief, and uncertainty. RN again informed the pt.'s daughter that nursing staff would do their best to keep the pt. comfortable. Pt.'s daughter verbalized understanding and was then noted to be talking to the pt. and telling the pt. that it was ok to go and that they would all be ok here. RN then informed the pt.'s daughter that they would be back later on to check on the pt. again and then left the pt.'s room.
--- NOTE | 2023-04-05 09:37 | W.PM.PROGNOT ---
Date of Service Date of service: 04/05/23 Time of Service: 09:37 Assessment and Plan Assessment and plan (1) Dry eye: Status: Acute Assessment and plan: Agree with nursing evaluation of dry/irritated eyes .. trial Artificial Tears/Refresh as per d/w pharm. Ordered. Objective Last Vital Signs Temp 99.0 F 04/03/23 00:14 Pulse 85 04/05/23 07:40 Resp 16 04/05/23 07:40 Time Spent with Patient Time Spent with Patient: <25 minutes Time was spent: obtaining and/or reviewing separately otained hiistory and ordering medications,tests, procedures
[2023-04-05] MEDS: Refresh PLUS Eye Drops 0.4ml 1 EACH OU (10:09)
[2023-04-05] MEDS: LORazepam 2 MG/ML VIAL IV/SC (11:25)
[2023-04-05] MEDS: Normal Saline Flush 10 ML SYR IVP (11:26)
[2023-04-06] MEDS: LORazepam 2 MG/ML VIAL IV/SC ×3 (04:15→07:35)
[2023-04-06] MEDS: Refresh PLUS Eye Drops 0.4ml 1 EACH OU (07:34)
[2023-04-06] MEDS: Scopolamine 1 MG/3 DAYS PATCH TD (07:35)
--- NOTE | 2023-04-06 11:04 | PDOC.CMPRO ---
Date of service: 04/06/23 Time of Service: 11:04 Care Management Progress Note Progress Note Text Progress Note Text: S/O: A: Linda is a 77 year old female admitted to [facility] on 03/31/23, transitioned to hospice respite on 04/02/23. P: Linda is at [facility] for hospice respite, and will likely remain at [facility] for end of life care. Her family has been visiting, following covid precautions as directed. will continue to support Linda and her family during this difficult time.
== END 2023-04-06 09:15 | disposition expired | DRG 178 ==
PROVIDERS: Admitting Provider Family Medicine; PCP Family Medicine; Visit Provider Family Medicine
DX: U07.1 COVID-19 (principal); F01.52 Vascular dementia, unspecified severity, with psychotic disturbance; F02.82 Dementia in other diseases classified elsewhere, unspecified severity, with psychotic disturbance; Z51.5 Encounter for palliative care; Z66 Do not resuscitate; G30.9 Alzheimer's disease, unspecified; R63.4 Abnormal weight loss; R26.81 Unsteadiness on feet; R13.10 Dysphagia, unspecified; F32.A Depression, unspecified; F40.00 Agoraphobia, unspecified; R32 Unspecified urinary incontinence; R15.9 Full incontinence of feces; Z91.83 Wandering in diseases classified elsewhere; K59.01 Slow transit constipation; D64.9 Anemia, unspecified; R53.83 Other fatigue; G31.9 Degenerative disease of nervous system, unspecified; I10 Essential (primary) hypertension; E55.9 Vitamin D deficiency, unspecified; E03.9 Hypothyroidism, unspecified; F17.210 Nicotine dependence, cigarettes, uncomplicated; H04.123 Dry eye syndrome of bilateral lacrimal glands
CPT/HCPCS: J2060; J2270